=== PATIENT | male | born 1935 | race African-American/Black ===

== ENCOUNTER 2018-01-01 17:43 | Inpatient (IN) | payer MEDICARE, OTHER ==
[2018-01-01 19:56] LABS: % BASOPHILS 0.2 % (0.0-2.0); % MONOCYTES 10.6 % (2.0-10.0); % NEUTROPHILS 60.2 % (40.0-80.0); EOSINOPHILE ABSOLUTE 0.2 Th/cmm (0.1-0.4); HEMATOCRIT 32.7 % (41.0-60); LYMPHOCYTE ABSOLUTE 1.5 Th/cmm (1.5-3.0); MEAN CELL VOLUME 89.7 fl (80-99); MEAN CORPUSCULAR HEMOGLOBIN 27.6 pg (27.0-31.0); MEAN CORPUSCULAR HGB CONC 30.7 pg (28.0-36.0); MEAN PLATELET VOLUME 8.8 fl; MONOCYTE ABSOLUTE 0.6 Th/cmm (0.3-1.0); NEUTROPHILE ABSOLUTE 3.3 Th/cmm (1.8-8.0); PLATELET COUNT 155 Th/cmm (150-400); RED BLOOD COUNT 3.64 Mil/cmm (3.80-5.80); RED CELL DISTRIBUTION WIDTH 15.3 % (11.5-20.0); WHITE BLOOD COUNT 5.6 Th/cmm (4.8-10.8)
[2018-01-01 20:15] LABS: URINE MICROSCOPIC INDICATED? YES; URINE SOURCE RANDOM
[2018-01-01 20:15] LABS: ALB/GLOB RATIO 0.8 (1.0-1.8); ALKALINE PHOSPHATASE 71 U/L (34-104); ANION GAP 14.4 (7.0-16.0); BILIRUBIN,TOTAL 0.3 mg/dL (0.3-1.0); BUN - UREA NITROGEN 28 mg/dL (7-25); CALCIUM SERUM 8.6 mg/dL (8.6-10.3); CARBON DIOXIDE 12.4 mEq/L (21.0-31.0); CHLORIDE 115 mEq/L (98-107); CREATININE - SERUM 1.3 mg/dL (0.7-1.3); GLUCOSE 101 mg/dL (70-105); POTASSIUM SERUM 3.8 mEq/L (3.5-5.1); SGOT 14 U/L (13-39); SGPT/ALT 7 U/L (7-52); SODIUM SERUM 138 mEq/L (136-145)
[2018-01-01 20:18] LABS: URINE BILIRUBIN NEGATIVE (NEGATIVE); URINE BLOOD NEGATIVE (NEGATIVE); URINE GLUCOSE (UA) NEGATIVE (NEGATIVE); URINE KETONE NEGATIVE (NEGATIVE); URINE LEUKOCYTE ESTERASE NEGATIVE (NEGATIVE); URINE NITRATE NEGATIVE (NEGATIVE); URINE PROTEIN NEGATIVE (NEGATIVE); URINE UROBILINOGEN 0.2 E.U./dL (0.2 - 1.0)
[2018-01-01 20:24] LABS: URINE CLARITY CLEAR (CLEAR); URINE COLOR YELLOW
[2018-01-01 20:25] LABS: URINE BACTERIA NONE SEEN /hpf (NONE SEEN); URINE EPITHELIAL CELLS NONE SEEN /lpf (FEW); URINE RBC NONE SEEN /hpf (0-5); URINE WBC NONE SEEN /hpf (0-5)
--- NOTE | 2018-01-01 21:17 | ED Physician Chart ---
ED Chief Complaint/HPI - Patient Information Date Seen:: 01/01/18 Time Seen:: 21:17 Chief Complaint:: Increased agitation History of Present Illness:: 83 yo male was brought from SNF to ER for evaluation of increased agitation and confusion. Allergies:: Allergies Allergy/AdvReac Type Severity Reaction Status Date / Time No Known Allergies Allergy Verified 01/01/18 17:46 Vitals:: Vital Signs - 8 hr 01/01/18 01/01/18 01/01/18 17:46 19:30 20:30 Temp 98.1 F 98.2 F 98.2 F HR 86 98 96 RR 17 20 18 BP 138/74 132/79 133/67 O2 Sat % 96 99 100 ED Review of Systems - Review of Systems General/Constitutional: No fever Skin: No rash Head: No headache Eyes: No pain ENT: No earache Neck: No neck pain Cardio Vascular: No chest pain Pulmonary: No SOB GI: No nausea, No vomiting Musculoskeletal: No bone or joint pain Neurological: No focal symptoms ED Past Medical History - Past Medical History Past Medical History: HTN, Dyslipidemia, PUD/GERD, Dementia, Other (PNA, Afib) Social History: Smoker, No Alcohol, No Drug Use Psychiatricy History: Other (anxiety) Family Medical History - Family Member Mother History Unknown: Yes ED Physical Exam - Physical Examination General/Constitutional: Awake Head: Atraumatic Eyes: PERRL Skin: No skin lesions ENMT: Nasal exam nl Neck: No nuchal rigidity Respiratory: No Wheeze/Rhonchi/Rales Cardio Vascular: RRR, No murmur, gallop, rubs, NL S1 S2 GI: No tenderness/rebounding/guarding Extremities: normal strength in all extremities Neuro/Psych: No focal deficits ED Labs/Radiology/EKG Results - Lab Results Results: Laboratory Tests 01/01/18 01/01/18 01/01/18 18:44 19:50 19:50 WBC 5.6 RBC 3.64 L Hgb 10.0 L Hct 32.7 L MCV 89.7 MCH 27.6 MCHC Differential 30.7 RDW 15.3 Plt Count 155 MPV 8.8 Neutrophils % 60.2 Lymphocytes % 26.0 Monocytes % 10.6 H Eosinophils % 3.0 Basophils % 0.2 Sodium 138 Potassium 3.8 Chloride 115 H Carbon Dioxide 12.4 L Anion Gap 14.4 BUN 28 H Creatinine 1.3 Est GFR ( Amer) TNP Est GFR (Non-Af Amer) TNP BUN/Creatinine Ratio 21.5 Glucose 101 Calcium 8.6 Total Bilirubin 0.3 AST 14 ALT 7 Alkaline Phosphatase 71 Total Protein 7.0 Albumin 3.0 L Globulin 4.0 Albumin/Globulin Ratio 0.8 L Urine Source RANDOM Urine Color YELLOW Urine Clarity CLEAR Urine pH 6.0 Ur Specific Mckean 1.015 Urine Protein NEGATIVE Urine Glucose (UA) NEGATIVE Urine Ketones NEGATIVE Urine Blood NEGATIVE Urine Nitrate NEGATIVE Urine Bilirubin NEGATIVE Urine Urobilinogen 0.2 Ur Leukocyte Esterase NEGATIVE Urine RBC NONE SEEN Urine WBC NONE SEEN Ur Epithelial Cells NONE SEEN Urine Bacteria NONE SEEN - Radiology Results Results: CXR: RLL opacity secondary to previous embolization procedure ED Assessment - Assessment General Assessment: Psychosis Normocytic anemia Assessment/Comments:: CBC, CMP, UA CXR, EKG ED Septic Shock - . Is Septic Shock (SBP<90, OR Lactate>4 mmol\L) present?: No - <6hrs of presentation: Vital Signs: Vital Signs - 8 hr 01/01/18 01/01/18 01/01/18 17:46 19:30 20:30 Temp 98.1 F 98.2 F 98.2 F HR 86 98 96 RR 17 20 18 BP 138/74 132/79 133/67 O2 Sat % 96 99 100 ED Reassessment (Disposition) - Reassessment Reassessment Condition:: Unchanged - Patient Disposition Discharge/Transfer:: Cole w/in this hosp Admitting Medical Physician:: Adriana Yates Admitting Psych Physician:: Maile Marsh ED Discharge Plan - Patient Disposition Admit/Discharge/Transfer: Acute Care w/in this hosp
[2018-01-02 00:06] VITALS: BP 120/65
[2018-01-02] MEDS ORDERED: Maalox 30 mL Cup PO PRN (01:36)
[2018-01-02] MEDS ORDERED: Magnesium Hydroxide (MOM) 30 mL UDC PO PRN (01:36)
[2018-01-02] MEDS: Albuterol/Ipratropium Neb 3 ML AERS HHN SCH ×3 (07:28→23:44)
[2018-01-02] MEDS ORDERED: Pantoprazole 40 mg EC Tab PO SCH ×2 (07:30→09:00)
--- NOTE | 2018-01-02 08:59 | Diagnostic Imaging Report ---
CHEST X-RAY: AP view INDICATION: Shortness of breath COMPARISON: None FINDINGS: Abnormal opacity of the right lower lung zone is seen. There appear to be evidence of previous embolization procedure along the right lower hemithorax. Chronic lung changes are noted. Cardiomegaly is noted with tortuous aorta. Degenerative changes of the spine are noted. Right apical pleural thickening is noted. IMPRESSION: Abnormal opacity of the right lower lung zone probably due to combination of pleural and parenchymal disease. Some of which may be chronic. Please correlate with clinical history and old exams. Acute infiltrate cannot be excluded. Follow-up is recommended Right apical pleural thickening. Again correlation with old exams recommended Evidence of previous right lung embolization procedure. Mild cardiomegaly. If indicated short-term follow-up CT exam would provide additional detail and assessment.
[2018-01-02] MEDS: Atenolol 100mg Tab PO SCH (10:00)
[2018-01-02] MEDS: Diltiazem CD 120 mg 24H PO SCH (10:00)
[2018-01-02] MEDS: Aspirin 81mg Chewable Tab PO SCH (10:00)
--- NOTE | 2018-01-02 17:30 | History & Physical ---
ADMIT DATE: 01/02/2018 CHIEF COMPLAINT: Agitation. HISTORY OF PRESENT ILLNESS: This is an 82-year-old male who was originally admitted from a long-term facility through the Emergency Room due to increased agitation. REVIEW OF SYSTEMS: GENERAL: This is an 82-year-old male that appears as stated. No fever, no chills. HEAD: No headache. No dizziness. EYES: No eye pain, no blurring of vision. NECK: No neck pain, no nuchal rigidity. CHEST: No chest pain. No palpitation. PULMONARY: No coughing. No shortness of breath. GASTROINTESTINAL: No constipation, no diarrhea, no abdominal pain. MUSCULOSKELETAL: No joint pain. No muscle pain. SOCIAL HISTORY: The patient lives in a long-term facility prior to hospitalization. PAST SURGICAL HISTORY: Unremarkable. FAMILY HISTORY: Unremarkable. PSYCHIATRIC HISTORY: Includes anxiety. PAST MEDICAL HISTORY: Includes hypertension, hyperlipidemia, dementia, gastroesophageal reflux disease, and osteoarthritis. PHYSICAL EXAMINATION: VITAL SIGNS: Temperature 97.7, heart rate 75, blood pressure 148/86, respiration of 18, and 97% on room air. HEENT: Head is atraumatic and normocephalic. ENT: Bilateral conjunctivae are clear. Bilateral pupils are equal, round, and reactive. NECK: Supple. No JVD. CARDIOVASCULAR: S1 and S2 without murmur. PULMONARY: Clear to auscultation. GASTROINTESTINAL: Soft and nontender without guarding. Positive bowel sounds. MUSCULOSKELETAL: No clubbing. No cyanosis noted. ASSESSMENT: 1. Psychosis. 2. Anxiety. 3. Dementia. 4. Hypertension. 5. Hyperlipidemia. 6. Osteoarthritis. 7. Gastroesophageal reflux disease. PLAN: We will admit the patient to Inpatient Psychiatric Unit. We will follow up with the psychiatrist to monitor the patient's condition and behavior. We also can do medication reconciliation accordingly. Treatment plans were discussed with the patient's nurse. Treatment plans were discussed with Dr. Yates. JOB# [id number]
--- NOTE | 2018-01-03 00:15 | Psychosocial Evaluation ---
DATE OF SERVICE: INITIAL PSYCHIATRIC EVALUATION COVERING FOR: Dr. Marsh. CHIEF COMPLAINT: Limited historian, does not give much information. HISTORY OF PRESENT ILLNESS: The patient is an 82-year-old male who was brought in here to the ER for increased agitation, medically cleared and transferred. Today on [id number] evaluation, a limited historian, does not give much information, observed to be at times disorganized and not able to keep a coherent conversation. Denies any suicidal or homicidal ideation. PAST PSYCHIATRIC HISTORY: History of dementia. PAST MEDICAL HISTORY: Includes acute renal failure, ____, AFib, essential hypertension, type 2 diabetes, anemia, muscle weakness, hypertension and blindness. LABORATORY DATA: Labs from the ER very unremarkable. FAMILY PSYCHIATRIC HISTORY: None. SOCIAL HISTORY: Living in a fci. Denies any illicit drug use. HOME MEDICATIONS: Include levofloxacin, pantoprazole, heparin, Tylenol, aspirin, diltiazem, ____, and albuterol. and albuterol. MENTAL STATUS EXAMINATION: He is in room, in his bed, isolative, withdrawn, minimally interactive. Unable to assess thought process, thought content, [id number] insight, judgment and impulse control. ASSESSMENT AND PLAN: The patient with severe dementia and behavioral disturbances. We will continue with the current medication regimen and augment with Aricept to target the patient's severe dementia with behavior disturbances and we will monitor and evaluate until we obtain more collateral baseline information. Estimated stay between 5-10 days. DISCHARGE CRITERIA: The patient demonstrate euthymic mood. Addendum to the H and P, unable to assess immediate and recent memory, attention span ____ severely mentally impaired and unable to participate. STRENGTH: Good family support. WEAKNESS: Poor coping skills. JOB# [id number]
[2018-01-03] MEDS: Albuterol/Ipratropium Neb 3 ML AERS HHN SCH ×2 (07:16→15:26)
--- NOTE | 2018-01-03 08:55 | General Progress Note ---
Subjective - Review of Systems Events since last encounter: irritable in no acute distress Objective - Results Result Diagrams: 01/01/18 19:50 01/01/18 19:50 Recent Labs: Laboratory Last Values WBC 5.6 Th/cmm (4.8-10.8) 01/01/18 19:50 RBC 3.64 Mil/cmm (3.80-5.80) L 01/01/18 19:50 Hgb 10.0 gm/dL (12-16) L 01/01/18 19:50 Hct 32.7 % (41.0-60) L 01/01/18 19:50 MCV 89.7 fl (80-99) 01/01/18 19:50 MCH 27.6 pg (27.0-31.0) 01/01/18 19:50 MCHC Differential 30.7 pg (28.0-36.0) 01/01/18 19:50 RDW 15.3 % (11.5-20.0) 01/01/18 19:50 Plt Count 155 Th/cmm (150-400) 01/01/18 19:50 MPV 8.8 fl 01/01/18 19:50 Neutrophils % 60.2 % (40.0-80.0) 01/01/18 19:50 Lymphocytes % 26.0 % (20.0-50.0) 01/01/18 19:50 Monocytes % 10.6 % (2.0-10.0) H 01/01/18 19:50 Eosinophils % 3.0 % (0.0-5.0) 01/01/18 19:50 Basophils % 0.2 % (0.0-2.0) 01/01/18 19:50 Sodium 138 mEq/L (136-145) 01/01/18 19:50 Potassium 3.8 mEq/L (3.5-5.1) 01/01/18 19:50 Chloride 115 mEq/L (98-107) H 01/01/18 19:50 Carbon Dioxide 12.4 mEq/L (21.0-31.0) L 01/01/18 19:50 Anion Gap 14.4 (7.0-16.0) 01/01/18 19:50 BUN 28 mg/dL (7-25) H 01/01/18 19:50 Creatinine 1.3 mg/dL (0.7-1.3) 01/01/18 19:50 Est GFR ( Amer) TNP 01/01/18 19:50 Est GFR (Non-Af Amer) TNP 01/01/18 19:50 BUN/Creatinine Ratio 21.5 01/01/18 19:50 Glucose 101 mg/dL (70-105) 01/01/18 19:50 Calcium 8.6 mg/dL (8.6-10.3) 01/01/18 19:50 Total Bilirubin 0.3 mg/dL (0.3-1.0) 01/01/18 19:50 AST 14 U/L (13-39) 01/01/18 19:50 ALT 7 U/L (7-52) 01/01/18 19:50 Alkaline Phosphatase 71 U/L (34-104) 01/01/18 19:50 Total Protein 7.0 gm/dL (6.0-8.3) 01/01/18 19:50 Albumin 3.0 gm/dL (4.2-5.5) L 01/01/18 19:50 Globulin 4.0 gm/dL 01/01/18 19:50 Albumin/Globulin Ratio 0.8 (1.0-1.8) L 01/01/18 19:50 TSH 0.90 uIU/ml (0.34-5.60) 01/01/18 20:58 Urine Source RANDOM 01/01/18 18:44 Urine Color YELLOW 01/01/18 18:44 Urine Clarity CLEAR (CLEAR) 01/01/18 18:44 Urine pH 6.0 (4.6 - 8.0) 01/01/18 18:44 Ur Specific Rattan 1.015 (1.005-1.030) 01/01/18 18:44 Urine Protein NEGATIVE mg/dL (NEGATIVE) 01/01/18 18:44 Urine Glucose (UA) NEGATIVE mg/dL (NEGATIVE) 01/01/18 18:44 Urine Ketones NEGATIVE mg/dL (NEGATIVE) 01/01/18 18:44 Urine Blood NEGATIVE (NEGATIVE) 01/01/18 18:44 Urine Nitrate NEGATIVE (NEGATIVE) 01/01/18 18:44 Urine Bilirubin NEGATIVE (NEGATIVE) 01/01/18 18:44 Urine Urobilinogen 0.2 E.U./dL (0.2 - 1.0) 01/01/18 18:44 Ur Leukocyte Esterase NEGATIVE (NEGATIVE) 01/01/18 18:44 Urine RBC NONE SEEN /hpf (0-5) 01/01/18 18:44 Urine WBC NONE SEEN /hpf (0-5) 01/01/18 18:44 Ur Epithelial Cells NONE SEEN /lpf (FEW) 01/01/18 18:44 Urine Bacteria NONE SEEN /hpf (NONE SEEN) 01/01/18 18:44 - Physical Exam Vitals and I&O: Vital Signs Temp 97.7 F 01/02/18 15:06 Pulse 72 01/03/18 07:19 Resp 18 01/03/18 07:19 BP 148/86 01/02/18 15:06 Pulse Ox 96 01/03/18 07:19 Intake & Output 01/02/18 01/03/18 01/03/18 18:59 06:59 18:59 Intake Total 900 Balance 900 Intake: Oral 900 Other: # Voids 3 # Bowel Movements 1 Active Medications: Current Medications Acetaminophen (Tylenol) 650 mg PO Q4HR PRN PRN Reason: Mild Pain / Temp above 100 Stop: 03/03/18 01:35 Al Hydrox/Mg Hydrox/Simethicone (Maalox) 30 ml PO Q4HR PRN PRN Reason: GI DISTRESS Stop: 03/03/18 01:35 Albuterol/Ipratropium (Duoneb Neb) 3 ml HHN Q8HRT [facility] Stop: 03/03/18 06:59 Last Admin: 01/03/18 07:16 Dose: 3 ml Aspirin (Aspirin Chewable) 81 mg PO DAILY [facility] Stop: 03/03/18 08:59 Last Admin: 01/02/18 10:00 Dose: 81 mg Atenolol (Tenormin) 100 mg PO DAILY [facility] Stop: 03/03/18 08:59 Last Admin: 01/02/18 10:00 Dose: 100 mg Atorvastatin Calcium (Lipitor) 40 mg PO DAILY [facility] Stop: 03/03/18 08:59 Last Admin: 01/02/18 10:06 Dose: 40 mg Diltiazem HCl (Cardizem Cd) 120 mg PO DAILY [facility] Stop: 03/03/18 08:59 Last Admin: 01/02/18 10:00 Dose: 120 mg Donepezil HCl (Aricept) 5 mg PO DAILY [facility] Stop: 03/04/18 08:59 Heparin Sodium (Porcine) (Heparin) 5,000 units SUBQ Q12HR [facility] Stop: 03/03/18 08:59 Last Admin: 01/02/18 21:40 Dose: 5,000 units Levofloxacin (Levaquin) 250 mg PO DAILY [facility] Stop: 01/04/18 08:59 Last Admin: 01/02/18 10:06 Dose: 250 mg Lorazepam (Ativan) 0.5 mg PO Q4HR PRN; Protocol PRN Reason: Anxiety Stop: 02/01/18 01:35 Magnesium Hydroxide (Milk Of Magnesia) 30 ml PO HS PRN PRN Reason: Constipation Pantoprazole Sodium (Protonix) 40 mg PO DAILY@0730 [facility] Stop: 03/03/18 07:29 Last Admin: 01/03/18 06:54 Dose: 40 mg Zolpidem Tartrate (Ambien) 5 mg PO HS PRN PRN Reason: Insomnia Stop: 03/03/18 01:40
[2018-01-03] MEDS: Diltiazem CD 120 mg 24H PO SCH (09:38)
[2018-01-03] MEDS: Aspirin 81mg Chewable Tab PO SCH (09:38)
[2018-01-03] MEDS: Atenolol 100mg Tab PO SCH (09:39)
--- NOTE | 2018-01-03 18:46 | Progress Notes ---
DATE: The patient was seen and evaluated. The patient's chart reviewed. Overnight nursing report that they have noted hemoptysis recently and he has been calm, little more irritable, and more agitated. Today on [id number] evaluation, the patient in his room isolated, disorganized with poor ability to engage in linear conversation. When attempted to discuss the recent hemoptysis, he does not give much information. MENTAL STATUS EXAMINATION: Disorganized delusion. ASSESSMENT AND PLAN: An 82-year-old male with a history of severe dementia with behavior disturbance, psychosis. We are waiting for medical consultation to come and evaluate the recent especially if he has a history of lung cancer. Due to the patient's severe dementia and behavioral disturbances, the patient is unable to demonstrate ability to provide food, snf or clothing outside of the structured environment. We will continue with Aricept 5 mg p.o. daily. [facility]# [id number]
== END 2018-01-03 21:50 | DRG 884 ==
LOC: ER 17:43 → GERO2 22:36
PROVIDERS: ADMIT Psychiatry & Neurology Psychiatry; ATTEND Psychiatry & Neurology Psychiatry
DX: F03.91 Unspecified dementia, unspecified severity, with behavioral disturbance (principal); I48.91 Unspecified atrial fibrillation; E11.9 Type 2 diabetes mellitus without complications; F29 Unspecified psychosis not due to a substance or known physiological condition; I10 Essential (primary) hypertension; F41.9 Anxiety disorder, unspecified; E78.5 Hyperlipidemia, unspecified; K21.9 Gastro-esophageal reflux disease without esophagitis; M19.90 Unspecified osteoarthritis, unspecified site
CPT/HCPCS: 36415-UA; 71045-TC; 80053-TC; 81001-TC; 82948-90; 84443-TC; 85025-TC; 93005; 94760; J1644; Z7610

== ENCOUNTER 2018-01-03 22:08 | Inpatient (IN) | payer MEDICARE, OTHER ==
[2018-01-03 22:18] VITALS: BP 148/60
[2018-01-03] MEDS: Levofloxacin 250mg/50mL 250 MG/50 ML BAG IV SCH (23:56)
[2018-01-04] MEDS ORDERED: Maalox 30 mL Cup PO PRN (08:06)
[2018-01-04] MEDS ORDERED: Magnesium Hydroxide (MOM) 30 mL UDC PO PRN (08:06)
[2018-01-04] MEDS: Pantoprazole 40 mg EC Tab PO SCH (10:24)
[2018-01-04] MEDS: Diltiazem CD 120 mg 24H PO SCH (10:24)
[2018-01-04] MEDS: Aspirin 81mg Chewable Tab PO SCH (10:24)
[2018-01-04] MEDS: Atenolol 100mg Tab PO SCH (10:26)
[2018-01-04 12:27] LABS: % BASOPHILS 0.4 % (0.0-2.0); % EOSINOPHILS 3.1 % (0.0-5.0); % LYMPHOCYTES 22.2 % (20.0-50.0); % MONOCYTES 12.4 % (2.0-10.0); % NEUTROPHILS 61.9 % (40.0-80.0); EOSINOPHILE ABSOLUTE 0.2 Th/cmm (0.1-0.4); HEMOGLOBIN 9.7 gm/dL (12-16); LYMPHOCYTE ABSOLUTE 1.1 Th/cmm (1.5-3.0); MEAN CELL VOLUME 86.2 fl (80-99); MEAN CORPUSCULAR HEMOGLOBIN 27.7 pg (27.0-31.0); MEAN CORPUSCULAR HGB CONC 32.2 pg (28.0-36.0); MEAN PLATELET VOLUME 8.5 fl; MONOCYTE ABSOLUTE 0.6 Th/cmm (0.3-1.0); NEUTROPHILE ABSOLUTE 3.2 Th/cmm (1.8-8.0); RED BLOOD COUNT 3.48 Mil/cmm (3.80-5.80); RED CELL DISTRIBUTION WIDTH 14.6 % (11.5-20.0); WHITE BLOOD COUNT 5.1 Th/cmm (4.8-10.8)
--- NOTE | 2018-01-04 12:29 | Internal Medicine Prog Note ---
Internal Medicine Subjective - Subjective Service Date: 01/04/18 Patient seen and examined:: with staff Patient is:: awake, verbal, confused Per staff patient has:: tolerating meds Internal Medicine Objective - Physical Exam Vitals and I&O: Vital Signs Temp 98.8 F 01/04/18 04:00 Pulse 73 01/04/18 10:24 Resp 18 01/04/18 09:26 BP 153/75 01/04/18 04:00 Pulse Ox 99 01/04/18 04:00 Intake & Output 01/03/18 01/04/18 01/04/18 18:59 06:59 18:59 Intake Total 100 Balance 100 Weight (lbs) 101 lb 14.4 oz Intake: Oral 100 Other: # Voids 1 # Bowel Movements 1 Active Medications: Current Medications Acetaminophen (Tylenol) 650 mg PO Q4HR PRN PRN Reason: Mild Pain / Temp above 100 Stop: 03/05/18 08:05 Al Hydrox/Mg Hydrox/Simethicone (Maalox) 30 ml PO Q4HR PRN PRN Reason: GI DISTRESS Stop: 03/05/18 08:05 Albuterol/Ipratropium (Duoneb Neb) 3 ml HHN Q8HRT [facility] Stop: 03/05/18 14:59 Aspirin (Aspirin Chewable) 81 mg PO DAILY [facility] Stop: 03/05/18 08:59 Last Admin: 01/04/18 10:24 Dose: 81 mg Atenolol (Tenormin) 100 mg PO DAILY [facility] Stop: 03/05/18 08:59 Last Admin: 01/04/18 10:26 Dose: 100 mg Atorvastatin Calcium (Lipitor) 40 mg PO DAILY [facility] PRN Reason: Protocol Stop: 03/05/18 08:59 Last Admin: 01/04/18 10:24 Dose: 40 mg Diltiazem HCl (Cardizem Cd) 120 mg PO DAILY [facility] Stop: 03/05/18 08:59 Last Admin: 01/04/18 10:24 Dose: 120 mg Donepezil HCl (Aricept) 5 mg PO DAILY [facility] Stop: 03/05/18 08:59 Last Admin: 01/04/18 10:25 Dose: 5 mg Heparin Sodium (Porcine) (Heparin) 5,000 units SUBQ Q12HR [facility] Stop: 04/27/18 08:59 Levofloxacin (Levaquin Pb) 250 mg in 50 mls @ 50 mls/hr IV Q24HR [facility] Stop: 03/04/18 22:59 Last Admin: 01/03/18 23:56 Dose: 50 mls/hr Lorazepam (Ativan) 0.5 mg PO Q4HR PRN; Protocol PRN Reason: Anxiety Stop: 03/05/18 08:05 Magnesium Hydroxide (Milk Of Magnesia) 30 ml PO HS PRN PRN Reason: Constipation Stop: 03/05/18 08:05 Pantoprazole Sodium (Protonix) 40 mg PO DAILY@0730 [facility] Stop: 03/05/18 08:59 Last Admin: 01/04/18 10:24 Dose: 40 mg Zolpidem Tartrate (Ambien) 5 mg PO HS PRN PRN Reason: Insomnia Stop: 03/05/18 08:05 General: weak, alert HEENT: NC/AT, PERRLA Neck: Supple Lungs: ronchi Abdomen: soft, non-tender, non-distended, positive bowel sound Neurological: unable to follow command Internal Medicine Assmt/Plan - Assessment Assessment: pneumonia dementia htn hyperlipidemia oa gerd - Plan Plan: f/u cxr in am cbc/bmp in am bronchodilators supplemental oyxgen as needed continue current orders
[2018-01-04 12:32] LABS: PLATELET COUNT 216 Th/cmm (150-400)
[2018-01-04 12:46] LABS: ANION GAP 11.5 (7.0-16.0); BUN - UREA NITROGEN 24 mg/dL (7-25); CALCIUM SERUM 9.3 mg/dL (8.6-10.3); CHLORIDE 111 mEq/L (98-107); CREATININE - SERUM 1.4 mg/dL (0.7-1.3); GLUCOSE 91 mg/dL (70-105); POTASSIUM SERUM 4.5 mEq/L (3.5-5.1); SODIUM SERUM 142 mEq/L (136-145)
[2018-01-04] MEDS: Albuterol/Ipratropium Neb 3 ML AERS HHN SCH ×2 (14:46→22:44)
[2018-01-04] MEDS: Levofloxacin 250mg/50mL 250 MG/50 ML BAG IV SCH (23:55)
--- NOTE | 2018-01-05 00:21 | Progress Notes ---
DATE: 01/04/[address] Marsh. Case was discussed with staff of the patient, reviewed records. The patient is a poor historian. He is an 82-year-old male who was transferred from [facility]. He was originally admitted because of agitation. He was in [facility] on 01/01/2018. He was a poor historian, does not give much information. He denies any suicidal ideation and homicidal ideation with a history of dementia. However, he has also renal failure, atrial fibrillation, type 2 diabetes mellitus, anemia, muscle weakness, and hypertension. The patient continues to be impaired, continues to be unpredictable, impulsive, and needing redirection. He was seen by Dr. Aldana. He is on Aricept 5 mg at bedtime with no side effects, no sedation, and no nausea. The patient needs to go to [facility] when medically cleared. Thank you very much for allowing me to participate in the care of this most interesting gentleman. JOB# [id number]
[2018-01-05 06:36] LABS: % BASOPHILS 0.6 % (0.0-2.0); % MONOCYTES 11.9 % (2.0-10.0); % NEUTROPHILS 55.5 % (40.0-80.0); EOSINOPHILE ABSOLUTE 0.2 Th/cmm (0.1-0.4); HEMATOCRIT 29.9 % (41.0-60); HEMOGLOBIN 9.8 gm/dL (12-16); LYMPHOCYTE ABSOLUTE 1.5 Th/cmm (1.5-3.0); MEAN CELL VOLUME 84.7 fl (80-99); MEAN CORPUSCULAR HEMOGLOBIN 27.8 pg (27.0-31.0); MEAN CORPUSCULAR HGB CONC 32.9 pg (28.0-36.0); MEAN PLATELET VOLUME 8.8 fl; MONOCYTE ABSOLUTE 0.6 Th/cmm (0.3-1.0); NEUTROPHILE ABSOLUTE 2.9 Th/cmm (1.8-8.0); PLATELET COUNT 194 Th/cmm (150-400); RED BLOOD COUNT 3.53 Mil/cmm (3.80-5.80); RED CELL DISTRIBUTION WIDTH 14.5 % (11.5-20.0); WHITE BLOOD COUNT 5.2 Th/cmm (4.8-10.8)
[2018-01-05] MEDS: Pantoprazole 40 mg EC Tab PO SCH (06:46)
[2018-01-05 06:56] LABS: ANION GAP 9.7 (7.0-16.0); BUN - UREA NITROGEN 29 mg/dL (7-25); CALCIUM SERUM 9.2 mg/dL (8.6-10.3); CARBON DIOXIDE 22.8 mEq/L (21.0-31.0); CHLORIDE 112 mEq/L (98-107); CREATININE - SERUM 1.2 mg/dL (0.7-1.3); GLUCOSE 97 mg/dL (70-105); POTASSIUM SERUM 4.5 mEq/L (3.5-5.1); SODIUM SERUM 140 mEq/L (136-145)
[2018-01-05] MEDS: Albuterol/Ipratropium Neb 3 ML AERS HHN SCH ×3 (07:07→23:08)
[2018-01-05] MEDS: Atenolol 100mg Tab PO SCH (09:25)
[2018-01-05] MEDS: Aspirin 81mg Chewable Tab PO SCH (09:25)
[2018-01-05] MEDS: Diltiazem CD 120 mg 24H PO SCH (09:25)
--- NOTE | 2018-01-05 09:51 | Diagnostic Imaging Report ---
Exam: Portable upright examination of the chest. HISTORY: Pneumonia. Findings: Portable upright examination of the chest at 0748 hours reviewed compared to prior study 01/01/2018 demonstrates a unchanged appearance of the postoperative changes in the right lung base. There is evidence for most likely embolization of the right pulmonary artery. The left hemidiaphragm is elevated. Atelectatic changes left base versus pneumonic infiltrate cannot be excluded. Follow-up examination is recommended. Bony thorax intact. IMPRESSION: Opacification right lung base most likely due to postoperative changes are present chronic fibrotic scarring. Left basilar infiltrate superimposed small effusion, follow-up dictation recommended. CT examination of chest might be helpful.
--- NOTE | 2018-01-05 10:45 | Consultation ---
Consult Note - Consult Note Service Date: 01/05/18 Referring Physician: Adriana Yates Consult Note: PHYSICIAN Consultation Note: Date of Admission: 01/03/18 Purpose of Consultation: Pneumonia. Chief Complaint: Patient NIDIA WORLEY was admitted to location Medical[facility] Unit I with PNA. History of Present Illness: Patient is a 82-year-old male with a past medical history of forearm Is mellitus type II, atrial fibrillation, renal failure, anemia, hypertension admitted initially to the geropsychiatric unit for agitation. Patient had the some history of hemoptysis, chest x-ray was done and showed some right lower lobe infiltrate. There is some vague history of lung CA was mentioned. Patient is poor historian and unable to give any history. Patient was transferred to acute care facility for further workup on the right lower lobe infiltrate. Past Medical History: Hypertension, diabetes mellitus type 2, renal failure, GERD, dementia, hyperlipidemia. Diagnoses HYPERLIPIDEMIA, UNSPECIFIED (01/03/18) UNSPECIFIED DEMENTIA WITHOUT BEHAVIORAL DISTURBANCE (01/03/18) ESSENTIAL (PRIMARY) HYPERTENSION (01/03/18) PNEUMONIA, UNSPECIFIED ORGANISM (01/03/18) GASTRO-ESOPHAGEAL REFLUX DISEASE WITHOUT ESOPHAGITIS (01/03/18) UNSPECIFIED OSTEOARTHRITIS, UNSPECIFIED SITE (01/03/18) UNSPECIFIED KIDNEY FAILURE (01/03/18) Allergies Allergy/AdvReac Type Severity Reaction Status Date / Time No Known Allergies Allergy Verified 01/01/18 17:46 Vital Signs Temp 98.6 F 01/05/18 01:51 Pulse 86 01/05/18 09:25 Resp 20 01/05/18 07:08 BP 138/78 01/05/18 01:51 Pulse Ox 99 01/05/18 07:08 Intake & Output 01/04/18 01/05/18 01/05/18 18:59 06:59 18:59 Intake Total 1200 Output Total 2 Balance 1200 -2 Weight (lbs) 46.266 kg 46.266 kg Intake: Oral 1200 Output: Urine 2 Other: # Voids 4 1 # Bowel Movements 1 Laboratory Results - last 24 hr 01/04/18 01/04/18 01/05/18 11:50 11:50 05:50 WBC 5.1 5.2 RBC 3.48 L 3.53 L Hgb 9.7 L 9.8 L Hct 30.0 L 29.9 L MCV 86.2 84.7 MCH 27.7 27.8 MCHC Differential 32.2 32.9 RDW 14.6 14.5 Plt Count 216 D 194 MPV 8.5 8.8 Neutrophils % 61.9 55.5 Lymphocytes % 22.2 29.0 Monocytes % 12.4 H 11.9 H Eosinophils % 3.1 3.0 Basophils % 0.4 0.6 Sodium 142 Potassium 4.5 Chloride 111 H Carbon Dioxide 24.0 Anion Gap 11.5 BUN 24 Creatinine 1.4 H Est GFR ( Amer) TNP Est GFR (Non-Af Amer) TNP BUN/Creatinine Ratio 17.1 Glucose 91 Calcium 9.3 01/05/18 05:50 WBC RBC Hgb Hct MCV MCH MCHC Differential RDW Plt Count MPV Neutrophils % Lymphocytes % Monocytes % Eosinophils % Basophils % Sodium 140 Potassium 4.5 Chloride 112 H Carbon Dioxide 22.8 Anion Gap 9.7 BUN 29 H Creatinine 1.2 Est GFR ( Amer) TNP Est GFR (Non-Af Amer) TNP BUN/Creatinine Ratio 24.2 Glucose 97 Calcium 9.2 Home Medication Medication Instructions Recorded Type Acetaminophen [Tylenol] 650 mg PO Q4HR PRN tab 01/03/18 Rx Al Hyd/Mg Hyd/Simethicone [Maalox] 30 ml PO Q4HR PRN udc 01/03/18 Rx Albuterol/Ipratropium Neb [Duoneb 3 ml HHN Q8HRT aers 01/03/18 Rx Neb] Aspirin [Aspirin Chewable] 81 mg PO DAILY ctb 01/03/18 Rx Atenolol [Tenormin] 100 mg PO DAILY tablet 01/03/18 Rx Atorvastatin Calcium [Lipitor] 40 mg PO DAILY tab 01/03/18 Rx Diltiazem CD [Cardizem Cd] 120 mg PO DAILY c24 01/03/18 Rx Donepezil Hcl [Aricept] 5 mg PO DAILY tab 01/03/18 Rx Heparin Sodium [Heparin*] 5,000 units SUBQ Q12HR vial 01/03/18 Rx Levofloxacin [Levaquin] 250 mg PO DAILY tab 01/03/18 Rx Lorazepam [Ativan] 0.5 mg PO Q4HR PRN tab 01/03/18 Rx Magnesium Hydroxide [Milk of 30 ml PO HS PRN udc 01/03/18 Rx Magnesia] Pantoprazole [Protonix] 40 mg PO DAILY@0730 ect 01/03/18 Rx Zolpidem Tartrate [Ambien] 5 mg PO HS PRN tab 01/03/18 Rx Current Medications Generic Name Dose Route Start Last Admin Trade Name Freq PRN Reason Stop Dose Admin Acetaminophen 650 mg 01/04/18 08:06 Tylenol PO 03/05/18 08:05 Q4HR PRN Mild Pain / Temp above 100 Al Hydrox/Mg Hydrox/Simethicone 30 ml 01/04/18 08:06 Maalox PO 03/05/18 08:05 Q4HR PRN GI DISTRESS Albuterol/Ipratropium 3 ml 01/04/18 15:00 01/05/18 07:07 Duoneb Neb HHN 03/05/18 14:59 3 ml Q8HRT [facility] Administration Aspirin 81 mg 01/04/18 09:00 01/05/18 09:25 Aspirin Chewable PO 03/05/18 08:59 81 mg DAILY [facility] Administration Atenolol 100 mg 01/04/18 09:00 01/05/18 09:25 Tenormin PO 03/05/18 08:59 100 mg DAILY [facility] Administration Atorvastatin Calcium 40 mg 01/04/18 09:00 01/05/18 09:25 Lipitor PO 03/05/18 08:59 40 mg DAILY [facility] Administration Protocol Diltiazem HCl 120 mg 01/04/18 09:00 01/05/18 09:25 Cardizem Cd PO 03/05/18 08:59 120 mg DAILY [facility] Administration Donepezil HCl 5 mg 01/04/18 09:00 01/05/18 09:25 Aricept PO 03/05/18 08:59 5 mg DAILY [facility] Administration Heparin Sodium (Porcine) 5,000 units 01/04/18 13:45 01/05/18 09:25 Heparin SUBQ 03/05/18 13:44 5,000 units Q12HR [facility] Administration Levofloxacin 250 mg in 50 mls @ 50 mls/hr 01/03/18 23:00 01/04/18 23:55 Levaquin Pb IV 03/04/18 22:59 50 mls/hr Q24HR [facility] Administration Lorazepam 0.5 mg 01/04/18 08:06 Ativan PO 03/05/18 08:05 Q4HR PRN Anxiety Protocol Magnesium Hydroxide 30 ml 01/04/18 08:06 Milk Of Magnesia PO 03/05/18 08:05 HS PRN Constipation Pantoprazole Sodium 40 mg 01/04/18 09:00 01/05/18 06:46 Protonix PO 03/05/18 08:59 40 mg DAILY@0730 [facility] Administration Zolpidem Tartrate 5 mg 01/04/18 08:06 Ambien PO 03/05/18 08:05 HS PRN Insomnia Review of Systems: A 12 point ROS was reviewed with the pertinent positive and negatives noted in the HPI. Patient has poor history and unable to give any history. Although there is a mention of hemoptysis. Social History Smoking Status Unknown if ever smoked Drug Use UNKNOWN Alcohol Use UNKNOWN Family Medical History Unknown. Physical Exam: General: Comfortable, not in any acute distress. HEENT: Head: NC NT, Oral Cavity, moist, pink tongue. Eyes: pallor is present. Neck: Supple. no JVD, no carotid bruit. Cardio: S1 and S2 WNL Respiratory: Vesicular breath sounds, occasional crackles. Abdominal: Soft NT ND, BS present. Genital/Urinary: Deferred. Extremities: NCCE. Neurological: AAOx3. Assessment: 1. Pneumonia, ? cavitary lesions. 2. DM2 3. Depression. Plan: Will get CT scan chest today and go from there, Start vanco IV. and continue levaquin,. Thank you, Dr Yates for involving me in taking care of this patient. Signed, Gavin Nunn M.D. [id number]
--- NOTE | 2018-01-05 14:46 | History and Physical ---
History of Present Illness - HPI Chief Complaint: transfer from [facility] due to pna HPI: This is a 82 year old male who is a transfer from [facility] due to chest xray showing pna. Vital Signs: Last Vital Signs Temp 97.4 F 01/05/18 08:00 Pulse 86 01/05/18 09:25 Resp 20 01/05/18 08:00 BP 136/92 01/05/18 08:00 Pulse Ox 97 01/05/18 08:00 Past Medical History Other History: htn dm2 renal failure gerd dementia hyperlipidemia Family Medical History - Family Member Mother History Unknown: Yes Ethnicity: Unknown Living Status: Unknown Social History Smoke: No Alcohol: None Drugs: None Lives: Group Home - Medications Home Medications: Home Medication Medication Instructions Recorded Type Acetaminophen [Tylenol] 650 mg PO Q4HR PRN tab 01/03/18 Rx Al Hyd/Mg Hyd/Simethicone [Maalox] 30 ml PO Q4HR PRN udc 01/03/18 Rx Albuterol/Ipratropium Neb [Duoneb 3 ml HHN Q8HRT aers 01/03/18 Rx Neb] Aspirin [Aspirin Chewable] 81 mg PO DAILY ctb 01/03/18 Rx Atenolol [Tenormin] 100 mg PO DAILY tablet 01/03/18 Rx Atorvastatin Calcium [Lipitor] 40 mg PO DAILY tab 01/03/18 Rx Diltiazem CD [Cardizem Cd] 120 mg PO DAILY c24 01/03/18 Rx Donepezil Hcl [Aricept] 5 mg PO DAILY tab 01/03/18 Rx Heparin Sodium [Heparin*] 5,000 units SUBQ Q12HR vial 01/03/18 Rx Levofloxacin [Levaquin] 250 mg PO DAILY tab 01/03/18 Rx Lorazepam [Ativan] 0.5 mg PO Q4HR PRN tab 01/03/18 Rx Magnesium Hydroxide [Milk of 30 ml PO HS PRN udc 01/03/18 Rx Magnesia] Pantoprazole [Protonix] 40 mg PO DAILY@0730 ect 01/03/18 Rx Zolpidem Tartrate [Ambien] 5 mg PO HS PRN tab 01/03/18 Rx - Allergies Allergies/Adverse Reactions: Allergies Allergy/AdvReac Type Severity Reaction Status Date / Time No Known Allergies Allergy Verified 02/23/18 17:46 Review of Systems - Review of Systems Constitutional: Report: No Significant Eyes: Report: No Significant ENT: Report: No Significant Respiratory: Report: No Significant Cardiovascular: Report: No Significant Gastrointestinal: Report: No Significant Genitourinary: Report: No Significant Skin: Report: No Significant Neurological: Report: Weakness Physical Exam - Physical Exam HEENT: Report: Ears Nose Throat within normal limits Neck: Report: Within normal limits Cardiovascular Systems: Report: +s1/s2 noted, Regular, Rate and Rhythm Respiratory: Report: Breath Sounds are within normal limits Abdomen: Report: Non-tender to palpation Back: Report: Inspection of back is within normal limits. Extremities: Report: Non-tender to palpation. Skin: Report: Color of skin is within normal limits Neuro/Psych: Report: Mood affect is within normal limits - Lab Results All Lab Results last 24 hours: Laboratory Results - last 24 hr 01/05/18 01/05/18 05:50 05:50 WBC 5.2 RBC 3.53 L Hgb 9.8 L Hct 29.9 L MCV 84.7 MCH 27.8 MCHC Differential 32.9 RDW 14.5 Plt Count 194 MPV 8.8 Neutrophils % 55.5 Lymphocytes % 29.0 Monocytes % 11.9 H Eosinophils % 3.0 Basophils % 0.6 Sodium 140 Potassium 4.5 Chloride 112 H Carbon Dioxide 22.8 Anion Gap 9.7 BUN 29 H Creatinine 1.2 Est GFR ( Amer) TNP Est GFR (Non-Af Amer) TNP BUN/Creatinine Ratio 24.2 Glucose 97 Calcium 9.2 Microbiology 01/03/18 00:25 - Final Nares Staph Aureus-Mrsa Isolated - Assessment Assessment: pneumonia dementia htn hyperlipidemia oa gerd - Plan Plan: cbc/bmp in am bronchodilators supplemental oyxgen as needed continue current orders
--- NOTE | 2018-01-05 21:49 | Progress Notes ---
DATE: 01/05/2018 Case discussed with the staff and reviewed the records. Covering for Dr. Marsh. The patient has a history of agitation, irritability. He is a poor historian, does not give much information. He has many medical conditions. He is compliant with the medication with no side effects, no sedation, no nausea, and no extrapyramidal symptoms. Abilify 5 mg at bedtime and Ativan 0.5 mg every 4 hours as needed. The patient needs to go to [facility] if still getting agitated Thank you very much for allowing me to participate in the care of this most interesting gentleman. JOB# [id number]
[2018-01-05] MEDS: Levofloxacin 250mg/50mL 250 MG/50 ML BAG IV SCH (23:09)
[2018-01-06] MEDS: Pantoprazole 40 mg EC Tab PO SCH (06:34)
[2018-01-06 07:12] LABS: % BASOPHILS 0.3 % (0.0-2.0); % EOSINOPHILS 3.2 % (0.0-5.0); % LYMPHOCYTES 29.2 % (20.0-50.0); % MONOCYTES 12.3 % (2.0-10.0); EOSINOPHILE ABSOLUTE 0.2 Th/cmm (0.1-0.4); HEMATOCRIT 28.1 % (41.0-60); HEMOGLOBIN 9.3 gm/dL (12-16); LYMPHOCYTE ABSOLUTE 1.4 Th/cmm (1.5-3.0); MEAN CELL VOLUME 84.5 fl (80-99); MEAN CORPUSCULAR HEMOGLOBIN 27.8 pg (27.0-31.0); MEAN CORPUSCULAR HGB CONC 32.9 pg (28.0-36.0); MEAN PLATELET VOLUME 8.8 fl; MONOCYTE ABSOLUTE 0.6 Th/cmm (0.3-1.0); NEUTROPHILE ABSOLUTE 2.5 Th/cmm (1.8-8.0); PLATELET COUNT 204 Th/cmm (150-400); RED BLOOD COUNT 3.33 Mil/cmm (3.80-5.80); RED CELL DISTRIBUTION WIDTH 14.4 % (11.5-20.0); WHITE BLOOD COUNT 4.7 Th/cmm (4.8-10.8)
[2018-01-06 07:24] LABS: ANION GAP 12.2 (7.0-16.0); BUN - UREA NITROGEN 25 mg/dL (7-25); CARBON DIOXIDE 20.9 mEq/L (21.0-31.0); CHLORIDE 111 mEq/L (98-107); CREATININE - SERUM 1.1 mg/dL (0.7-1.3); GLUCOSE 91 mg/dL (70-105); POTASSIUM SERUM 4.1 mEq/L (3.5-5.1); SODIUM SERUM 140 mEq/L (136-145)
[2018-01-06] MEDS: Albuterol/Ipratropium Neb 3 ML AERS HHN SCH ×3 (07:58→23:25)
--- NOTE | 2018-01-06 08:37 | Diagnostic Imaging Report ---
Exam: CT examination of chest Mass and cavity Total DLP equals 181 CTDI equals 4.7 Findings: Multiple contiguous thin section of the chest were obtained from thoracic outlet to the upper abdomen without the administration of contrast material, therefore the study somewhat limited. No prior studies available comparison. The study demonstrates COPD/and dizziness changes with bullous process in the right upper lung anteriorly There is evidence for cavitating lesion in the right midlung peripherally abutting the pleural surface measuring 4.7 cm diameter. The heart is prominent. There is no evidence of pleural effusions or active pneumonic infiltrates. The The aortic arch calcified. There is a question of postoperative changes status post partial embolization of the 1 of the segments of right pulmonary artery. Examination of the upper abdomen demonstrates multiple cystic renal disease IMPRESSION: 1. A large cavitating lesion in the right mid lower lung abutting the pleural surface measuring 4.7 cm diameter. This most likely represent chronic findings, status post inflammatory changes Clinical correlation recommended. 2. Multicystic renal disease.
[2018-01-06] MEDS: Diltiazem CD 120 mg 24H PO SCH (08:54)
[2018-01-06] MEDS: Aspirin 81mg Chewable Tab PO SCH (08:54)
[2018-01-06] MEDS: Atenolol 100mg Tab PO SCH (08:55)
--- NOTE | 2018-01-06 13:12 | Infectious Disease Prog Note ---
Infectious Disease Subjective - Review of Systems Service Date: 01/06/18 Subjective: There is no new change, no fever. Infectious Disease Objective - Results Result Diagrams: 01/06/18 06:45 01/06/18 06:45 Recent Labs: Laboratory Last Values WBC 4.7 Th/cmm (4.8-10.8) L 01/06/18 06:45 RBC 3.33 Mil/cmm (3.80-5.80) L 01/06/18 06:45 Hgb 9.3 gm/dL (12-16) L 01/06/18 06:45 Hct 28.1 % (41.0-60) L 01/06/18 06:45 MCV 84.5 fl (80-99) 01/06/18 06:45 MCH 27.8 pg (27.0-31.0) 01/06/18 06:45 MCHC Differential 32.9 pg (28.0-36.0) 01/06/18 06:45 RDW 14.4 % (11.5-20.0) 01/06/18 06:45 Plt Count 204 Th/cmm (150-400) 01/06/18 06:45 MPV 8.8 fl 01/06/18 06:45 Neutrophils % 55.0 % (40.0-80.0) 01/06/18 06:45 Lymphocytes % 29.2 % (20.0-50.0) 01/06/18 06:45 Monocytes % 12.3 % (2.0-10.0) H 01/06/18 06:45 Eosinophils % 3.2 % (0.0-5.0) 01/06/18 06:45 Basophils % 0.3 % (0.0-2.0) 01/06/18 06:45 Sodium 140 mEq/L (136-145) 01/06/18 06:45 Potassium 4.1 mEq/L (3.5-5.1) 01/06/18 06:45 Chloride 111 mEq/L (98-107) H 01/06/18 06:45 Carbon Dioxide 20.9 mEq/L (21.0-31.0) L 01/06/18 06:45 Anion Gap 12.2 (7.0-16.0) 01/06/18 06:45 BUN 25 mg/dL (7-25) 01/06/18 06:45 Creatinine 1.1 mg/dL (0.7-1.3) 01/06/18 06:45 Est GFR ( Amer) TNP 01/06/18 06:45 Est GFR (Non-Af Amer) TNP 01/06/18 06:45 BUN/Creatinine Ratio 22.7 01/06/18 06:45 Glucose 91 mg/dL (70-105) 01/06/18 06:45 Calcium 9.0 mg/dL (8.6-10.3) 01/06/18 06:45 - Physical Exam Vitals and I&O: Vital Signs Temp 98.2 F 01/06/18 08:00 Pulse 70 01/06/18 08:54 Resp 18 01/06/18 09:00 BP 144/77 01/06/18 08:00 Pulse Ox 96 01/06/18 08:00 Intake & Output 01/05/18 01/06/18 01/06/18 18:59 06:59 18:59 Intake Total 720 50 Output Total 1 Balance 719 50 Weight (lbs) 46.266 kg 46.266 kg Intake: Oral 720 50 Output: Stool 1 Other: # Voids 4 2 Active Medications: Current Medications Acetaminophen (Tylenol) 650 mg PO Q4HR PRN PRN Reason: Mild Pain / Temp above 100 Stop: 03/05/18 08:05 Al Hydrox/Mg Hydrox/Simethicone (Maalox) 30 ml PO Q4HR PRN PRN Reason: GI DISTRESS Stop: 03/05/18 08:05 Albuterol/Ipratropium (Duoneb Neb) 3 ml HHN Q8HRT [facility] Stop: 03/05/18 14:59 Last Admin: 01/06/18 07:58 Dose: 3 ml Aspirin (Aspirin Chewable) 81 mg PO DAILY [facility] Stop: 03/05/18 08:59 Last Admin: 01/06/18 08:54 Dose: 81 mg Atenolol (Tenormin) 100 mg PO DAILY [facility] Stop: 03/05/18 08:59 Last Admin: 01/06/18 08:55 Dose: 100 mg Atorvastatin Calcium (Lipitor) 40 mg PO DAILY [facility] PRN Reason: Protocol Stop: 03/05/18 08:59 Last Admin: 01/06/18 08:54 Dose: 40 mg Diltiazem HCl (Cardizem Cd) 120 mg PO DAILY [facility] Stop: 03/05/18 08:59 Last Admin: 01/06/18 08:54 Dose: 120 mg Donepezil HCl (Aricept) 5 mg PO DAILY [facility] Stop: 03/05/18 08:59 Last Admin: 01/06/18 08:54 Dose: 5 mg Heparin Sodium (Porcine) (Heparin) 5,000 units SUBQ Q12HR [facility] Stop: 03/05/18 13:44 Last Admin: 01/06/18 08:55 Dose: Not Given Levofloxacin (Levaquin Pb) 250 mg in 50 mls @ 50 mls/hr IV Q24HR [facility] Stop: 03/04/18 22:59 Last Admin: 01/05/18 23:09 Dose: 50 mls/hr Lorazepam (Ativan) 0.5 mg PO Q4HR PRN; Protocol PRN Reason: Anxiety Stop: 03/05/18 08:05 Magnesium Hydroxide (Milk Of Magnesia) 30 ml PO HS PRN PRN Reason: Constipation Stop: 03/05/18 08:05 Mupirocin (Bactroban Oint) 1 appl NS BID [facility] Stop: 01/11/18 09:01 Pantoprazole Sodium (Protonix) 40 mg PO DAILY@0730 [facility] Stop: 03/05/18 08:59 Last Admin: 01/06/18 06:34 Dose: 40 mg Zolpidem Tartrate (Ambien) 5 mg PO HS PRN PRN Reason: Insomnia Stop: 03/05/18 08:05 General: no acute distress, well developed, well nourished HEENT: atraumatic, normocephalic, PERRLA Neck: supple, no thyromegaly Cardiovascular: S1S2, regular Lungs: clear to auscultation bilaterally, clear to percussion Abdomen: soft, no tender, no distended, no mass Extremities: no cyanosis, no clubbing, no edema Neurological: awake, alert, oriented Skin: intact Infectious Disease Assmt/Plan - Assessment Assessment: Impression: 1. RLL Cavitary lesion: 2. DM2 3. Depression. - Plan Plan: Will consult pulmonary. TB Gold quantiferon. AFB Cocci, histo, blasto serologies.
--- NOTE | 2018-01-06 19:41 | Consultation ---
DATE OF CONSULTATION: 01/06/2018 Thank you very much, Dr. Yates, for this consultation. The patient is a poor historian, but was admitted to [facility] initially for some mental issues. The patient apparently was having some cough and hemoptysis. Apparently, there was old history of lung cancer, as not clear if the patient was treated for it before or not. The patient unable to give any further history. SOCIAL HISTORY: History of smoking. He said he quit in the 1970s. REVIEW OF SYSTEMS: GENERAL: No weakness, fatigue. CARDIOVASCULAR: No chest pain. RESPIRATORY: No shortness of breath. There is not more cough at this time. GASTROINTESTINAL: No vomiting. PHYSICAL EXAMINATION: GENERAL: Awake, alert, not in acute distress. VITAL SIGNS: Temperature is 97.1, pulse 60, respiration is 18, blood pressure 137/81, saturation 98%. HEENT: Atraumatic, normocephalic. Pupils are equal and reactive to light and accommodation. Ears, nose, throat normal. NECK: Supple. No JVD. CHEST: There is rhonchi in bases. HEART: Regular rhythm. ABDOMEN: Soft. EXTREMITIES: No edema. LABORATORY DATA: WBC is 4.7, hemoglobin 9.3, hematocrit 28.1, platelets is 204. Sodium is 140, potassium 4.1, BUN is 25, creatinine 1.1. A chest x-ray, there is a piece of a cavitary lesion in the right lower lobe area, some infiltrate left lower lobe area confirmed by the CT of the chest. IMPRESSION: An 82-year-old male with hemoptysis, cavitary lesion, rule out tuberculosis. We too find out more about his previous history of lung cancer might be contributing to the cavitary abnormalities on the chest, which might be consistent with a squamous cell carcinoma with cavitation. Continue supportive care. Follow up cultures. The patient in negative pressure isolation for now until more information is available. I will follow the patient with you. JOB# [id number]
[2018-01-06] MEDS: Levofloxacin 250mg/50mL 250 MG/50 ML BAG IV SCH (23:08)
[2018-01-07] MEDS: Pantoprazole 40 mg EC Tab PO SCH (06:45)
[2018-01-07] MEDS: Albuterol/Ipratropium Neb 3 ML AERS HHN SCH ×3 (08:18→22:40)
--- NOTE | 2018-01-07 08:56 | Progress Notes ---
DATE: 01/06/2018 SUBJECTIVE: Chart review and the patient interviewed. Also discussed the patient's condition with the staff and reviewed records and labs. The patient was transferred from [facility] after he was admitted there because of his agitation. The patient continued to take Abilify in a dose of 5 mg everyday. The patient currently is calm and decrease agitation and irritability and decreased behavioral problems. He also is interacting appropriately, but is still slightly suspicious and confused. ASSESSMENT: The patient is less agitated. TREATMENT PLAN: Continue Abilify at same dose. Also continue to monitor his behavior and continue to follow up. JOB# [id number]
[2018-01-07] MEDS: Diltiazem CD 120 mg 24H PO SCH (09:05)
[2018-01-07] MEDS: Aspirin 81mg Chewable Tab PO SCH (09:06)
[2018-01-07] MEDS: Atenolol 100mg Tab PO SCH (09:08)
[2018-01-07] MEDS ORDERED: Probiotic Screen MC PRN (14:15)
--- NOTE | 2018-01-07 17:13 | Infectious Disease Prog Note ---
Infectious Disease Subjective - Review of Systems Service Date: 01/07/18 Subjective: There is no new change, no fever. Infectious Disease Objective - Results Result Diagrams: 01/06/18 06:45 01/06/18 06:45 Recent Labs: Laboratory Last Values WBC 4.7 Th/cmm (4.8-10.8) L 01/06/18 06:45 RBC 3.33 Mil/cmm (3.80-5.80) L 01/06/18 06:45 Hgb 9.3 gm/dL (12-16) L 01/06/18 06:45 Hct 28.1 % (41.0-60) L 01/06/18 06:45 MCV 84.5 fl (80-99) 01/06/18 06:45 MCH 27.8 pg (27.0-31.0) 01/06/18 06:45 MCHC Differential 32.9 pg (28.0-36.0) 01/06/18 06:45 RDW 14.4 % (11.5-20.0) 01/06/18 06:45 Plt Count 204 Th/cmm (150-400) 01/06/18 06:45 MPV 8.8 fl 01/06/18 06:45 Neutrophils % 55.0 % (40.0-80.0) 01/06/18 06:45 Lymphocytes % 29.2 % (20.0-50.0) 01/06/18 06:45 Monocytes % 12.3 % (2.0-10.0) H 01/06/18 06:45 Eosinophils % 3.2 % (0.0-5.0) 01/06/18 06:45 Basophils % 0.3 % (0.0-2.0) 01/06/18 06:45 Sodium 140 mEq/L (136-145) 01/06/18 06:45 Potassium 4.1 mEq/L (3.5-5.1) 01/06/18 06:45 Chloride 111 mEq/L (98-107) H 01/06/18 06:45 Carbon Dioxide 20.9 mEq/L (21.0-31.0) L 01/06/18 06:45 Anion Gap 12.2 (7.0-16.0) 01/06/18 06:45 BUN 25 mg/dL (7-25) 01/06/18 06:45 Creatinine 1.1 mg/dL (0.7-1.3) 01/06/18 06:45 Est GFR ( Amer) TNP 01/06/18 06:45 Est GFR (Non-Af Amer) TNP 01/06/18 06:45 BUN/Creatinine Ratio 22.7 01/06/18 06:45 Glucose 91 mg/dL (70-105) 01/06/18 06:45 Calcium 9.0 mg/dL (8.6-10.3) 01/06/18 06:45 - Physical Exam Vitals and I&O: Vital Signs Temp 98.8 F 01/07/18 12:00 Pulse 81 01/07/18 12:00 Resp 18 01/07/18 12:00 BP 109/65 01/07/18 12:00 Pulse Ox 99 01/07/18 12:00 Intake & Output 01/06/18 01/07/18 01/07/18 18:59 06:59 18:59 Intake Total 500 400 Output Total 400 Balance 500 0 Weight (lbs) 46.266 kg 45.178 kg Intake: Oral 500 400 Output: Urine 400 Stool 0 Other: # Voids 3 3 # Bowel Movements 1 0 Stool Characteristics Soft Active Medications: Current Medications Acetaminophen (Tylenol) 650 mg PO Q4HR PRN PRN Reason: Mild Pain / Temp above 100 Stop: 03/05/18 08:05 Al Hydrox/Mg Hydrox/Simethicone (Maalox) 30 ml PO Q4HR PRN PRN Reason: GI DISTRESS Stop: 03/05/18 08:05 Last Admin: 01/06/18 14:43 Dose: 30 ml Albuterol/Ipratropium (Duoneb Neb) 3 ml HHN Q8HRT [facility] Stop: 03/05/18 14:59 Last Admin: 01/07/18 16:08 Dose: 3 ml Aspirin (Aspirin Chewable) 81 mg PO DAILY [facility] Stop: 03/05/18 08:59 Last Admin: 01/07/18 09:06 Dose: 81 mg Atenolol (Tenormin) 100 mg PO DAILY [facility] Stop: 03/05/18 08:59 Last Admin: 01/07/18 09:08 Dose: 100 mg Atorvastatin Calcium (Lipitor) 40 mg PO DAILY [facility] PRN Reason: Protocol Stop: 03/05/18 08:59 Last Admin: 01/07/18 09:05 Dose: 40 mg Diltiazem HCl (Cardizem Cd) 120 mg PO DAILY [facility] Stop: 03/05/18 08:59 Last Admin: 01/07/18 09:05 Dose: 120 mg Donepezil HCl (Aricept) 5 mg PO DAILY [facility] Stop: 03/05/18 08:59 Last Admin: 01/07/18 09:06 Dose: 5 mg Heparin Sodium (Porcine) (Heparin) 5,000 units SUBQ Q12HR [facility] Stop: 03/05/18 13:44 Last Admin: 01/07/18 09:00 Dose: 5,000 units Levofloxacin (Levaquin Pb) 250 mg in 50 mls @ 50 mls/hr IV Q24HR [facility] Stop: 03/04/18 22:59 Last Admin: 01/06/18 23:08 Dose: 50 mls/hr Lactobacillus Rhamnosus (Culturelle 15b) 1 each PO DAILY [facility] Stop: 03/09/18 08:59 Lorazepam (Ativan) 0.5 mg PO Q4HR PRN; Protocol PRN Reason: Anxiety Stop: 03/05/18 08:05 Magnesium Hydroxide (Milk Of Magnesia) 30 ml PO HS PRN PRN Reason: Constipation Stop: 03/05/18 08:05 Last Admin: 01/06/18 14:43 Dose: 30 ml Miscellaneous (Probiotic Screen) 1 ea [facility] PRN PRN PRN Reason: PROTOCOL Stop: 03/08/18 14:14 Mupirocin (Bactroban Oint) 1 appl NS BID [facility] Stop: 01/11/18 09:01 Last Admin: 01/07/18 09:08 Dose: 1 appl Pantoprazole Sodium (Protonix) 40 mg PO DAILY@0730 [facility] Stop: 03/05/18 08:59 Last Admin: 01/07/18 06:45 Dose: 40 mg Zolpidem Tartrate (Ambien) 5 mg PO HS PRN PRN Reason: Insomnia Stop: 03/05/18 08:05 General: no acute distress, well developed, well nourished HEENT: atraumatic, normocephalic, PERRLA Neck: supple, no thyromegaly Cardiovascular: S1S2, regular Lungs: clear to auscultation bilaterally, clear to percussion Abdomen: soft, no tender, no distended, no mass Extremities: no cyanosis, no clubbing, no edema Neurological: awake, alert, oriented Skin: intact Infectious Disease Assmt/Plan - Assessment Assessment: Impression: 1. RLL Cavitary lesion: 2. DM2 3. Depression. - Plan Plan: TB Gold quantiferon. AFB Cocci, histo, blasto serologies. aspergillus serology.
--- NOTE | 2018-01-07 19:00 | Internal Medicine Prog Note ---
Internal Medicine Subjective - Subjective Patient is:: awake, verbal, confused Per staff patient has:: tolerating meds Internal Medicine Objective - Results Result Diagrams: 01/06/18 06:45 01/06/18 06:45 Recent Labs: Laboratory Last Values WBC 4.7 Th/cmm (4.8-10.8) L 01/06/18 06:45 RBC 3.33 Mil/cmm (3.80-5.80) L 01/06/18 06:45 Hgb 9.3 gm/dL (12-16) L 01/06/18 06:45 Hct 28.1 % (41.0-60) L 01/06/18 06:45 MCV 84.5 fl (80-99) 01/06/18 06:45 MCH 27.8 pg (27.0-31.0) 01/06/18 06:45 MCHC Differential 32.9 pg (28.0-36.0) 01/06/18 06:45 RDW 14.4 % (11.5-20.0) 01/06/18 06:45 Plt Count 204 Th/cmm (150-400) 01/06/18 06:45 MPV 8.8 fl 01/06/18 06:45 Neutrophils % 55.0 % (40.0-80.0) 01/06/18 06:45 Lymphocytes % 29.2 % (20.0-50.0) 01/06/18 06:45 Monocytes % 12.3 % (2.0-10.0) H 01/06/18 06:45 Eosinophils % 3.2 % (0.0-5.0) 01/06/18 06:45 Basophils % 0.3 % (0.0-2.0) 01/06/18 06:45 Sodium 140 mEq/L (136-145) 01/06/18 06:45 Potassium 4.1 mEq/L (3.5-5.1) 01/06/18 06:45 Chloride 111 mEq/L (98-107) H 01/06/18 06:45 Carbon Dioxide 20.9 mEq/L (21.0-31.0) L 01/06/18 06:45 Anion Gap 12.2 (7.0-16.0) 01/06/18 06:45 BUN 25 mg/dL (7-25) 01/06/18 06:45 Creatinine 1.1 mg/dL (0.7-1.3) 01/06/18 06:45 Est GFR ( Amer) TNP 01/06/18 06:45 Est GFR (Non-Af Amer) TNP 01/06/18 06:45 BUN/Creatinine Ratio 22.7 01/06/18 06:45 Glucose 91 mg/dL (70-105) 01/06/18 06:45 Calcium 9.0 mg/dL (8.6-10.3) 01/06/18 06:45 - Physical Exam Vitals and I&O: Vital Signs Temp 99 F 01/07/18 17:28 Pulse 69 01/07/18 17:28 Resp 18 01/07/18 17:28 BP 128/68 01/07/18 17:28 Pulse Ox 100 01/07/18 17:28 Intake & Output 01/06/18 01/07/18 01/07/18 18:59 06:59 18:59 Intake Total 500 400 150 Output Total 400 Balance 500 0 150 Weight (lbs) 46.266 kg 45.178 kg 44.906 kg Intake: Oral 500 400 150 Output: Urine 400 Stool 0 Other: # Voids 3 3 3 # Bowel Movements 1 0 1 Stool Characteristics Soft Active Medications: Current Medications Acetaminophen (Tylenol) 650 mg PO Q4HR PRN PRN Reason: Mild Pain / Temp above 100 Stop: 03/05/18 08:05 Al Hydrox/Mg Hydrox/Simethicone (Maalox) 30 ml PO Q4HR PRN PRN Reason: GI DISTRESS Stop: 03/05/18 08:05 Last Admin: 01/06/18 14:43 Dose: 30 ml Albuterol/Ipratropium (Duoneb Neb) 3 ml HHN Q8HRT [facility] Stop: 03/05/18 14:59 Last Admin: 01/07/18 16:08 Dose: 3 ml Aspirin (Aspirin Chewable) 81 mg PO DAILY [facility] Stop: 03/05/18 08:59 Last Admin: 01/07/18 09:06 Dose: 81 mg Atenolol (Tenormin) 100 mg PO DAILY [facility] Stop: 03/05/18 08:59 Last Admin: 01/07/18 09:08 Dose: 100 mg Atorvastatin Calcium (Lipitor) 40 mg PO DAILY [facility] PRN Reason: Protocol Stop: 03/05/18 08:59 Last Admin: 01/07/18 09:05 Dose: 40 mg Diltiazem HCl (Cardizem Cd) 120 mg PO DAILY [facility] Stop: 03/05/18 08:59 Last Admin: 01/07/18 09:05 Dose: 120 mg Donepezil HCl (Aricept) 5 mg PO DAILY [facility] Stop: 03/05/18 08:59 Last Admin: 01/07/18 09:06 Dose: 5 mg Heparin Sodium (Porcine) (Heparin) 5,000 units SUBQ Q12HR [facility] Stop: 03/05/18 13:44 Last Admin: 01/07/18 09:00 Dose: 5,000 units Levofloxacin (Levaquin Pb) 250 mg in 50 mls @ 50 mls/hr IV Q24HR [facility] Stop: 03/04/18 22:59 Last Admin: 01/06/18 23:08 Dose: 50 mls/hr Lactobacillus Rhamnosus (Culturelle 15b) 1 each PO DAILY [facility] Stop: 03/09/18 08:59 Lorazepam (Ativan) 0.5 mg PO Q4HR PRN; Protocol PRN Reason: Anxiety Stop: 03/05/18 08:05 Magnesium Hydroxide (Milk Of Magnesia) 30 ml PO HS PRN PRN Reason: Constipation Stop: 03/05/18 08:05 Last Admin: 01/06/18 14:43 Dose: 30 ml Miscellaneous (Probiotic Screen) 1 ea [facility] PRN PRN PRN Reason: PROTOCOL Stop: 03/08/18 14:14 Mupirocin (Bactroban Oint) 1 appl NS BID [facility] Stop: 01/11/18 09:01 Last Admin: 01/07/18 17:25 Dose: 1 appl Pantoprazole Sodium (Protonix) 40 mg PO DAILY@0730 [facility] Stop: 03/05/18 08:59 Last Admin: 01/07/18 06:45 Dose: 40 mg Zolpidem Tartrate (Ambien) 5 mg PO HS PRN PRN Reason: Insomnia Stop: 03/05/18 08:05 General: weak, alert HEENT: NC/AT, PERRLA Neck: Supple Lungs: ronchi Abdomen: soft, non-tender, non-distended, positive bowel sound Neurological: unable to follow command
--- NOTE | 2018-01-07 20:33 | Progress Notes ---
DATE: SUBJECTIVE: Chart reviewed and the patient interviewed. Also, discussed the patient's condition with the staff and reviewed records and labs. The patient is calm and she is quite. She also is interacting but with confusion. The patient also is still suspicious and slightly paranoid. Otherwise, the patient has continued to take Aricept with no side effects. ASSESSMENT: The patient is calmer and not confused. TREATMENT PLAN: We will continue to monitor her behavior and her condition closely. Also, continue to work on her agitation and ineffective coping and continue adjusting psychotropic medications. JOB# [id number]
[2018-01-07] MEDS: Levofloxacin 250mg/50mL 250 MG/50 ML BAG IV SCH (23:08)
[2018-01-08] MEDS: Pantoprazole 40 mg EC Tab PO SCH (06:39)
[2018-01-08] MEDS: Albuterol/Ipratropium Neb 3 ML AERS HHN SCH ×3 (07:34→23:06)
[2018-01-08] MEDS: Atenolol 100mg Tab PO SCH (09:45)
[2018-01-08] MEDS: Aspirin 81mg Chewable Tab PO SCH (09:45)
[2018-01-08] MEDS: Diltiazem CD 120 mg 24H PO SCH (09:46)
[2018-01-08] MEDS: Lactobacillus Rhamnosus GG 15 Billion CFU CAP.SPRINK PO SCH (09:46)
--- NOTE | 2018-01-08 16:32 | General Progress Note ---
Objective - Results Result Diagrams: 01/06/18 06:45 01/06/18 06:45 Recent Labs: Laboratory Last Values WBC 4.7 Th/cmm (4.8-10.8) L 01/06/18 06:45 RBC 3.33 Mil/cmm (3.80-5.80) L 01/06/18 06:45 Hgb 9.3 gm/dL (12-16) L 01/06/18 06:45 Hct 28.1 % (41.0-60) L 01/06/18 06:45 MCV 84.5 fl (80-99) 01/06/18 06:45 MCH 27.8 pg (27.0-31.0) 01/06/18 06:45 MCHC Differential 32.9 pg (28.0-36.0) 01/06/18 06:45 RDW 14.4 % (11.5-20.0) 01/06/18 06:45 Plt Count 204 Th/cmm (150-400) 01/06/18 06:45 MPV 8.8 fl 01/06/18 06:45 Neutrophils % 55.0 % (40.0-80.0) 01/06/18 06:45 Lymphocytes % 29.2 % (20.0-50.0) 01/06/18 06:45 Monocytes % 12.3 % (2.0-10.0) H 01/06/18 06:45 Eosinophils % 3.2 % (0.0-5.0) 01/06/18 06:45 Basophils % 0.3 % (0.0-2.0) 01/06/18 06:45 Sodium 140 mEq/L (136-145) 01/06/18 06:45 Potassium 4.1 mEq/L (3.5-5.1) 01/06/18 06:45 Chloride 111 mEq/L (98-107) H 01/06/18 06:45 Carbon Dioxide 20.9 mEq/L (21.0-31.0) L 01/06/18 06:45 Anion Gap 12.2 (7.0-16.0) 01/06/18 06:45 BUN 25 mg/dL (7-25) 01/06/18 06:45 Creatinine 1.1 mg/dL (0.7-1.3) 01/06/18 06:45 Est GFR ( Amer) TNP 01/06/18 06:45 Est GFR (Non-Af Amer) TNP 01/06/18 06:45 BUN/Creatinine Ratio 22.7 01/06/18 06:45 Glucose 91 mg/dL (70-105) 01/06/18 06:45 Calcium 9.0 mg/dL (8.6-10.3) 01/06/18 06:45 - Physical Exam Vitals and I&O: Vital Signs Temp 98.7 F 01/08/18 05:16 Pulse 89 01/08/18 15:22 Resp 20 01/08/18 15:22 BP 134/79 01/08/18 05:16 Pulse Ox 97 01/08/18 15:22 Intake & Output 01/07/18 01/08/18 01/08/18 18:59 06:59 18:59 Intake Total 150 50 Balance 150 50 Weight (lbs) 44.906 kg 44.906 kg Intake: Intake, IV Amount 50 Levofloxacin 250mg/50mL 50 250 mg In 50 ml @ 50 mls/ hr IV Q24HR [facility] Rx#: [id number] Oral 150 Other: # Voids 3 2 # Bowel Movements 1 0 Stool Characteristics Soft Soft Soft Active Medications: Current Medications Acetaminophen (Tylenol) 650 mg PO Q4HR PRN PRN Reason: Mild Pain / Temp above 100 Stop: 03/05/18 08:05 Al Hydrox/Mg Hydrox/Simethicone (Maalox) 30 ml PO Q4HR PRN PRN Reason: GI DISTRESS Stop: 03/05/18 08:05 Last Admin: 01/06/18 14:43 Dose: 30 ml Albuterol/Ipratropium (Duoneb Neb) 3 ml HHN Q8HRT [facility] Stop: 03/05/18 14:59 Last Admin: 01/08/18 15:21 Dose: 3 ml Aspirin (Aspirin Chewable) 81 mg PO DAILY [facility] Stop: 03/05/18 08:59 Last Admin: 01/08/18 09:45 Dose: 81 mg Atenolol (Tenormin) 100 mg PO DAILY [facility] Stop: 03/05/18 08:59 Last Admin: 01/08/18 09:45 Dose: 100 mg Atorvastatin Calcium (Lipitor) 40 mg PO DAILY [facility] PRN Reason: Protocol Stop: 03/05/18 08:59 Last Admin: 01/08/18 09:45 Dose: 40 mg Diltiazem HCl (Cardizem Cd) 120 mg PO DAILY [facility] Stop: 03/05/18 08:59 Last Admin: 01/08/18 09:46 Dose: 120 mg Donepezil HCl (Aricept) 5 mg PO DAILY [facility] Stop: 03/05/18 08:59 Last Admin: 01/08/18 09:46 Dose: 5 mg Heparin Sodium (Porcine) (Heparin) 5,000 units SUBQ Q12HR [facility] Stop: 03/05/18 13:44 Last Admin: 01/08/18 09:39 Dose: 5,000 units Levofloxacin (Levaquin Pb) 250 mg in 50 mls @ 50 mls/hr IV Q24HR [facility] Stop: 03/04/18 22:59 Last Infusion: 01/08/18 06:50 Dose: Infused Lactobacillus Rhamnosus (Culturelle 15b) 1 each PO DAILY [facility] Stop: 03/09/18 08:59 Last Admin: 01/08/18 09:46 Dose: 1 each Lorazepam (Ativan) 0.5 mg PO Q4HR PRN; Protocol PRN Reason: Anxiety Stop: 03/05/18 08:05 Magnesium Hydroxide (Milk Of Magnesia) 30 ml PO HS PRN PRN Reason: Constipation Stop: 03/05/18 08:05 Last Admin: 01/06/18 14:43 Dose: 30 ml Miscellaneous (Probiotic Screen) 1 ea [facility] PRN PRN PRN Reason: PROTOCOL Stop: 03/08/18 14:14 Mupirocin (Bactroban Oint) 1 appl NS BID [facility] Stop: 01/11/18 09:01 Last Admin: 01/08/18 09:46 Dose: 1 appl Pantoprazole Sodium (Protonix) 40 mg PO DAILY@0730 [facility] Stop: 03/05/18 08:59 Last Admin: 01/08/18 06:39 Dose: 40 mg Zolpidem Tartrate (Ambien) 5 mg PO HS PRN PRN Reason: Insomnia Stop: 03/05/18 08:05
[2018-01-08] MEDS: Levofloxacin 250mg/50mL 250 MG/50 ML BAG IV SCH (23:09)
--- NOTE | 2018-01-09 03:17 | Progress Notes ---
DATE: 01/08/2018 SUBJECTIVE: Case was discussed with staff of the patient, reviewed records. Covering for Dr. Marsh. The patient is calm and quiet. He continues to be confused, suspicious and paranoid. He is compliant with the medication with no side effects, no sedation, no nausea, no extrapyramidal symptoms. He is demented. He is on Aricept 5 mg at bedtime and Ativan 0.5 mg as needed. Thank you very much for allowing me to participate in the care of this patient. JOB# [id number]
[2018-01-09] MEDS: Pantoprazole 40 mg EC Tab PO SCH (06:36)
[2018-01-09] MEDS: Albuterol/Ipratropium Neb 3 ML AERS HHN SCH ×3 (08:01→23:33)
[2018-01-09 08:08] LABS: % BASOPHILS 0.9 % (0.0-2.0); % EOSINOPHILS 2.5 % (0.0-5.0); % LYMPHOCYTES 22.8 % (20.0-50.0); % MONOCYTES 10.8 % (2.0-10.0); BASOPHILE ABSOLUTE 0.1 Th/cumm (0-0.2); EOSINOPHILE ABSOLUTE 0.1 Th/cmm (0.1-0.4); HEMOGLOBIN 9.1 gm/dL (12-16); LYMPHOCYTE ABSOLUTE 1.3 Th/cmm (1.5-3.0); MEAN CELL VOLUME 84.8 fl (80-99); MEAN CORPUSCULAR HEMOGLOBIN 27.7 pg (27.0-31.0); MEAN CORPUSCULAR HGB CONC 32.6 pg (28.0-36.0); MEAN PLATELET VOLUME 8.9 fl; MONOCYTE ABSOLUTE 0.6 Th/cmm (0.3-1.0); NEUTROPHILE ABSOLUTE 3.8 Th/cmm (1.8-8.0); PLATELET COUNT 180 Th/cmm (150-400); RED CELL DISTRIBUTION WIDTH 14.2 % (11.5-20.0)
[2018-01-09 08:10] LABS: WHITE BLOOD COUNT 5.9 Th/cmm (4.8-10.8)
[2018-01-09] MEDS: Aspirin 81mg Chewable Tab PO SCH (09:18)
[2018-01-09] MEDS: Diltiazem CD 120 mg 24H PO SCH (09:19)
[2018-01-09] MEDS: Atenolol 100mg Tab PO SCH (09:19)
[2018-01-09] MEDS: Lactobacillus Rhamnosus GG 15 Billion CFU CAP.SPRINK PO SCH (09:20)
[2018-01-09 09:32] LABS: ALBUMIN 3.3 gm/dL (4.2-5.5); ALKALINE PHOSPHATASE 64 U/L (34-104); ANION GAP 6.2 (7.0-16.0); BILIRUBIN,TOTAL 0.2 mg/dL (0.3-1.0); BUN - UREA NITROGEN 31 mg/dL (7-25); CALCIUM SERUM 9.3 mg/dL (8.6-10.3); CARBON DIOXIDE 25.2 mEq/L (21.0-31.0); CHLORIDE 112 mEq/L (98-107); CREATININE - SERUM 1.2 mg/dL (0.7-1.3); GLUCOSE 96 mg/dL (70-105); POTASSIUM SERUM 4.4 mEq/L (3.5-5.1); SGOT 11 U/L (13-39); SGPT/ALT 10 U/L (7-52); SODIUM SERUM 139 mEq/L (136-145); TOTAL PROTEIN,SERUM 6.7 gm/dL (6.0-8.3)
--- NOTE | 2018-01-09 12:35 | General Progress Note ---
Subjective - Review of Systems Events since last encounter: awake alert in no acute distress Objective - Results Result Diagrams: 01/09/18 07:48 01/09/18 07:48 Recent Labs: Laboratory Last Values WBC 5.9 Th/cmm (4.8-10.8) D 01/09/18 07:48 RBC 3.30 Mil/cmm (3.80-5.80) L 01/09/18 07:48 Hgb 9.1 gm/dL (12-16) L 01/09/18 07:48 Hct 28.0 % (41.0-60) L 01/09/18 07:48 MCV 84.8 fl (80-99) 01/09/18 07:48 MCH 27.7 pg (27.0-31.0) 01/09/18 07:48 MCHC Differential 32.6 pg (28.0-36.0) 01/09/18 07:48 RDW 14.2 % (11.5-20.0) 01/09/18 07:48 Plt Count 180 Th/cmm (150-400) 01/09/18 07:48 MPV 8.9 fl 01/09/18 07:48 Neutrophils % 63.0 % (40.0-80.0) 01/09/18 07:48 Lymphocytes % 22.8 % (20.0-50.0) 01/09/18 07:48 Monocytes % 10.8 % (2.0-10.0) H 01/09/18 07:48 Eosinophils % 2.5 % (0.0-5.0) 01/09/18 07:48 Basophils % 0.9 % (0.0-2.0) 01/09/18 07:48 Sodium 139 mEq/L (136-145) 01/09/18 07:48 Potassium 4.4 mEq/L (3.5-5.1) 01/09/18 07:48 Chloride 112 mEq/L (98-107) H 01/09/18 07:48 Carbon Dioxide 25.2 mEq/L (21.0-31.0) 01/09/18 07:48 Anion Gap 6.2 (7.0-16.0) L 01/09/18 07:48 BUN 31 mg/dL (7-25) H 01/09/18 07:48 Creatinine 1.2 mg/dL (0.7-1.3) 01/09/18 07:48 Est GFR ( Amer) TNP 01/09/18 07:48 Est GFR (Non-Af Amer) TNP 01/09/18 07:48 BUN/Creatinine Ratio 25.8 01/09/18 07:48 Glucose 96 mg/dL (70-105) 01/09/18 07:48 Calcium 9.3 mg/dL (8.6-10.3) 01/09/18 07:48 Total Bilirubin 0.2 mg/dL (0.3-1.0) L 01/09/18 07:48 AST 11 U/L (13-39) L 01/09/18 07:48 ALT 10 U/L (7-52) 01/09/18 07:48 Alkaline Phosphatase 64 U/L (34-104) 01/09/18 07:48 Total Protein 6.7 gm/dL (6.0-8.3) 01/09/18 07:48 Albumin 3.3 gm/dL (4.2-5.5) L 01/09/18 07:48 Globulin 3.4 gm/dL 01/09/18 07:48 Albumin/Globulin Ratio 1.0 (1.0-1.8) 01/09/18 07:48 - Physical Exam Vitals and I&O: Vital Signs Temp 97.4 F 01/09/18 08:00 Pulse 81 01/09/18 09:19 Resp 18 01/09/18 08:08 BP 147/78 01/09/18 08:00 Pulse Ox 100 01/09/18 08:07 Intake & Output 01/08/18 01/09/18 01/09/18 18:59 06:59 18:59 Intake Total 420 500 Output Total 1 Balance 420 499 Weight (lbs) 44.906 kg 44.452 kg Intake: Oral 420 500 Output: Stool 1 Other: # Voids 3 3 # Bowel Movements 1 Stool Characteristics Soft Soft Active Medications: Current Medications Acetaminophen (Tylenol) 650 mg PO Q4HR PRN PRN Reason: Mild Pain / Temp above 100 Stop: 03/05/18 08:05 Last Admin: 01/08/18 21:20 Dose: 650 mg Al Hydrox/Mg Hydrox/Simethicone (Maalox) 30 ml PO Q4HR PRN PRN Reason: GI DISTRESS Stop: 03/05/18 08:05 Last Admin: 01/06/18 14:43 Dose: 30 ml Albuterol/Ipratropium (Duoneb Neb) 3 ml HHN Q8HRT [facility] Stop: 03/05/18 14:59 Last Admin: 01/09/18 08:01 Dose: 3 ml Aspirin (Aspirin Chewable) 81 mg PO DAILY [facility] Stop: 03/05/18 08:59 Last Admin: 01/09/18 09:18 Dose: 81 mg Atenolol (Tenormin) 100 mg PO DAILY [facility] Stop: 03/05/18 08:59 Last Admin: 01/09/18 09:19 Dose: 100 mg Atorvastatin Calcium (Lipitor) 40 mg PO DAILY [facility] PRN Reason: Protocol Stop: 03/05/18 08:59 Last Admin: 01/09/18 09:19 Dose: 40 mg Diltiazem HCl (Cardizem Cd) 120 mg PO DAILY [facility] Stop: 03/05/18 08:59 Last Admin: 01/09/18 09:19 Dose: 120 mg Donepezil HCl (Aricept) 5 mg PO DAILY [facility] Stop: 03/05/18 08:59 Last Admin: 01/09/18 09:19 Dose: 5 mg Heparin Sodium (Porcine) (Heparin) 5,000 units SUBQ Q12HR [facility] Stop: 03/05/18 13:44 Last Admin: 01/09/18 09:20 Dose: Not Given Levofloxacin (Levaquin Pb) 250 mg in 50 mls @ 50 mls/hr IV Q24HR [facility] Stop: 03/04/18 22:59 Last Admin: 01/08/18 23:09 Dose: 50 mls/hr Lactobacillus Rhamnosus (Culturelle 15b) 1 each PO DAILY [facility] Stop: 03/09/18 08:59 Last Admin: 01/09/18 09:20 Dose: 1 each Lorazepam (Ativan) 0.5 mg PO Q4HR PRN; Protocol PRN Reason: Anxiety Stop: 03/05/18 08:05 Magnesium Hydroxide (Milk Of Magnesia) 30 ml PO HS PRN PRN Reason: Constipation Stop: 03/05/18 08:05 Last Admin: 01/06/18 14:43 Dose: 30 ml Miscellaneous (Probiotic Screen) 1 ea [facility] PRN PRN PRN Reason: PROTOCOL Stop: 03/08/18 14:14 Mupirocin (Bactroban Oint) 1 appl NS BID [facility] Stop: 01/11/18 09:01 Last Admin: 01/09/18 09:20 Dose: 1 appl Pantoprazole Sodium (Protonix) 40 mg PO DAILY@0730 [facility] Stop: 03/05/18 08:59 Last Admin: 01/09/18 06:36 Dose: 40 mg Zolpidem Tartrate (Ambien) 5 mg PO HS PRN PRN Reason: Insomnia Stop: 03/05/18 08:05 Last Admin: 01/08/18 21:20 Dose: 5 mg Nutritional Asmnt/Malnutr-PDOC - Dietary Evaluation Malnutrition Findings (Please click <Entered> for more info): Nutritional Asmnt/Malnutrition Start: 01/08/18 16: 30 Text: Status: Complete Freq: Document 01/08/18 16:30 [email or web address] (Rec: 01/08/18 16:43 [email or web address] Nutritional Asmnt/Malnutrition Patient General Information Nutritional Screening Moderate Risk Diagnosis PNA Pertinent Medical Hx/Surgical Hx HTN, DM, renal failure, GERD, dementia, hyperlipidemia Subjective Information Pt seen eaing lunch on bed, airbone isolated. Spoke with RN, RN reported pt eats well, prefer hard boiled egg instead of scrambed, tea instead of coffee. Per records, PO intake 75-100% Current Diet Order/ Nutrition Support regular Pertinent Medications culturelle, protonix, levaquin Pertinent Labs 01/06 na 140, K 4.1, Cl 111, BUN 25, Cr 1.1 Nutritional Hx/Data Height 1.68 m Height (Calculated Centimeters) 167.6 Current Weight (lbs) 44.906 kg Weight (Calculated Kilograms) 44.9 Weight (Calculated Grams) 94028.6 [place] Body Weight 142 % [place] Body Weight 70 Body Mass Index (BMI) 16.0 Weight Status Underweight GI Symptoms GI Symptoms None Last BM 3 Difficult in: None Skin Integrity/Comment: scar to let shoulder and left hip Estimated Nutritional Goals Calories/Kcals/Kg 25-30 based on IBW 65kg Kcals Calculated 0294-7453 Protein g/k-1.2 Protein Calculated 65-78 Fluid: ml 1625-1950ml (1ml/kcal) Nutritional Problem 1. Problem Problem underweight Etiology possible inadequate energy intake Signs/Symptoms: BMI 16 Intervention/Recommendation Comments 1. Continue with regular diet as ordered. 2. Monitor PO intake, wt, labs and skin integrity 3. F/U as low risk in 7 days, 01/15, PO check 01/12 Expected Outcomes/Goals Expected Outcomes/Goals 1. PO intake to meet at least 75% of nutritional needs. 2. Wt stability, skin to remain intact, labs to approach WNL.
--- NOTE | 2018-01-09 17:22 | Progress Notes ---
DATE: 01/09/[address] Marsh. Case was discussed with staff of the patient, reviewed records. The patient has been in a room by himself. He has been quiet, but he is confused and suspicious, paranoid at times; however, his acting out behavior decreased. He is responding better to redirection. He is sleeping better, eating better. No side effects with the medication, no sedation, no nausea. He is on Aricept 5 mg at bedtime. Thank you very much for allowing me to participate in the care of this most interesting gentleman. JOB# [id number]
--- NOTE | 2018-01-10 | Infectious Disease Prog Note ---
Infectious Disease Subjective - Review of Systems Service Date: 01/09/18 Subjective: There is no new change, no fever. Infectious Disease Objective - Results Result Diagrams: 01/10/18 06:06 01/10/18 06:10 Recent Labs: Laboratory Last Values WBC 5.9 Th/cmm (4.8-10.8) D 01/09/18 07:48 RBC 3.30 Mil/cmm (3.80-5.80) L 01/09/18 07:48 Hgb 9.1 gm/dL (12-16) L 01/09/18 07:48 Hct 28.0 % (41.0-60) L 01/09/18 07:48 MCV 84.8 fl (80-99) 01/09/18 07:48 MCH 27.7 pg (27.0-31.0) 01/09/18 07:48 MCHC Differential 32.6 pg (28.0-36.0) 01/09/18 07:48 RDW 14.2 % (11.5-20.0) 01/09/18 07:48 Plt Count 180 Th/cmm (150-400) 01/09/18 07:48 MPV 8.9 fl 01/09/18 07:48 Neutrophils % 63.0 % (40.0-80.0) 01/09/18 07:48 Lymphocytes % 22.8 % (20.0-50.0) 01/09/18 07:48 Monocytes % 10.8 % (2.0-10.0) H 01/09/18 07:48 Eosinophils % 2.5 % (0.0-5.0) 01/09/18 07:48 Basophils % 0.9 % (0.0-2.0) 01/09/18 07:48 Sodium 139 mEq/L (136-145) 01/09/18 07:48 Potassium 4.4 mEq/L (3.5-5.1) 01/09/18 07:48 Chloride 112 mEq/L (98-107) H 01/09/18 07:48 Carbon Dioxide 25.2 mEq/L (21.0-31.0) 01/09/18 07:48 Anion Gap 6.2 (7.0-16.0) L 01/09/18 07:48 BUN 31 mg/dL (7-25) H 01/09/18 07:48 Creatinine 1.2 mg/dL (0.7-1.3) 01/09/18 07:48 Est GFR ( Amer) TNP 01/09/18 07:48 Est GFR (Non-Af Amer) TNP 01/09/18 07:48 BUN/Creatinine Ratio 25.8 01/09/18 07:48 Glucose 96 mg/dL (70-105) 01/09/18 07:48 Calcium 9.3 mg/dL (8.6-10.3) 01/09/18 07:48 Total Bilirubin 0.2 mg/dL (0.3-1.0) L 01/09/18 07:48 AST 11 U/L (13-39) L 01/09/18 07:48 ALT 10 U/L (7-52) 01/09/18 07:48 Alkaline Phosphatase 64 U/L (34-104) 01/09/18 07:48 Total Protein 6.7 gm/dL (6.0-8.3) 01/09/18 07:48 Albumin 3.3 gm/dL (4.2-5.5) L 01/09/18 07:48 Globulin 3.4 gm/dL 01/09/18 07:48 Albumin/Globulin Ratio 1.0 (1.0-1.8) 01/09/18 07:48 - Physical Exam Vitals and I&O: Vital Signs Temp 97.6 F 01/09/18 16:00 Pulse 76 01/09/18 23:33 Resp 18 01/09/18 23:33 BP 148/76 01/09/18 16:00 Pulse Ox 99 01/09/18 23:33 Intake & Output 01/09/18 01/09/18 01/10/18 06:59 18:59 06:59 Intake Total 500 620 Output Total 1 Balance 499 620 Weight (lbs) 44.452 kg 44.452 kg Intake: Oral 500 620 Output: Stool 1 Other: # Voids 3 4 # Bowel Movements 1 1 Stool Characteristics Soft Formed Active Medications: Current Medications Acetaminophen (Tylenol) 650 mg PO Q4HR PRN PRN Reason: Mild Pain / Temp above 100 Stop: 03/05/18 08:05 Last Admin: 01/08/18 21:20 Dose: 650 mg Al Hydrox/Mg Hydrox/Simethicone (Maalox) 30 ml PO Q4HR PRN PRN Reason: GI DISTRESS Stop: 03/05/18 08:05 Last Admin: 01/06/18 14:43 Dose: 30 ml Albuterol/Ipratropium (Duoneb Neb) 3 ml HHN Q8HRT [facility] Stop: 03/05/18 14:59 Last Admin: 01/09/18 23:33 Dose: 3 ml Aspirin (Aspirin Chewable) 81 mg PO DAILY [facility] Stop: 03/05/18 08:59 Last Admin: 01/09/18 09:18 Dose: 81 mg Atenolol (Tenormin) 100 mg PO DAILY [facility] Stop: 03/05/18 08:59 Last Admin: 01/09/18 09:19 Dose: 100 mg Atorvastatin Calcium (Lipitor) 40 mg PO DAILY [facility] PRN Reason: Protocol Stop: 03/05/18 08:59 Last Admin: 01/09/18 09:19 Dose: 40 mg Diltiazem HCl (Cardizem Cd) 120 mg PO DAILY [facility] Stop: 03/05/18 08:59 Last Admin: 01/09/18 09:19 Dose: 120 mg Donepezil HCl (Aricept) 5 mg PO DAILY [facility] Stop: 03/05/18 08:59 Last Admin: 01/09/18 09:19 Dose: 5 mg Heparin Sodium (Porcine) (Heparin) 5,000 units SUBQ Q12HR [facility] Stop: 03/05/18 13:44 Last Admin: 01/09/18 21:47 Dose: 5,000 units Levofloxacin (Levaquin Pb) 250 mg in 50 mls @ 50 mls/hr IV Q24HR [facility] Stop: 03/04/18 22:59 Last Admin: 01/08/18 23:09 Dose: 50 mls/hr Lactobacillus Rhamnosus (Culturelle 15b) 1 each PO DAILY [facility] Stop: 03/09/18 08:59 Last Admin: 01/09/18 09:20 Dose: 1 each Lorazepam (Ativan) 0.5 mg PO Q4HR PRN; Protocol PRN Reason: Anxiety Stop: 03/05/18 08:05 Magnesium Hydroxide (Milk Of Magnesia) 30 ml PO HS PRN PRN Reason: Constipation Stop: 03/05/18 08:05 Last Admin: 01/06/18 14:43 Dose: 30 ml Miscellaneous (Probiotic Screen) 1 ea MC PRN PRN PRN Reason: PROTOCOL Stop: 03/08/18 14:14 Mupirocin (Bactroban Oint) 1 appl NS BID [facility] Stop: 01/11/18 09:01 Last Admin: 01/09/18 16:09 Dose: 1 appl Pantoprazole Sodium (Protonix) 40 mg PO DAILY@0730 [facility] Stop: 03/05/18 08:59 Last Admin: 01/09/18 06:36 Dose: 40 mg Zolpidem Tartrate (Ambien) 5 mg PO HS PRN PRN Reason: Insomnia Stop: 03/05/18 08:05 Last Admin: 01/08/18 21:20 Dose: 5 mg General: no acute distress, well developed, well nourished HEENT: atraumatic, normocephalic, PERRLA Neck: supple, no thyromegaly, no lymphadenopathy Cardiovascular: S1S2, regular Lungs: clear to auscultation bilaterally, clear to percussion Abdomen: soft, no tender, no distended Extremities: no cyanosis, no clubbing, no edema Neurological: awake, alert, oriented Skin: intact Infectious Disease Assmt/Plan - Assessment Assessment: Impression: 1. RLL Cavitary lesion: 2. DM2 3. Depression. - Plan Plan: TB Gold quantiferon. AFB 1/3 neg ( smear). Cocci, histo, blasto serologies. aspergillus serology. Nutritional Asmnt/Malnutr-PDOC - Dietary Evaluation Malnutrition Findings (Please click <Entered> for more info): Nutritional Asmnt/Malnutrition Start: 01/08/18 16: 30 Text: Status: Complete Freq: Document 01/08/18 16:30 LCHENG (Rec: 01/08/18 16:43 LCHEN [email or web address]) Nutritional Asmnt/Malnutrition Patient General Information Nutritional Screening Moderate Risk Diagnosis PNA Pertinent Medical Hx/Surgical Hx HTN, DM, renal failure, GERD, dementia, hyperlipidemia Subjective Information Pt seen eaing lunch on bed, airbone isolated. Spoke with RN, RN reported pt eats well, prefer hard boiled egg instead of scrambed, tea instead of coffee. Per records, PO intake 75-100% Current Diet Order/ Nutrition Support regular Pertinent Medications culturelle, protonix, levaquin Pertinent Labs 01/06 na 140, K 4.1, Cl 111, BUN 25, Cr 1.1 Nutritional Hx/Data Height 1.68 m Height (Calculated Centimeters) 167.6 Current Weight (lbs) 44.906 kg Weight (Calculated Kilograms) 44.9 Weight (Calculated Grams) 03328.6 [place] Body Weight 142 % [place] Body Weight 70 Body Mass Index (BMI) 16.0 Weight Status Underweight GI Symptoms GI Symptoms None Last BM 01/07 Difficult in: None Skin Integrity/Comment: scar to let shoulder and left hip Estimated Nutritional Goals Calories/Kcals/Kg 25-30 based on IBW 65kg Kcals Calculated 4507-5198 Protein g/k-1.2 Protein Calculated 65-78 Fluid: ml 1625-1950ml (1ml/kcal) Nutritional Problem 1. Problem Problem underweight Etiology possible inadequate energy intake Signs/Symptoms: BMI 16 Intervention/Recommendation Comments 1. Continue with regular diet as ordered. 2. Monitor PO intake, wt, labs and skin integrity 3. F/U as low risk in 7 days, 01/15, PO check 01/12 Expected Outcomes/Goals Expected Outcomes/Goals 1. PO intake to meet at least 75% of nutritional needs. 2. Wt stability, skin to remain intact, labs to approach WNL.
[2018-01-10] MEDS: Levofloxacin 250mg/50mL 250 MG/50 ML BAG IV SCH ×2 (01:33→22:38)
[2018-01-10 06:56] LABS: ALB/GLOB RATIO 0.9 (1.0-1.8); ALBUMIN 3.2 gm/dL (4.2-5.5); ALKALINE PHOSPHATASE 65 U/L (34-104); ANION GAP 10.4 (7.0-16.0); BILIRUBIN,TOTAL 0.2 mg/dL (0.3-1.0); BUN - UREA NITROGEN 36 mg/dL (7-25); CALCIUM SERUM 9.1 mg/dL (8.6-10.3); CARBON DIOXIDE 22.9 mEq/L (21.0-31.0); CHLORIDE 110 mEq/L (98-107); CREATININE - SERUM 1.3 mg/dL (0.7-1.3); GLUCOSE 103 mg/dL (70-105); POTASSIUM SERUM 4.3 mEq/L (3.5-5.1); SGOT 10 U/L (13-39); SGPT/ALT 10 U/L (7-52); SODIUM SERUM 139 mEq/L (136-145); TOTAL PROTEIN,SERUM 6.6 gm/dL (6.0-8.3)
[2018-01-10] MEDS: Pantoprazole 40 mg EC Tab PO SCH (07:06)
[2018-01-10 07:16] LABS: % BASOPHILS 0.1 % (0.0-2.0); % EOSINOPHILS 2.8 % (0.0-5.0); % LYMPHOCYTES 24.4 % (20.0-50.0); % MONOCYTES 11.8 % (2.0-10.0); % NEUTROPHILS 60.9 % (40.0-80.0); EOSINOPHILE ABSOLUTE 0.2 Th/cmm (0.1-0.4); HEMATOCRIT 26.5 % (41.0-60); HEMOGLOBIN 8.7 gm/dL (12-16); LYMPHOCYTE ABSOLUTE 1.5 Th/cmm (1.5-3.0); MEAN CELL VOLUME 84.5 fl (80-99); MEAN CORPUSCULAR HEMOGLOBIN 27.6 pg (27.0-31.0); MEAN CORPUSCULAR HGB CONC 32.7 pg (28.0-36.0); MEAN PLATELET VOLUME 9.5 fl; MONOCYTE ABSOLUTE 0.7 Th/cmm (0.3-1.0); NEUTROPHILE ABSOLUTE 3.7 Th/cmm (1.8-8.0); PLATELET COUNT 191 Th/cmm (150-400); RED BLOOD COUNT 3.14 Mil/cmm (3.80-5.80); RED CELL DISTRIBUTION WIDTH 14.5 % (11.5-20.0); WHITE BLOOD COUNT 6.1 Th/cmm (4.8-10.8)
[2018-01-10] MEDS: Albuterol/Ipratropium Neb 3 ML AERS HHN SCH ×3 (07:51→22:23)
[2018-01-10] MEDS: Atenolol 100mg Tab PO SCH (09:01)
[2018-01-10] MEDS: Aspirin 81mg Chewable Tab PO SCH (09:01)
[2018-01-10] MEDS: Lactobacillus Rhamnosus GG 15 Billion CFU CAP.SPRINK PO SCH (09:02)
[2018-01-10] MEDS: Diltiazem CD 120 mg 24H PO SCH (09:02)
--- NOTE | 2018-01-10 14:01 | General Progress Note ---
Subjective - Review of Systems Events since last encounter: no fever no change Objective - Results Result Diagrams: 01/10/18 06:06 01/10/18 06:10 Recent Labs: Laboratory Last Values WBC 6.1 Th/cmm (4.8-10.8) 01/10/18 06:06 RBC 3.14 Mil/cmm (3.80-5.80) L 01/10/18 06:06 Hgb 8.7 gm/dL (12-16) L 01/10/18 06:06 Hct 26.5 % (41.0-60) L 01/10/18 06:06 MCV 84.5 fl (80-99) 01/10/18 06:06 MCH 27.6 pg (27.0-31.0) 01/10/18 06:06 MCHC Differential 32.7 pg (28.0-36.0) 01/10/18 06:06 RDW 14.5 % (11.5-20.0) 01/10/18 06:06 Plt Count 191 Th/cmm (150-400) 01/10/18 06:06 MPV 9.5 fl 01/10/18 06:06 Neutrophils % 60.9 % (40.0-80.0) 01/10/18 06:06 Lymphocytes % 24.4 % (20.0-50.0) 01/10/18 06:06 Monocytes % 11.8 % (2.0-10.0) H 01/10/18 06:06 Eosinophils % 2.8 % (0.0-5.0) 01/10/18 06:06 Basophils % 0.1 % (0.0-2.0) 01/10/18 06:06 Sodium 139 mEq/L (136-145) 01/10/18 06:10 Potassium 4.3 mEq/L (3.5-5.1) 01/10/18 06:10 Chloride 110 mEq/L (98-107) H 01/10/18 06:10 Carbon Dioxide 22.9 mEq/L (21.0-31.0) 01/10/18 06:10 Anion Gap 10.4 (7.0-16.0) 01/10/18 06:10 BUN 36 mg/dL (7-25) H 01/10/18 06:10 Creatinine 1.3 mg/dL (0.7-1.3) 01/10/18 06:10 Est GFR ( Amer) TNP 01/10/18 06:10 Est GFR (Non-Af Amer) TNP 01/10/18 06:10 BUN/Creatinine Ratio 27.7 01/10/18 06:10 Glucose 103 mg/dL (70-105) 01/10/18 06:10 Calcium 9.1 mg/dL (8.6-10.3) 01/10/18 06:10 Total Bilirubin 0.2 mg/dL (0.3-1.0) L 01/10/18 06:10 AST 10 U/L (13-39) L 01/10/18 06:10 ALT 10 U/L (7-52) 01/10/18 06:10 Alkaline Phosphatase 65 U/L (34-104) 01/10/18 06:10 Total Protein 6.6 gm/dL (6.0-8.3) 01/10/18 06:10 Albumin 3.2 gm/dL (4.2-5.5) L 01/10/18 06:10 Globulin 3.4 gm/dL 01/10/18 06:10 Albumin/Globulin Ratio 0.9 (1.0-1.8) L 01/10/18 06:10 - Physical Exam Vitals and I&O: Vital Signs Temp 98.2 F 01/10/18 12:00 Pulse 81 01/10/18 12:00 Resp 20 01/10/18 12:00 BP 147/76 01/10/18 12:00 Pulse Ox 100 01/10/18 12:00 Intake & Output 01/09/18 01/10/18 01/10/18 18:59 06:59 18:59 Intake Total 1320 Output Total 800 Balance 520 Weight (lbs) 44.906 kg Intake: Oral 1320 Output: Urine 800 Other: # Voids 4 # Bowel Movements 1 Stool Characteristics Formed Active Medications: Current Medications Acetaminophen (Tylenol) 650 mg PO Q4HR PRN PRN Reason: Mild Pain / Temp above 100 Stop: 03/05/18 08:05 Last Admin: 01/08/18 21:20 Dose: 650 mg Al Hydrox/Mg Hydrox/Simethicone (Maalox) 30 ml PO Q4HR PRN PRN Reason: GI DISTRESS Stop: 03/05/18 08:05 Last Admin: 01/06/18 14:43 Dose: 30 ml Albuterol/Ipratropium (Duoneb Neb) 3 ml HHN Q8HRT [facility] Stop: 03/05/18 14:59 Last Admin: 01/10/18 07:51 Dose: 3 ml Aspirin (Aspirin Chewable) 81 mg PO DAILY [facility] Stop: 03/05/18 08:59 Last Admin: 01/10/18 09:01 Dose: 81 mg Atenolol (Tenormin) 100 mg PO DAILY [facility] Stop: 03/05/18 08:59 Last Admin: 01/10/18 09:01 Dose: 100 mg Atorvastatin Calcium (Lipitor) 40 mg PO DAILY [facility] PRN Reason: Protocol Stop: 03/05/18 08:59 Last Admin: 01/10/18 09:01 Dose: 40 mg Diltiazem HCl (Cardizem Cd) 120 mg PO DAILY [facility] Stop: 03/05/18 08:59 Last Admin: 01/10/18 09:02 Dose: 120 mg Donepezil HCl (Aricept) 5 mg PO DAILY [facility] Stop: 03/05/18 08:59 Last Admin: 01/10/18 09:02 Dose: 5 mg Heparin Sodium (Porcine) (Heparin) 5,000 units SUBQ Q12HR [facility] Stop: 03/05/18 13:44 Last Admin: 01/10/18 09:02 Dose: Not Given Levofloxacin (Levaquin Pb) 250 mg in 50 mls @ 50 mls/hr IV Q24HR [facility] Stop: 03/04/18 22:59 Last Admin: 01/10/18 01:33 Dose: 50 mls/hr Lactobacillus Rhamnosus (Culturelle 15b) 1 each PO DAILY [facility] Stop: 03/09/18 08:59 Last Admin: 01/10/18 09:02 Dose: 1 each Lorazepam (Ativan) 0.5 mg PO Q4HR PRN; Protocol PRN Reason: Anxiety Stop: 03/05/18 08:05 Magnesium Hydroxide (Milk Of Magnesia) 30 ml PO HS PRN PRN Reason: Constipation Stop: 03/05/18 08:05 Last Admin: 01/06/18 14:43 Dose: 30 ml Miscellaneous (Probiotic Screen) 1 ea MC PRN PRN PRN Reason: PROTOCOL Stop: 03/08/18 14:14 Mupirocin (Bactroban Oint) 1 appl NS BID [facility] Stop: 01/11/18 09:01 Last Admin: 01/10/18 09:03 Dose: 1 appl Pantoprazole Sodium (Protonix) 40 mg PO DAILY@0730 [facility] Stop: 03/05/18 08:59 Last Admin: 01/10/18 07:06 Dose: 40 mg Zolpidem Tartrate (Ambien) 5 mg PO HS PRN PRN Reason: Insomnia Stop: 03/05/18 08:05 Last Admin: 01/08/18 21:20 Dose: 5 mg Nutritional Asmnt/Malnutr-PDOC - Dietary Evaluation Malnutrition Findings (Please click <Entered> for more info): Nutritional Asmnt/Malnutrition Start: 01/08/18 16: 30 Text: Status: Complete Freq: Document 01/08/18 16:30 MAYRA (Rec: 01/08/18 16:43 LCHEN [email or web address]) Nutritional Asmnt/Malnutrition Patient General Information Nutritional Screening Moderate Risk Diagnosis PNA Pertinent Medical Hx/Surgical Hx HTN, DM, renal failure, GERD, dementia, hyperlipidemia Subjective Information Pt seen eaing lunch on bed, airbone isolated. Spoke with RN, RN reported pt eats well, prefer hard boiled egg instead of scrambed, tea instead of coffee. Per records, PO intake 75-100% Current Diet Order/ Nutrition Support regular Pertinent Medications culturelle, protonix, levaquin Pertinent Labs 01/06 na 140, K 4.1, Cl 111, BUN 25, Cr 1.1 Nutritional Hx/Data Height 1.68 m Height (Calculated Centimeters) 167.6 Current Weight (lbs) 44.906 kg Weight (Calculated Kilograms) 44.9 Weight (Calculated Grams) 33569.6 [place] Body Weight 142 % [place] Body Weight 70 Body Mass Index (BMI) 16.0 Weight Status Underweight GI Symptoms GI Symptoms None Last BM 01/07 Difficult in: None Skin Integrity/Comment: scar to let shoulder and left hip Estimated Nutritional Goals Calories/Kcals/Kg 25-30 based on IBW 65kg Kcals Calculated 3072-8557 Protein g/k-1.2 Protein Calculated 65-78 Fluid: ml 1625-1950ml (1ml/kcal) Nutritional Problem 1. Problem Problem underweight Etiology possible inadequate energy intake Signs/Symptoms: BMI 16 Intervention/Recommendation Comments 1. Continue with regular diet as ordered. 2. Monitor PO intake, wt, labs and skin integrity 3. F/U as low risk in 7 days, 01/15, PO check 01/12 Expected Outcomes/Goals Expected Outcomes/Goals 1. PO intake to meet at least 75% of nutritional needs. 2. Wt stability, skin to remain intact, labs to approach WNL.
--- NOTE | 2018-01-10 17:28 | Infectious Disease Prog Note ---
Infectious Disease Subjective - Review of Systems Service Date: 01/10/18 Subjective: There is no new change, no fever. Infectious Disease Objective - Results Result Diagrams: 01/10/18 06:06 01/10/18 06:10 Recent Labs: Laboratory Last Values WBC 6.1 Th/cmm (4.8-10.8) 01/10/18 06:06 RBC 3.14 Mil/cmm (3.80-5.80) L 01/10/18 06:06 Hgb 8.7 gm/dL (12-16) L 01/10/18 06:06 Hct 26.5 % (41.0-60) L 01/10/18 06:06 MCV 84.5 fl (80-99) 01/10/18 06:06 MCH 27.6 pg (27.0-31.0) 01/10/18 06:06 MCHC Differential 32.7 pg (28.0-36.0) 01/10/18 06:06 RDW 14.5 % (11.5-20.0) 01/10/18 06:06 Plt Count 191 Th/cmm (150-400) 01/10/18 06:06 MPV 9.5 fl 01/10/18 06:06 Neutrophils % 60.9 % (40.0-80.0) 01/10/18 06:06 Lymphocytes % 24.4 % (20.0-50.0) 01/10/18 06:06 Monocytes % 11.8 % (2.0-10.0) H 01/10/18 06:06 Eosinophils % 2.8 % (0.0-5.0) 01/10/18 06:06 Basophils % 0.1 % (0.0-2.0) 01/10/18 06:06 Sodium 139 mEq/L (136-145) 01/10/18 06:10 Potassium 4.3 mEq/L (3.5-5.1) 01/10/18 06:10 Chloride 110 mEq/L (98-107) H 01/10/18 06:10 Carbon Dioxide 22.9 mEq/L (21.0-31.0) 01/10/18 06:10 Anion Gap 10.4 (7.0-16.0) 01/10/18 06:10 BUN 36 mg/dL (7-25) H 01/10/18 06:10 Creatinine 1.3 mg/dL (0.7-1.3) 01/10/18 06:10 Est GFR ( Amer) TNP 01/10/18 06:10 Est GFR (Non-Af Amer) TNP 01/10/18 06:10 BUN/Creatinine Ratio 27.7 01/10/18 06:10 Glucose 103 mg/dL (70-105) 01/10/18 06:10 Calcium 9.1 mg/dL (8.6-10.3) 01/10/18 06:10 Total Bilirubin 0.2 mg/dL (0.3-1.0) L 01/10/18 06:10 AST 10 U/L (13-39) L 01/10/18 06:10 ALT 10 U/L (7-52) 01/10/18 06:10 Alkaline Phosphatase 65 U/L (34-104) 01/10/18 06:10 Total Protein 6.6 gm/dL (6.0-8.3) 01/10/18 06:10 Albumin 3.2 gm/dL (4.2-5.5) L 01/10/18 06:10 Globulin 3.4 gm/dL 01/10/18 06:10 Albumin/Globulin Ratio 0.9 (1.0-1.8) L 01/10/18 06:10 - Physical Exam Vitals and I&O: Vital Signs Temp 98.2 F 01/10/18 12:00 Pulse 67 01/10/18 15:46 Resp 16 01/10/18 15:46 BP 147/76 01/10/18 12:00 Pulse Ox 99 01/10/18 15:46 Intake & Output 01/09/18 01/10/18 01/10/18 18:59 06:59 18:59 Intake Total 1320 Output Total 800 Balance 520 Weight (lbs) 44.906 kg Intake: Oral 1320 Output: Urine 800 Other: # Voids 4 # Bowel Movements 1 Stool Characteristics Formed Active Medications: Current Medications Acetaminophen (Tylenol) 650 mg PO Q4HR PRN PRN Reason: Mild Pain / Temp above 100 Stop: 03/05/18 08:05 Last Admin: 01/08/18 21:20 Dose: 650 mg Al Hydrox/Mg Hydrox/Simethicone (Maalox) 30 ml PO Q4HR PRN PRN Reason: GI DISTRESS Stop: 03/05/18 08:05 Last Admin: 01/06/18 14:43 Dose: 30 ml Albuterol/Ipratropium (Duoneb Neb) 3 ml HHN Q8HRT [facility] Stop: 03/05/18 14:59 Last Admin: 01/10/18 15:43 Dose: 3 ml Aspirin (Aspirin Chewable) 81 mg PO DAILY [facility] Stop: 03/05/18 08:59 Last Admin: 01/10/18 09:01 Dose: 81 mg Atenolol (Tenormin) 100 mg PO DAILY [facility] Stop: 03/05/18 08:59 Last Admin: 01/10/18 09:01 Dose: 100 mg Atorvastatin Calcium (Lipitor) 40 mg PO DAILY [facility] PRN Reason: Protocol Stop: 03/05/18 08:59 Last Admin: 01/10/18 09:01 Dose: 40 mg Diltiazem HCl (Cardizem Cd) 120 mg PO DAILY [facility] Stop: 03/05/18 08:59 Last Admin: 01/10/18 09:02 Dose: 120 mg Donepezil HCl (Aricept) 5 mg PO DAILY [facility] Stop: 03/05/18 08:59 Last Admin: 01/10/18 09:02 Dose: 5 mg Heparin Sodium (Porcine) (Heparin) 5,000 units SUBQ Q12HR [facility] Stop: 03/05/18 13:44 Last Admin: 01/10/18 09:02 Dose: Not Given Levofloxacin (Levaquin Pb) 250 mg in 50 mls @ 50 mls/hr IV Q24HR [facility] Stop: 03/04/18 22:59 Last Admin: 01/10/18 01:33 Dose: 50 mls/hr Lactobacillus Rhamnosus (Culturelle 15b) 1 each PO DAILY [facility] Stop: 03/09/18 08:59 Last Admin: 01/10/18 09:02 Dose: 1 each Lorazepam (Ativan) 0.5 mg PO Q4HR PRN; Protocol PRN Reason: Anxiety Stop: 03/05/18 08:05 Magnesium Hydroxide (Milk Of Magnesia) 30 ml PO HS PRN PRN Reason: Constipation Stop: 03/05/18 08:05 Last Admin: 01/06/18 14:43 Dose: 30 ml Miscellaneous (Probiotic Screen) 1 ea MC PRN PRN PRN Reason: PROTOCOL Stop: 03/08/18 14:14 Mupirocin (Bactroban Oint) 1 appl NS BID [facility] Stop: 01/11/18 09:01 Last Admin: 01/10/18 09:03 Dose: 1 appl Pantoprazole Sodium (Protonix) 40 mg PO DAILY@0730 [facility] Stop: 03/05/18 08:59 Last Admin: 01/10/18 07:06 Dose: 40 mg Zolpidem Tartrate (Ambien) 5 mg PO HS PRN PRN Reason: Insomnia Stop: 03/05/18 08:05 Last Admin: 01/08/18 21:20 Dose: 5 mg General: no acute distress, well developed, well nourished HEENT: atraumatic, normocephalic, PERRLA, EOMI, moist mucous membrane Neck: supple, no thyromegaly, no lymphadenopathy Cardiovascular: S1S2, regular Lungs: clear to auscultation bilaterally, clear to percussion Abdomen: soft, no tender, no distended, no mass, no rebound, no hepatomegaly Extremities: no cyanosis, no clubbing, no edema Neurological: awake, alert, oriented Skin: intact Infectious Disease Assmt/Plan - Assessment Assessment: Impression: 1. RLL Cavitary lesion: 2. DM2 3. Depression. - Plan Plan: TB Gold quantiferon. AFB 1/3 neg ( smear). Cocci, histo, blasto serologies. aspergillus serology. Nutritional Asmnt/Malnutr-PDOC - Dietary Evaluation Malnutrition Findings (Please click <Entered> for more info): Nutritional Asmnt/Malnutrition Start: 01/08/18 16: 30 Text: Status: Complete Freq: Document 01/08/18 16:30 LCHENG (Rec: 01/08/18 16:43 HEN [email or web address]) Nutritional Asmnt/Malnutrition Patient General Information Nutritional Screening Moderate Risk Diagnosis PNA Pertinent Medical Hx/Surgical Hx HTN, DM, renal failure, GERD, dementia, hyperlipidemia Subjective Information Pt seen eaing lunch on bed, airbone isolated. Spoke with RN, RN reported pt eats well, prefer hard boiled egg instead of scrambed, tea instead of coffee. Per records, PO intake 75-100% Current Diet Order/ Nutrition Support regular Pertinent Medications culturelle, protonix, levaquin Pertinent Labs 01/06 na 140, K 4.1, Cl 111, BUN 25, Cr 1.1 Nutritional Hx/Data Height 1.68 m Height (Calculated Centimeters) 167.6 Current Weight (lbs) 44.906 kg Weight (Calculated Kilograms) 44.9 Weight (Calculated Grams) 56448.6 [place] Body Weight 142 % [place] Body Weight 70 Body Mass Index (BMI) 16.0 Weight Status Underweight GI Symptoms GI Symptoms None Last BM 01/07 Difficult in: None Skin Integrity/Comment: scar to let shoulder and left hip Estimated Nutritional Goals Calories/Kcals/Kg 25-30 based on IBW 65kg Kcals Calculated 0378-8928 Protein g/k-1.2 Protein Calculated 65-78 Fluid: ml 1625-1950ml (1ml/kcal) Nutritional Problem 1. Problem Problem underweight Etiology possible inadequate energy intake Signs/Symptoms: BMI 16 Intervention/Recommendation Comments 1. Continue with regular diet as ordered. 2. Monitor PO intake, wt, labs and skin integrity 3. F/U as low risk in 7 days, 01/15, PO check 01/12 Expected Outcomes/Goals Expected Outcomes/Goals 1. PO intake to meet at least 75% of nutritional needs. 2. Wt stability, skin to remain intact, labs to approach WNL.
--- NOTE | 2018-01-10 22:38 | Progress Notes ---
DATE: 01/10/[address] Marsh. Case was discussed with staff of the patient, reviewed records. The patient continues to be quiet, confused, paranoid at times, unable to make safe plan for self-care. He is compliant with the medication with no side effects, no sedation, no nausea. He is on Aricept 5 mg at bedtime. He is confused. Thank you very much for allowing me to participate in the care of this most interesting gentleman. JOB# [id number]
[2018-01-11 06:21] LABS: ALB/GLOB RATIO 0.9 (1.0-1.8); ALBUMIN 3.3 gm/dL (4.2-5.5); ALKALINE PHOSPHATASE 65 U/L (34-104); ANION GAP 8.5 (7.0-16.0); BILIRUBIN,TOTAL 0.3 mg/dL (0.3-1.0); BUN - UREA NITROGEN 34 mg/dL (7-25); CALCIUM SERUM 9.4 mg/dL (8.6-10.3); CARBON DIOXIDE 25.3 mEq/L (21.0-31.0); CHLORIDE 111 mEq/L (98-107); CREATININE - SERUM 1.3 mg/dL (0.7-1.3); GLUCOSE 93 mg/dL (70-105); POTASSIUM SERUM 4.8 mEq/L (3.5-5.1); SGOT 10 U/L (13-39); SGPT/ALT 10 U/L (7-52); SODIUM SERUM 140 mEq/L (136-145); TOTAL PROTEIN,SERUM 6.9 gm/dL (6.0-8.3)
[2018-01-11 06:26] LABS: % BASOPHILS 0.4 % (0.0-2.0); % EOSINOPHILS 2.4 % (0.0-5.0); % LYMPHOCYTES 20.6 % (20.0-50.0); % MONOCYTES 12.6 % (2.0-10.0); EOSINOPHILE ABSOLUTE 0.2 Th/cmm (0.1-0.4); HEMATOCRIT 27.4 % (41.0-60); HEMOGLOBIN 9.1 gm/dL (12-16); LYMPHOCYTE ABSOLUTE 1.3 Th/cmm (1.5-3.0); MEAN CELL VOLUME 83.3 fl (80-99); MEAN CORPUSCULAR HEMOGLOBIN 27.6 pg (27.0-31.0); MEAN CORPUSCULAR HGB CONC 33.2 pg (28.0-36.0); MEAN PLATELET VOLUME 9.6 fl; MONOCYTE ABSOLUTE 0.8 Th/cmm (0.3-1.0); NEUTROPHILE ABSOLUTE 4.1 Th/cmm (1.8-8.0); PLATELET COUNT 183 Th/cmm (150-400); RED BLOOD COUNT 3.29 Mil/cmm (3.80-5.80); RED CELL DISTRIBUTION WIDTH 14.6 % (11.5-20.0); WHITE BLOOD COUNT 6.4 Th/cmm (4.8-10.8)
[2018-01-11] MEDS: Pantoprazole 40 mg EC Tab PO SCH (06:48)
[2018-01-11] MEDS: Albuterol/Ipratropium Neb 3 ML AERS HHN SCH ×3 (08:07→23:41)
[2018-01-11] MEDS: Aspirin 81mg Chewable Tab PO SCH (09:25)
[2018-01-11] MEDS: Lactobacillus Rhamnosus GG 15 Billion CFU CAP.SPRINK PO SCH (09:25)
[2018-01-11] MEDS: Diltiazem CD 120 mg 24H PO SCH (09:25)
[2018-01-11] MEDS: Atenolol 100mg Tab PO SCH (09:26)
--- NOTE | 2018-01-11 09:40 | General Progress Note ---
Subjective - Review of Systems Events since last encounter: no distress no change Objective - Results Result Diagrams: 01/11/18 05:40 01/11/18 05:40 Recent Labs: Laboratory Last Values WBC 6.4 Th/cmm (4.8-10.8) 01/11/18 05:40 RBC 3.29 Mil/cmm (3.80-5.80) L 01/11/18 05:40 Hgb 9.1 gm/dL (12-16) L 01/11/18 05:40 Hct 27.4 % (41.0-60) L 01/11/18 05:40 MCV 83.3 fl (80-99) 01/11/18 05:40 MCH 27.6 pg (27.0-31.0) 01/11/18 05:40 MCHC Differential 33.2 pg (28.0-36.0) 01/11/18 05:40 RDW 14.6 % (11.5-20.0) 01/11/18 05:40 Plt Count 183 Th/cmm (150-400) 01/11/18 05:40 MPV 9.6 fl 01/11/18 05:40 Neutrophils % 64.0 % (40.0-80.0) 01/11/18 05:40 Lymphocytes % 20.6 % (20.0-50.0) 01/11/18 05:40 Monocytes % 12.6 % (2.0-10.0) H 01/11/18 05:40 Eosinophils % 2.4 % (0.0-5.0) 01/11/18 05:40 Basophils % 0.4 % (0.0-2.0) 01/11/18 05:40 Sodium 140 mEq/L (136-145) 01/11/18 05:40 Potassium 4.8 mEq/L (3.5-5.1) 01/11/18 05:40 Chloride 111 mEq/L (98-107) H 01/11/18 05:40 Carbon Dioxide 25.3 mEq/L (21.0-31.0) 01/11/18 05:40 Anion Gap 8.5 (7.0-16.0) 01/11/18 05:40 BUN 34 mg/dL (7-25) H 01/11/18 05:40 Creatinine 1.3 mg/dL (0.7-1.3) 01/11/18 05:40 Est GFR ( Amer) TNP 01/11/18 05:40 Est GFR (Non-Af Amer) TNP 01/11/18 05:40 BUN/Creatinine Ratio 26.2 01/11/18 05:40 Glucose 93 mg/dL (70-105) 01/11/18 05:40 Calcium 9.4 mg/dL (8.6-10.3) 01/11/18 05:40 Total Bilirubin 0.3 mg/dL (0.3-1.0) 01/11/18 05:40 AST 10 U/L (13-39) L 01/11/18 05:40 ALT 10 U/L (7-52) 01/11/18 05:40 Alkaline Phosphatase 65 U/L (34-104) 01/11/18 05:40 Total Protein 6.9 gm/dL (6.0-8.3) 01/11/18 05:40 Albumin 3.3 gm/dL (4.2-5.5) L 01/11/18 05:40 Globulin 3.6 gm/dL 01/11/18 05:40 Albumin/Globulin Ratio 0.9 (1.0-1.8) L 01/11/18 05:40 - Physical Exam Vitals and I&O: Vital Signs Temp 97.4 F 01/11/18 07:46 Pulse 75 01/11/18 09:25 Resp 16 01/11/18 08:11 BP 146/76 01/11/18 07:46 Pulse Ox 97 01/11/18 08:11 Intake & Output 01/10/18 01/11/18 01/11/18 18:59 06:59 18:59 Intake Total 700 50 Output Total 400 Balance 300 50 Weight (lbs) 44.906 kg 44.906 kg Intake: Oral 700 50 Output: Urine 400 Other: # Voids 2 Active Medications: Current Medications Acetaminophen (Tylenol) 650 mg PO Q4HR PRN PRN Reason: Mild Pain / Temp above 100 Stop: 03/05/18 08:05 Last Admin: 01/08/18 21:20 Dose: 650 mg Al Hydrox/Mg Hydrox/Simethicone (Maalox) 30 ml PO Q4HR PRN PRN Reason: GI DISTRESS Stop: 03/05/18 08:05 Last Admin: 01/06/18 14:43 Dose: 30 ml Albuterol/Ipratropium (Duoneb Neb) 3 ml HHN Q8HRT [facility] Stop: 03/05/18 14:59 Last Admin: 01/11/18 08:07 Dose: 3 ml Aspirin (Aspirin Chewable) 81 mg PO DAILY [facility] Stop: 03/05/18 08:59 Last Admin: 01/11/18 09:25 Dose: 81 mg Atenolol (Tenormin) 100 mg PO DAILY [facility] Stop: 03/05/18 08:59 Last Admin: 01/11/18 09:26 Dose: 100 mg Atorvastatin Calcium (Lipitor) 40 mg PO DAILY [facility] PRN Reason: Protocol Stop: 03/05/18 08:59 Last Admin: 01/11/18 09:25 Dose: 40 mg Diltiazem HCl (Cardizem Cd) 120 mg PO DAILY [facility] Stop: 03/05/18 08:59 Last Admin: 01/11/18 09:25 Dose: 120 mg Donepezil HCl (Aricept) 5 mg PO DAILY [facility] Stop: 03/05/18 08:59 Last Admin: 01/11/18 09:25 Dose: 5 mg Heparin Sodium (Porcine) (Heparin) 5,000 units SUBQ Q12HR [facility] Stop: 03/05/18 13:44 Last Admin: 01/10/18 21:42 Dose: Not Given Levofloxacin (Levaquin Pb) 250 mg in 50 mls @ 50 mls/hr IV Q24HR [facility] Stop: 03/04/18 22:59 Last Admin: 01/10/18 22:38 Dose: 50 mls/hr Lactobacillus Rhamnosus (Culturelle 15b) 1 each PO DAILY [facility] Stop: 03/09/18 08:59 Last Admin: 01/11/18 09:25 Dose: 1 each Lorazepam (Ativan) 0.5 mg PO Q4HR PRN; Protocol PRN Reason: Anxiety Stop: 03/05/18 08:05 Magnesium Hydroxide (Milk Of Magnesia) 30 ml PO HS PRN PRN Reason: Constipation Stop: 03/05/18 08:05 Last Admin: 01/06/18 14:43 Dose: 30 ml Miscellaneous (Probiotic Screen) 1 ea MC PRN PRN PRN Reason: PROTOCOL Stop: 03/08/18 14:14 Pantoprazole Sodium (Protonix) 40 mg PO DAILY@0730 [facility] Stop: 03/05/18 08:59 Last Admin: 01/11/18 06:48 Dose: 40 mg Zolpidem Tartrate (Ambien) 5 mg PO HS PRN PRN Reason: Insomnia Stop: 03/05/18 08:05 Last Admin: 01/08/18 21:20 Dose: 5 mg Nutritional Asmnt/Malnutr-PDOC - Dietary Evaluation Malnutrition Findings (Please click <Entered> for more info): Nutritional Asmnt/Malnutrition Start: 01/08/18 16: 30 Text: Status: Complete Freq: Document 01/08/18 16:30 JAZMIN (Rec: 01/08/18 16:43 VIRAJ [email or web address]) Nutritional Asmnt/Malnutrition Patient General Information Nutritional Screening Moderate Risk Diagnosis PNA Pertinent Medical Hx/Surgical Hx HTN, DM, renal failure, GERD, dementia, hyperlipidemia Subjective Information Pt seen eaing lunch on bed, airbone isolated. Spoke with RN, RN reported pt eats well, prefer hard boiled egg instead of scrambed, tea instead of coffee. Per records, PO intake 75-100% Current Diet Order/ Nutrition Support regular Pertinent Medications culturelle, protonix, levaquin Pertinent Labs 01/06 na 140, K 4.1, Cl 111, BUN 25, Cr 1.1 Nutritional Hx/Data Height 1.68 m Height (Calculated Centimeters) 167.6 Current Weight (lbs) 44.906 kg Weight (Calculated Kilograms) 44.9 Weight (Calculated Grams) 19810.6 [place] Body Weight 142 % [place] Body Weight 70 Body Mass Index (BMI) 16.0 Weight Status Underweight GI Symptoms GI Symptoms None Last BM 01/07 Difficult in: None Skin Integrity/Comment: scar to let shoulder and left hip Estimated Nutritional Goals Calories/Kcals/Kg 25-30 based on IBW 65kg Kcals Calculated 3923-0773 Protein g/k-1.2 Protein Calculated 65-78 Fluid: ml 1625-1950ml (1ml/kcal) Nutritional Problem 1. Problem Problem underweight Etiology possible inadequate energy intake Signs/Symptoms: BMI 16 Intervention/Recommendation Comments 1. Continue with regular diet as ordered. 2. Monitor PO intake, wt, labs and skin integrity 3. F/U as low risk in 7 days, 01/15, PO check 01/12 Expected Outcomes/Goals Expected Outcomes/Goals 1. PO intake to meet at least 75% of nutritional needs. 2. Wt stability, skin to remain intact, labs to approach WNL.
--- NOTE | 2018-01-11 13:34 | Infectious Disease Prog Note ---
Infectious Disease Subjective - Review of Systems Service Date: 01/11/18 Subjective: There is no new change, no fever. Infectious Disease Objective - Results Result Diagrams: 01/11/18 05:40 01/11/18 05:40 Recent Labs: Laboratory Last Values WBC 6.4 Th/cmm (4.8-10.8) 01/11/18 05:40 RBC 3.29 Mil/cmm (3.80-5.80) L 01/11/18 05:40 Hgb 9.1 gm/dL (12-16) L 01/11/18 05:40 Hct 27.4 % (41.0-60) L 01/11/18 05:40 MCV 83.3 fl (80-99) 01/11/18 05:40 MCH 27.6 pg (27.0-31.0) 01/11/18 05:40 MCHC Differential 33.2 pg (28.0-36.0) 01/11/18 05:40 RDW 14.6 % (11.5-20.0) 01/11/18 05:40 Plt Count 183 Th/cmm (150-400) 01/11/18 05:40 MPV 9.6 fl 01/11/18 05:40 Neutrophils % 64.0 % (40.0-80.0) 01/11/18 05:40 Lymphocytes % 20.6 % (20.0-50.0) 01/11/18 05:40 Monocytes % 12.6 % (2.0-10.0) H 01/11/18 05:40 Eosinophils % 2.4 % (0.0-5.0) 01/11/18 05:40 Basophils % 0.4 % (0.0-2.0) 01/11/18 05:40 Sodium 140 mEq/L (136-145) 01/11/18 05:40 Potassium 4.8 mEq/L (3.5-5.1) 01/11/18 05:40 Chloride 111 mEq/L (98-107) H 01/11/18 05:40 Carbon Dioxide 25.3 mEq/L (21.0-31.0) 01/11/18 05:40 Anion Gap 8.5 (7.0-16.0) 01/11/18 05:40 BUN 34 mg/dL (7-25) H 01/11/18 05:40 Creatinine 1.3 mg/dL (0.7-1.3) 01/11/18 05:40 Est GFR ( Amer) TNP 01/11/18 05:40 Est GFR (Non-Af Amer) TNP 01/11/18 05:40 BUN/Creatinine Ratio 26.2 01/11/18 05:40 Glucose 93 mg/dL (70-105) 01/11/18 05:40 Calcium 9.4 mg/dL (8.6-10.3) 01/11/18 05:40 Total Bilirubin 0.3 mg/dL (0.3-1.0) 01/11/18 05:40 AST 10 U/L (13-39) L 01/11/18 05:40 ALT 10 U/L (7-52) 01/11/18 05:40 Alkaline Phosphatase 65 U/L (34-104) 01/11/18 05:40 Total Protein 6.9 gm/dL (6.0-8.3) 01/11/18 05:40 Albumin 3.3 gm/dL (4.2-5.5) L 01/11/18 05:40 Globulin 3.6 gm/dL 01/11/18 05:40 Albumin/Globulin Ratio 0.9 (1.0-1.8) L 01/11/18 05:40 - Physical Exam Vitals and I&O: Vital Signs Temp 97.2 F 01/11/18 11:58 Pulse 81 01/11/18 11:58 Resp 17 01/11/18 11:58 BP 136/89 01/11/18 11:58 Pulse Ox 99 01/11/18 11:58 Intake & Output 01/10/18 01/11/18 01/11/18 18:59 06:59 18:59 Intake Total 700 50 Output Total 400 Balance 300 50 Weight (lbs) 44.906 kg 44.906 kg Intake: Oral 700 50 Output: Urine 400 Other: # Voids 2 Active Medications: Current Medications Acetaminophen (Tylenol) 650 mg PO Q4HR PRN PRN Reason: Mild Pain / Temp above 100 Stop: 03/05/18 08:05 Last Admin: 01/08/18 21:20 Dose: 650 mg Al Hydrox/Mg Hydrox/Simethicone (Maalox) 30 ml PO Q4HR PRN PRN Reason: GI DISTRESS Stop: 03/05/18 08:05 Last Admin: 01/06/18 14:43 Dose: 30 ml Albuterol/Ipratropium (Duoneb Neb) 3 ml HHN Q8HRT [facility] Stop: 03/05/18 14:59 Last Admin: 01/11/18 08:07 Dose: 3 ml Aspirin (Aspirin Chewable) 81 mg PO DAILY [facility] Stop: 03/05/18 08:59 Last Admin: 01/11/18 09:25 Dose: 81 mg Atenolol (Tenormin) 100 mg PO DAILY [facility] Stop: 03/05/18 08:59 Last Admin: 01/11/18 09:26 Dose: 100 mg Atorvastatin Calcium (Lipitor) 40 mg PO DAILY [facility] PRN Reason: Protocol Stop: 03/05/18 08:59 Last Admin: 01/11/18 09:25 Dose: 40 mg Diltiazem HCl (Cardizem Cd) 120 mg PO DAILY [facility] Stop: 03/05/18 08:59 Last Admin: 01/11/18 09:25 Dose: 120 mg Donepezil HCl (Aricept) 5 mg PO DAILY [facility] Stop: 03/05/18 08:59 Last Admin: 01/11/18 09:25 Dose: 5 mg Heparin Sodium (Porcine) (Heparin) 5,000 units SUBQ Q12HR [facility] Stop: 03/05/18 13:44 Last Admin: 01/11/18 09:49 Dose: Not Given Levofloxacin (Levaquin Pb) 250 mg in 50 mls @ 50 mls/hr IV Q24HR [facility] Stop: 03/04/18 22:59 Last Admin: 01/10/18 22:38 Dose: 50 mls/hr Lactobacillus Rhamnosus (Culturelle 15b) 1 each PO DAILY [facility] Stop: 03/09/18 08:59 Last Admin: 01/11/18 09:25 Dose: 1 each Lorazepam (Ativan) 0.5 mg PO Q4HR PRN; Protocol PRN Reason: Anxiety Stop: 03/05/18 08:05 Magnesium Hydroxide (Milk Of Magnesia) 30 ml PO HS PRN PRN Reason: Constipation Stop: 03/05/18 08:05 Last Admin: 01/06/18 14:43 Dose: 30 ml Miscellaneous (Probiotic Screen) 1 ea MC PRN PRN PRN Reason: PROTOCOL Stop: 03/08/18 14:14 Pantoprazole Sodium (Protonix) 40 mg PO DAILY@0730 [facility] Stop: 03/05/18 08:59 Last Admin: 01/11/18 06:48 Dose: 40 mg Zolpidem Tartrate (Ambien) 5 mg PO HS PRN PRN Reason: Insomnia Stop: 03/05/18 08:05 Last Admin: 01/08/18 21:20 Dose: 5 mg General: no acute distress, well developed, well nourished HEENT: atraumatic, normocephalic, PERRLA Neck: supple, no thyromegaly Cardiovascular: S1S2, regular Lungs: clear to auscultation bilaterally, clear to percussion Abdomen: soft, no tender, no distended Extremities: no cyanosis, no clubbing, no edema Neurological: awake, alert, oriented Skin: intact Infectious Disease Assmt/Plan - Assessment Assessment: Impression: 1. RLL Cavitary lesion: 2. DM2 3. Depression. 4. MRSA colonization. - Plan Plan: Continue the same treatment. TB Gold quantiferon. AFB 1/3 neg ( smear). Cocci, histo, blasto serologies. aspergillus serology. Add vanco iv. Nutritional Asmnt/Malnutr-PDOC - Dietary Evaluation Malnutrition Findings (Please click <Entered> for more info): Nutritional Asmnt/Malnutrition Start: 01/08/18 16: 30 Text: Status: Complete Freq: Document 01/08/18 16:30 HEN (Rec: 01/08/18 16:43 [email or web address] Nutritional Asmnt/Malnutrition Patient General Information Nutritional Screening Moderate Risk Diagnosis PNA Pertinent Medical Hx/Surgical Hx HTN, DM, renal failure, GERD, dementia, hyperlipidemia Subjective Information Pt seen eaing lunch on bed, airbone isolated. Spoke with RN, RN reported pt eats well, prefer hard boiled egg instead of scrambed, tea instead of coffee. Per records, PO intake 75-100% Current Diet Order/ Nutrition Support regular Pertinent Medications culturelle, protonix, levaquin Pertinent Labs 01/06 na 140, K 4.1, Cl 111, BUN 25, Cr 1.1 Nutritional Hx/Data Height 1.68 m Height (Calculated Centimeters) 167.6 Current Weight (lbs) 44.906 kg Weight (Calculated Kilograms) 44.9 Weight (Calculated Grams) 32540.6 [place] Body Weight 142 % [place] Body Weight 70 Body Mass Index (BMI) 16.0 Weight Status Underweight GI Symptoms GI Symptoms None Last BM 3/ Difficult in: None Skin Integrity/Comment: scar to let shoulder and left hip Estimated Nutritional Goals Calories/Kcals/Kg 25-30 based on IBW 65kg Kcals Calculated 5643-3726 Protein g/k-1.2 Protein Calculated 65-78 Fluid: ml 1625-1950ml (1ml/kcal) Nutritional Problem 1. Problem Problem underweight Etiology possible inadequate energy intake Signs/Symptoms: BMI 16 Intervention/Recommendation Comments 1. Continue with regular diet as ordered. 2. Monitor PO intake, wt, labs and skin integrity 3. F/U as low risk in 7 days, 01/15, PO check 01/12 Expected Outcomes/Goals Expected Outcomes/Goals 1. PO intake to meet at least 75% of nutritional needs. 2. Wt stability, skin to remain intact, labs to approach WNL.
[2018-01-11] MEDS: Levofloxacin 250mg/50mL 250 MG/50 ML BAG IV SCH (23:17)
[2018-01-12 07:02] LABS: % BASOPHILS 0.3 % (0.0-2.0); % EOSINOPHILS 2.4 % (0.0-5.0); % LYMPHOCYTES 26.2 % (20.0-50.0); % MONOCYTES 13.2 % (2.0-10.0); % NEUTROPHILS 57.9 % (40.0-80.0); EOSINOPHILE ABSOLUTE 0.1 Th/cmm (0.1-0.4); HEMATOCRIT 29.5 % (41.0-60); HEMOGLOBIN 9.6 gm/dL (12-16); LYMPHOCYTE ABSOLUTE 1.6 Th/cmm (1.5-3.0); MEAN CELL VOLUME 84.1 fl (80-99); MEAN CORPUSCULAR HEMOGLOBIN 27.5 pg (27.0-31.0); MEAN CORPUSCULAR HGB CONC 32.7 pg (28.0-36.0); MEAN PLATELET VOLUME 9.2 fl; MONOCYTE ABSOLUTE 0.8 Th/cmm (0.3-1.0); NEUTROPHILE ABSOLUTE 3.5 Th/cmm (1.8-8.0); PLATELET COUNT 200 Th/cmm (150-400); RED CELL DISTRIBUTION WIDTH 14.2 % (11.5-20.0)
[2018-01-12] MEDS: Pantoprazole 40 mg EC Tab PO SCH (07:09)
[2018-01-12 07:21] LABS: ALB/GLOB RATIO 0.9 (1.0-1.8); ALBUMIN 3.5 gm/dL (4.2-5.5); ALKALINE PHOSPHATASE 72 U/L (34-104); ANION GAP 9.9 (7.0-16.0); BILIRUBIN,TOTAL 0.2 mg/dL (0.3-1.0); BUN - UREA NITROGEN 32 mg/dL (7-25); CALCIUM SERUM 9.5 mg/dL (8.6-10.3); CARBON DIOXIDE 24.5 mEq/L (21.0-31.0); CHLORIDE 110 mEq/L (98-107); CREATININE - SERUM 1.2 mg/dL (0.7-1.3); GLUCOSE 93 mg/dL (70-105); POTASSIUM SERUM 4.4 mEq/L (3.5-5.1); SGOT 11 U/L (13-39); SGPT/ALT 10 U/L (7-52); SODIUM SERUM 140 mEq/L (136-145); TOTAL PROTEIN,SERUM 7.4 gm/dL (6.0-8.3)
[2018-01-12] MEDS: Albuterol/Ipratropium Neb 3 ML AERS HHN SCH ×3 (08:10→23:15)
--- NOTE | 2018-01-12 08:44 | Diagnostic Imaging Report ---
Portable chest x-ray HISTORY: Pneumonia Compared with prior exam of January 05, 2018, no change in abnormal parenchymal density that appears associated with surgical changes in the right lower lobe. Radiodensities consistent with surgical material noted over the right hilar region. The heart appears enlarged. IMPRESSION: 1. No significant change dating back to 01/01/2018. Findings consistent with a probable chronic etiology within the right lower lobe including surgical changes. No other acute focal processes. 2. Cardiomegaly
[2018-01-12] MEDS: Aspirin 81mg Chewable Tab PO SCH (10:12)
[2018-01-12] MEDS: Diltiazem CD 120 mg 24H PO SCH (10:15)
[2018-01-12] MEDS: Lactobacillus Rhamnosus GG 15 Billion CFU CAP.SPRINK PO SCH (10:16)
[2018-01-12] MEDS: Atenolol 100mg Tab PO SCH (10:33)
--- NOTE | 2018-01-12 16:23 | Progress Notes ---
DATE: 01/12/2018 SUBJECTIVE: Chart reviewed and the patient interviewed. Also discussed the patient's condition with the staff and reviewed records and labs. The patient is calm. He is less agitated. He also is still forgetful and he is withdrawn and interacting minimally with others. The patient then also is confused and he seems to be sleepy most of the time. Otherwise, the patient is compliant with taking Aricept with no side effects. ASSESSMENT: No major changes in mental status or behavior. TREATMENT PLAN: We will continue monitoring his behavior and condition. Also, continue to work on adjusting psychotropic medications and behavior. JOB# [id number]
--- NOTE | 2018-01-12 21:01 | Internal Medicine Prog Note ---
Internal Medicine Subjective - Subjective Service Date: 01/12/18 Patient is:: awake, verbal, confused Per staff patient has:: tolerating meds Internal Medicine Objective - Results Result Diagrams: 01/12/18 06:40 01/12/18 06:40 Recent Labs: Laboratory Last Values WBC 6.0 Th/cmm (4.8-10.8) 01/12/18 06:40 RBC 3.50 Mil/cmm (3.80-5.80) L 01/12/18 06:40 Hgb 9.6 gm/dL (12-16) L 01/12/18 06:40 Hct 29.5 % (41.0-60) L 01/12/18 06:40 MCV 84.1 fl (80-99) 01/12/18 06:40 MCH 27.5 pg (27.0-31.0) 01/12/18 06:40 MCHC Differential 32.7 pg (28.0-36.0) 01/12/18 06:40 RDW 14.2 % (11.5-20.0) 01/12/18 06:40 Plt Count 200 Th/cmm (150-400) 01/12/18 06:40 MPV 9.2 fl 01/12/18 06:40 Neutrophils % 57.9 % (40.0-80.0) 01/12/18 06:40 Lymphocytes % 26.2 % (20.0-50.0) 01/12/18 06:40 Monocytes % 13.2 % (2.0-10.0) H 01/12/18 06:40 Eosinophils % 2.4 % (0.0-5.0) 01/12/18 06:40 Basophils % 0.3 % (0.0-2.0) 01/12/18 06:40 Sodium 140 mEq/L (136-145) 01/12/18 06:40 Potassium 4.4 mEq/L (3.5-5.1) 01/12/18 06:40 Chloride 110 mEq/L (98-107) H 01/12/18 06:40 Carbon Dioxide 24.5 mEq/L (21.0-31.0) 01/12/18 06:40 Anion Gap 9.9 (7.0-16.0) 01/12/18 06:40 BUN 32 mg/dL (7-25) H 01/12/18 06:40 Creatinine 1.2 mg/dL (0.7-1.3) 01/12/18 06:40 Est GFR ( Amer) TNP 01/12/18 06:40 Est GFR (Non-Af Amer) TNP 01/12/18 06:40 BUN/Creatinine Ratio 26.7 01/12/18 06:40 Glucose 93 mg/dL (70-105) 01/12/18 06:40 Calcium 9.5 mg/dL (8.6-10.3) 01/12/18 06:40 Total Bilirubin 0.2 mg/dL (0.3-1.0) L 01/12/18 06:40 AST 11 U/L (13-39) L 01/12/18 06:40 ALT 10 U/L (7-52) 01/12/18 06:40 Alkaline Phosphatase 72 U/L (34-104) 01/12/18 06:40 Total Protein 7.4 gm/dL (6.0-8.3) 01/12/18 06:40 Albumin 3.5 gm/dL (4.2-5.5) L 01/12/18 06:40 Globulin 3.9 gm/dL 01/12/18 06:40 Albumin/Globulin Ratio 0.9 (1.0-1.8) L 01/12/18 06:40 Histoplasma Antigen SEE REF. LAB REPORT 01/07/18 07:15 - Physical Exam Vitals and I&O: Vital Signs Temp 100.4 F 01/12/18 20:00 Pulse 77 01/12/18 20:00 Resp 18 01/12/18 20:00 BP 113/64 01/12/18 20:00 Pulse Ox 100 01/12/18 20:00 Intake & Output 01/12/18 01/12/18 01/13/18 06:59 18:59 06:59 Intake Total 300 800 Balance 300 800 Weight (lbs) 94 lb 94 lb Intake: Oral 300 800 Other: # Voids 2 3 # Bowel Movements 1 Active Medications: Current Medications Acetaminophen (Tylenol) 650 mg PO Q4HR PRN PRN Reason: Mild Pain / Temp above 100 Stop: 03/05/18 08:05 Last Admin: 01/08/18 21:20 Dose: 650 mg Al Hydrox/Mg Hydrox/Simethicone (Maalox) 30 ml PO Q4HR PRN PRN Reason: GI DISTRESS Stop: 03/05/18 08:05 Last Admin: 01/06/18 14:43 Dose: 30 ml Albuterol/Ipratropium (Duoneb Neb) 3 ml HHN Q8HRT [facility] Stop: 03/05/18 14:59 Last Admin: 01/12/18 15:43 Dose: 3 ml Aspirin (Aspirin Chewable) 81 mg PO DAILY [facility] Stop: 03/05/18 08:59 Last Admin: 01/12/18 10:12 Dose: 81 mg Atenolol (Tenormin) 100 mg PO DAILY [facility] Stop: 03/05/18 08:59 Last Admin: 01/12/18 10:33 Dose: 100 mg Atorvastatin Calcium (Lipitor) 40 mg PO DAILY [facility] PRN Reason: Protocol Stop: 03/05/18 08:59 Last Admin: 01/12/18 10:12 Dose: 40 mg Diltiazem HCl (Cardizem Cd) 120 mg PO DAILY [facility] Stop: 03/05/18 08:59 Last Admin: 01/12/18 10:15 Dose: 120 mg Donepezil HCl (Aricept) 5 mg PO DAILY [facility] Stop: 03/05/18 08:59 Last Admin: 01/12/18 10:15 Dose: 5 mg Heparin Sodium (Porcine) (Heparin) 5,000 units SUBQ Q12HR [facility] Stop: 03/05/18 13:44 Last Admin: 01/12/18 10:28 Dose: Not Given Levofloxacin (Levaquin Pb) 250 mg in 50 mls @ 50 mls/hr IV Q24HR [facility] Stop: 03/04/18 22:59 Last Admin: 01/11/18 23:17 Dose: 50 mls/hr Vancomycin HCl 750 mg/ Sodium (Chloride) 250 mls @ 165 mls/hr IV Q24H [facility] Stop: 03/13/18 09:59 Last Admin: 01/12/18 10:16 Dose: 165 mls/hr Lactobacillus Rhamnosus (Culturelle 15b) 1 each PO DAILY [facility] Stop: 03/09/18 08:59 Last Admin: 01/12/18 10:16 Dose: 1 each Lorazepam (Ativan) 0.5 mg PO Q4HR PRN; Protocol PRN Reason: Anxiety Stop: 03/05/18 08:05 Magnesium Hydroxide (Milk Of Magnesia) 30 ml PO HS PRN PRN Reason: Constipation Stop: 03/05/18 08:05 Last Admin: 01/06/18 14:43 Dose: 30 ml Miscellaneous (Probiotic Screen) 1 ea MC PRN PRN PRN Reason: PROTOCOL Stop: 03/08/18 14:14 Miscellaneous (Vancomycin Iv Per Pharmacy) 1 ea MC PRN [facility] Stop: 03/12/18 13:44 Pantoprazole Sodium (Protonix) 40 mg PO DAILY@0730 [facility] Stop: 03/05/18 08:59 Last Admin: 01/12/18 07:09 Dose: 40 mg Zolpidem Tartrate (Ambien) 5 mg PO HS PRN PRN Reason: Insomnia Stop: 03/05/18 08:05 Last Admin: 01/08/18 21:20 Dose: 5 mg General: weak, alert HEENT: NC/AT, PERRLA Neck: Supple Lungs: ronchi Abdomen: soft, non-tender, non-distended, positive bowel sound Neurological: unable to follow command Internal Medicine Assmt/Plan - Assessment Assessment: pneumonia dementia htn hyperlipidemia oa gerd - Plan Plan: cbc/bmp in am bronchodilators supplemental oyxgen as needed continue current orders Nutritional Asmnt/Malnutr-PDOC - Dietary Evaluation Malnutrition Findings (Please click <Entered> for more info): Nutritional Asmnt/Malnutrition Start: 01/08/18 16: 30 Text: Status: Complete Freq: Document 01/08/18 16:30 HEN (Rec: 01/08/18 16:43 [email or web address]) Nutritional Asmnt/Malnutrition Patient General Information Nutritional Screening Moderate Risk Diagnosis PNA Pertinent Medical Hx/Surgical Hx HTN, DM, renal failure, GERD, dementia, hyperlipidemia Subjective Information Pt seen eaing lunch on bed, airbone isolated. Spoke with RN, RN reported pt eats well, prefer hard boiled egg instead of scrambed, tea instead of coffee. Per records, PO intake 75-100% Current Diet Order/ Nutrition Support regular Pertinent Medications culturelle, protonix, levaquin Pertinent Labs 01/06 na 140, K 4.1, Cl 111, BUN 25, Cr 1.1 Nutritional Hx/Data Height 5 ft 6 in Height (Calculated Centimeters) 167.6 Current Weight (lbs) 99 lb Weight (Calculated Kilograms) 44.9 Weight (Calculated Grams) 21981.6 [place] Body Weight 142 % [place] Body Weight 70 Body Mass Index (BMI) 16.0 Weight Status Underweight GI Symptoms GI Symptoms None Last BM 3/ Difficult in: None Skin Integrity/Comment: scar to let shoulder and left hip Estimated Nutritional Goals Calories/Kcals/Kg 25-30 based on IBW 65kg Kcals Calculated 9035-9813 Protein g/k-1.2 Protein Calculated 65-78 Fluid: ml 1625-1950ml (1ml/kcal) Nutritional Problem 1. Problem Problem underweight Etiology possible inadequate energy intake Signs/Symptoms: BMI 16 Intervention/Recommendation Comments 1. Continue with regular diet as ordered. 2. Monitor PO intake, wt, labs and skin integrity 3. F/U as low risk in 7 days, 01/15, PO check 01/12 Expected Outcomes/Goals Expected Outcomes/Goals 1. PO intake to meet at least 75% of nutritional needs. 2. Wt stability, skin to remain intact, labs to approach WNL.
[2018-01-13] MEDS: Levofloxacin 250mg/50mL 250 MG/50 ML BAG IV SCH ×2 (00:14→22:49)
[2018-01-13] MEDS: Pantoprazole 40 mg EC Tab PO SCH (06:44)
[2018-01-13] MEDS: Albuterol/Ipratropium Neb 3 ML AERS HHN SCH ×3 (06:52→23:30)
[2018-01-13 09:16] LABS: % EOSINOPHILS 2.8 % (0.0-5.0); % LYMPHOCYTES 24.7 % (20.0-50.0); % MONOCYTES 7.8 % (2.0-10.0); % NEUTROPHILS 63.7 % (40.0-80.0); BASOPHILE ABSOLUTE 0.1 Th/cumm (0-0.2); EOSINOPHILE ABSOLUTE 0.2 Th/cmm (0.1-0.4); HEMATOCRIT 30.3 % (41.0-60); HEMOGLOBIN 9.8 gm/dL (12-16); LYMPHOCYTE ABSOLUTE 1.5 Th/cmm (1.5-3.0); MEAN CELL VOLUME 84.5 fl (80-99); MEAN CORPUSCULAR HEMOGLOBIN 27.4 pg (27.0-31.0); MEAN CORPUSCULAR HGB CONC 32.4 pg (28.0-36.0); MEAN PLATELET VOLUME 8.8 fl; MONOCYTE ABSOLUTE 0.5 Th/cmm (0.3-1.0); NEUTROPHILE ABSOLUTE 3.6 Th/cmm (1.8-8.0); PLATELET COUNT 216 Th/cmm (150-400); RED BLOOD COUNT 3.59 Mil/cmm (3.80-5.80); RED CELL DISTRIBUTION WIDTH 14.2 % (11.5-20.0); WHITE BLOOD COUNT 5.9 Th/cmm (4.8-10.8)
--- NOTE | 2018-01-13 09:17 | General Progress Note ---
Subjective - Review of Systems Events since last encounter: awake confused in no distress Objective - Results Result Diagrams: 01/13/18 09:05 01/12/18 06:40 Recent Labs: Laboratory Last Values WBC 5.9 Th/cmm (4.8-10.8) 01/13/18 09:05 RBC 3.59 Mil/cmm (3.80-5.80) L 01/13/18 09:05 Hgb 9.8 gm/dL (12-16) L 01/13/18 09:05 Hct 30.3 % (41.0-60) L 01/13/18 09:05 MCV 84.5 fl (80-99) 01/13/18 09:05 MCH 27.4 pg (27.0-31.0) 01/13/18 09:05 MCHC Differential 32.4 pg (28.0-36.0) 01/13/18 09:05 RDW 14.2 % (11.5-20.0) 01/13/18 09:05 Plt Count 216 Th/cmm (150-400) 01/13/18 09:05 MPV 8.8 fl 01/13/18 09:05 Neutrophils % 63.7 % (40.0-80.0) 01/13/18 09:05 Lymphocytes % 24.7 % (20.0-50.0) 01/13/18 09:05 Monocytes % 7.8 % (2.0-10.0) 01/13/18 09:05 Eosinophils % 2.8 % (0.0-5.0) 01/13/18 09:05 Basophils % 1.0 % (0.0-2.0) 01/13/18 09:05 Sodium 140 mEq/L (136-145) 01/12/18 06:40 Potassium 4.4 mEq/L (3.5-5.1) 01/12/18 06:40 Chloride 110 mEq/L (98-107) H 01/12/18 06:40 Carbon Dioxide 24.5 mEq/L (21.0-31.0) 01/12/18 06:40 Anion Gap 9.9 (7.0-16.0) 01/12/18 06:40 BUN 32 mg/dL (7-25) H 01/12/18 06:40 Creatinine 1.2 mg/dL (0.7-1.3) 01/12/18 06:40 Est GFR ( Amer) TNP 01/12/18 06:40 Est GFR (Non-Af Amer) TNP 01/12/18 06:40 BUN/Creatinine Ratio 26.7 01/12/18 06:40 Glucose 93 mg/dL (70-105) 01/12/18 06:40 Calcium 9.5 mg/dL (8.6-10.3) 01/12/18 06:40 Total Bilirubin 0.2 mg/dL (0.3-1.0) L 01/12/18 06:40 AST 11 U/L (13-39) L 01/12/18 06:40 ALT 10 U/L (7-52) 01/12/18 06:40 Alkaline Phosphatase 72 U/L (34-104) 01/12/18 06:40 Total Protein 7.4 gm/dL (6.0-8.3) 01/12/18 06:40 Albumin 3.5 gm/dL (4.2-5.5) L 01/12/18 06:40 Globulin 3.9 gm/dL 01/12/18 06:40 Albumin/Globulin Ratio 0.9 (1.0-1.8) L 01/12/18 06:40 Histoplasma Antigen SEE REF. LAB REPORT 01/07/18 07:15 - Physical Exam Vitals and I&O: Vital Signs Temp 98.2 F 01/13/18 04:00 Pulse 77 01/13/18 06:52 Resp 18 01/13/18 06:52 BP 148/55 01/13/18 04:00 Pulse Ox 99 01/13/18 06:52 Intake & Output 01/12/18 01/13/18 01/13/18 18:59 06:59 18:59 Intake Total 800 550 Balance 800 550 Weight (lbs) 42.638 kg 42.638 kg Intake: Oral 800 550 Other: # Voids 3 3 Active Medications: Current Medications Acetaminophen (Tylenol) 650 mg PO Q4HR PRN PRN Reason: Mild Pain / Temp above 100 Stop: 03/05/18 08:05 Last Admin: 01/08/18 21:20 Dose: 650 mg Al Hydrox/Mg Hydrox/Simethicone (Maalox) 30 ml PO Q4HR PRN PRN Reason: GI DISTRESS Stop: 03/05/18 08:05 Last Admin: 01/06/18 14:43 Dose: 30 ml Albuterol/Ipratropium (Duoneb Neb) 3 ml HHN Q8HRT [facility] Stop: 03/05/18 14:59 Last Admin: 01/13/18 06:52 Dose: 3 ml Aspirin (Aspirin Chewable) 81 mg PO DAILY [facility] Stop: 03/05/18 08:59 Last Admin: 01/12/18 10:12 Dose: 81 mg Atenolol (Tenormin) 100 mg PO DAILY [facility] Stop: 03/05/18 08:59 Last Admin: 01/12/18 10:33 Dose: 100 mg Atorvastatin Calcium (Lipitor) 40 mg PO DAILY [facility] PRN Reason: Protocol Stop: 03/05/18 08:59 Last Admin: 01/12/18 10:12 Dose: 40 mg Diltiazem HCl (Cardizem Cd) 120 mg PO DAILY [facility] Stop: 03/05/18 08:59 Last Admin: 01/12/18 10:15 Dose: 120 mg Donepezil HCl (Aricept) 5 mg PO DAILY [facility] Stop: 03/05/18 08:59 Last Admin: 01/12/18 10:15 Dose: 5 mg Heparin Sodium (Porcine) (Heparin) 5,000 units SUBQ Q12HR [facility] Stop: 03/05/18 13:44 Last Admin: 01/12/18 22:13 Dose: 5,000 units Levofloxacin (Levaquin Pb) 250 mg in 50 mls @ 50 mls/hr IV Q24HR [facility] Stop: 03/04/18 22:59 Last Admin: 01/13/18 00:14 Dose: 50 mls/hr Vancomycin HCl 750 mg/ Sodium (Chloride) 250 mls @ 165 mls/hr IV Q24H [facility] Stop: 03/13/18 09:59 Last Admin: 01/12/18 10:16 Dose: 165 mls/hr Lactobacillus Rhamnosus (Culturelle 15b) 1 each PO DAILY [facility] Stop: 03/09/18 08:59 Last Admin: 01/12/18 10:16 Dose: 1 each Lorazepam (Ativan) 0.5 mg PO Q4HR PRN; Protocol PRN Reason: Anxiety Stop: 03/05/18 08:05 Magnesium Hydroxide (Milk Of Magnesia) 30 ml PO HS PRN PRN Reason: Constipation Stop: 03/05/18 08:05 Last Admin: 01/06/18 14:43 Dose: 30 ml Miscellaneous (Probiotic Screen) 1 ea MC PRN PRN PRN Reason: PROTOCOL Stop: 03/08/18 14:14 Miscellaneous (Vancomycin Iv Per Pharmacy) 1 ea MC PRN [facility] Stop: 03/12/18 13:44 Pantoprazole Sodium (Protonix) 40 mg PO DAILY@0730 [facility] Stop: 03/05/18 08:59 Last Admin: 01/13/18 06:44 Dose: 40 mg Zolpidem Tartrate (Ambien) 5 mg PO HS PRN PRN Reason: Insomnia Stop: 03/05/18 08:05 Last Admin: 01/08/18 21:20 Dose: 5 mg Nutritional Asmnt/Malnutr-PDOC - Dietary Evaluation Malnutrition Findings (Please click <Entered> for more info): Nutritional Asmnt/Malnutrition Start: 01/08/18 16: 30 Text: Status: Complete Freq: Document 01/08/18 16:30 LCH[facility] (Rec: 01/08/18 16:43 [email or web address]) Nutritional Asmnt/Malnutrition Patient General Information Nutritional Screening Moderate Risk Diagnosis PNA Pertinent Medical Hx/Surgical Hx HTN, DM, renal failure, GERD, dementia, hyperlipidemia Subjective Information Pt seen eaing lunch on bed, airbone isolated. Spoke with RN, RN reported pt eats well, prefer hard boiled egg instead of scrambed, tea instead of coffee. Per records, PO intake 75-100% Current Diet Order/ Nutrition Support regular Pertinent Medications culturelle, protonix, levaquin Pertinent Labs 01/06 na 140, K 4.1, Cl 111, BUN 25, Cr 1.1 Nutritional Hx/Data Height 1.68 m Height (Calculated Centimeters) 167.6 Current Weight (lbs) 44.906 kg Weight (Calculated Kilograms) 44.9 Weight (Calculated Grams) 84859.6 [place] Body Weight 142 % [place] Body Weight 70 Body Mass Index (BMI) 16.0 Weight Status Underweight GI Symptoms GI Symptoms None Last BM 3/ Difficult in: None Skin Integrity/Comment: scar to let shoulder and left hip Estimated Nutritional Goals Calories/Kcals/Kg 25-30 based on IBW 65kg Kcals Calculated 7897-4448 Protein g/k-1.2 Protein Calculated 65-78 Fluid: ml 1625-1950ml (1ml/kcal) Nutritional Problem 1. Problem Problem underweight Etiology possible inadequate energy intake Signs/Symptoms: BMI 16 Intervention/Recommendation Comments 1. Continue with regular diet as ordered. 2. Monitor PO intake, wt, labs and skin integrity 3. F/U as low risk in 7 days, 01/15, PO check 01/12 Expected Outcomes/Goals Expected Outcomes/Goals 1. PO intake to meet at least 75% of nutritional needs. 2. Wt stability, skin to remain intact, labs to approach WNL.
[2018-01-13] MEDS: Aspirin 81mg Chewable Tab PO SCH (09:52)
[2018-01-13] MEDS: Lactobacillus Rhamnosus GG 15 Billion CFU CAP.SPRINK PO SCH (09:52)
[2018-01-13] MEDS: Diltiazem CD 120 mg 24H PO SCH (09:53)
[2018-01-13] MEDS: Atenolol 100mg Tab PO SCH (09:53)
[2018-01-13 10:04] LABS: ALB/GLOB RATIO 0.9 (1.0-1.8); ALBUMIN 3.4 gm/dL (4.2-5.5); ALKALINE PHOSPHATASE 70 U/L (34-104); ANION GAP 9.2 (7.0-16.0); BILIRUBIN,TOTAL 0.3 mg/dL (0.3-1.0); BUN - UREA NITROGEN 32 mg/dL (7-25); CALCIUM SERUM 9.5 mg/dL (8.6-10.3); CARBON DIOXIDE 21.3 mEq/L (21.0-31.0); CHLORIDE 111 mEq/L (98-107); CREATININE - SERUM 1.2 mg/dL (0.7-1.3); GLUCOSE 116 mg/dL (70-105); POTASSIUM SERUM 3.5 mEq/L (3.5-5.1); SGOT 12 U/L (13-39); SGPT/ALT 10 U/L (7-52); SODIUM SERUM 138 mEq/L (136-145); TOTAL PROTEIN,SERUM 7.3 gm/dL (6.0-8.3)
--- NOTE | 2018-01-13 11:39 | Infectious Disease Prog Note ---
Infectious Disease Subjective - Review of Systems Service Date: 01/13/18 Subjective: There is no new change, no fever. Infectious Disease Objective - Results Result Diagrams: 01/13/18 09:05 01/13/18 09:05 Recent Labs: Laboratory Last Values WBC 5.9 Th/cmm (4.8-10.8) 01/13/18 09:05 RBC 3.59 Mil/cmm (3.80-5.80) L 01/13/18 09:05 Hgb 9.8 gm/dL (12-16) L 01/13/18 09:05 Hct 30.3 % (41.0-60) L 01/13/18 09:05 MCV 84.5 fl (80-99) 01/13/18 09:05 MCH 27.4 pg (27.0-31.0) 01/13/18 09:05 MCHC Differential 32.4 pg (28.0-36.0) 01/13/18 09:05 RDW 14.2 % (11.5-20.0) 01/13/18 09:05 Plt Count 216 Th/cmm (150-400) 01/13/18 09:05 MPV 8.8 fl 01/13/18 09:05 Neutrophils % 63.7 % (40.0-80.0) 01/13/18 09:05 Lymphocytes % 24.7 % (20.0-50.0) 01/13/18 09:05 Monocytes % 7.8 % (2.0-10.0) 01/13/18 09:05 Eosinophils % 2.8 % (0.0-5.0) 01/13/18 09:05 Basophils % 1.0 % (0.0-2.0) 01/13/18 09:05 Sodium 138 mEq/L (136-145) 01/13/18 09:05 Potassium 3.5 mEq/L (3.5-5.1) 01/13/18 09:05 Chloride 111 mEq/L (98-107) H 01/13/18 09:05 Carbon Dioxide 21.3 mEq/L (21.0-31.0) 01/13/18 09:05 Anion Gap 9.2 (7.0-16.0) 01/13/18 09:05 BUN 32 mg/dL (7-25) H 01/13/18 09:05 Creatinine 1.2 mg/dL (0.7-1.3) 01/13/18 09:05 Est GFR ( Amer) TNP 01/13/18 09:05 Est GFR (Non-Af Amer) TNP 01/13/18 09:05 BUN/Creatinine Ratio 26.7 01/13/18 09:05 Glucose 116 mg/dL (70-105) H 01/13/18 09:05 Calcium 9.5 mg/dL (8.6-10.3) 01/13/18 09:05 Total Bilirubin 0.3 mg/dL (0.3-1.0) 01/13/18 09:05 AST 12 U/L (13-39) L 01/13/18 09:05 ALT 10 U/L (7-52) 01/13/18 09:05 Alkaline Phosphatase 70 U/L (34-104) 01/13/18 09:05 Total Protein 7.3 gm/dL (6.0-8.3) 01/13/18 09:05 Albumin 3.4 gm/dL (4.2-5.5) L 01/13/18 09:05 Globulin 3.9 gm/dL 01/13/18 09:05 Albumin/Globulin Ratio 0.9 (1.0-1.8) L 01/13/18 09:05 Vancomycin Trough 10.6 ug/mL (10-20) 01/13/18 09:05 Histoplasma Antigen SEE REF. LAB REPORT 01/07/18 07:15 - Physical Exam Vitals and I&O: Vital Signs Temp 97.1 F 01/13/18 08:00 Pulse 72 01/13/18 09:53 Resp 18 01/13/18 08:00 BP 144/80 01/13/18 08:00 Pulse Ox 97 01/13/18 08:00 Intake & Output 01/12/18 01/13/18 01/13/18 18:59 06:59 18:59 Intake Total 800 550 Balance 800 550 Weight (lbs) 42.638 kg 42.638 kg Intake: Oral 800 550 Other: # Voids 3 3 Active Medications: Current Medications Acetaminophen (Tylenol) 650 mg PO Q4HR PRN PRN Reason: Mild Pain / Temp above 100 Stop: 03/05/18 08:05 Last Admin: 01/08/18 21:20 Dose: 650 mg Al Hydrox/Mg Hydrox/Simethicone (Maalox) 30 ml PO Q4HR PRN PRN Reason: GI DISTRESS Stop: 03/05/18 08:05 Last Admin: 01/06/18 14:43 Dose: 30 ml Albuterol/Ipratropium (Duoneb Neb) 3 ml HHN Q8HRT [facility] Stop: 03/05/18 14:59 Last Admin: 01/13/18 06:52 Dose: 3 ml Aspirin (Aspirin Chewable) 81 mg PO DAILY [facility] Stop: 03/05/18 08:59 Last Admin: 01/13/18 09:52 Dose: 81 mg Atenolol (Tenormin) 100 mg PO DAILY [facility] Stop: 03/05/18 08:59 Last Admin: 01/13/18 09:53 Dose: 100 mg Atorvastatin Calcium (Lipitor) 40 mg PO DAILY [facility] PRN Reason: Protocol Stop: 03/05/18 08:59 Last Admin: 01/13/18 09:52 Dose: 40 mg Diltiazem HCl (Cardizem Cd) 120 mg PO DAILY [facility] Stop: 03/05/18 08:59 Last Admin: 01/13/18 09:53 Dose: 120 mg Donepezil HCl (Aricept) 5 mg PO DAILY [facility] Stop: 03/05/18 08:59 Last Admin: 01/13/18 09:52 Dose: 5 mg Heparin Sodium (Porcine) (Heparin) 5,000 units SUBQ Q12HR [facility] Stop: 03/05/18 13:44 Last Admin: 01/13/18 09:56 Dose: Not Given Levofloxacin (Levaquin Pb) 250 mg in 50 mls @ 50 mls/hr IV Q24HR [facility] Stop: 03/04/18 22:59 Last Admin: 01/13/18 00:14 Dose: 50 mls/hr Vancomycin HCl 1 gm/ Sodium (Chloride) 250 mls @ 165 mls/hr IV Q24HR@0900 [facility] Stop: 03/14/18 10:59 Last Admin: 01/13/18 11:13 Dose: 165 mls/hr Lactobacillus Rhamnosus (Culturelle 15b) 1 each PO DAILY [facility] Stop: 03/09/18 08:59 Last Admin: 01/13/18 09:52 Dose: 1 each Lorazepam (Ativan) 0.5 mg PO Q4HR PRN; Protocol PRN Reason: Anxiety Stop: 03/05/18 08:05 Magnesium Hydroxide (Milk Of Magnesia) 30 ml PO HS PRN PRN Reason: Constipation Stop: 03/05/18 08:05 Last Admin: 01/06/18 14:43 Dose: 30 ml Miscellaneous (Probiotic Screen) 1 ea PRN PRN PRN Reason: PROTOCOL Stop: 03/08/18 14:14 Miscellaneous (Vancomycin Iv Per Pharmacy) 1 ea PRN [facility] Stop: 03/12/18 13:44 Pantoprazole Sodium (Protonix) 40 mg PO DAILY@0730 [facility] Stop: 03/05/18 08:59 Last Admin: 01/13/18 06:44 Dose: 40 mg Zolpidem Tartrate (Ambien) 5 mg PO HS PRN PRN Reason: Insomnia Stop: 03/05/18 08:05 Last Admin: 01/08/18 21:20 Dose: 5 mg General: no acute distress, well developed, well nourished HEENT: atraumatic, normocephalic, PERRLA, EOMI Neck: supple, no thyromegaly, no lymphadenopathy Cardiovascular: S1S2, regular Lungs: clear to auscultation bilaterally, clear to percussion Abdomen: soft, bowel sounds, no tender, no distended, no mass, no rebound Extremities: no cyanosis, no clubbing, no edema Neurological: awake, alert, oriented Skin: intact Infectious Disease Assmt/Plan - Assessment Assessment: Impression: 1. RLL Cavitary lesion: 2. DM2 3. Depression. 4. MRSA colonization. - Plan Plan: Continue the same treatment. TB Gold quantiferon. AFB 1/3 neg ( smear). Cocci, histo, blasto serologies. aspergillus serology. Continue vanco iv and levaquin. Nutritional Asmnt/Malnutr-PDOC - Dietary Evaluation Malnutrition Findings (Please click <Entered> for more info): Nutritional Asmnt/Malnutrition Start: 01/08/18 16: 30 Text: Status: Complete Freq: Document 01/08/18 16:30 LCHENG (Rec: 01/08/18 16:43 LCHENG [email or web address]) Nutritional Asmnt/Malnutrition Patient General Information Nutritional Screening Moderate Risk Diagnosis PNA Pertinent Medical Hx/Surgical Hx HTN, DM, renal failure, GERD, dementia, hyperlipidemia Subjective Information Pt seen eaing lunch on bed, airbone isolated. Spoke with RN, RN reported pt eats well, prefer hard boiled egg instead of scrambed, tea instead of coffee. Per records, PO intake 75-100% Current Diet Order/ Nutrition Support regular Pertinent Medications culturelle, protonix, levaquin Pertinent Labs 01/06 na 140, K 4.1, Cl 111, BUN 25, Cr 1.1 Nutritional Hx/Data Height 1.68 m Height (Calculated Centimeters) 167.6 Current Weight (lbs) 44.906 kg Weight (Calculated Kilograms) 44.9 Weight (Calculated Grams) 43378.6 [place] Body Weight 142 % [place] Body Weight 70 Body Mass Index (BMI) 16.0 Weight Status Underweight GI Symptoms GI Symptoms None Last BM 01/07 Difficult in: None Skin Integrity/Comment: scar to let shoulder and left hip Estimated Nutritional Goals Calories/Kcals/Kg 25-30 based on IBW 65kg Kcals Calculated 6792-7861 Protein g/k-1.2 Protein Calculated 65-78 Fluid: ml 1625-1950ml (1ml/kcal) Nutritional Problem 1. Problem Problem underweight Etiology possible inadequate energy intake Signs/Symptoms: BMI 16 Intervention/Recommendation Comments 1. Continue with regular diet as ordered. 2. Monitor PO intake, wt, labs and skin integrity 3. F/U as low risk in 7 days, 01/15, PO check 01/12 Expected Outcomes/Goals Expected Outcomes/Goals 1. PO intake to meet at least 75% of nutritional needs. 2. Wt stability, skin to remain intact, labs to approach WNL.
--- NOTE | 2018-01-13 17:43 | Progress Notes ---
DATE: 01/13/2018 Chart reviewed and the patient interviewed and discussed the patient's condition with the staff and reviewed records and labs. The patient is still guarded and withdrawn. Minimal interactions. The patient also has no behavioral problems. He is also compliant with taking the medications with no side effects of medications. ASSESSMENT: No major behavioral issues or psychosis. TREATMENT PLAN: Continue to monitor his behavior and her condition closely. Also, continue adjusting psychotropic medications and followup. [facility]# [id number]
[2018-01-14] MEDS: Albuterol/Ipratropium Neb 3 ML AERS HHN SCH ×3 (07:29→22:44)
[2018-01-14] MEDS: Lactobacillus Rhamnosus GG 15 Billion CFU CAP.SPRINK PO SCH (09:40)
[2018-01-14] MEDS: Aspirin 81mg Chewable Tab PO SCH (09:40)
[2018-01-14] MEDS: Diltiazem CD 120 mg 24H PO SCH (09:40)
[2018-01-14] MEDS: Atenolol 100mg Tab PO SCH (09:42)
[2018-01-14] MEDS: Pantoprazole 40 mg EC Tab PO SCH ×2 (10:00→10:05)
--- NOTE | 2018-01-14 11:32 | General Progress Note ---
Subjective - Review of Systems Events since last encounter: awake in no distress no change Objective - Results Result Diagrams: 01/13/18 09:05 01/13/18 09:05 Recent Labs: Laboratory Last Values WBC 5.9 Th/cmm (4.8-10.8) 01/13/18 09:05 RBC 3.59 Mil/cmm (3.80-5.80) L 01/13/18 09:05 Hgb 9.8 gm/dL (12-16) L 01/13/18 09:05 Hct 30.3 % (41.0-60) L 01/13/18 09:05 MCV 84.5 fl (80-99) 01/13/18 09:05 MCH 27.4 pg (27.0-31.0) 01/13/18 09:05 MCHC Differential 32.4 pg (28.0-36.0) 01/13/18 09:05 RDW 14.2 % (11.5-20.0) 01/13/18 09:05 Plt Count 216 Th/cmm (150-400) 01/13/18 09:05 MPV 8.8 fl 01/13/18 09:05 Neutrophils % 63.7 % (40.0-80.0) 01/13/18 09:05 Lymphocytes % 24.7 % (20.0-50.0) 01/13/18 09:05 Monocytes % 7.8 % (2.0-10.0) 01/13/18 09:05 Eosinophils % 2.8 % (0.0-5.0) 01/13/18 09:05 Basophils % 1.0 % (0.0-2.0) 01/13/18 09:05 Sodium 138 mEq/L (136-145) 01/13/18 09:05 Potassium 3.5 mEq/L (3.5-5.1) 01/13/18 09:05 Chloride 111 mEq/L (98-107) H 01/13/18 09:05 Carbon Dioxide 21.3 mEq/L (21.0-31.0) 01/13/18 09:05 Anion Gap 9.2 (7.0-16.0) 01/13/18 09:05 BUN 32 mg/dL (7-25) H 01/13/18 09:05 Creatinine 1.2 mg/dL (0.7-1.3) 01/13/18 09:05 Est GFR ( Amer) TNP 01/13/18 09:05 Est GFR (Non-Af Amer) TNP 01/13/18 09:05 BUN/Creatinine Ratio 26.7 01/13/18 09:05 Glucose 116 mg/dL (70-105) H 01/13/18 09:05 Calcium 9.5 mg/dL (8.6-10.3) 01/13/18 09:05 Total Bilirubin 0.3 mg/dL (0.3-1.0) 01/13/18 09:05 AST 12 U/L (13-39) L 01/13/18 09:05 ALT 10 U/L (7-52) 01/13/18 09:05 Alkaline Phosphatase 70 U/L (34-104) 01/13/18 09:05 Total Protein 7.3 gm/dL (6.0-8.3) 01/13/18 09:05 Albumin 3.4 gm/dL (4.2-5.5) L 01/13/18 09:05 Globulin 3.9 gm/dL 01/13/18 09:05 Albumin/Globulin Ratio 0.9 (1.0-1.8) L 01/13/18 09:05 Vancomycin Trough 10.6 ug/mL (10-20) 01/13/18 09:05 Histoplasma Antigen SEE REF. LAB REPORT 01/07/18 07:15 - Physical Exam Vitals and I&O: Vital Signs Temp 98.3 F 01/14/18 04:00 Pulse 78 01/14/18 09:40 Resp 18 01/14/18 07:30 BP 111/73 01/14/18 04:00 Pulse Ox 99 01/14/18 07:30 Intake & Output 01/13/18 01/14/18 01/14/18 18:59 06:59 18:59 Intake Total 950 0 Output Total 1200 Balance 950 -1200 Weight (lbs) 42.638 kg 42.638 kg Intake: Intake, IV Amount 250 Vancomycin HCl 1 gm In 250 Sodium Chloride 0.9% 250 ml @ 165 mls/hr IV Q24HR@ 0900 [facility] Rx#:[id number] Oral 700 0 Output: Urine 1200 Other: # Voids 4 # Bowel Movements 1 Active Medications: Current Medications Acetaminophen (Tylenol) 650 mg PO Q4HR PRN PRN Reason: Mild Pain / Temp above 100 Stop: 03/05/18 08:05 Last Admin: 01/13/18 23:20 Dose: 650 mg Al Hydrox/Mg Hydrox/Simethicone (Maalox) 30 ml PO Q4HR PRN PRN Reason: GI DISTRESS Stop: 03/05/18 08:05 Last Admin: 01/06/18 14:43 Dose: 30 ml Albuterol/Ipratropium (Duoneb Neb) 3 ml HHN Q8HRT [facility] Stop: 03/05/18 14:59 Last Admin: 01/14/18 07:29 Dose: 3 ml Aspirin (Aspirin Chewable) 81 mg PO DAILY [facility] Stop: 03/05/18 08:59 Last Admin: 01/14/18 09:40 Dose: 81 mg Atenolol (Tenormin) 100 mg PO DAILY [facility] Stop: 03/05/18 08:59 Last Admin: 01/14/18 09:42 Dose: 100 mg Atorvastatin Calcium (Lipitor) 40 mg PO DAILY [facility] PRN Reason: Protocol Stop: 03/05/18 08:59 Last Admin: 01/14/18 09:40 Dose: 40 mg Diltiazem HCl (Cardizem Cd) 120 mg PO DAILY [facility] Stop: 03/05/18 08:59 Last Admin: 01/14/18 09:40 Dose: 120 mg Donepezil HCl (Aricept) 5 mg PO DAILY [facility] Stop: 03/05/18 08:59 Last Admin: 01/14/18 09:40 Dose: 5 mg Heparin Sodium (Porcine) (Heparin) 5,000 units SUBQ Q12HR [facility] Stop: 03/05/18 13:44 Last Admin: 01/14/18 09:52 Dose: Not Given Levofloxacin (Levaquin Pb) 250 mg in 50 mls @ 50 mls/hr IV Q24HR [facility] Stop: 03/04/18 22:59 Last Admin: 01/13/18 22:49 Dose: 50 mls/hr Vancomycin HCl 1 gm/ Sodium (Chloride) 250 mls @ 165 mls/hr IV Q24HR@0900 [facility] Stop: 03/14/18 10:59 Last Admin: 01/14/18 09:43 Dose: 165 mls/hr Lactobacillus Rhamnosus (Culturelle 15b) 1 each PO DAILY [facility] Stop: 03/09/18 08:59 Last Admin: 01/14/18 09:40 Dose: 1 each Lorazepam (Ativan) 0.5 mg PO Q4HR PRN; Protocol PRN Reason: Anxiety Stop: 03/05/18 08:05 Magnesium Hydroxide (Milk Of Magnesia) 30 ml PO HS PRN PRN Reason: Constipation Stop: 03/05/18 08:05 Last Admin: 01/06/18 14:43 Dose: 30 ml Miscellaneous (Probiotic Screen) 1 ea PRN PRN PRN Reason: PROTOCOL Stop: 03/08/18 14:14 Miscellaneous (Vancomycin Iv Per Pharmacy) 1 [facility] PRN [facility] Stop: 03/12/18 13:44 Pantoprazole Sodium (Protonix) 40 mg PO DAILY@0730 [facility] Stop: 03/05/18 08:59 Last Admin: 01/14/18 10:05 Dose: Not Given Zolpidem Tartrate (Ambien) 5 mg PO HS PRN PRN Reason: Insomnia Stop: 03/05/18 08:05 Last Admin: 01/13/18 23:20 Dose: 5 mg Nutritional Asmnt/Malnutr-PDOC - Dietary Evaluation Malnutrition Findings (Please click <Entered> for more info): Nutritional Asmnt/Malnutrition Start: 01/08/18 16: 30 Text: Status: Complete Freq: Document 01/08/18 16:30 LCHENG (Rec: 01/08/18 16:43 LCHENG [email or web address]) Nutritional Asmnt/Malnutrition Patient General Information Nutritional Screening Moderate Risk Diagnosis PNA Pertinent Medical Hx/Surgical Hx HTN, DM, renal failure, GERD, dementia, hyperlipidemia Subjective Information Pt seen eaing lunch on bed, airbone isolated. Spoke with RN, RN reported pt eats well, prefer hard boiled egg instead of scrambed, tea instead of coffee. Per records, PO intake 75-100% Current Diet Order/ Nutrition Support regular Pertinent Medications culturelle, protonix, levaquin Pertinent Labs 01/06 na 140, K 4.1, Cl 111, BUN 25, Cr 1.1 Nutritional Hx/Data Height 1.68 m Height (Calculated Centimeters) 167.6 Current Weight (lbs) 44.906 kg Weight (Calculated Kilograms) 44.9 Weight (Calculated Grams) 94320.6 [place] Body Weight 142 % [place] Body Weight 70 Body Mass Index (BMI) 16.0 Weight Status Underweight GI Symptoms GI Symptoms None Last BM 3 Difficult in: None Skin Integrity/Comment: scar to let shoulder and left hip Estimated Nutritional Goals Calories/Kcals/Kg 25-30 based on IBW 65kg Kcals Calculated 6635-1956 Protein g/k-1.2 Protein Calculated 65-78 Fluid: ml 1625-1950ml (1ml/kcal) Nutritional Problem 1. Problem Problem underweight Etiology possible inadequate energy intake Signs/Symptoms: BMI 16 Intervention/Recommendation Comments 1. Continue with regular diet as ordered. 2. Monitor PO intake, wt, labs and skin integrity 3. F/U as low risk in 7 days, 01/15, PO check 01/12 Expected Outcomes/Goals Expected Outcomes/Goals 1. PO intake to meet at least 75% of nutritional needs. 2. Wt stability, skin to remain intact, labs to approach WNL.
--- NOTE | 2018-01-14 17:19 | Progress Notes ---
DATE: 01/14/2018 Chart reviewed and the patient interviewed. Also discussed the patient's condition with the staff and reviewed records and labs. The patient is still calm and cooperative. Confused but at the same time no aggressive or behavioral problems. Also, compliant with taking medications with no side effects of medications. ASSESSMENT: The patient is calm and cooperative. TREATMENT PLAN: Continue to monitor behavior and condition closely and continue to follow up. [facility]# [id number]
[2018-01-14] MEDS: Levofloxacin 250mg/50mL 250 MG/50 ML BAG IV SCH (22:03)
[2018-01-15] MEDS: Pantoprazole 40 mg EC Tab PO SCH (06:44)
--- NOTE | 2018-01-15 08:33 | Progress Notes ---
DATE: 01/15/2018 SUBJECTIVE: Chart reviewed and the patient interviewed. Also discussed the patient's condition with the staff and reviewed records and labs. The patient is calm and cooperative. The patient is trying to interact but with poverty of speech. The patient also is compliant with treatment and with medications with no side effect. ASSESSMENT: The patient is calm and cooperative. TREATMENT PLAN: Continue monitoring behavior and current medications and will continue to follow up. [facility]# [id number]
[2018-01-15] MEDS: Albuterol/Ipratropium Neb 3 ML AERS HHN SCH ×3 (08:41→23:26)
[2018-01-15] MEDS: Lactobacillus Rhamnosus GG 15 Billion CFU CAP.SPRINK PO SCH (09:44)
[2018-01-15] MEDS: Diltiazem CD 120 mg 24H PO SCH (09:45)
[2018-01-15] MEDS: Atenolol 100mg Tab PO SCH (09:45)
[2018-01-15] MEDS: Aspirin 81mg Chewable Tab PO SCH (09:45)
--- NOTE | 2018-01-15 09:51 | Internal Medicine Prog Note ---
Internal Medicine Subjective - Subjective Service Date: 01/15/18 Patient is:: awake, verbal, confused Per staff patient has:: tolerating meds Internal Medicine Objective - Results Result Diagrams: 01/13/18 09:05 01/13/18 09:05 Recent Labs: Laboratory Last Values WBC 5.9 Th/cmm (4.8-10.8) 01/13/18 09:05 RBC 3.59 Mil/cmm (3.80-5.80) L 01/13/18 09:05 Hgb 9.8 gm/dL (12-16) L 01/13/18 09:05 Hct 30.3 % (41.0-60) L 01/13/18 09:05 MCV 84.5 fl (80-99) 01/13/18 09:05 MCH 27.4 pg (27.0-31.0) 01/13/18 09:05 MCHC Differential 32.4 pg (28.0-36.0) 01/13/18 09:05 RDW 14.2 % (11.5-20.0) 01/13/18 09:05 Plt Count 216 Th/cmm (150-400) 01/13/18 09:05 MPV 8.8 fl 01/13/18 09:05 Neutrophils % 63.7 % (40.0-80.0) 01/13/18 09:05 Lymphocytes % 24.7 % (20.0-50.0) 01/13/18 09:05 Monocytes % 7.8 % (2.0-10.0) 01/13/18 09:05 Eosinophils % 2.8 % (0.0-5.0) 01/13/18 09:05 Basophils % 1.0 % (0.0-2.0) 01/13/18 09:05 Sodium 138 mEq/L (136-145) 01/13/18 09:05 Potassium 3.5 mEq/L (3.5-5.1) 01/13/18 09:05 Chloride 111 mEq/L (98-107) H 01/13/18 09:05 Carbon Dioxide 21.3 mEq/L (21.0-31.0) 01/13/18 09:05 Anion Gap 9.2 (7.0-16.0) 01/13/18 09:05 BUN 32 mg/dL (7-25) H 01/13/18 09:05 Creatinine 1.2 mg/dL (0.7-1.3) 01/13/18 09:05 Est GFR ( Amer) TNP 01/13/18 09:05 Est GFR (Non-Af Amer) TNP 01/13/18 09:05 BUN/Creatinine Ratio 26.7 01/13/18 09:05 Glucose 116 mg/dL (70-105) H 01/13/18 09:05 Calcium 9.5 mg/dL (8.6-10.3) 01/13/18 09:05 Total Bilirubin 0.3 mg/dL (0.3-1.0) 01/13/18 09:05 AST 12 U/L (13-39) L 01/13/18 09:05 ALT 10 U/L (7-52) 01/13/18 09:05 Alkaline Phosphatase 70 U/L (34-104) 01/13/18 09:05 Total Protein 7.3 gm/dL (6.0-8.3) 01/13/18 09:05 Albumin 3.4 gm/dL (4.2-5.5) L 01/13/18 09:05 Globulin 3.9 gm/dL 01/13/18 09:05 Albumin/Globulin Ratio 0.9 (1.0-1.8) L 01/13/18 09:05 Vancomycin Trough 10.6 ug/mL (10-20) 01/13/18 09:05 Histoplasma Antigen SEE REF. LAB REPORT 01/07/18 07:15 - Physical Exam Vitals and I&O: Vital Signs Temp 97.5 F 01/15/18 04:00 Pulse 80 01/15/18 09:45 Resp 18 01/15/18 08:45 BP 144/79 01/15/18 04:00 Pulse Ox 96 01/15/18 08:45 Intake & Output 01/14/18 01/15/18 01/15/18 18:59 06:59 18:59 Intake Total 1050 Output Total 1200 Balance -150 Weight (lbs) 94 lb 94 lb Intake: Intake, IV Amount 250 Vancomycin HCl 1 gm In 250 Sodium Chloride 0.9% 250 ml @ 165 mls/hr IV Q24HR@ 0900 [facility] Rx#:[id number] Oral 800 Output: Urine 1200 Other: # Voids 3 # Bowel Movements 1 Active Medications: Current Medications Acetaminophen (Tylenol) 650 mg PO Q4HR PRN PRN Reason: Mild Pain / Temp above 100 Stop: 03/05/18 08:05 Last Admin: 01/13/18 23:20 Dose: 650 mg Al Hydrox/Mg Hydrox/Simethicone (Maalox) 30 ml PO Q4HR PRN PRN Reason: GI DISTRESS Stop: 03/05/18 08:05 Last Admin: 01/06/18 14:43 Dose: 30 ml Albuterol/Ipratropium (Duoneb Neb) 3 ml HHN Q8HRT [facility] Stop: 03/05/18 14:59 Last Admin: 01/15/18 08:41 Dose: 3 ml Aspirin (Aspirin Chewable) 81 mg PO DAILY [facility] Stop: 03/05/18 08:59 Last Admin: 01/15/18 09:45 Dose: 81 mg Atenolol (Tenormin) 100 mg PO DAILY [facility] Stop: 03/05/18 08:59 Last Admin: 01/15/18 09:45 Dose: 100 mg Atorvastatin Calcium (Lipitor) 40 mg PO DAILY [facility] PRN Reason: Protocol Stop: 03/05/18 08:59 Last Admin: 01/15/18 09:45 Dose: 40 mg Diltiazem HCl (Cardizem Cd) 120 mg PO DAILY [facility] Stop: 03/05/18 08:59 Last Admin: 01/15/18 09:45 Dose: 120 mg Donepezil HCl (Aricept) 5 mg PO DAILY [facility] Stop: 03/05/18 08:59 Last Admin: 01/15/18 09:45 Dose: 5 mg Heparin Sodium (Porcine) (Heparin) 5,000 units SUBQ Q12HR [facility] Stop: 03/05/18 13:44 Last Admin: 01/15/18 09:45 Dose: Not Given Levofloxacin (Levaquin Pb) 250 mg in 50 mls @ 50 mls/hr IV Q24HR [facility] Stop: 03/04/18 22:59 Last Admin: 01/14/18 22:03 Dose: 50 mls/hr Vancomycin HCl 1 gm/ Sodium (Chloride) 250 mls @ 165 mls/hr IV Q24HR@0900 [facility] Stop: 03/14/18 10:59 Last Admin: 01/15/18 09:46 Dose: 165 mls/hr Lactobacillus Rhamnosus (Culturelle 15b) 1 each PO DAILY [facility] Stop: 03/09/18 08:59 Last Admin: 01/15/18 09:44 Dose: 1 each Lorazepam (Ativan) 0.5 mg PO Q4HR PRN; Protocol PRN Reason: Anxiety Stop: 03/05/18 08:05 Magnesium Hydroxide (Milk Of Magnesia) 30 ml PO HS PRN PRN Reason: Constipation Stop: 03/05/18 08:05 Last Admin: 01/06/18 14:43 Dose: 30 ml Miscellaneous (Probiotic Screen) 1 ea PRN PRN PRN Reason: PROTOCOL Stop: 03/08/18 14:14 Miscellaneous (Vancomycin Iv Per Pharmacy) 1 ea PRN [facility] Stop: 03/12/18 13:44 Pantoprazole Sodium (Protonix) 40 mg PO DAILY@0730 [facility] Stop: 03/05/18 08:59 Last Admin: 01/15/18 06:44 Dose: 40 mg Zolpidem Tartrate (Ambien) 5 mg PO HS PRN PRN Reason: Insomnia Stop: 03/05/18 08:05 Last Admin: 01/13/18 23:20 Dose: 5 mg General: weak, alert HEENT: NC/AT, PERRLA Neck: Supple Lungs: ronchi Abdomen: soft, non-tender, non-distended, positive bowel sound Neurological: unable to follow command Internal Medicine Assmt/Plan - Assessment Assessment: pneumonia dementia htn hyperlipidemia oa gerd - Plan Plan: cbc/bmp in am bronchodilators supplemental oyxgen as needed continue current orders Nutritional Asmnt/Malnutr-PDOC - Dietary Evaluation Malnutrition Findings (Please click <Entered> for more info): Nutritional Asmnt/Malnutrition Start: 01/08/18 16: 30 Text: Status: Complete Freq: Document 01/08/18 16:30 LCHENG (Rec: 01/08/18 16:43 LCHENG [email or web address]) Nutritional Asmnt/Malnutrition Patient General Information Nutritional Screening Moderate Risk Diagnosis PNA Pertinent Medical Hx/Surgical Hx HTN, DM, renal failure, GERD, dementia, hyperlipidemia Subjective Information Pt seen eaing lunch on bed, airbone isolated. Spoke with RN, RN reported pt eats well, prefer hard boiled egg instead of scrambed, tea instead of coffee. Per records, PO intake 75-100% Current Diet Order/ Nutrition Support regular Pertinent Medications culturelle, protonix, levaquin Pertinent Labs 01/06 na 140, K 4.1, Cl 111, BUN 25, Cr 1.1 Nutritional Hx/Data Height 5 ft 6 in Height (Calculated Centimeters) 167.6 Current Weight (lbs) 99 lb Weight (Calculated Kilograms) 44.9 Weight (Calculated Grams) 08692.6 [place] Body Weight 142 % [place] Body Weight 70 Body Mass Index (BMI) 16.0 Weight Status Underweight GI Symptoms GI Symptoms None Last BM 01/07 Difficult in: None Skin Integrity/Comment: scar to let shoulder and left hip Estimated Nutritional Goals Calories/Kcals/Kg 25-30 based on IBW 65kg Kcals Calculated 7333-5848 Protein g/k-1.2 Protein Calculated 65-78 Fluid: ml 1625-1950ml (1ml/kcal) Nutritional Problem 1. Problem Problem underweight Etiology possible inadequate energy intake Signs/Symptoms: BMI 16 Intervention/Recommendation Comments 1. Continue with regular diet as ordered. 2. Monitor PO intake, wt, labs and skin integrity 3. F/U as low risk in 7 days, 01/15, PO check 01/12 Expected Outcomes/Goals Expected Outcomes/Goals 1. PO intake to meet at least 75% of nutritional needs. 2. Wt stability, skin to remain intact, labs to approach WNL.
[2018-01-15] MEDS: Levofloxacin 250mg/50mL 250 MG/50 ML BAG IV SCH (23:03)
[2018-01-16] MEDS: Pantoprazole 40 mg EC Tab PO SCH (06:42)
[2018-01-16] MEDS: Albuterol/Ipratropium Neb 3 ML AERS HHN SCH ×3 (07:34→23:36)
[2018-01-16] MEDS: Lactobacillus Rhamnosus GG 15 Billion CFU CAP.SPRINK PO SCH (09:55)
[2018-01-16] MEDS: Aspirin 81mg Chewable Tab PO SCH (09:55)
[2018-01-16] MEDS: Diltiazem CD 120 mg 24H PO SCH (09:55)
[2018-01-16] MEDS: Atenolol 100mg Tab PO SCH (09:58)
--- NOTE | 2018-01-16 11:32 | Infectious Disease Prog Note ---
Infectious Disease Subjective - Review of Systems Service Date: 01/16/18 Subjective: There is no new change, no fever. Infectious Disease Objective - Results Result Diagrams: 01/13/18 09:05 01/13/18 09:05 Recent Labs: Laboratory Last Values WBC 5.9 Th/cmm (4.8-10.8) 01/13/18 09:05 RBC 3.59 Mil/cmm (3.80-5.80) L 01/13/18 09:05 Hgb 9.8 gm/dL (12-16) L 01/13/18 09:05 Hct 30.3 % (41.0-60) L 01/13/18 09:05 MCV 84.5 fl (80-99) 01/13/18 09:05 MCH 27.4 pg (27.0-31.0) 01/13/18 09:05 MCHC Differential 32.4 pg (28.0-36.0) 01/13/18 09:05 RDW 14.2 % (11.5-20.0) 01/13/18 09:05 Plt Count 216 Th/cmm (150-400) 01/13/18 09:05 MPV 8.8 fl 01/13/18 09:05 Neutrophils % 63.7 % (40.0-80.0) 01/13/18 09:05 Lymphocytes % 24.7 % (20.0-50.0) 01/13/18 09:05 Monocytes % 7.8 % (2.0-10.0) 01/13/18 09:05 Eosinophils % 2.8 % (0.0-5.0) 01/13/18 09:05 Basophils % 1.0 % (0.0-2.0) 01/13/18 09:05 Sodium 138 mEq/L (136-145) 01/13/18 09:05 Potassium 3.5 mEq/L (3.5-5.1) 01/13/18 09:05 Chloride 111 mEq/L (98-107) H 01/13/18 09:05 Carbon Dioxide 21.3 mEq/L (21.0-31.0) 01/13/18 09:05 Anion Gap 9.2 (7.0-16.0) 01/13/18 09:05 BUN 32 mg/dL (7-25) H 01/13/18 09:05 Creatinine 1.2 mg/dL (0.7-1.3) 01/13/18 09:05 Est GFR ( Amer) TNP 01/13/18 09:05 Est GFR (Non-Af Amer) TNP 01/13/18 09:05 BUN/Creatinine Ratio 26.7 01/13/18 09:05 Glucose 116 mg/dL (70-105) H 01/13/18 09:05 Calcium 9.5 mg/dL (8.6-10.3) 01/13/18 09:05 Total Bilirubin 0.3 mg/dL (0.3-1.0) 01/13/18 09:05 AST 12 U/L (13-39) L 01/13/18 09:05 ALT 10 U/L (7-52) 01/13/18 09:05 Alkaline Phosphatase 70 U/L (34-104) 01/13/18 09:05 Total Protein 7.3 gm/dL (6.0-8.3) 01/13/18 09:05 Albumin 3.4 gm/dL (4.2-5.5) L 01/13/18 09:05 Globulin 3.9 gm/dL 01/13/18 09:05 Albumin/Globulin Ratio 0.9 (1.0-1.8) L 01/13/18 09:05 Vancomycin Trough 16.6 ug/mL (10-20) 01/16/18 08:00 Histoplasma Antigen SEE REF. LAB REPORT 01/07/18 07:15 - Physical Exam Vitals and I&O: Vital Signs Temp 97.0 F 01/16/18 04:00 Pulse 79 01/16/18 09:55 Resp 18 01/16/18 07:37 BP 112/64 01/16/18 04:00 Pulse Ox 98 01/16/18 07:37 Intake & Output 01/15/18 01/16/18 01/16/18 18:59 06:59 18:59 Intake Total 750 Balance 750 Weight (lbs) 43.091 kg 43.091 kg Intake: Intake, IV Amount 250 Vancomycin HCl 1 gm In 250 Sodium Chloride 0.9% 250 ml @ 165 mls/hr IV Q24HR@ 0900 [facility] Rx#:[id number] Oral 500 Tube Feeding 0 Other: # Voids 3 3 # Bowel Movements 0 0 Active Medications: Current Medications Acetaminophen (Tylenol) 650 mg PO Q4HR PRN PRN Reason: Mild Pain / Temp above 100 Stop: 03/05/18 08:05 Last Admin: 01/13/18 23:20 Dose: 650 mg Al Hydrox/Mg Hydrox/Simethicone (Maalox) 30 ml PO Q4HR PRN PRN Reason: GI DISTRESS Stop: 03/05/18 08:05 Last Admin: 01/06/18 14:43 Dose: 30 ml Albuterol/Ipratropium (Duoneb Neb) 3 ml HHN Q8HRT [facility] Stop: 03/05/18 14:59 Last Admin: 01/16/18 07:34 Dose: 3 ml Aspirin (Aspirin Chewable) 81 mg PO DAILY [facility] Stop: 03/05/18 08:59 Last Admin: 01/16/18 09:55 Dose: 81 mg Atenolol (Tenormin) 100 mg PO DAILY [facility] Stop: 03/05/18 08:59 Last Admin: 01/16/18 09:58 Dose: 100 mg Atorvastatin Calcium (Lipitor) 40 mg PO DAILY [facility] PRN Reason: Protocol Stop: 03/05/18 08:59 Last Admin: 01/16/18 09:56 Dose: 40 mg Diltiazem HCl (Cardizem Cd) 120 mg PO DAILY [facility] Stop: 03/05/18 08:59 Last Admin: 01/16/18 09:55 Dose: 120 mg Donepezil HCl (Aricept) 5 mg PO DAILY [facility] Stop: 03/05/18 08:59 Last Admin: 01/16/18 09:55 Dose: 5 mg Heparin Sodium (Porcine) (Heparin) 5,000 units SUBQ Q12HR [facility] Stop: 03/05/18 13:44 Last Admin: 01/16/18 09:55 Dose: 5,000 units Levofloxacin (Levaquin Pb) 250 mg in 50 mls @ 50 mls/hr IV Q24HR [facility] Stop: 03/04/18 22:59 Last Admin: 01/15/18 23:03 Dose: 50 mls/hr Vancomycin HCl 1 gm/ Sodium (Chloride) 250 mls @ 165 mls/hr IV Q24HR@0900 [facility] Stop: 03/14/18 10:59 Last Admin: 01/16/18 09:58 Dose: 165 mls/hr Lactobacillus Rhamnosus (Culturelle 15b) 1 each PO DAILY [facility] Stop: 03/09/18 08:59 Last Admin: 01/16/18 09:55 Dose: 1 each Lorazepam (Ativan) 0.5 mg PO Q4HR PRN; Protocol PRN Reason: Anxiety Stop: 03/05/18 08:05 Magnesium Hydroxide (Milk Of Magnesia) 30 ml PO HS PRN PRN Reason: Constipation Stop: 03/05/18 08:05 Last Admin: 01/06/18 14:43 Dose: 30 ml Miscellaneous (Probiotic Screen) 1 ea PRN PRN PRN Reason: PROTOCOL Stop: 03/08/18 14:14 Miscellaneous (Vancomycin Iv Per Pharmacy) 1 [facility] PRN [facility] Stop: 03/12/18 13:44 Pantoprazole Sodium (Protonix) 40 mg PO DAILY@0730 [facility] Stop: 03/05/18 08:59 Last Admin: 01/16/18 06:42 Dose: 40 mg Zolpidem Tartrate (Ambien) 5 mg PO HS PRN PRN Reason: Insomnia Stop: 03/05/18 08:05 Last Admin: 01/13/18 23:20 Dose: 5 mg General: no acute distress, well developed, well nourished HEENT: atraumatic, normocephalic, PERRLA, EOMI, moist mucous membrane Neck: supple, no thyromegaly, no lymphadenopathy, no rigid Cardiovascular: S1S2, regular Lungs: clear to auscultation bilaterally, clear to percussion Abdomen: soft, no tender, no distended Extremities: no cyanosis, no clubbing, no edema Neurological: awake, alert, oriented Skin: intact Infectious Disease Assmt/Plan - Assessment Assessment: Impression: 1. RLL Cavitary lesion: 2. DM2 3. Depression. 4. MRSA colonization. - Plan Plan: Continue the same treatment. TB Gold quantiferon. AFB 2/3 neg ( smear). Cocci, histo, blasto serologies. aspergillus serology. Change antibiotics to ceftriaxone. Nutritional Asmnt/Malnutr-PDOC - Dietary Evaluation Malnutrition Findings (Please click <Entered> for more info): Nutritional Asmnt/Malnutrition Start: 01/08/18 16: 30 Text: Status: Complete Freq: Document 01/08/18 16:30 LCHENG (Rec: 01/08/18 16:43 LCHENG [email or web address]) Nutritional Asmnt/Malnutrition Patient General Information Nutritional Screening Moderate Risk Diagnosis PNA Pertinent Medical Hx/Surgical Hx HTN, DM, renal failure, GERD, dementia, hyperlipidemia Subjective Information Pt seen eaing lunch on bed, airbone isolated. Spoke with RN, RN reported pt eats well, prefer hard boiled egg instead of scrambed, tea instead of coffee. Per records, PO intake 75-100% Current Diet Order/ Nutrition Support regular Pertinent Medications culturelle, protonix, levaquin Pertinent Labs 01/06 na 140, K 4.1, Cl 111, BUN 25, Cr 1.1 Nutritional Hx/Data Height 1.68 m Height (Calculated Centimeters) 167.6 Current Weight (lbs) 44.906 kg Weight (Calculated Kilograms) 44.9 Weight (Calculated Grams) 57806.6 [place] Body Weight 142 % [place] Body Weight 70 Body Mass Index (BMI) 16.0 Weight Status Underweight GI Symptoms GI Symptoms None Last BM 01/07 Difficult in: None Skin Integrity/Comment: scar to let shoulder and left hip Estimated Nutritional Goals Calories/Kcals/Kg 25-30 based on IBW 65kg Kcals Calculated 2068-0390 Protein g/k-1.2 Protein Calculated 65-78 Fluid: ml 1625-1950ml (1ml/kcal) Nutritional Problem 1. Problem Problem underweight Etiology possible inadequate energy intake Signs/Symptoms: BMI 16 Intervention/Recommendation Comments 1. Continue with regular diet as ordered. 2. Monitor PO intake, wt, labs and skin integrity 3. F/U as low risk in 7 days, 01/15, PO check 01/12 Expected Outcomes/Goals Expected Outcomes/Goals 1. PO intake to meet at least 75% of nutritional needs. 2. Wt stability, skin to remain intact, labs to approach WNL.
--- NOTE | 2018-01-17 | Progress Notes ---
DATE: 01/16/2018 SUBJECTIVE: The patient was seen in her room, lying in the bed. The patient is a poor historian. The patient appears to be confused. Otherwise, in no acute distress. OBJECTIVE: VITAL SIGNS: Temperature 97, heart rate 79, blood pressure 112/64, respiration of 18, 98% on room air. HEENT: Head is atraumatic and normocephalic. Eyes: Bilateral conjunctivae are clear. Bilateral pupils equal, round and reactive. NECK: Supple. No JVD. CARDIOVASCULAR: S1 and S2, without murmur. PULMONARY: Decreased breath sounds, fine scattered rhonchi noted. GASTROINTESTINAL: Soft and nontender without guarding. Positive bowel sounds. MUSCULOSKELETAL: No clubbing. No cyanosis noted. ASSESSMENT: 1. Pneumonia. 2. Osteoarthritis. 3. Hypertension. 4. Hyperlipidemia. 5. Dementia. 6. Gastroesophageal reflux disease. PLAN: We will keep the patient inpatient in med/surg unit. We will continue IV antibiotics and also going to monitor the patient's nutritional status. Treatment plans were discussed with the patient's nurse. Treatment plans were discussed with Dr. Yates. JOB# [id number]
[2018-01-17] MEDS: Albuterol/Ipratropium Neb 3 ML AERS HHN SCH ×3 (08:13→23:30)
[2018-01-17] MEDS: Pantoprazole 40 mg EC Tab PO SCH (09:45)
[2018-01-17] MEDS: Diltiazem CD 120 mg 24H PO SCH (09:45)
[2018-01-17] MEDS: Atenolol 100mg Tab PO SCH (09:45)
[2018-01-17] MEDS: Aspirin 81mg Chewable Tab PO SCH (09:45)
[2018-01-17] MEDS: Lactobacillus Rhamnosus GG 15 Billion CFU CAP.SPRINK PO SCH (09:46)
--- NOTE | 2018-01-17 10:07 | General Progress Note ---
Subjective - Review of Systems Events since last encounter: patient awake confused denies sob,cp Objective - Results Result Diagrams: 01/13/18 09:05 01/13/18 09:05 Recent Labs: Laboratory Last Values WBC 5.9 Th/cmm (4.8-10.8) 01/13/18 09:05 RBC 3.59 Mil/cmm (3.80-5.80) L 01/13/18 09:05 Hgb 9.8 gm/dL (12-16) L 01/13/18 09:05 Hct 30.3 % (41.0-60) L 01/13/18 09:05 MCV 84.5 fl (80-99) 01/13/18 09:05 MCH 27.4 pg (27.0-31.0) 01/13/18 09:05 MCHC Differential 32.4 pg (28.0-36.0) 01/13/18 09:05 RDW 14.2 % (11.5-20.0) 01/13/18 09:05 Plt Count 216 Th/cmm (150-400) 01/13/18 09:05 MPV 8.8 fl 01/13/18 09:05 Neutrophils % 63.7 % (40.0-80.0) 01/13/18 09:05 Lymphocytes % 24.7 % (20.0-50.0) 01/13/18 09:05 Monocytes % 7.8 % (2.0-10.0) 01/13/18 09:05 Eosinophils % 2.8 % (0.0-5.0) 01/13/18 09:05 Basophils % 1.0 % (0.0-2.0) 01/13/18 09:05 Sodium 138 mEq/L (136-145) 01/13/18 09:05 Potassium 3.5 mEq/L (3.5-5.1) 01/13/18 09:05 Chloride 111 mEq/L (98-107) H 01/13/18 09:05 Carbon Dioxide 21.3 mEq/L (21.0-31.0) 01/13/18 09:05 Anion Gap 9.2 (7.0-16.0) 01/13/18 09:05 BUN 32 mg/dL (7-25) H 01/13/18 09:05 Creatinine 1.2 mg/dL (0.7-1.3) 01/13/18 09:05 Est GFR ( Amer) TNP 01/13/18 09:05 Est GFR (Non-Af Amer) TNP 01/13/18 09:05 BUN/Creatinine Ratio 26.7 01/13/18 09:05 Glucose 116 mg/dL (70-105) H 01/13/18 09:05 Calcium 9.5 mg/dL (8.6-10.3) 01/13/18 09:05 Total Bilirubin 0.3 mg/dL (0.3-1.0) 01/13/18 09:05 AST 12 U/L (13-39) L 01/13/18 09:05 ALT 10 U/L (7-52) 01/13/18 09:05 Alkaline Phosphatase 70 U/L (34-104) 01/13/18 09:05 Total Protein 7.3 gm/dL (6.0-8.3) 01/13/18 09:05 Albumin 3.4 gm/dL (4.2-5.5) L 01/13/18 09:05 Globulin 3.9 gm/dL 01/13/18 09:05 Albumin/Globulin Ratio 0.9 (1.0-1.8) L 01/13/18 09:05 Vancomycin Trough 16.6 ug/mL (10-20) 01/16/18 08:00 Histoplasma Antigen SEE REF. LAB REPORT 01/07/18 07:15 - Physical Exam Vitals and I&O: Vital Signs Temp 96.1 F 01/17/18 09:00 Pulse 70 01/17/18 09:45 Resp 18 01/17/18 09:00 BP 147/71 01/17/18 09:00 Pulse Ox 97 01/17/18 09:00 Intake & Output 01/16/18 01/17/18 01/17/18 17:59 06:59 18:59 Intake Total Output Total Balance Weight (lbs) Intake: Oral Output: Urine Other: # Bowel Movements Active Medications: Current Medications Acetaminophen (Tylenol) 650 mg PO Q4HR PRN PRN Reason: Mild Pain / Temp above 100 Stop: 03/05/18 08:05 Last Admin: 01/13/18 23:20 Dose: 650 mg Al Hydrox/Mg Hydrox/Simethicone (Maalox) 30 ml PO Q4HR PRN PRN Reason: GI DISTRESS Stop: 03/05/18 08:05 Last Admin: 01/06/18 14:43 Dose: 30 ml Albuterol/Ipratropium (Duoneb Neb) 3 ml HHN Q8HRT [facility] Stop: 03/05/18 14:59 Last Admin: 01/17/18 08:13 Dose: 3 ml Aspirin (Aspirin Chewable) 81 mg PO DAILY [facility] Stop: 03/05/18 08:59 Last Admin: 01/17/18 09:45 Dose: 81 mg Atenolol (Tenormin) 100 mg PO DAILY [facility] Stop: 03/05/18 08:59 Last Admin: 01/17/18 09:45 Dose: 100 mg Atorvastatin Calcium (Lipitor) 40 mg PO DAILY [facility] PRN Reason: Protocol Stop: 03/05/18 08:59 Last Admin: 01/17/18 09:45 Dose: 40 mg Diltiazem HCl (Cardizem Cd) 120 mg PO DAILY [facility] Stop: 03/05/18 08:59 Last Admin: 01/17/18 09:45 Dose: 120 mg Donepezil HCl (Aricept) 5 mg PO DAILY [facility] Stop: 03/05/18 08:59 Last Admin: 01/17/18 09:46 Dose: 5 mg Heparin Sodium (Porcine) (Heparin) 5,000 units SUBQ Q12HR [facility] Stop: 03/05/18 13:44 Last Admin: 01/17/18 09:44 Dose: 5,000 units Ceftriaxone Sodium 1 gm/ (Dextrose) 50 mls @ 100 mls/hr IV Q24H [facility] Stop: 03/17/18 11:44 Last Admin: 01/16/18 13:30 Dose: 100 mls/hr Lactobacillus Rhamnosus (Culturelle 15b) 1 each PO DAILY [facility] Stop: 03/09/18 08:59 Last Admin: 01/17/18 09:46 Dose: 1 each Lorazepam (Ativan) 0.5 mg PO Q4HR PRN; Protocol PRN Reason: Anxiety Stop: 03/05/18 08:05 Magnesium Hydroxide (Milk Of Magnesia) 30 ml PO HS PRN PRN Reason: Constipation Stop: 03/05/18 08:05 Last Admin: 01/06/18 14:43 Dose: 30 ml Miscellaneous (Probiotic Screen) 1 ea [facility] PRN PRN PRN Reason: PROTOCOL Stop: 03/08/18 14:14 Pantoprazole Sodium (Protonix) 40 mg PO DAILY@0730 [facility] Stop: 03/05/18 08:59 Last Admin: 01/17/18 09:45 Dose: 40 mg Zolpidem Tartrate (Ambien) 5 mg PO HS PRN PRN Reason: Insomnia Stop: 03/05/18 08:05 Last Admin: 01/13/18 23:20 Dose: 5 mg Nutritional Asmnt/Malnutr-PDOC - Dietary Evaluation Malnutrition Findings (Please click <Entered> for more info): Nutritional Asmnt/Malnutrition Start: 01/08/18 16: 30 Text: Status: Complete Freq: Document 01/08/18 16:30 JAZMIN (Rec: 01/08/18 16:43 LCMAYRAG [email or web address]) Nutritional Asmnt/Malnutrition Patient General Information Nutritional Screening Moderate Risk Diagnosis PNA Pertinent Medical Hx/Surgical Hx HTN, DM, renal failure, GERD, dementia, hyperlipidemia Subjective Information Pt seen eaing lunch on bed, airbone isolated. Spoke with RN, RN reported pt eats well, prefer hard boiled egg instead of scrambed, tea instead of coffee. Per records, PO intake 75-100% Current Diet Order/ Nutrition Support regular Pertinent Medications culturelle, protonix, levaquin Pertinent Labs 01/06 na 140, K 4.1, Cl 111, BUN 25, Cr 1.1 Nutritional Hx/Data Height 1.68 m Height (Calculated Centimeters) 167.6 Current Weight (lbs) 44.906 kg Weight (Calculated Kilograms) 44.9 Weight (Calculated Grams) 61578.6 [place] Body Weight 142 % [place] Body Weight 70 Body Mass Index (BMI) 16.0 Weight Status Underweight GI Symptoms GI Symptoms None Last BM 3/ Difficult in: None Skin Integrity/Comment: scar to let shoulder and left hip Estimated Nutritional Goals Calories/Kcals/Kg 25-30 based on IBW 65kg Kcals Calculated 8944-3218 Protein g/k-1.2 Protein Calculated 65-78 Fluid: ml 1625-1950ml (1ml/kcal) Nutritional Problem 1. Problem Problem underweight Etiology possible inadequate energy intake Signs/Symptoms: BMI 16 Intervention/Recommendation Comments 1. Continue with regular diet as ordered. 2. Monitor PO intake, wt, labs and skin integrity 3. F/U as low risk in 7 days, 01/15, PO check 01/12 Expected Outcomes/Goals Expected Outcomes/Goals 1. PO intake to meet at least 75% of nutritional needs. 2. Wt stability, skin to remain intact, labs to approach WNL.
--- NOTE | 2018-01-17 10:17 | Diagnostic Imaging Report ---
CT Chest without IV contrast HISTORY: Pneumonia COMPARISON: Chest x-ray performed on 01/12/[address] chest on 01/05/2018. Technique: Axial images were obtained from the base of the neck to the upper abdomen without IV contrast. Reconstructions were made. Total DLP 151, CTD I 4.2 Findings: Evaluation of mediastinum is limited due to lack of IV contrast. The ascending aorta up to 3.9 cm. Diffuse atherosclerotic vascular disease is noted. Heart size is normal. No pericardial effusion identified. There is marked elevation of the right hemidiaphragm. Diffuse emphysematous changes of the lungs are seen. Biapical bullae are noted the largest on the right apex measuring 4.2 x 4.5 cm. Again seen is a cavitary lesion which appears to primarily involve the right middle lobe measuring 5.4 cm craniocaudal x 3.5 cm transverse with an internal densities noted probably related to previous surgical procedure. Mild surrounding airspace disease is noted. Atelectatic changes of the lungs are noted. There is evidence of previous right lung embolization procedure. There is mild volume loss of the right lung. No pleural effusions. There is mild volume loss of the right lung. There appear to be numerous renal cysts which are partially visualized. Degenerative changes of the spine are noted with mild age-indeterminate compression fracture of T12. 5 mm a sclerotic density is seen at L1. IMPRESSION: No significant change in cavitary mass lesion which appears to involve the right middle lobe with internal components which may be sequela of previous surgery. Please correlate patient's Surgical procedure. There is also evidence of previous right lung embolization procedure. Surrounding mild airspace disease is noted. Diffuse emphysematous changes of the lungs. Biapical bullous changes are again noted. Ectatic aorta with ascending aorta measuring up to 3.9 cm a diffuse atherosclerotic vascular disease. Marked elevation of the left hemidiaphragm. Partially visualized diffuse bilateral renal cystic lesions. This may be due to polycystic kidney disease. Mild compression fracture of T12 4 mm sclerotic lesion of L1 possibly incidental bone island, recommend follow-up surveillance.
--- NOTE | 2018-01-17 23:27 | Infectious Disease Prog Note ---
Infectious Disease Subjective - Review of Systems Service Date: 01/17/18 Subjective: There is no new change, no fever. Infectious Disease Objective - Results Result Diagrams: 01/13/18 09:05 01/13/18 09:05 Recent Labs: Laboratory Last Values WBC 5.9 Th/cmm (4.8-10.8) 01/13/18 09:05 RBC 3.59 Mil/cmm (3.80-5.80) L 01/13/18 09:05 Hgb 9.8 gm/dL (12-16) L 01/13/18 09:05 Hct 30.3 % (41.0-60) L 01/13/18 09:05 MCV 84.5 fl (80-99) 01/13/18 09:05 MCH 27.4 pg (27.0-31.0) 01/13/18 09:05 MCHC Differential 32.4 pg (28.0-36.0) 01/13/18 09:05 RDW 14.2 % (11.5-20.0) 01/13/18 09:05 Plt Count 216 Th/cmm (150-400) 01/13/18 09:05 MPV 8.8 fl 01/13/18 09:05 Neutrophils % 63.7 % (40.0-80.0) 01/13/18 09:05 Lymphocytes % 24.7 % (20.0-50.0) 01/13/18 09:05 Monocytes % 7.8 % (2.0-10.0) 01/13/18 09:05 Eosinophils % 2.8 % (0.0-5.0) 01/13/18 09:05 Basophils % 1.0 % (0.0-2.0) 01/13/18 09:05 Sodium 138 mEq/L (136-145) 01/13/18 09:05 Potassium 3.5 mEq/L (3.5-5.1) 01/13/18 09:05 Chloride 111 mEq/L (98-107) H 01/13/18 09:05 Carbon Dioxide 21.3 mEq/L (21.0-31.0) 01/13/18 09:05 Anion Gap 9.2 (7.0-16.0) 01/13/18 09:05 BUN 32 mg/dL (7-25) H 01/13/18 09:05 Creatinine 1.2 mg/dL (0.7-1.3) 01/13/18 09:05 Est GFR ( Amer) TNP 01/13/18 09:05 Est GFR (Non-Af Amer) TNP 01/13/18 09:05 BUN/Creatinine Ratio 26.7 01/13/18 09:05 Glucose 116 mg/dL (70-105) H 01/13/18 09:05 Calcium 9.5 mg/dL (8.6-10.3) 01/13/18 09:05 Total Bilirubin 0.3 mg/dL (0.3-1.0) 01/13/18 09:05 AST 12 U/L (13-39) L 01/13/18 09:05 ALT 10 U/L (7-52) 01/13/18 09:05 Alkaline Phosphatase 70 U/L (34-104) 01/13/18 09:05 Total Protein 7.3 gm/dL (6.0-8.3) 01/13/18 09:05 Albumin 3.4 gm/dL (4.2-5.5) L 01/13/18 09:05 Globulin 3.9 gm/dL 01/13/18 09:05 Albumin/Globulin Ratio 0.9 (1.0-1.8) L 01/13/18 09:05 Vancomycin Trough 16.6 ug/mL (10-20) 01/16/18 08:00 Histoplasma Antigen SEE REF. LAB REPORT 01/07/18 07:15 - Physical Exam Vitals and I&O: Vital Signs Temp 98.6 F 01/17/18 20:00 Pulse 68 01/17/18 20:00 Resp 19 01/17/18 20:00 BP 150/73 01/17/18 20:00 Pulse Ox 100 01/17/18 20:00 Intake & Output 01/17/18 01/17/18 01/18/18 06:59 18:59 06:59 Intake Total 420 Output Total Balance 420 Weight (lbs) 43.091 kg Intake: Oral 420 Output: Urine Other: # Voids 3 # Bowel Movements Active Medications: Current Medications Acetaminophen (Tylenol) 650 mg PO Q4HR PRN PRN Reason: Mild Pain / Temp above 100 Stop: 03/05/18 08:05 Last Admin: 01/13/18 23:20 Dose: 650 mg Al Hydrox/Mg Hydrox/Simethicone (Maalox) 30 ml PO Q4HR PRN PRN Reason: GI DISTRESS Stop: 03/05/18 08:05 Last Admin: 01/06/18 14:43 Dose: 30 ml Albuterol/Ipratropium (Duoneb Neb) 3 ml HHN Q8HRT [facility] Stop: 03/05/18 14:59 Last Admin: 01/17/18 15:15 Dose: 3 ml Aspirin (Aspirin Chewable) 81 mg PO DAILY [facility] Stop: 03/05/18 08:59 Last Admin: 01/17/18 09:45 Dose: 81 mg Atenolol (Tenormin) 100 mg PO DAILY [facility] Stop: 03/05/18 08:59 Last Admin: 01/17/18 09:45 Dose: 100 mg Atorvastatin Calcium (Lipitor) 40 mg PO DAILY [facility] PRN Reason: Protocol Stop: 03/05/18 08:59 Last Admin: 01/17/18 09:45 Dose: 40 mg Diltiazem HCl (Cardizem Cd) 120 mg PO DAILY [facility] Stop: 03/05/18 08:59 Last Admin: 01/17/18 09:45 Dose: 120 mg Donepezil HCl (Aricept) 5 mg PO DAILY [facility] Stop: 03/05/18 08:59 Last Admin: 01/17/18 09:46 Dose: 5 mg Heparin Sodium (Porcine) (Heparin) 5,000 units SUBQ Q12HR [facility] Stop: 03/05/18 13:44 Last Admin: 01/17/18 20:27 Dose: 5,000 units Ceftriaxone Sodium 1 gm/ (Dextrose) 50 mls @ 100 mls/hr IV Q24H [facility] Stop: 03/17/18 11:44 Last Admin: 01/17/18 12:47 Dose: 100 mls/hr Lactobacillus Rhamnosus (Culturelle 15b) 1 each PO DAILY [facility] Stop: 03/09/18 08:59 Last Admin: 01/17/18 09:46 Dose: 1 each Lorazepam (Ativan) 0.5 mg PO Q4HR PRN; Protocol PRN Reason: Anxiety Stop: 03/05/18 08:05 Magnesium Hydroxide (Milk Of Magnesia) 30 ml PO HS PRN PRN Reason: Constipation Stop: 03/05/18 08:05 Last Admin: 01/06/18 14:43 Dose: 30 ml Miscellaneous (Probiotic Screen) 1 ea [facility] PRN PRN PRN Reason: PROTOCOL Stop: 03/08/18 14:14 Pantoprazole Sodium (Protonix) 40 mg PO DAILY@0730 [facility] Stop: 03/05/18 08:59 Last Admin: 01/17/18 09:45 Dose: 40 mg Zolpidem Tartrate (Ambien) 5 mg PO HS PRN PRN Reason: Insomnia Stop: 03/05/18 08:05 Last Admin: 01/13/18 23:20 Dose: 5 mg General: no acute distress, well developed, well nourished HEENT: atraumatic, normocephalic, PERRLA, EOMI Neck: supple, no thyromegaly Cardiovascular: S1S2, regular Lungs: clear to auscultation bilaterally, clear to percussion Abdomen: soft, no tender, no distended, no mass Extremities: no cyanosis, no clubbing, no edema Neurological: awake, alert, oriented Skin: intact Infectious Disease Assmt/Plan - Assessment Assessment: Impression: 1. RLL/RML Cavitary lesion: 2. DM2 3. Depression. 4. MRSA colonization. - Plan Plan: Continue the same treatment. TB Gold quantiferon. AFB 2/3 neg ( smear). Cocci, histo, blasto serologies. aspergillus serology. Continue ceftriaxone. Nutritional Asmnt/Malnutr-PDOC - Dietary Evaluation Malnutrition Findings (Please click <Entered> for more info): Nutritional Asmnt/Malnutrition Start: 01/08/18 16: 30 Text: Status: Complete Freq: Document 01/08/18 16:30 LCHENG (Rec: 01/08/18 16:43 [id number]) Nutritional Asmnt/Malnutrition Patient General Information Nutritional Screening Moderate Risk Diagnosis PNA Pertinent Medical Hx/Surgical Hx HTN, DM, renal failure, GERD, dementia, hyperlipidemia Subjective Information Pt seen eaing lunch on bed, airbone isolated. Spoke with RN, RN reported pt eats well, prefer hard boiled egg instead of scrambed, tea instead of coffee. Per records, PO intake 75-100% Current Diet Order/ Nutrition Support regular Pertinent Medications culturelle, protonix, levaquin Pertinent Labs 01/06 na 140, K 4.1, Cl 111, BUN 25, Cr 1.1 Nutritional Hx/Data Height 1.68 m Height (Calculated Centimeters) 167.6 Current Weight (lbs) 44.906 kg Weight (Calculated Kilograms) 44.9 Weight (Calculated Grams) 37515.6 Ewing Body Weight 142 % Ewing Body Weight 70 Body Mass Index (BMI) 16.0 Weight Status Underweight GI Symptoms GI Symptoms None Last BM 01/07 Difficult in: None Skin Integrity/Comment: scar to let shoulder and left hip Estimated Nutritional Goals Calories/Kcals/Kg 25-30 based on IBW 65kg Kcals Calculated 5407-3200 Protein g/k-1.2 Protein Calculated 65-78 Fluid: ml 1625-1950ml (1ml/kcal) Nutritional Problem 1. Problem Problem underweight Etiology possible inadequate energy intake Signs/Symptoms: BMI 16 Intervention/Recommendation Comments 1. Continue with regular diet as ordered. 2. Monitor PO intake, wt, labs and skin integrity 3. F/U as low risk in 7 days, 01/15, PO check 01/12 Expected Outcomes/Goals Expected Outcomes/Goals 1. PO intake to meet at least 75% of nutritional needs. 2. Wt stability, skin to remain intact, labs to approach WNL.
[2018-01-18] MEDS: Albuterol/Ipratropium Neb 3 ML AERS HHN SCH ×3 (07:30→22:21)
--- NOTE | 2018-01-18 09:24 | General Progress Note ---
Subjective - Review of Systems Events since last encounter: no fever no distress Objective - Results Result Diagrams: 01/13/18 09:05 01/13/18 09:05 Recent Labs: Laboratory Last Values WBC 5.9 Th/cmm (4.8-10.8) 01/13/18 09:05 RBC 3.59 Mil/cmm (3.80-5.80) L 01/13/18 09:05 Hgb 9.8 gm/dL (12-16) L 01/13/18 09:05 Hct 30.3 % (41.0-60) L 01/13/18 09:05 MCV 84.5 fl (80-99) 01/13/18 09:05 MCH 27.4 pg (27.0-31.0) 01/13/18 09:05 MCHC Differential 32.4 pg (28.0-36.0) 01/13/18 09:05 RDW 14.2 % (11.5-20.0) 01/13/18 09:05 Plt Count 216 Th/cmm (150-400) 01/13/18 09:05 MPV 8.8 fl 01/13/18 09:05 Neutrophils % 63.7 % (40.0-80.0) 01/13/18 09:05 Lymphocytes % 24.7 % (20.0-50.0) 01/13/18 09:05 Monocytes % 7.8 % (2.0-10.0) 01/13/18 09:05 Eosinophils % 2.8 % (0.0-5.0) 01/13/18 09:05 Basophils % 1.0 % (0.0-2.0) 01/13/18 09:05 Sodium 138 mEq/L (136-145) 01/13/18 09:05 Potassium 3.5 mEq/L (3.5-5.1) 01/13/18 09:05 Chloride 111 mEq/L (98-107) H 01/13/18 09:05 Carbon Dioxide 21.3 mEq/L (21.0-31.0) 01/13/18 09:05 Anion Gap 9.2 (7.0-16.0) 01/13/18 09:05 BUN 32 mg/dL (7-25) H 01/13/18 09:05 Creatinine 1.2 mg/dL (0.7-1.3) 01/13/18 09:05 Est GFR ( Amer) TNP 01/13/18 09:05 Est GFR (Non-Af Amer) TNP 01/13/18 09:05 BUN/Creatinine Ratio 26.7 01/13/18 09:05 Glucose 116 mg/dL (70-105) H 01/13/18 09:05 Calcium 9.5 mg/dL (8.6-10.3) 01/13/18 09:05 Total Bilirubin 0.3 mg/dL (0.3-1.0) 01/13/18 09:05 AST 12 U/L (13-39) L 01/13/18 09:05 ALT 10 U/L (7-52) 01/13/18 09:05 Alkaline Phosphatase 70 U/L (34-104) 01/13/18 09:05 Total Protein 7.3 gm/dL (6.0-8.3) 01/13/18 09:05 Albumin 3.4 gm/dL (4.2-5.5) L 01/13/18 09:05 Globulin 3.9 gm/dL 01/13/18 09:05 Albumin/Globulin Ratio 0.9 (1.0-1.8) L 01/13/18 09:05 Vancomycin Trough 16.6 ug/mL (10-20) 01/16/18 08:00 Histoplasma Antigen SEE REF. LAB REPORT 01/07/18 07:15 - Physical Exam Vitals and I&O: Vital Signs Temp 98.6 F 01/18/18 05:00 Pulse 72 01/18/18 07:30 Resp 18 01/18/18 07:32 BP 145/69 01/18/18 05:00 Pulse Ox 97 01/18/18 07:30 Intake & Output 01/17/18 01/18/18 01/18/18 18:59 06:59 18:59 Intake Total 420 350 Balance 420 350 Weight (lbs) 43.091 kg 43.091 kg Intake: Oral 420 350 Other: # Voids 3 Stool Characteristics Soft Brown Active Medications: Current Medications Acetaminophen (Tylenol) 650 mg PO Q4HR PRN PRN Reason: Mild Pain / Temp above 100 Stop: 03/05/18 08:05 Last Admin: 01/13/18 23:20 Dose: 650 mg Al Hydrox/Mg Hydrox/Simethicone (Maalox) 30 ml PO Q4HR PRN PRN Reason: GI DISTRESS Stop: 03/05/18 08:05 Last Admin: 01/06/18 14:43 Dose: 30 ml Albuterol/Ipratropium (Duoneb Neb) 3 ml HHN Q8HRT [facility] Stop: 03/05/18 14:59 Last Admin: 01/18/18 07:30 Dose: 3 ml Aspirin (Aspirin Chewable) 81 mg PO DAILY [facility] Stop: 03/05/18 08:59 Last Admin: 01/17/18 09:45 Dose: 81 mg Atenolol (Tenormin) 100 mg PO DAILY [facility] Stop: 03/05/18 08:59 Last Admin: 01/17/18 09:45 Dose: 100 mg Atorvastatin Calcium (Lipitor) 40 mg PO DAILY [facility] PRN Reason: Protocol Stop: 03/05/18 08:59 Last Admin: 01/17/18 09:45 Dose: 40 mg Diltiazem HCl (Cardizem Cd) 120 mg PO DAILY [facility] Stop: 03/05/18 08:59 Last Admin: 01/17/18 09:45 Dose: 120 mg Donepezil HCl (Aricept) 5 mg PO DAILY [facility] BY [facility] Stop: 03/05/18 08:59 Last Admin: 01/17/18 09:46 Dose: 5 mg Heparin Sodium (Porcine) (Heparin) 5,000 units SUBQ Q12HR [facility] Stop: 03/05/18 13:44 Last Admin: 01/17/18 20:27 Dose: 5,000 units Ceftriaxone Sodium 1 gm/ (Dextrose) 50 mls @ 100 mls/hr IV Q24H [facility] Stop: 03/17/18 11:44 Last Admin: 01/17/18 12:47 Dose: 100 mls/hr Lactobacillus Rhamnosus (Culturelle 15b) 1 each PO DAILY [facility] Stop: 03/09/18 08:59 Last Admin: 01/17/18 09:46 Dose: 1 each Lorazepam (Ativan) 0.5 mg PO Q4HR PRN; Protocol PRN Reason: Anxiety Stop: 03/05/18 08:05 Magnesium Hydroxide (Milk Of Magnesia) 30 ml PO HS PRN PRN Reason: Constipation Stop: 03/05/18 08:05 Last Admin: 01/06/18 14:43 Dose: 30 ml Miscellaneous (Probiotic Screen) 1 ea MC PRN PRN PRN Reason: PROTOCOL Stop: 03/08/18 14:14 Pantoprazole Sodium (Protonix) 40 mg PO DAILY@0730 [facility] Stop: 03/05/18 08:59 Last Admin: 01/17/18 09:45 Dose: 40 mg Zolpidem Tartrate (Ambien) 5 mg PO HS PRN PRN Reason: Insomnia Stop: 03/05/18 08:05 Last Admin: 01/13/18 23:20 Dose: 5 mg Nutritional Asmnt/Malnutr-PDOC - Dietary Evaluation Malnutrition Findings (Please click <Entered> for more info): Nutritional Asmnt/Malnutrition Start: 01/08/18 16: 30 Text: Status: Complete Freq: Document 01/08/18 16:30 LCMAYRA (Rec: 01/08/18 16:43 MAYRAG [email or web address]) Nutritional Asmnt/Malnutrition Patient General Information Nutritional Screening Moderate Risk Diagnosis PNA Pertinent Medical Hx/Surgical Hx HTN, DM, renal failure, GERD, dementia, hyperlipidemia Subjective Information Pt seen eaing lunch on bed, airbone isolated. Spoke with RN, RN reported pt eats well, prefer hard boiled egg instead of scrambed, tea instead of coffee. Per records, PO intake 75-100% Current Diet Order/ Nutrition Support regular Pertinent Medications culturelle, protonix, levaquin Pertinent Labs 01/06 na 140, K 4.1, Cl 111, BUN 25, Cr 1.1 Nutritional Hx/Data Height 1.68 m Height (Calculated Centimeters) 167.6 Current Weight (lbs) 44.906 kg Weight (Calculated Kilograms) 44.9 Weight (Calculated Grams) [address].6 [place] Body Weight 142 % [place] Body Weight 70 Body Mass Index (BMI) 16.0 Weight Status Underweight GI Symptoms GI Symptoms None Last BM 3 Difficult in: None Skin Integrity/Comment: scar to let shoulder and left hip Estimated Nutritional Goals Calories/Kcals/Kg 25-30 based on IBW 65kg Kcals Calculated 8082-2095 Protein g/k-1.2 Protein Calculated 65-78 Fluid: ml 1625-1950ml (1ml/kcal) Nutritional Problem 1. Problem Problem underweight Etiology possible inadequate energy intake Signs/Symptoms: BMI 16 Intervention/Recommendation Comments 1. Continue with regular diet as ordered. 2. Monitor PO intake, wt, labs and skin integrity 3. F/U as low risk in 7 days, 01/15, PO check 01/12 Expected Outcomes/Goals Expected Outcomes/Goals 1. PO intake to meet at least 75% of nutritional needs. 2. Wt stability, skin to remain intact, labs to approach WNL.
[2018-01-18] MEDS: Lactobacillus Rhamnosus GG 15 Billion CFU CAP.SPRINK PO SCH (09:43)
[2018-01-18] MEDS: Pantoprazole 40 mg EC Tab PO SCH (09:44)
[2018-01-18] MEDS: Diltiazem CD 120 mg 24H PO SCH (09:44)
[2018-01-18] MEDS: Aspirin 81mg Chewable Tab PO SCH (09:45)
[2018-01-18] MEDS: Atenolol 100mg Tab PO SCH (09:46)
--- NOTE | 2018-01-18 14:20 | Infectious Disease Prog Note ---
Infectious Disease Subjective - Review of Systems Service Date: 01/18/18 Subjective: There is no new change, no fever. Infectious Disease Objective - Results Result Diagrams: 01/13/18 09:05 01/13/18 09:05 Recent Labs: Laboratory Last Values WBC 5.9 Th/cmm (4.8-10.8) 01/13/18 09:05 RBC 3.59 Mil/cmm (3.80-5.80) L 01/13/18 09:05 Hgb 9.8 gm/dL (12-16) L 01/13/18 09:05 Hct 30.3 % (41.0-60) L 01/13/18 09:05 MCV 84.5 fl (80-99) 01/13/18 09:05 MCH 27.4 pg (27.0-31.0) 01/13/18 09:05 MCHC Differential 32.4 pg (28.0-36.0) 01/13/18 09:05 RDW 14.2 % (11.5-20.0) 01/13/18 09:05 Plt Count 216 Th/cmm (150-400) 01/13/18 09:05 MPV 8.8 fl 01/13/18 09:05 Neutrophils % 63.7 % (40.0-80.0) 01/13/18 09:05 Lymphocytes % 24.7 % (20.0-50.0) 01/13/18 09:05 Monocytes % 7.8 % (2.0-10.0) 01/13/18 09:05 Eosinophils % 2.8 % (0.0-5.0) 01/13/18 09:05 Basophils % 1.0 % (0.0-2.0) 01/13/18 09:05 Sodium 138 mEq/L (136-145) 01/13/18 09:05 Potassium 3.5 mEq/L (3.5-5.1) 01/13/18 09:05 Chloride 111 mEq/L (98-107) H 01/13/18 09:05 Carbon Dioxide 21.3 mEq/L (21.0-31.0) 01/13/18 09:05 Anion Gap 9.2 (7.0-16.0) 01/13/18 09:05 BUN 32 mg/dL (7-25) H 01/13/18 09:05 Creatinine 1.2 mg/dL (0.7-1.3) 01/13/18 09:05 Est GFR ( Amer) TNP 01/13/18 09:05 Est GFR (Non-Af Amer) TNP 01/13/18 09:05 BUN/Creatinine Ratio 26.7 01/13/18 09:05 Glucose 116 mg/dL (70-105) H 01/13/18 09:05 Calcium 9.5 mg/dL (8.6-10.3) 01/13/18 09:05 Total Bilirubin 0.3 mg/dL (0.3-1.0) 01/13/18 09:05 AST 12 U/L (13-39) L 01/13/18 09:05 ALT 10 U/L (7-52) 01/13/18 09:05 Alkaline Phosphatase 70 U/L (34-104) 01/13/18 09:05 Total Protein 7.3 gm/dL (6.0-8.3) 01/13/18 09:05 Albumin 3.4 gm/dL (4.2-5.5) L 01/13/18 09:05 Globulin 3.9 gm/dL 01/13/18 09:05 Albumin/Globulin Ratio 0.9 (1.0-1.8) L 01/13/18 09:05 Vancomycin Trough 16.6 ug/mL (10-20) 01/16/18 08:00 Histoplasma Antigen SEE REF. LAB REPORT 01/07/18 07:15 - Physical Exam Vitals and I&O: Vital Signs Temp 97.9 F 01/18/18 11:59 Pulse 77 01/18/18 11:59 Resp 18 01/18/18 12:17 BP 122/63 01/18/18 11:59 Pulse Ox 100 01/18/18 11:59 Intake & Output 01/17/18 01/18/18 01/18/18 18:59 06:59 18:59 Intake Total 470 350 Balance 470 350 Weight (lbs) 43.091 kg 43.091 kg Intake: Intake, IV Amount 50 cefTRIAXone 1 gm In 50 Dextrose 5% 50 ml @ 100 mls/hr IV Q24H [facility] Rx#: [id number] Oral 420 350 Other: # Voids 3 Stool Characteristics Soft Brown Active Medications: Current Medications Acetaminophen (Tylenol) 650 mg PO Q4HR PRN PRN Reason: Mild Pain / Temp above 100 Stop: 03/05/18 08:05 Last Admin: 01/13/18 23:20 Dose: 650 mg Al Hydrox/Mg Hydrox/Simethicone (Maalox) 30 ml PO Q4HR PRN PRN Reason: GI DISTRESS Stop: 03/05/18 08:05 Last Admin: 01/06/18 14:43 Dose: 30 ml Albuterol/Ipratropium (Duoneb Neb) 3 ml HHN Q8HRT [facility] Stop: 03/05/18 14:59 Last Admin: 01/18/18 07:30 Dose: 3 ml Aspirin (Aspirin Chewable) 81 mg PO DAILY [facility] Stop: 03/05/18 08:59 Last Admin: 01/18/18 09:45 Dose: 81 mg Atenolol (Tenormin) 100 mg PO DAILY [facility] Stop: 03/05/18 08:59 Last Admin: 01/18/18 09:46 Dose: 100 mg Atorvastatin Calcium (Lipitor) 40 mg PO DAILY [facility] PRN Reason: Protocol Stop: 03/05/18 08:59 Last Admin: 01/18/18 09:44 Dose: 40 mg Diltiazem HCl (Cardizem Cd) 120 mg PO DAILY [facility] Stop: 03/05/18 08:59 Last Admin: 01/18/18 09:44 Dose: 120 mg Donepezil HCl (Aricept) 5 mg PO DAILY [facility] Stop: 03/05/18 08:59 Last Admin: 01/18/18 09:43 Dose: 5 mg Heparin Sodium (Porcine) (Heparin) 5,000 units SUBQ Q12HR [facility] Stop: 03/05/18 13:44 Last Admin: 01/18/18 09:46 Dose: 5,000 units Ceftriaxone Sodium 1 gm/ (Dextrose) 50 mls @ 100 mls/hr IV Q24H [facility] Stop: 03/17/18 11:44 Last Admin: 01/18/18 11:49 Dose: 100 mls/hr Lactobacillus Rhamnosus (Culturelle 15b) 1 each PO DAILY [facility] Stop: 03/09/18 08:59 Last Admin: 01/18/18 09:43 Dose: 1 each Lorazepam (Ativan) 0.5 mg PO Q4HR PRN; Protocol PRN Reason: Anxiety Stop: 03/05/18 08:05 Magnesium Hydroxide (Milk Of Magnesia) 30 ml PO HS PRN PRN Reason: Constipation Stop: 03/05/18 08:05 Last Admin: 01/06/18 14:43 Dose: 30 ml Miscellaneous (Probiotic Screen) 1 ea MC PRN PRN PRN Reason: PROTOCOL Stop: 03/08/18 14:14 Pantoprazole Sodium (Protonix) 40 mg PO DAILY@0730 [facility] Stop: 03/05/18 08:59 Last Admin: 01/18/18 09:44 Dose: 40 mg Zolpidem Tartrate (Ambien) 5 mg PO HS PRN PRN Reason: Insomnia Stop: 03/05/18 08:05 Last Admin: 01/13/18 23:20 Dose: 5 mg General: no acute distress, well developed, well nourished HEENT: atraumatic, normocephalic, PERRLA, EOMI Neck: supple, no thyromegaly Cardiovascular: S1S2, regular Lungs: clear to auscultation bilaterally, clear to percussion Abdomen: soft, no tender, no distended, no mass Extremities: no cyanosis, no clubbing Neurological: awake, alert, oriented Skin: intact Infectious Disease Assmt/Plan - Assessment Assessment: Impression: 1. RLL/RML Cavitary lesion: 2. DM2 3. Depression. 4. MRSA colonization. - Plan Plan: Continue the same treatment. TB Gold quantiferon. AFB 2/3 neg ( smear). Cocci, histo, blasto serologies. aspergillus serology. Continue ceftriaxone. Nutritional Asmnt/Malnutr-PDOC - Dietary Evaluation Malnutrition Findings (Please click <Entered> for more info): Nutritional Asmnt/Malnutrition Start: 01/08/18 16: 30 Text: Status: Complete Freq: Document 01/08/18 16:30 LCMAYRAG (Rec: 01/08/18 16:43 LCHENG [email or web address]) Nutritional Asmnt/Malnutrition Patient General Information Nutritional Screening Moderate Risk Diagnosis PNA Pertinent Medical Hx/Surgical Hx HTN, DM, renal failure, GERD, dementia, hyperlipidemia Subjective Information Pt seen eaing lunch on bed, airbone isolated. Spoke with RN, RN reported pt eats well, prefer hard boiled egg instead of scrambed, tea instead of coffee. Per records, PO intake 75-100% Current Diet Order/ Nutrition Support regular Pertinent Medications culturelle, protonix, levaquin Pertinent Labs 01/06 na 140, K 4.1, Cl 111, BUN 25, Cr 1.1 Nutritional Hx/Data Height 1.68 m Height (Calculated Centimeters) 167.6 Current Weight (lbs) 44.906 kg Weight (Calculated Kilograms) 44.9 Weight (Calculated Grams) 75177.6 [place] Body Weight 142 % [place] Body Weight 70 Body Mass Index (BMI) 16.0 Weight Status Underweight GI Symptoms GI Symptoms None Last BM 01/07 Difficult in: None Skin Integrity/Comment: scar to let shoulder and left hip Estimated Nutritional Goals Calories/Kcals/Kg 25-30 based on IBW 65kg Kcals Calculated 2901-2427 Protein g/k-1.2 Protein Calculated 65-78 Fluid: ml 1625-1950ml (1ml/kcal) Nutritional Problem 1. Problem Problem underweight Etiology possible inadequate energy intake Signs/Symptoms: BMI 16 Intervention/Recommendation Comments 1. Continue with regular diet as ordered. 2. Monitor PO intake, wt, labs and skin integrity 3. F/U as low risk in 7 days, 01/15, PO check 01/12 Expected Outcomes/Goals Expected Outcomes/Goals 1. PO intake to meet at least 75% of nutritional needs. 2. Wt stability, skin to remain intact, labs to approach WNL.
[2018-01-19] MEDS: Pantoprazole 40 mg EC Tab PO SCH (06:36)
[2018-01-19] MEDS: Albuterol/Ipratropium Neb 3 ML AERS HHN SCH ×3 (07:24→22:23)
[2018-01-19] MEDS: Diltiazem CD 120 mg 24H PO SCH (08:53)
[2018-01-19] MEDS: Atenolol 100mg Tab PO SCH (08:55)
[2018-01-19] MEDS: Aspirin 81mg Chewable Tab PO SCH (08:55)
[2018-01-19] MEDS: Lactobacillus Rhamnosus GG 15 Billion CFU CAP.SPRINK PO SCH (08:56)
--- NOTE | 2018-01-19 16:00 | Internal Medicine Prog Note ---
Internal Medicine Subjective - Subjective Service Date: 01/19/18 Patient is:: awake, verbal, confused Per staff patient has:: tolerating meds Internal Medicine Objective - Results Result Diagrams: 01/13/18 09:05 01/13/18 09:05 Recent Labs: Laboratory Last Values WBC 5.9 Th/cmm (4.8-10.8) 01/13/18 09:05 RBC 3.59 Mil/cmm (3.80-5.80) L 01/13/18 09:05 Hgb 9.8 gm/dL (12-16) L 01/13/18 09:05 Hct 30.3 % (41.0-60) L 01/13/18 09:05 MCV 84.5 fl (80-99) 01/13/18 09:05 MCH 27.4 pg (27.0-31.0) 01/13/18 09:05 MCHC Differential 32.4 pg (28.0-36.0) 01/13/18 09:05 RDW 14.2 % (11.5-20.0) 01/13/18 09:05 Plt Count 216 Th/cmm (150-400) 01/13/18 09:05 MPV 8.8 fl 01/13/18 09:05 Neutrophils % 63.7 % (40.0-80.0) 01/13/18 09:05 Lymphocytes % 24.7 % (20.0-50.0) 01/13/18 09:05 Monocytes % 7.8 % (2.0-10.0) 01/13/18 09:05 Eosinophils % 2.8 % (0.0-5.0) 01/13/18 09:05 Basophils % 1.0 % (0.0-2.0) 01/13/18 09:05 Sodium 138 mEq/L (136-145) 01/13/18 09:05 Potassium 3.5 mEq/L (3.5-5.1) 01/13/18 09:05 Chloride 111 mEq/L (98-107) H 01/13/18 09:05 Carbon Dioxide 21.3 mEq/L (21.0-31.0) 01/13/18 09:05 Anion Gap 9.2 (7.0-16.0) 01/13/18 09:05 BUN 32 mg/dL (7-25) H 01/13/18 09:05 Creatinine 1.2 mg/dL (0.7-1.3) 01/13/18 09:05 Est GFR ( Amer) TNP 01/13/18 09:05 Est GFR (Non-Af Amer) TNP 01/13/18 09:05 BUN/Creatinine Ratio 26.7 01/13/18 09:05 Glucose 116 mg/dL (70-105) H 01/13/18 09:05 Calcium 9.5 mg/dL (8.6-10.3) 01/13/18 09:05 Total Bilirubin 0.3 mg/dL (0.3-1.0) 01/13/18 09:05 AST 12 U/L (13-39) L 01/13/18 09:05 ALT 10 U/L (7-52) 01/13/18 09:05 Alkaline Phosphatase 70 U/L (34-104) 01/13/18 09:05 Total Protein 7.3 gm/dL (6.0-8.3) 01/13/18 09:05 Albumin 3.4 gm/dL (4.2-5.5) L 01/13/18 09:05 Globulin 3.9 gm/dL 01/13/18 09:05 Albumin/Globulin Ratio 0.9 (1.0-1.8) L 01/13/18 09:05 Vancomycin Trough 16.6 ug/mL (10-20) 01/16/18 08:00 Histoplasma Antigen SEE REF. LAB REPORT 01/07/18 07:15 - Physical Exam Vitals and I&O: Vital Signs Temp 98.2 F 01/19/18 15:48 Pulse 67 01/19/18 15:48 Resp 18 01/19/18 15:48 BP 124/72 01/19/18 15:48 Pulse Ox 98 01/19/18 15:48 Intake & Output 01/18/18 01/19/18 01/19/18 18:59 06:59 18:59 Intake Total 610 200 400 Output Total 300 Balance 610 200 100 Weight (lbs) 95 lb 99 lb 14.4 oz 99 lb 14.4 oz Intake: Intake, IV Amount 50 cefTRIAXone 1 gm In 50 Dextrose 5% 50 ml @ 100 mls/hr IV Q24H [facility] Rx#: [id number] Oral 560 200 400 Output: Urine 300 Other: # Voids 3 0 # Bowel Movements 0 0 0 Active Medications: Current Medications Acetaminophen (Tylenol) 650 mg PO Q4HR PRN PRN Reason: Mild Pain / Temp above 100 Stop: 03/05/18 08:05 Last Admin: 01/19/18 10:52 Dose: 650 mg Al Hydrox/Mg Hydrox/Simethicone (Maalox) 30 ml PO Q4HR PRN PRN Reason: GI DISTRESS Stop: 03/05/18 08:05 Last Admin: 01/06/18 14:43 Dose: 30 ml Albuterol/Ipratropium (Duoneb Neb) 3 ml HHN Q8HRT [facility] Stop: 03/05/18 14:59 Last Admin: 01/19/18 14:40 Dose: 3 ml Aspirin (Aspirin Chewable) 81 mg PO DAILY [facility] Stop: 03/05/18 08:59 Last Admin: 01/19/18 08:55 Dose: 81 mg Atenolol (Tenormin) 100 mg PO DAILY [facility] Stop: 03/05/18 08:59 Last Admin: 01/19/18 08:55 Dose: 100 mg Atorvastatin Calcium (Lipitor) 40 mg PO DAILY [facility] PRN Reason: Protocol Stop: 03/05/18 08:59 Last Admin: 01/19/18 08:55 Dose: 40 mg Diltiazem HCl (Cardizem Cd) 120 mg PO DAILY [facility] Stop: 03/05/18 08:59 Last Admin: 01/19/18 08:53 Dose: 120 mg Donepezil HCl (Aricept) 5 mg PO DAILY [facility] Stop: 03/05/18 08:59 Last Admin: 01/19/18 08:56 Dose: 5 mg Heparin Sodium (Porcine) (Heparin) 5,000 units SUBQ Q12HR [facility] Stop: 03/05/18 13:44 Last Admin: 01/19/18 08:56 Dose: 5,000 units Ceftriaxone Sodium 1 gm/ (Dextrose) 50 mls @ 100 mls/hr IV Q24H [facility] Stop: 03/17/18 11:44 Last Admin: 01/19/18 12:25 Dose: 100 mls/hr Lactobacillus Rhamnosus (Culturelle 15b) 1 each PO DAILY [facility] Stop: 03/09/18 08:59 Last Admin: 01/19/18 08:56 Dose: 1 each Lorazepam (Ativan) 0.5 mg PO Q4HR PRN; Protocol PRN Reason: Anxiety Stop: 03/05/18 08:05 Magnesium Hydroxide (Milk Of Magnesia) 30 ml PO HS PRN PRN Reason: Constipation Stop: 03/05/18 08:05 Last Admin: 01/06/18 14:43 Dose: 30 ml Miscellaneous (Probiotic Screen) 1 ea MC PRN PRN PRN Reason: PROTOCOL Stop: 03/08/18 14:14 Pantoprazole Sodium (Protonix) 40 mg PO DAILY@0730 [facility] Stop: 03/05/18 08:59 Last Admin: 01/19/18 06:36 Dose: 40 mg Tuberculin PPD (Tubersol) 5 tu ID UD [facility] Stop: 01/21/18 17:59 Zolpidem Tartrate (Ambien) 5 mg PO HS PRN PRN Reason: Insomnia Stop: 03/05/18 08:05 Last Admin: 01/13/18 23:20 Dose: 5 mg General: weak, alert HEENT: NC/AT, PERRLA Neck: Supple Lungs: ronchi Abdomen: soft, non-tender, non-distended, positive bowel sound Neurological: unable to follow command Internal Medicine Assmt/Plan - Assessment Assessment: pneumonia dementia htn hyperlipidemia oa gerd - Plan Plan: cbc/bmp in am bronchodilators supplemental oyxgen as needed continue current orders Nutritional Asmnt/Malnutr-PDOC - Dietary Evaluation Malnutrition Findings (Please click <Entered> for more info): Nutritional Asmnt/Malnutrition Start: 01/08/18 16: 30 Text: Status: Complete Freq: Document 01/08/18 16:30 HEN (Rec: 01/08/18 16:43 LCHENG [email or web address]) Nutritional Asmnt/Malnutrition Patient General Information Nutritional Screening Moderate Risk Diagnosis PNA Pertinent Medical Hx/Surgical Hx HTN, DM, renal failure, GERD, dementia, hyperlipidemia Subjective Information Pt seen eaing lunch on bed, airbone isolated. Spoke with RN, RN reported pt eats well, prefer hard boiled egg instead of scrambed, tea instead of coffee. Per records, PO intake 75-100% Current Diet Order/ Nutrition Support regular Pertinent Medications culturelle, protonix, levaquin Pertinent Labs 01/06 na 140, K 4.1, Cl 111, BUN 25, Cr 1.1 Nutritional Hx/Data Height 5 ft 6 in Height (Calculated Centimeters) 167.6 Current Weight (lbs) 99 lb Weight (Calculated Kilograms) 44.9 Weight (Calculated Grams) 43196.6 [place] Body Weight 142 % [place] Body Weight 70 Body Mass Index (BMI) 16.0 Weight Status Underweight GI Symptoms GI Symptoms None Last BM 3/ Difficult in: None Skin Integrity/Comment: scar to let shoulder and left hip Estimated Nutritional Goals Calories/Kcals/Kg 25-30 based on IBW 65kg Kcals Calculated 1744-4391 Protein g/k-1.2 Protein Calculated 65-78 Fluid: ml 1625-1950ml (1ml/kcal) Nutritional Problem 1. Problem Problem underweight Etiology possible inadequate energy intake Signs/Symptoms: BMI 16 Intervention/Recommendation Comments 1. Continue with regular diet as ordered. 2. Monitor PO intake, wt, labs and skin integrity 3. F/U as low risk in 7 days, 01/15, PO check 01/12 Expected Outcomes/Goals Expected Outcomes/Goals 1. PO intake to meet at least 75% of nutritional needs. 2. Wt stability, skin to remain intact, labs to approach WNL.
[2018-01-19] MEDS ORDERED: Tuberculin 5 TU/0.1 mL UD ID ONE (19:01)
[2018-01-19] MEDS: Tuberculin 5 TU/0.1 mL UD ID SCH (19:59)
[2018-01-20] MEDS: Pantoprazole 40 mg EC Tab PO SCH (06:56)
[2018-01-20 07:25] LABS: BUN - UREA NITROGEN 21 mg/dL (7-25); CARBON DIOXIDE 20.9 mEq/L (21.0-31.0); CHLORIDE 109 mEq/L (98-107); GLUCOSE 90 mg/dL (70-105); POTASSIUM SERUM 3.9 mEq/L (3.5-5.1); SODIUM SERUM 138 mEq/L (136-145)
[2018-01-20] MEDS: Albuterol/Ipratropium Neb 3 ML AERS HHN SCH ×3 (07:48→22:58)
[2018-01-20] MEDS: Diltiazem CD 120 mg 24H PO SCH (09:50)
[2018-01-20] MEDS: Aspirin 81mg Chewable Tab PO SCH (09:51)
[2018-01-20] MEDS: Atenolol 100mg Tab PO SCH (09:51)
[2018-01-20] MEDS: Lactobacillus Rhamnosus GG 15 Billion CFU CAP.SPRINK PO SCH (09:51)
--- NOTE | 2018-01-20 16:53 | Internal Medicine Prog Note ---
Internal Medicine Subjective - Subjective Patient is:: awake, verbal, confused Per staff patient has:: tolerating meds Internal Medicine Objective - Results Result Diagrams: 01/13/18 09:05 01/20/18 06:25 Recent Labs: Laboratory Last Values WBC 5.9 Th/cmm (4.8-10.8) 01/13/18 09:05 RBC 3.59 Mil/cmm (3.80-5.80) L 01/13/18 09:05 Hgb 9.8 gm/dL (12-16) L 01/13/18 09:05 Hct 30.3 % (41.0-60) L 01/13/18 09:05 MCV 84.5 fl (80-99) 01/13/18 09:05 MCH 27.4 pg (27.0-31.0) 01/13/18 09:05 MCHC Differential 32.4 pg (28.0-36.0) 01/13/18 09:05 RDW 14.2 % (11.5-20.0) 01/13/18 09:05 Plt Count 216 Th/cmm (150-400) 01/13/18 09:05 MPV 8.8 fl 01/13/18 09:05 Neutrophils % 63.7 % (40.0-80.0) 01/13/18 09:05 Lymphocytes % 24.7 % (20.0-50.0) 01/13/18 09:05 Monocytes % 7.8 % (2.0-10.0) 01/13/18 09:05 Eosinophils % 2.8 % (0.0-5.0) 01/13/18 09:05 Basophils % 1.0 % (0.0-2.0) 01/13/18 09:05 Sodium 138 mEq/L (136-145) 01/20/18 06:25 Potassium 3.9 mEq/L (3.5-5.1) 01/20/18 06:25 Chloride 109 mEq/L (98-107) H 01/20/18 06:25 Carbon Dioxide 20.9 mEq/L (21.0-31.0) L 01/20/18 06:25 Anion Gap 12.0 (7.0-16.0) 01/20/18 06:25 BUN 21 mg/dL (7-25) 01/20/18 06:25 Creatinine 1.0 mg/dL (0.7-1.3) 01/20/18 06:25 Est GFR ( Amer) TNP 01/20/18 06:25 Est GFR (Non-Af Amer) TNP 01/20/18 06:25 BUN/Creatinine Ratio 21.0 01/20/18 06:25 Glucose 90 mg/dL (70-105) 01/20/18 06:25 Calcium 9.0 mg/dL (8.6-10.3) 01/20/18 06:25 Total Bilirubin 0.3 mg/dL (0.3-1.0) 01/13/18 09:05 AST 12 U/L (13-39) L 01/13/18 09:05 ALT 10 U/L (7-52) 01/13/18 09:05 Alkaline Phosphatase 70 U/L (34-104) 01/13/18 09:05 Total Protein 7.3 gm/dL (6.0-8.3) 01/13/18 09:05 Albumin 3.4 gm/dL (4.2-5.5) L 01/13/18 09:05 Globulin 3.9 gm/dL 01/13/18 09:05 Albumin/Globulin Ratio 0.9 (1.0-1.8) L 01/13/18 09:05 Vancomycin Trough 16.6 ug/mL (10-20) 01/16/18 08:00 Coccidioides Ab Negative (Neg:<1:2) 01/10/18 06:06 Histoplasma Antigen SEE REF. LAB REPORT 01/07/18 07:15 - Physical Exam Vitals and I&O: Vital Signs Temp 98.2 F 01/20/18 12:20 Pulse 73 01/20/18 15:55 Resp 18 01/20/18 15:55 BP 142/68 01/20/18 08:00 Pulse Ox 96 01/20/18 15:55 Intake & Output 01/19/18 01/20/18 01/20/18 18:59 06:59 18:59 Intake Total 450 500 Output Total 300 1 Balance 150 499 Weight (lbs) 45.314 kg 45.314 kg Intake: Intake, IV Amount 50 cefTRIAXone 1 gm In 50 Dextrose 5% 50 ml @ 100 mls/hr IV Q24H [facility] Rx#: [id number] Oral 400 500 Output: Urine 300 Stool 1 Other: # Voids 4 # Bowel Movements 0 1 Stool Characteristics Soft Active Medications: Current Medications Acetaminophen (Tylenol) 650 mg PO Q4HR PRN PRN Reason: Mild Pain / Temp above 100 Stop: 03/05/18 08:05 Last Admin: 01/19/18 10:52 Dose: 650 mg Al Hydrox/Mg Hydrox/Simethicone (Maalox) 30 ml PO Q4HR PRN PRN Reason: GI DISTRESS Stop: 03/05/18 08:05 Last Admin: 01/06/18 14:43 Dose: 30 ml Albuterol/Ipratropium (Duoneb Neb) 3 ml HHN Q8HRT [facility] Stop: 03/05/18 14:59 Last Admin: 01/20/18 15:53 Dose: 3 ml Aspirin (Aspirin Chewable) 81 mg PO DAILY [facility] Stop: 03/05/18 08:59 Last Admin: 01/20/18 09:51 Dose: 81 mg Atenolol (Tenormin) 100 mg PO DAILY [facility] Stop: 03/05/18 08:59 Last Admin: 01/20/18 09:51 Dose: 100 mg Atorvastatin Calcium (Lipitor) 40 mg PO DAILY [facility] PRN Reason: Protocol Stop: 03/05/18 08:59 Last Admin: 01/20/18 09:51 Dose: 40 mg Diltiazem HCl (Cardizem Cd) 120 mg PO DAILY [facility] Stop: 03/05/18 08:59 Last Admin: 01/20/18 09:50 Dose: Not Given Donepezil HCl (Aricept) 5 mg PO DAILY [facility] Stop: 03/05/18 08:59 Last Admin: 01/20/18 09:51 Dose: 5 mg Heparin Sodium (Porcine) (Heparin) 5,000 units SUBQ Q12HR [facility] Stop: 03/05/18 13:44 Last Admin: 01/20/18 09:43 Dose: 5,000 units Ceftriaxone Sodium 1 gm/ (Dextrose) 50 mls @ 100 mls/hr IV Q24H [facility] Stop: 03/17/18 11:44 Last Admin: 01/20/18 11:38 Dose: 100 mls/hr Lactobacillus Rhamnosus (Culturelle 15b) 1 each PO DAILY [facility] Stop: 03/09/18 08:59 Last Admin: 01/20/18 09:51 Dose: 1 each Lorazepam (Ativan) 0.5 mg PO Q4HR PRN; Protocol PRN Reason: Anxiety Stop: 03/05/18 08:05 Magnesium Hydroxide (Milk Of Magnesia) 30 ml PO HS PRN PRN Reason: Constipation Stop: 03/05/18 08:05 Last Admin: 01/06/18 14:43 Dose: 30 ml Miscellaneous (Probiotic Screen) 1 ea MC PRN PRN PRN Reason: PROTOCOL Stop: 03/08/18 14:14 Pantoprazole Sodium (Protonix) 40 mg PO DAILY@0730 [facility] Stop: 03/05/18 08:59 Last Admin: 01/20/18 06:56 Dose: 40 mg Tuberculin PPD (Tubersol) 5 tu ID UD [facility] Stop: 01/21/18 17:59 Last Admin: 01/19/18 19:59 Dose: 5 tu Zolpidem Tartrate (Ambien) 5 mg PO HS PRN PRN Reason: Insomnia Stop: 03/05/18 08:05 Last Admin: 01/13/18 23:20 Dose: 5 mg General: weak, alert HEENT: NC/AT, PERRLA Neck: Supple Lungs: ronchi Abdomen: soft, non-tender, non-distended, positive bowel sound Neurological: unable to follow command Nutritional Asmnt/Malnutr-PDOC - Dietary Evaluation Malnutrition Findings (Please click <Entered> for more info): Nutritional Asmnt/Malnutrition Start: 01/08/18 16: 30 Text: Status: Complete Freq: Document 01/08/18 16:30 [facility] (Rec: 01/08/18 16:43 [email or web address]) Nutritional Asmnt/Malnutrition Patient General Information Nutritional Screening Moderate Risk Diagnosis PNA Pertinent Medical Hx/Surgical Hx HTN, DM, renal failure, GERD, dementia, hyperlipidemia Subjective Information Pt seen eaing lunch on bed, airbone isolated. Spoke with RN, RN reported pt eats well, prefer hard boiled egg instead of scrambed, tea instead of coffee. Per records, PO intake 75-100% Current Diet Order/ Nutrition Support regular Pertinent Medications culturelle, protonix, levaquin Pertinent Labs 01/06 na 140, K 4.1, Cl 111, BUN 25, Cr 1.1 Nutritional Hx/Data Height 1.68 m Height (Calculated Centimeters) 167.6 Current Weight (lbs) 44.906 kg Weight (Calculated Kilograms) 44.9 Weight (Calculated Grams) 17472.6 [place] Body Weight 142 % [place] Body Weight 70 Body Mass Index (BMI) 16.0 Weight Status Underweight GI Symptoms GI Symptoms None Last BM 3 Difficult in: None Skin Integrity/Comment: scar to let shoulder and left hip Estimated Nutritional Goals Calories/Kcals/Kg 25-30 based on IBW 65kg Kcals Calculated 6966-9248 Protein g/k-1.2 Protein Calculated 65-78 Fluid: ml 1625-1950ml (1ml/kcal) Nutritional Problem 1. Problem Problem underweight Etiology possible inadequate energy intake Signs/Symptoms: BMI 16 Intervention/Recommendation Comments 1. Continue with regular diet as ordered. 2. Monitor PO intake, wt, labs and skin integrity 3. F/U as low risk in 7 days, 01/15, PO check 01/12 Expected Outcomes/Goals Expected Outcomes/Goals 1. PO intake to meet at least 75% of nutritional needs. 2. Wt stability, skin to remain intact, labs to approach WNL.
[2018-01-21] MEDS: Pantoprazole 40 mg EC Tab PO SCH (07:53)
[2018-01-21] MEDS: Albuterol/Ipratropium Neb 3 ML AERS HHN SCH ×3 (07:54→22:40)
--- NOTE | 2018-01-21 08:47 | General Progress Note ---
Subjective - Review of Systems Events since last encounter: awake still confused Objective - Results Result Diagrams: 01/13/18 09:05 01/20/18 06:25 Recent Labs: Laboratory Last Values WBC 5.9 Th/cmm (4.8-10.8) 01/13/18 09:05 RBC 3.59 Mil/cmm (3.80-5.80) L 01/13/18 09:05 Hgb 9.8 gm/dL (12-16) L 01/13/18 09:05 Hct 30.3 % (41.0-60) L 01/13/18 09:05 MCV 84.5 fl (80-99) 01/13/18 09:05 MCH 27.4 pg (27.0-31.0) 01/13/18 09:05 MCHC Differential 32.4 pg (28.0-36.0) 01/13/18 09:05 RDW 14.2 % (11.5-20.0) 01/13/18 09:05 Plt Count 216 Th/cmm (150-400) 01/13/18 09:05 MPV 8.8 fl 01/13/18 09:05 Neutrophils % 63.7 % (40.0-80.0) 01/13/18 09:05 Lymphocytes % 24.7 % (20.0-50.0) 01/13/18 09:05 Monocytes % 7.8 % (2.0-10.0) 01/13/18 09:05 Eosinophils % 2.8 % (0.0-5.0) 01/13/18 09:05 Basophils % 1.0 % (0.0-2.0) 01/13/18 09:05 Sodium 138 mEq/L (136-145) 01/20/18 06:25 Potassium 3.9 mEq/L (3.5-5.1) 01/20/18 06:25 Chloride 109 mEq/L (98-107) H 01/20/18 06:25 Carbon Dioxide 20.9 mEq/L (21.0-31.0) L 01/20/18 06:25 Anion Gap 12.0 (7.0-16.0) 01/20/18 06:25 BUN 21 mg/dL (7-25) 01/20/18 06:25 Creatinine 1.0 mg/dL (0.7-1.3) 01/20/18 06:25 Est GFR ( Amer) TNP 01/20/18 06:25 Est GFR (Non-Af Amer) TNP 01/20/18 06:25 BUN/Creatinine Ratio 21.0 01/20/18 06:25 Glucose 90 mg/dL (70-105) 01/20/18 06:25 Calcium 9.0 mg/dL (8.6-10.3) 01/20/18 06:25 Total Bilirubin 0.3 mg/dL (0.3-1.0) 01/13/18 09:05 AST 12 U/L (13-39) L 01/13/18 09:05 ALT 10 U/L (7-52) 01/13/18 09:05 Alkaline Phosphatase 70 U/L (34-104) 01/13/18 09:05 Total Protein 7.3 gm/dL (6.0-8.3) 01/13/18 09:05 Albumin 3.4 gm/dL (4.2-5.5) L 01/13/18 09:05 Globulin 3.9 gm/dL 01/13/18 09:05 Albumin/Globulin Ratio 0.9 (1.0-1.8) L 01/13/18 09:05 Vancomycin Trough 16.6 ug/mL (10-20) 01/16/18 08:00 Coccidioides Ab Negative (Neg:<1:2) 01/10/18 06:06 Histoplasma Antigen SEE REF. LAB REPORT 01/07/18 07:15 - Physical Exam Vitals and I&O: Vital Signs Temp 98.2 F 01/21/18 04:00 Pulse 64 01/21/18 04:00 Resp 20 01/21/18 04:00 BP 123/78 01/21/18 04:00 Pulse Ox 94 01/21/18 04:00 Intake & Output 01/20/18 01/21/18 01/21/18 18:59 06:59 18:59 Intake Total 960 660 Output Total 3 Balance 957 660 Weight (lbs) 45.314 kg 44.906 kg Intake: Oral 960 600 Other 60 Output: Urine 3 Other: # Voids 3 # Bowel Movements 1 0 Stool Characteristics Soft Soft Active Medications: Current Medications Acetaminophen (Tylenol) 650 mg PO Q4HR PRN PRN Reason: Mild Pain / Temp above 100 Stop: 03/05/18 08:05 Last Admin: 01/19/18 10:52 Dose: 650 mg Al Hydrox/Mg Hydrox/Simethicone (Maalox) 30 ml PO Q4HR PRN PRN Reason: GI DISTRESS Stop: 03/05/18 08:05 Last Admin: 01/06/18 14:43 Dose: 30 ml Albuterol/Ipratropium (Duoneb Neb) 3 ml HHN Q8HRT [facility] Stop: 03/05/18 14:59 Last Admin: 01/21/18 07:54 Dose: Not Given Aspirin (Aspirin Chewable) 81 mg PO DAILY [facility] Stop: 03/05/18 08:59 Last Admin: 01/20/18 09:51 Dose: 81 mg Atenolol (Tenormin) 100 mg PO DAILY [facility] Stop: 03/05/18 08:59 Last Admin: 01/20/18 09:51 Dose: 100 mg Atorvastatin Calcium (Lipitor) 40 mg PO DAILY [facility] PRN Reason: Protocol Stop: 03/05/18 08:59 Last Admin: 01/20/18 09:51 Dose: 40 mg Diltiazem HCl (Cardizem Cd) 120 mg PO DAILY [facility] Stop: 03/05/18 08:59 Last Admin: 01/20/18 09:50 Dose: Not Given Donepezil HCl (Aricept) 5 mg PO DAILY [facility] Stop: 03/05/18 08:59 Last Admin: 01/20/18 09:51 Dose: 5 mg Heparin Sodium (Porcine) (Heparin) 5,000 units SUBQ Q12HR [facility] Stop: 03/05/18 13:44 Last Admin: 01/20/18 21:28 Dose: 5,000 units Ceftriaxone Sodium 1 gm/ (Dextrose) 50 mls @ 100 mls/hr IV Q24H [facility] Stop: 03/17/18 11:44 Last Admin: 01/20/18 11:38 Dose: 100 mls/hr Lactobacillus Rhamnosus (Culturelle 15b) 1 each PO DAILY [facility] Stop: 03/09/18 08:59 Last Admin: 01/20/18 09:51 Dose: 1 each Lorazepam (Ativan) 0.5 mg PO Q4HR PRN; Protocol PRN Reason: Anxiety Stop: 03/05/18 08:05 Magnesium Hydroxide (Milk Of Magnesia) 30 ml PO HS PRN PRN Reason: Constipation Stop: 03/05/18 08:05 Last Admin: 01/06/18 14:43 Dose: 30 ml Miscellaneous (Probiotic Screen) 1 ea MC PRN PRN PRN Reason: PROTOCOL Stop: 03/08/18 14:14 Pantoprazole Sodium (Protonix) 40 mg PO DAILY@0730 [facility] Stop: 03/05/18 08:59 Last Admin: 01/21/18 07:53 Dose: 40 mg Tuberculin PPD (Tubersol) 5 tu ID UD [facility] Stop: 01/21/18 17:59 Last Admin: 01/19/18 19:59 Dose: 5 tu Zolpidem Tartrate (Ambien) 5 mg PO HS PRN PRN Reason: Insomnia Stop: 03/05/18 08:05 Last Admin: 01/13/18 23:20 Dose: 5 mg Nutritional Asmnt/Malnutr-PDOC - Dietary Evaluation Malnutrition Findings (Please click <Entered> for more info): Nutritional Asmnt/Malnutrition Start: 01/08/18 16: 30 Text: Status: Complete Freq: Document 01/08/18 16:30 [facility] (Rec: 01/08/18 16:43 [email or web address]) Nutritional Asmnt/Malnutrition Patient General Information Nutritional Screening Moderate Risk Diagnosis PNA Pertinent Medical Hx/Surgical Hx HTN, DM, renal failure, GERD, dementia, hyperlipidemia Subjective Information Pt seen eaing lunch on bed, airbone isolated. Spoke with RN, RN reported pt eats well, prefer hard boiled egg instead of scrambed, tea instead of coffee. Per records, PO intake 75-100% Current Diet Order/ Nutrition Support regular Pertinent Medications culturelle, protonix, levaquin Pertinent Labs 01/06 na 140, K 4.1, Cl 111, BUN 25, Cr 1.1 Nutritional Hx/Data Height 1.68 m Height (Calculated Centimeters) 167.6 Current Weight (lbs) 44.906 kg Weight (Calculated Kilograms) 44.9 Weight (Calculated Grams) 88995.6 [place] Body Weight 142 % [place] Body Weight 70 Body Mass Index (BMI) 16.0 Weight Status Underweight GI Symptoms GI Symptoms None Last BM 01/07 Difficult in: None Skin Integrity/Comment: scar to let shoulder and left hip Estimated Nutritional Goals Calories/Kcals/Kg 25-30 based on IBW 65kg Kcals Calculated 4439-7052 Protein g/k-1.2 Protein Calculated 65-78 Fluid: ml 1625-1950ml (1ml/kcal) Nutritional Problem 1. Problem Problem underweight Etiology possible inadequate energy intake Signs/Symptoms: BMI 16 Intervention/Recommendation Comments 1. Continue with regular diet as ordered. 2. Monitor PO intake, wt, labs and skin integrity 3. F/U as low risk in 7 days, 01/15, PO check 01/12 Expected Outcomes/Goals Expected Outcomes/Goals 1. PO intake to meet at least 75% of nutritional needs. 2. Wt stability, skin to remain intact, labs to approach WNL.
[2018-01-21] MEDS: Lactobacillus Rhamnosus GG 15 Billion CFU CAP.SPRINK PO SCH (09:31)
[2018-01-21] MEDS: Diltiazem CD 120 mg 24H PO SCH (09:32)
[2018-01-21] MEDS: Atenolol 100mg Tab PO SCH (09:32)
[2018-01-21] MEDS: Aspirin 81mg Chewable Tab PO SCH (09:32)
--- NOTE | 2018-01-21 10:05 | Progress Notes ---
DATE: SUBJECTIVE: Chart reviewed and the patient interviewed. Also discussed the patient's condition with the staff and reviewed records and labs. The patient is still confused and forgetful, but no major behavioral problems. The patient also is easier to follow directions. No side effects of medications. ASSESSMENT: No major behavioral issues. TREATMENT PLAN: We will continue monitoring behavior and condition closely. Also, continue Aricept in a dose of 5 mg everyday and we will continue to follow up closely. [facility]# [id number]
--- NOTE | 2018-01-21 13:42 | Internal Medicine Prog Note ---
Internal Medicine Subjective - Subjective Service Date: 01/21/18 Patient is:: awake, verbal, confused Per staff patient has:: tolerating meds Internal Medicine Objective - Results Result Diagrams: 01/13/18 09:05 01/20/18 06:25 Recent Labs: Laboratory Last Values WBC 5.9 Th/cmm (4.8-10.8) 01/13/18 09:05 RBC 3.59 Mil/cmm (3.80-5.80) L 01/13/18 09:05 Hgb 9.8 gm/dL (12-16) L 01/13/18 09:05 Hct 30.3 % (41.0-60) L 01/13/18 09:05 MCV 84.5 fl (80-99) 01/13/18 09:05 MCH 27.4 pg (27.0-31.0) 01/13/18 09:05 MCHC Differential 32.4 pg (28.0-36.0) 01/13/18 09:05 RDW 14.2 % (11.5-20.0) 01/13/18 09:05 Plt Count 216 Th/cmm (150-400) 01/13/18 09:05 MPV 8.8 fl 01/13/18 09:05 Neutrophils % 63.7 % (40.0-80.0) 01/13/18 09:05 Lymphocytes % 24.7 % (20.0-50.0) 01/13/18 09:05 Monocytes % 7.8 % (2.0-10.0) 01/13/18 09:05 Eosinophils % 2.8 % (0.0-5.0) 01/13/18 09:05 Basophils % 1.0 % (0.0-2.0) 01/13/18 09:05 Sodium 138 mEq/L (136-145) 01/20/18 06:25 Potassium 3.9 mEq/L (3.5-5.1) 01/20/18 06:25 Chloride 109 mEq/L (98-107) H 01/20/18 06:25 Carbon Dioxide 20.9 mEq/L (21.0-31.0) L 01/20/18 06:25 Anion Gap 12.0 (7.0-16.0) 01/20/18 06:25 BUN 21 mg/dL (7-25) 01/20/18 06:25 Creatinine 1.0 mg/dL (0.7-1.3) 01/20/18 06:25 Est GFR ( Amer) TNP 01/20/18 06:25 Est GFR (Non-Af Amer) TNP 01/20/18 06:25 BUN/Creatinine Ratio 21.0 01/20/18 06:25 Glucose 90 mg/dL (70-105) 01/20/18 06:25 Calcium 9.0 mg/dL (8.6-10.3) 01/20/18 06:25 Total Bilirubin 0.3 mg/dL (0.3-1.0) 01/13/18 09:05 AST 12 U/L (13-39) L 01/13/18 09:05 ALT 10 U/L (7-52) 01/13/18 09:05 Alkaline Phosphatase 70 U/L (34-104) 01/13/18 09:05 Total Protein 7.3 gm/dL (6.0-8.3) 01/13/18 09:05 Albumin 3.4 gm/dL (4.2-5.5) L 01/13/18 09:05 Globulin 3.9 gm/dL 01/13/18 09:05 Albumin/Globulin Ratio 0.9 (1.0-1.8) L 01/13/18 09:05 Vancomycin Trough 16.6 ug/mL (10-20) 01/16/18 08:00 Coccidioides Ab Negative (Neg:<1:2) 01/10/18 06:06 Histoplasma Antigen SEE REF. LAB REPORT 01/07/18 07:15 - Physical Exam Vitals and I&O: Vital Signs Temp 96.7 F 01/21/18 12:00 Pulse 71 01/21/18 12:00 Resp 19 01/21/18 12:00 BP 130/71 01/21/18 12:00 Pulse Ox 99 01/21/18 12:00 Intake & Output 01/20/18 01/21/18 01/21/18 18:59 06:59 18:59 Intake Total 1010 660 Output Total 3 Balance 1007 660 Weight (lbs) 99 lb 14.4 oz 99 lb Intake: Intake, IV Amount 50 cefTRIAXone 1 gm In 50 Dextrose 5% 50 ml @ 100 mls/hr IV Q24H [facility] Rx#: [id number] Oral 960 600 Other 60 Output: Urine 3 Other: # Voids 3 # Bowel Movements 1 0 Stool Characteristics Soft Soft Soft Active Medications: Current Medications Acetaminophen (Tylenol) 650 mg PO Q4HR PRN PRN Reason: Mild Pain / Temp above 100 Stop: 03/05/18 08:05 Last Admin: 01/19/18 10:52 Dose: 650 mg Al Hydrox/Mg Hydrox/Simethicone (Maalox) 30 ml PO Q4HR PRN PRN Reason: GI DISTRESS Stop: 03/05/18 08:05 Last Admin: 01/06/18 14:43 Dose: 30 ml Albuterol/Ipratropium (Duoneb Neb) 3 ml HHN Q8HRT [facility] Stop: 03/05/18 14:59 Last Admin: 01/21/18 07:54 Dose: Not Given Aspirin (Aspirin Chewable) 81 mg PO DAILY [facility] Stop: 03/05/18 08:59 Last Admin: 01/21/18 09:32 Dose: 81 mg Atenolol (Tenormin) 100 mg PO DAILY [facility] Stop: 03/05/18 08:59 Last Admin: 01/21/18 09:32 Dose: 100 mg Atorvastatin Calcium (Lipitor) 40 mg PO DAILY [facility] PRN Reason: Protocol Stop: 03/05/18 08:59 Last Admin: 01/21/18 09:32 Dose: 40 mg Diltiazem HCl (Cardizem Cd) 120 mg PO DAILY [facility] Stop: 03/05/18 08:59 Last Admin: 01/21/18 09:32 Dose: 120 mg Donepezil HCl (Aricept) 5 mg PO DAILY [facility] Stop: 03/05/18 08:59 Last Admin: 01/21/18 09:31 Dose: 5 mg Heparin Sodium (Porcine) (Heparin) 5,000 units SUBQ Q12HR [facility] Stop: 03/05/18 13:44 Last Admin: 01/21/18 09:31 Dose: 5,000 units Ceftriaxone Sodium 1 gm/ (Dextrose) 50 mls @ 100 mls/hr IV Q24H [facility] Stop: 03/17/18 11:44 Last Admin: 01/21/18 11:26 Dose: 100 mls/hr Lactobacillus Rhamnosus (Culturelle 15b) 1 each PO DAILY [facility] Stop: 03/09/18 08:59 Last Admin: 01/21/18 09:31 Dose: 1 each Lorazepam (Ativan) 0.5 mg PO Q4HR PRN; Protocol PRN Reason: Anxiety Stop: 03/05/18 08:05 Magnesium Hydroxide (Milk Of Magnesia) 30 ml PO HS PRN PRN Reason: Constipation Stop: 03/05/18 08:05 Last Admin: 01/06/18 14:43 Dose: 30 ml Miscellaneous (Probiotic Screen) 1 ea MC PRN PRN PRN Reason: PROTOCOL Stop: 03/08/18 14:14 Pantoprazole Sodium (Protonix) 40 mg PO DAILY@0730 [facility] Stop: 03/05/18 08:59 Last Admin: 01/21/18 07:53 Dose: 40 mg Tuberculin PPD (Tubersol) 5 tu ID UD [facility] Stop: 01/21/18 17:59 Last Admin: 01/19/18 19:59 Dose: 5 tu Zolpidem Tartrate (Ambien) 5 mg PO HS PRN PRN Reason: Insomnia Stop: 03/05/18 08:05 Last Admin: 01/13/18 23:20 Dose: 5 mg General: weak, alert HEENT: NC/AT, PERRLA Neck: Supple Lungs: ronchi Abdomen: soft, non-tender, non-distended, positive bowel sound Neurological: unable to follow command Internal Medicine Assmt/Plan - Assessment Assessment: pneumonia dementia htn hyperlipidemia oa gerd - Plan Plan: cbc/bmp in am bronchodilators supplemental oyxgen as needed continue current orders Nutritional Asmnt/Malnutr-PDOC - Dietary Evaluation Malnutrition Findings (Please click <Entered> for more info): Nutritional Asmnt/Malnutrition Start: 01/08/18 16: 30 Text: Status: Complete Freq: Document 01/08/18 16:30 [facility] (Rec: 01/08/18 16:43 [email or web address]) Nutritional Asmnt/Malnutrition Patient General Information Nutritional Screening Moderate Risk Diagnosis PNA Pertinent Medical Hx/Surgical Hx HTN, DM, renal failure, GERD, dementia, hyperlipidemia Subjective Information Pt seen eaing lunch on bed, airbone isolated. Spoke with RN, RN reported pt eats well, prefer hard boiled egg instead of scrambed, tea instead of coffee. Per records, PO intake 75-100% Current Diet Order/ Nutrition Support regular Pertinent Medications culturelle, protonix, levaquin Pertinent Labs 01/06 na 140, K 4.1, Cl 111, BUN 25, Cr 1.1 Nutritional Hx/Data Height 5 ft 6 in Height (Calculated Centimeters) 167.6 Current Weight (lbs) 99 lb Weight (Calculated Kilograms) 44.9 Weight (Calculated Grams) 58238.6 [place] Body Weight 142 % [place] Body Weight 70 Body Mass Index (BMI) 16.0 Weight Status Underweight GI Symptoms GI Symptoms None Last BM 01/07 Difficult in: None Skin Integrity/Comment: scar to let shoulder and left hip Estimated Nutritional Goals Calories/Kcals/Kg 25-30 based on IBW 65kg Kcals Calculated 0928-6237 Protein g/k-1.2 Protein Calculated 65-78 Fluid: ml 1625-1950ml (1ml/kcal) Nutritional Problem 1. Problem Problem underweight Etiology possible inadequate energy intake Signs/Symptoms: BMI 16 Intervention/Recommendation Comments 1. Continue with regular diet as ordered. 2. Monitor PO intake, wt, labs and skin integrity 3. F/U as low risk in 7 days, 01/15, PO check 01/12 Expected Outcomes/Goals Expected Outcomes/Goals 1. PO intake to meet at least 75% of nutritional needs. 2. Wt stability, skin to remain intact, labs to approach WNL.
--- NOTE | 2018-01-21 15:24 | Infectious Disease Prog Note ---
Infectious Disease Subjective - Review of Systems Service Date: 01/21/18 Subjective: There is no new change, no fever. Infectious Disease Objective - Results Result Diagrams: 01/13/18 09:05 01/20/18 06:25 Recent Labs: Laboratory Last Values WBC 5.9 Th/cmm (4.8-10.8) 01/13/18 09:05 RBC 3.59 Mil/cmm (3.80-5.80) L 01/13/18 09:05 Hgb 9.8 gm/dL (12-16) L 01/13/18 09:05 Hct 30.3 % (41.0-60) L 01/13/18 09:05 MCV 84.5 fl (80-99) 01/13/18 09:05 MCH 27.4 pg (27.0-31.0) 01/13/18 09:05 MCHC Differential 32.4 pg (28.0-36.0) 01/13/18 09:05 RDW 14.2 % (11.5-20.0) 01/13/18 09:05 Plt Count 216 Th/cmm (150-400) 01/13/18 09:05 MPV 8.8 fl 01/13/18 09:05 Neutrophils % 63.7 % (40.0-80.0) 01/13/18 09:05 Lymphocytes % 24.7 % (20.0-50.0) 01/13/18 09:05 Monocytes % 7.8 % (2.0-10.0) 01/13/18 09:05 Eosinophils % 2.8 % (0.0-5.0) 01/13/18 09:05 Basophils % 1.0 % (0.0-2.0) 01/13/18 09:05 Sodium 138 mEq/L (136-145) 01/20/18 06:25 Potassium 3.9 mEq/L (3.5-5.1) 01/20/18 06:25 Chloride 109 mEq/L (98-107) H 01/20/18 06:25 Carbon Dioxide 20.9 mEq/L (21.0-31.0) L 01/20/18 06:25 Anion Gap 12.0 (7.0-16.0) 01/20/18 06:25 BUN 21 mg/dL (7-25) 01/20/18 06:25 Creatinine 1.0 mg/dL (0.7-1.3) 01/20/18 06:25 Est GFR ( Amer) TNP 01/20/18 06:25 Est GFR (Non-Af Amer) TNP 01/20/18 06:25 BUN/Creatinine Ratio 21.0 01/20/18 06:25 Glucose 90 mg/dL (70-105) 01/20/18 06:25 Calcium 9.0 mg/dL (8.6-10.3) 01/20/18 06:25 Total Bilirubin 0.3 mg/dL (0.3-1.0) 01/13/18 09:05 AST 12 U/L (13-39) L 01/13/18 09:05 ALT 10 U/L (7-52) 01/13/18 09:05 Alkaline Phosphatase 70 U/L (34-104) 01/13/18 09:05 Total Protein 7.3 gm/dL (6.0-8.3) 01/13/18 09:05 Albumin 3.4 gm/dL (4.2-5.5) L 01/13/18 09:05 Globulin 3.9 gm/dL 01/13/18 09:05 Albumin/Globulin Ratio 0.9 (1.0-1.8) L 01/13/18 09:05 Vancomycin Trough 16.6 ug/mL (10-20) 01/16/18 08:00 Coccidioides Ab Negative (Neg:<1:2) 01/10/18 06:06 Histoplasma Antigen SEE REF. LAB REPORT 01/07/18 07:15 TB (QFT) Gold In Tube Positive (Negative) H 01/19/18 20:00 TB Test (QFT) Mitogen 9.76 IU/mL 01/19/18 20:00 TB Test (QFT) Antigen 0.99 IU/mL 01/19/18 20:00 TB Test Antigen - Nil 0.89 IU/mL 01/19/18 20:00 TB Test TB - Nil 0.10 IU/mL 01/19/18 20:00 TB Test (QFT) Interp (()) 01/19/18 20:00 - Physical Exam Vitals and I&O: Vital Signs Temp 96.7 F 01/21/18 12:00 Pulse 71 01/21/18 12:00 Resp 19 01/21/18 12:00 BP 130/71 01/21/18 12:00 Pulse Ox 99 01/21/18 12:00 Intake & Output 01/20/18 01/21/18 01/21/18 18:59 06:59 18:59 Intake Total 1010 660 Output Total 3 Balance 1007 660 Weight (lbs) 45.314 kg 44.906 kg Intake: Intake, IV Amount 50 cefTRIAXone 1 gm In 50 Dextrose 5% 50 ml @ 100 mls/hr IV Q24H [facility] Rx#: [id number] Oral 960 600 Other 60 Output: Urine 3 Other: # Voids 3 # Bowel Movements 1 0 Stool Characteristics Soft Soft Soft Active Medications: Current Medications Acetaminophen (Tylenol) 650 mg PO Q4HR PRN PRN Reason: Mild Pain / Temp above 100 Stop: 03/05/18 08:05 Last Admin: 01/19/18 10:52 Dose: 650 mg Al Hydrox/Mg Hydrox/Simethicone (Maalox) 30 ml PO Q4HR PRN PRN Reason: GI DISTRESS Stop: 03/05/18 08:05 Last Admin: 01/06/18 14:43 Dose: 30 ml Albuterol/Ipratropium (Duoneb Neb) 3 ml HHN Q8HRT [facility] Stop: 03/05/18 14:59 Last Admin: 01/21/18 07:54 Dose: Not Given Aspirin (Aspirin Chewable) 81 mg PO DAILY [facility] Stop: 03/05/18 08:59 Last Admin: 01/21/18 09:32 Dose: 81 mg Atenolol (Tenormin) 100 mg PO DAILY [facility] Stop: 03/05/18 08:59 Last Admin: 01/21/18 09:32 Dose: 100 mg Atorvastatin Calcium (Lipitor) 40 mg PO DAILY [facility] PRN Reason: Protocol Stop: 03/05/18 08:59 Last Admin: 01/21/18 09:32 Dose: 40 mg Diltiazem HCl (Cardizem Cd) 120 mg PO DAILY [facility] Stop: 03/05/18 08:59 Last Admin: 01/21/18 09:32 Dose: 120 mg Donepezil HCl (Aricept) 5 mg PO DAILY [facility] Stop: 03/05/18 08:59 Last Admin: 01/21/18 09:31 Dose: 5 mg Heparin Sodium (Porcine) (Heparin) 5,000 units SUBQ Q12HR [facility] Stop: 03/05/18 13:44 Last Admin: 01/21/18 09:31 Dose: 5,000 units Ceftriaxone Sodium 1 gm/ (Dextrose) 50 mls @ 100 mls/hr IV Q24H [facility] Stop: 03/17/18 11:44 Last Admin: 01/21/18 11:26 Dose: 100 mls/hr Lactobacillus Rhamnosus (Culturelle 15b) 1 each PO DAILY [facility] Stop: 03/09/18 08:59 Last Admin: 01/21/18 09:31 Dose: 1 each Lorazepam (Ativan) 0.5 mg PO Q4HR PRN; Protocol PRN Reason: Anxiety Stop: 03/05/18 08:05 Magnesium Hydroxide (Milk Of Magnesia) 30 ml PO HS PRN PRN Reason: Constipation Stop: 03/05/18 08:05 Last Admin: 01/06/18 14:43 Dose: 30 ml Miscellaneous (Probiotic Screen) 1 ea MC PRN PRN PRN Reason: PROTOCOL Stop: 03/08/18 14:14 Pantoprazole Sodium (Protonix) 40 mg PO DAILY@0730 [facility] Stop: 03/05/18 08:59 Last Admin: 01/21/18 07:53 Dose: 40 mg Tuberculin PPD (Tubersol) 5 tu ID UD [facility] Stop: 01/21/18 17:59 Last Admin: 01/19/18 19:59 Dose: 5 tu Zolpidem Tartrate (Ambien) 5 mg PO HS PRN PRN Reason: Insomnia Stop: 03/05/18 08:05 Last Admin: 01/13/18 23:20 Dose: 5 mg General: no acute distress, well developed, well nourished HEENT: atraumatic, normocephalic, PERRLA Neck: supple, no thyromegaly Cardiovascular: S1S2, regular Lungs: clear to auscultation bilaterally, clear to percussion Abdomen: soft, no tender, no distended Extremities: no cyanosis, no clubbing, no edema Neurological: awake, alert Skin: intact Infectious Disease Assmt/Plan - Assessment Assessment: Impression: 1. 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 suspect pulmonary tuberculosis. other diagnosis has to be ruled out. 2. DM2 3. Depression. 4. MRSA colonization. - Plan Plan: May consider lung biopsy if the condition does not improve or AFB culture come negative. Check aspergillus serology. dc ceftiraxone. Start anti TB RIPE therapy. may inform the public health. Nutritional Asmnt/Malnutr-PDOC - Dietary Evaluation Malnutrition Findings (Please click <Entered> for more info): Nutritional Asmnt/Malnutrition Start: 01/08/18 16: 30 Text: Status: Complete Freq: Document 01/08/18 16:30 HEN (Rec: 01/08/18 16:43 LCHENG [email or web address]) Nutritional Asmnt/Malnutrition Patient General Information Nutritional Screening Moderate Risk Diagnosis PNA Pertinent Medical Hx/Surgical Hx HTN, DM, renal failure, GERD, dementia, hyperlipidemia Subjective Information Pt seen eaing lunch on bed, airbone isolated. Spoke with RN, RN reported pt eats well, prefer hard boiled egg instead of scrambed, tea instead of coffee. Per records, PO intake 75-100% Current Diet Order/ Nutrition Support regular Pertinent Medications culturelle, protonix, levaquin Pertinent Labs 01/06 na 140, K 4.1, Cl 111, BUN 25, Cr 1.1 Nutritional Hx/Data Height 1.68 m Height (Calculated Centimeters) 167.6 Current Weight (lbs) 44.906 kg Weight (Calculated Kilograms) 44.9 Weight (Calculated Grams) 44204.6 [place] Body Weight 142 % [place] Body Weight 70 Body Mass Index (BMI) 16.0 Weight Status Underweight GI Symptoms GI Symptoms None Last BM 01/07 Difficult in: None Skin Integrity/Comment: scar to let shoulder and left hip Estimated Nutritional Goals Calories/Kcals/Kg 25-30 based on IBW 65kg Kcals Calculated 7254-1309 Protein g/k-1.2 Protein Calculated 65-78 Fluid: ml 1625-1950ml (1ml/kcal) Nutritional Problem 1. Problem Problem underweight Etiology possible inadequate energy intake Signs/Symptoms: BMI 16 Intervention/Recommendation Comments 1. Continue with regular diet as ordered. 2. Monitor PO intake, wt, labs and skin integrity 3. F/U as low risk in 7 days, 01/15, PO check 01/12 Expected Outcomes/Goals Expected Outcomes/Goals 1. PO intake to meet at least 75% of nutritional needs. 2. Wt stability, skin to remain intact, labs to approach WNL.
[2018-01-21] MEDS: Rifampin 300 mg Cap PO SCH (18:32)
[2018-01-21] MEDS: Tuberculin 5 TU/0.1 mL UD ID SCH (20:10)
[2018-01-22] MEDS: Pantoprazole 40 mg EC Tab PO SCH (06:29)
[2018-01-22] MEDS ORDERED: Albuterol/Ipratropium Neb 3 ML AERS HHN ONE (07:22)
[2018-01-22 07:31] LABS: ANION GAP 13.9 (7.0-16.0); BUN - UREA NITROGEN 24 mg/dL (7-25); CALCIUM SERUM 9.2 mg/dL (8.6-10.3); CARBON DIOXIDE 20.4 mEq/L (21.0-31.0); CHLORIDE 110 mEq/L (98-107); CREATININE - SERUM 1.1 mg/dL (0.7-1.3); GLUCOSE 82 mg/dL (70-105); POTASSIUM SERUM 4.3 mEq/L (3.5-5.1); SODIUM SERUM 140 mEq/L (136-145)
[2018-01-22] MEDS: Albuterol/Ipratropium Neb 3 ML AERS HHN SCH ×3 (07:51→23:10)
[2018-01-22] MEDS: Rifampin 300 mg Cap PO SCH ×2 (09:26→18:41)
[2018-01-22] MEDS: Atenolol 100mg Tab PO SCH (09:26)
[2018-01-22] MEDS: Diltiazem CD 120 mg 24H PO SCH (09:27)
[2018-01-22] MEDS: Aspirin 81mg Chewable Tab PO SCH (09:27)
[2018-01-22] MEDS: Lactobacillus Rhamnosus GG 15 Billion CFU CAP.SPRINK PO SCH (09:31)
--- NOTE | 2018-01-22 11:12 | Progress Notes ---
DATE:01/17/2018 SUBJECTIVE: Chart reviewed and the patient interviewed. Also discussed the patient's condition with the staff and reviewed records and labs. The patient continued to be calm and quiet. The patient also is a poor historian and unable to answer much of my questions. He also is interacting minimally with others. The patient has no side effect of medications. ASSESSMENT: The patient is calm and no behavioral issues. TREATMENT PLAN: Continue to monitor her behavior and continue current treatment plans. JOB# [id number] [email or web address]
[2018-01-23] MEDS: Pantoprazole 40 mg EC Tab PO SCH (06:39)
[2018-01-23] MEDS: Albuterol/Ipratropium Neb 3 ML AERS HHN SCH ×3 (07:21→22:39)
[2018-01-23] MEDS: Lactobacillus Rhamnosus GG 15 Billion CFU CAP.SPRINK PO SCH (10:01)
[2018-01-23] MEDS: Diltiazem CD 120 mg 24H PO SCH (10:01)
[2018-01-23] MEDS: Aspirin 81mg Chewable Tab PO SCH (10:02)
[2018-01-23] MEDS: Rifampin 300 mg Cap PO SCH ×2 (10:03→18:18)
[2018-01-23] MEDS: Atenolol 100mg Tab PO SCH (10:04)
--- NOTE | 2018-01-23 15:48 | Progress Notes ---
DATE: 01/23/2018 SUBJECTIVE: The patient was seen in his room, lying in the bed. The patient is having breakfast. The patient appears to be a poor historian, but in no acute distress. The patient appears to be calm at this time. OBJECTIVE: VITAL SIGNS: Temperature 97.6, heart rate 63, blood pressure 137/69, respiration of 18, 97% on room air. HEENT: Head is atraumatic and normocephalic. Eyes: Bilateral conjunctivae are clear. Bilateral pupils are equally round and reactive. NECK: Supple. No JVD. CARDIOVASCULAR: S1 and S2, without murmur. PULMONARY: Decreased breath sounds. GASTROINTESTINAL: Soft and nontender without guarding. Positive bowel sounds. MUSCULOSKELETAL: No clubbing. No cyanosis noted. ASSESSMENT: 1. Pneumonia. 2. Osteoarthritis. 3. Hypertension. 4. Hyperlipidemia. 5. Gastroesophageal reflux disease. 6. Dementia. PLAN: We will keep the patient inpatient. We will continue IV antibiotics. The patient is also being ruled out for pulmonary tuberculosis. We will continue isolation. Treatment plans were discussed with the patient's nurse. Treatment plans were discussed with Dr. Yates. JOB# [id number]
--- NOTE | 2018-01-23 22:40 | Progress Notes ---
DATE: 01/23/[address] Marsh. Case was discussed with staff of patient, reviewed records. The patient is still confused, forgetful. No behavior problems. He is easier to redirect. He is compliant with the medication with no side effects, no sedation, no nausea. Aricept was added [address] Marsh is following up with him. Thank you very much for allowing me to participate in the care of this most interesting gentleman. JOB# [id number]
[2018-01-24] MEDS: Albuterol/Ipratropium Neb 3 ML AERS HHN SCH ×3 (07:09→22:30)
--- NOTE | 2018-01-24 09:04 | General Progress Note ---
Subjective - Review of Systems Events since last encounter: patient still confused compliant with medications Objective - Results Result Diagrams: 01/13/18 09:05 01/22/18 06:40 Recent Labs: Laboratory Last Values WBC 5.9 Th/cmm (4.8-10.8) 01/13/18 09:05 RBC 3.59 Mil/cmm (3.80-5.80) L 01/13/18 09:05 Hgb 9.8 gm/dL (12-16) L 01/13/18 09:05 Hct 30.3 % (41.0-60) L 01/13/18 09:05 MCV 84.5 fl (80-99) 01/13/18 09:05 MCH 27.4 pg (27.0-31.0) 01/13/18 09:05 MCHC Differential 32.4 pg (28.0-36.0) 01/13/18 09:05 RDW 14.2 % (11.5-20.0) 01/13/18 09:05 Plt Count 216 Th/cmm (150-400) 01/13/18 09:05 MPV 8.8 fl 01/13/18 09:05 Neutrophils % 63.7 % (40.0-80.0) 01/13/18 09:05 Lymphocytes % 24.7 % (20.0-50.0) 01/13/18 09:05 Monocytes % 7.8 % (2.0-10.0) 01/13/18 09:05 Eosinophils % 2.8 % (0.0-5.0) 01/13/18 09:05 Basophils % 1.0 % (0.0-2.0) 01/13/18 09:05 Sodium 140 mEq/L (136-145) 01/22/18 06:40 Potassium 4.3 mEq/L (3.5-5.1) 01/22/18 06:40 Chloride 110 mEq/L (98-107) H 01/22/18 06:40 Carbon Dioxide 20.4 mEq/L (21.0-31.0) L 01/22/18 06:40 Anion Gap 13.9 (7.0-16.0) 01/22/18 06:40 BUN 24 mg/dL (7-25) 01/22/18 06:40 Creatinine 1.1 mg/dL (0.7-1.3) 01/22/18 06:40 Est GFR ( Amer) TNP 01/22/18 06:40 Est GFR (Non-Af Amer) TNP 01/22/18 06:40 BUN/Creatinine Ratio 21.8 01/22/18 06:40 Glucose 82 mg/dL (70-105) 01/22/18 06:40 Calcium 9.2 mg/dL (8.6-10.3) 01/22/18 06:40 Total Bilirubin 0.3 mg/dL (0.3-1.0) 01/13/18 09:05 AST 12 U/L (13-39) L 01/13/18 09:05 ALT 10 U/L (7-52) 01/13/18 09:05 Alkaline Phosphatase 70 U/L (34-104) 01/13/18 09:05 Total Protein 7.3 gm/dL (6.0-8.3) 01/13/18 09:05 Albumin 3.4 gm/dL (4.2-5.5) L 01/13/18 09:05 Globulin 3.9 gm/dL 01/13/18 09:05 Albumin/Globulin Ratio 0.9 (1.0-1.8) L 01/13/18 09:05 Vancomycin Trough 16.6 ug/mL (10-20) 01/16/18 08:00 Coccidioides Ab Negative (Neg:<1:2) 01/10/18 06:06 Histoplasma Antigen SEE REF. LAB REPORT 01/07/18 07:15 TB (QFT) Gold In Tube 01/19/18 20:00 TB Test (QFT) Mitogen 9.76 IU/mL 01/19/18 20:00 TB Test (QFT) Antigen 0.99 IU/mL 01/19/18 20:00 TB Test Antigen - Nil 0.89 IU/mL 01/19/18 20:00 TB Test TB - Nil 0.10 IU/mL 01/19/18 20:00 TB Test (QFT) Interp (()) 01/19/18 20:00 - Physical Exam Vitals and I&O: Vital Signs Temp 98.1 F 01/24/18 08:00 Pulse 73 01/24/18 08:00 Resp 18 01/24/18 08:00 BP 117/66 01/24/18 08:00 Pulse Ox 97 01/24/18 08:00 Intake & Output 01/23/18 01/24/18 01/24/18 18:59 06:59 18:59 Intake Total 200 Output Total 300 Balance -100 Weight (lbs) 44.452 kg 44.452 kg Intake: Oral 200 Output: Urine 300 Other: # Bowel Movements 0 Active Medications: Current Medications Acetaminophen (Tylenol) 650 mg PO Q4HR PRN PRN Reason: Mild Pain / Temp above 100 Stop: 03/05/18 08:05 Last Admin: 01/19/18 10:52 Dose: 650 mg Al Hydrox/Mg Hydrox/Simethicone (Maalox) 30 ml PO Q4HR PRN PRN Reason: GI DISTRESS Stop: 03/05/18 08:05 Last Admin: 01/06/18 14:43 Dose: 30 ml Albuterol/Ipratropium (Duoneb Neb) 3 ml HHN Q8HRT [facility] Stop: 03/05/18 14:59 Last Admin: 01/24/18 07:09 Dose: 3 ml Aspirin (Aspirin Chewable) 81 mg PO DAILY [facility] Stop: 03/05/18 08:59 Last Admin: 01/23/18 10:02 Dose: 81 mg Atenolol (Tenormin) 100 mg PO DAILY [facility] Stop: 03/05/18 08:59 Last Admin: 01/23/18 10:04 Dose: 100 mg Atorvastatin Calcium (Lipitor) 40 mg PO DAILY [facility] PRN Reason: Protocol Stop: 03/05/18 08:59 Last Admin: 01/23/18 10:00 Dose: 40 mg Diltiazem HCl (Cardizem Cd) 120 mg PO DAILY [facility] Stop: 03/05/18 08:59 Last Admin: 01/23/18 10:01 Dose: 120 mg Donepezil HCl (Aricept) 5 mg PO DAILY [facility] Stop: 03/05/18 08:59 Last Admin: 01/23/18 09:30 Dose: 5 mg Ethambutol HCl (Myambutol) 800 mg PO DAILY [facility] Stop: 03/23/18 08:59 Last Admin: 01/23/18 09:30 Dose: 800 mg Heparin Sodium (Porcine) (Heparin) 5,000 units SUBQ Q12HR [facility] Stop: 03/05/18 13:44 Last Admin: 01/23/18 20:16 Dose: 5,000 units Isoniazid (Inh) 300 mg PO DAILY [facility] Stop: 03/23/18 08:59 Last Admin: 01/23/18 10:03 Dose: 300 mg Lactobacillus Rhamnosus (Culturelle 15b) 1 each PO DAILY [facility] Stop: 03/09/18 08:59 Last Admin: 01/23/18 10:01 Dose: 1 each Lorazepam (Ativan) 0.5 mg PO Q4HR PRN; Protocol PRN Reason: Anxiety Stop: 03/05/18 08:05 Magnesium Hydroxide (Milk Of Magnesia) 30 ml PO HS PRN PRN Reason: Constipation Stop: 03/05/18 08:05 Last Admin: 01/06/18 14:43 Dose: 30 ml Miscellaneous (Probiotic Screen) 1 ea MC PRN PRN PRN Reason: PROTOCOL Stop: 03/08/18 14:14 Pantoprazole Sodium (Protonix) 40 mg PO DAILY@0730 [facility] Stop: 03/05/18 08:59 Last Admin: 01/23/18 06:39 Dose: 40 mg Pyrazinamide (Pza) 1,000 mg PO DAILY [facility] Stop: 03/23/18 08:59 Last Admin: 01/23/18 10:04 Dose: 1,000 mg Pyridoxine HCl (Vitamin B6) 50 mg PO DAILY [facility] Stop: 03/23/18 08:59 Last Admin: 01/23/18 10:00 Dose: 50 mg Rifampin (Rifadin) 300 mg PO BID [facility] Stop: 03/22/18 16:59 Last Admin: 01/23/18 18:18 Dose: 300 mg Zolpidem Tartrate (Ambien) 5 mg PO HS PRN PRN Reason: Insomnia Stop: 03/05/18 08:05 Last Admin: 01/13/18 23:20 Dose: 5 mg Nutritional Asmnt/Malnutr-PDOC - Dietary Evaluation Malnutrition Findings (Please click <Entered> for more info): Nutritional Asmnt/Malnutrition Start: 01/08/18 16: 30 Text: Status: Complete Freq: Document 01/08/18 16:30 LCHENG (Rec: 01/08/18 16:43 LCHENG [email or web address]) Nutritional Asmnt/Malnutrition Patient General Information Nutritional Screening Moderate Risk Diagnosis PNA Pertinent Medical Hx/Surgical Hx HTN, DM, renal failure, GERD, dementia, hyperlipidemia Subjective Information Pt seen eaing lunch on bed, airbone isolated. Spoke with RN, RN reported pt eats well, prefer hard boiled egg instead of scrambed, tea instead of coffee. Per records, PO intake 75-100% Current Diet Order/ Nutrition Support regular Pertinent Medications culturelle, protonix, levaquin Pertinent Labs 01/06 na 140, K 4.1, Cl 111, BUN 25, Cr 1.1 Nutritional Hx/Data Height 1.68 m Height (Calculated Centimeters) 167.6 Current Weight (lbs) 44.906 kg Weight (Calculated Kilograms) 44.9 Weight (Calculated Grams) 13260.6 [place] Body Weight 142 % [place] Body Weight 70 Body Mass Index (BMI) 16.0 Weight Status Underweight GI Symptoms GI Symptoms None Last BM 01/07 Difficult in: None Skin Integrity/Comment: scar to let shoulder and left hip Estimated Nutritional Goals Calories/Kcals/Kg 25-30 based on IBW 65kg Kcals Calculated 6610-1195 Protein g/k-1.2 Protein Calculated 65-78 Fluid: ml 1625-1950ml (1ml/kcal) Nutritional Problem 1. Problem Problem underweight Etiology possible inadequate energy intake Signs/Symptoms: BMI 16 Intervention/Recommendation Comments 1. Continue with regular diet as ordered. 2. Monitor PO intake, wt, labs and skin integrity 3. F/U as low risk in 7 days, 01/15, PO check 01/12 Expected Outcomes/Goals Expected Outcomes/Goals 1. PO intake to meet at least 75% of nutritional needs. 2. Wt stability, skin to remain intact, labs to approach WNL.
[2018-01-24] MEDS: Lactobacillus Rhamnosus GG 15 Billion CFU CAP.SPRINK PO SCH (09:47)
[2018-01-24] MEDS: Rifampin 300 mg Cap PO SCH ×2 (09:49→17:48)
[2018-01-24] MEDS: Pantoprazole 40 mg EC Tab PO SCH (09:50)
[2018-01-24] MEDS: Atenolol 100mg Tab PO SCH (09:50)
[2018-01-24] MEDS: Diltiazem CD 120 mg 24H PO SCH (09:50)
[2018-01-24] MEDS: Aspirin 81mg Chewable Tab PO SCH (09:53)
--- NOTE | 2018-01-24 15:05 | Infectious Disease Prog Note ---
Infectious Disease Subjective - Review of Systems Service Date: 01/24/18 Subjective: There is no new change, no fever. Infectious Disease Objective - Results Result Diagrams: 01/13/18 09:05 01/22/18 06:40 Recent Labs: Laboratory Last Values WBC 5.9 Th/cmm (4.8-10.8) 01/13/18 09:05 RBC 3.59 Mil/cmm (3.80-5.80) L 01/13/18 09:05 Hgb 9.8 gm/dL (12-16) L 01/13/18 09:05 Hct 30.3 % (41.0-60) L 01/13/18 09:05 MCV 84.5 fl (80-99) 01/13/18 09:05 MCH 27.4 pg (27.0-31.0) 01/13/18 09:05 MCHC Differential 32.4 pg (28.0-36.0) 01/13/18 09:05 RDW 14.2 % (11.5-20.0) 01/13/18 09:05 Plt Count 216 Th/cmm (150-400) 01/13/18 09:05 MPV 8.8 fl 01/13/18 09:05 Neutrophils % 63.7 % (40.0-80.0) 01/13/18 09:05 Lymphocytes % 24.7 % (20.0-50.0) 01/13/18 09:05 Monocytes % 7.8 % (2.0-10.0) 01/13/18 09:05 Eosinophils % 2.8 % (0.0-5.0) 01/13/18 09:05 Basophils % 1.0 % (0.0-2.0) 01/13/18 09:05 Sodium 140 mEq/L (136-145) 01/22/18 06:40 Potassium 4.3 mEq/L (3.5-5.1) 01/22/18 06:40 Chloride 110 mEq/L (98-107) H 01/22/18 06:40 Carbon Dioxide 20.4 mEq/L (21.0-31.0) L 01/22/18 06:40 Anion Gap 13.9 (7.0-16.0) 01/22/18 06:40 BUN 24 mg/dL (7-25) 01/22/18 06:40 Creatinine 1.1 mg/dL (0.7-1.3) 01/22/18 06:40 Est GFR ( Amer) TNP 01/22/18 06:40 Est GFR (Non-Af Amer) TNP 01/22/18 06:40 BUN/Creatinine Ratio 21.8 01/22/18 06:40 Glucose 82 mg/dL (70-105) 01/22/18 06:40 Calcium 9.2 mg/dL (8.6-10.3) 01/22/18 06:40 Total Bilirubin 0.3 mg/dL (0.3-1.0) 01/13/18 09:05 AST 12 U/L (13-39) L 01/13/18 09:05 ALT 10 U/L (7-52) 01/13/18 09:05 Alkaline Phosphatase 70 U/L (34-104) 01/13/18 09:05 Total Protein 7.3 gm/dL (6.0-8.3) 01/13/18 09:05 Albumin 3.4 gm/dL (4.2-5.5) L 01/13/18 09:05 Globulin 3.9 gm/dL 01/13/18 09:05 Albumin/Globulin Ratio 0.9 (1.0-1.8) L 01/13/18 09:05 Vancomycin Trough 16.6 ug/mL (10-20) 01/16/18 08:00 Coccidioides Ab Negative (Neg:<1:2) 01/10/18 06:06 Histoplasma Antigen SEE REF. LAB REPORT 01/07/18 07:15 TB (QFT) Gold In Tube 01/19/18 20:00 TB Test (QFT) Mitogen 9.76 IU/mL 01/19/18 20:00 TB Test (QFT) Antigen 0.99 IU/mL 01/19/18 20:00 TB Test Antigen - Nil 0.89 IU/mL 01/19/18 20:00 TB Test TB - Nil 0.10 IU/mL 01/19/18 20:00 TB Test (QFT) Interp (()) 01/19/18 20:00 - Physical Exam Vitals and I&O: Vital Signs Temp 98.1 F 01/24/18 08:00 Pulse 68 01/24/18 14:35 Resp 18 01/24/18 14:35 BP 117/66 01/24/18 08:00 Pulse Ox 98 01/24/18 14:35 Intake & Output 01/23/18 01/24/18 01/24/18 18:59 06:59 18:59 Intake Total 200 Output Total 300 Balance -100 Weight (lbs) 44.452 kg 44.452 kg Intake: Oral 200 Output: Urine 300 Other: # Bowel Movements 0 Active Medications: Current Medications Acetaminophen (Tylenol) 650 mg PO Q4HR PRN PRN Reason: Mild Pain / Temp above 100 Stop: 03/05/18 08:05 Last Admin: 01/19/18 10:52 Dose: 650 mg Al Hydrox/Mg Hydrox/Simethicone (Maalox) 30 ml PO Q4HR PRN PRN Reason: GI DISTRESS Stop: 03/05/18 08:05 Last Admin: 01/06/18 14:43 Dose: 30 ml Albuterol/Ipratropium (Duoneb Neb) 3 ml HHN Q8HRT [facility] Stop: 03/05/18 14:59 Last Admin: 01/24/18 14:35 Dose: 3 ml Aspirin (Aspirin Chewable) 81 mg PO DAILY [facility] Stop: 03/05/18 08:59 Last Admin: 01/24/18 09:53 Dose: 81 mg Atenolol (Tenormin) 100 mg PO DAILY [facility] Stop: 03/05/18 08:59 Last Admin: 01/24/18 09:50 Dose: Not Given Atorvastatin Calcium (Lipitor) 40 mg PO DAILY [facility] PRN Reason: Protocol Stop: 03/05/18 08:59 Last Admin: 01/24/18 09:47 Dose: 40 mg Diltiazem HCl (Cardizem Cd) 120 mg PO DAILY [facility] Stop: 03/05/18 08:59 Last Admin: 01/24/18 09:50 Dose: Not Given Donepezil HCl (Aricept) 5 mg PO DAILY [facility] Stop: 03/05/18 08:59 Last Admin: 01/24/18 09:48 Dose: 5 mg Ethambutol HCl (Myambutol) 800 mg PO DAILY [facility] Stop: 03/23/18 08:59 Last Admin: 01/24/18 09:48 Dose: 800 mg Heparin Sodium (Porcine) (Heparin) 5,000 units SUBQ Q12HR [facility] Stop: 03/05/18 13:44 Last Admin: 01/24/18 09:47 Dose: 5,000 units Isoniazid (Inh) 300 mg PO DAILY [facility] Stop: 03/23/18 08:59 Last Admin: 01/24/18 09:48 Dose: 300 mg Lactobacillus Rhamnosus (Culturelle 15b) 1 each PO DAILY [facility] Stop: 03/09/18 08:59 Last Admin: 01/24/18 09:47 Dose: 1 each Lorazepam (Ativan) 0.5 mg PO Q4HR PRN; Protocol PRN Reason: Anxiety Stop: 03/05/18 08:05 Magnesium Hydroxide (Milk Of Magnesia) 30 ml PO HS PRN PRN Reason: Constipation Stop: 03/05/18 08:05 Last Admin: 01/06/18 14:43 Dose: 30 ml Miscellaneous (Probiotic Screen) 1 ea MC PRN PRN PRN Reason: PROTOCOL Stop: 03/08/18 14:14 Pantoprazole Sodium (Protonix) 40 mg PO DAILY@0730 [facility] Stop: 03/05/18 08:59 Last Admin: 01/24/18 09:50 Dose: Not Given Pyrazinamide (Pza) 1,000 mg PO DAILY [facility] Stop: 03/23/18 08:59 Last Admin: 01/24/18 09:49 Dose: 1,000 mg Pyridoxine HCl (Vitamin B6) 50 mg PO DAILY [facility] Stop: 03/23/18 08:59 Last Admin: 01/24/18 09:47 Dose: 50 mg Rifampin (Rifadin) 300 mg PO BID [facility] Stop: 03/22/18 16:59 Last Admin: 01/24/18 09:49 Dose: 300 mg Zolpidem Tartrate (Ambien) 5 mg PO HS PRN PRN Reason: Insomnia Stop: 03/05/18 08:05 Last Admin: 01/13/18 23:20 Dose: 5 mg General: no acute distress, well developed, well nourished HEENT: atraumatic, normocephalic, PERRLA, EOMI Neck: supple, no thyromegaly Cardiovascular: S1S2, regular Lungs: clear to auscultation bilaterally, clear to percussion Abdomen: soft, no tender Extremities: no cyanosis, no clubbing, no edema Neurological: awake, alert, oriented Skin: intact Infectious Disease Assmt/Plan - Assessment Assessment: Impression: 1. 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 suspect pulmonary tuberculosis. other diagnosis has to be ruled out. 2. DM2 3. Depression. 4. MRSA colonization. - Plan Plan: May consider lung biopsy if the condition does not improve or AFB culture come negative. Check aspergillus serology. dc ceftiraxone. Continue anti TB RIPE therapy. If AFB culture, come negative may consider alternate etiology. Initiate dc plan as per the public health. Nutritional Asmnt/Malnutr-PDOC - Dietary Evaluation Malnutrition Findings (Please click <Entered> for more info): Nutritional Asmnt/Malnutrition Start: 01/08/18 16: 30 Text: Status: Complete Freq: Document 01/08/18 16:30 MAYRAG (Rec: 01/08/18 16:43 HEN [email or web address]) Nutritional Asmnt/Malnutrition Patient General Information Nutritional Screening Moderate Risk Diagnosis PNA Pertinent Medical Hx/Surgical Hx HTN, DM, renal failure, GERD, dementia, hyperlipidemia Subjective Information Pt seen eaing lunch on bed, airbone isolated. Spoke with RN, RN reported pt eats well, prefer hard boiled egg instead of scrambed, tea instead of coffee. Per records, PO intake 75-100% Current Diet Order/ Nutrition Support regular Pertinent Medications culturelle, protonix, levaquin Pertinent Labs 01/06 na 140, K 4.1, Cl 111, BUN 25, Cr 1.1 Nutritional Hx/Data Height 1.68 m Height (Calculated Centimeters) 167.6 Current Weight (lbs) 44.906 kg Weight (Calculated Kilograms) 44.9 Weight (Calculated Grams) 25880.6 [place] Body Weight 142 % [place] Body Weight 70 Body Mass Index (BMI) 16.0 Weight Status Underweight GI Symptoms GI Symptoms None Last BM 3/ Difficult in: None Skin Integrity/Comment: scar to let shoulder and left hip Estimated Nutritional Goals Calories/Kcals/Kg 25-30 based on IBW 65kg Kcals Calculated 8300-2160 Protein g/k-1.2 Protein Calculated 65-78 Fluid: ml 1625-1950ml (1ml/kcal) Nutritional Problem 1. Problem Problem underweight Etiology possible inadequate energy intake Signs/Symptoms: BMI 16 Intervention/Recommendation Comments 1. Continue with regular diet as ordered. 2. Monitor PO intake, wt, labs and skin integrity 3. F/U as low risk in 7 days, 01/15, PO check 01/12 Expected Outcomes/Goals Expected Outcomes/Goals 1. PO intake to meet at least 75% of nutritional needs. 2. Wt stability, skin to remain intact, labs to approach WNL.
--- NOTE | 2018-01-25 03:32 | Progress Notes ---
DATE: 01/24/[address] Marsh. Case was discussed with staff of the patient, reviewed records. The patient continues to stay in bed. He is confused, forgetful. Continues to have poor insight. Unable to make safe plan for self-care or participate in meaningful conversation, Aricept was added 2 days ago with no side effects and we will continue to ____ Thank you very much for allowing me to participate in the care of this most interesting gentleman. JOB# [id number]
[2018-01-25 06:22] LABS: % BASOPHILS 0.8 % (0.0-2.0); % EOSINOPHILS 3.2 % (0.0-5.0); % LYMPHOCYTES 25.7 % (20.0-50.0); % MONOCYTES 11.1 % (2.0-10.0); % NEUTROPHILS 59.2 % (40.0-80.0); EOSINOPHILE ABSOLUTE 0.2 Th/cmm (0.1-0.4); HEMATOCRIT 28.9 % (41.0-60); HEMOGLOBIN 9.3 gm/dL (12-16); LYMPHOCYTE ABSOLUTE 1.4 Th/cmm (1.5-3.0); MEAN CELL VOLUME 82.6 fl (80-99); MEAN CORPUSCULAR HEMOGLOBIN 26.5 pg (27.0-31.0); MEAN CORPUSCULAR HGB CONC 32.1 pg (28.0-36.0); MEAN PLATELET VOLUME 10.2 fl; MONOCYTE ABSOLUTE 0.6 Th/cmm (0.3-1.0); NEUTROPHILE ABSOLUTE 3.3 Th/cmm (1.8-8.0); PLATELET COUNT 204 Th/cmm (150-400); RED BLOOD COUNT 3.49 Mil/cmm (3.80-5.80); RED CELL DISTRIBUTION WIDTH 14.7 % (11.5-20.0); WHITE BLOOD COUNT 5.5 Th/cmm (4.8-10.8)
[2018-01-25 06:31] LABS: BUN - UREA NITROGEN 33 mg/dL (7-25); CALCIUM SERUM 9.5 mg/dL (8.6-10.3); CARBON DIOXIDE 24.6 mEq/L (21.0-31.0); CHLORIDE 109 mEq/L (98-107); CREATININE - SERUM 1.3 mg/dL (0.7-1.3); GLUCOSE 92 mg/dL (70-105); POTASSIUM SERUM 4.6 mEq/L (3.5-5.1); SODIUM SERUM 141 mEq/L (136-145)
[2018-01-25] MEDS: Albuterol/Ipratropium Neb 3 ML AERS HHN SCH ×3 (07:36→23:12)
--- NOTE | 2018-01-25 07:45 | Progress Notes ---
DATE: 01/25 PSYCHIATRIC PROGRESS NOTE SUBJECTIVE: Chart reviewed and the patient interviewed. Also discussed the patient's condition with the staff and reviewed the records and labs. The patient is calm and he is cooperative with his treatment. The patient also is still withdrawn and does not answer much of the questions. He also is still at times suspicious and paranoid. Otherwise, the patient is compliant with taking his medications with no side effects of medications. ASSESSMENT: The patient is still considered to be gravely disabled with certain ability to care for self. TREATMENT PLAN: We will continue current treatment. Also, continue to monitor his behavior. Also, continue current psychotropic medications, which is Aricept 5 mg everyday and we will continue to follow up. [facility]# [id number] CASTRO
[2018-01-25] MEDS: Pantoprazole 40 mg EC Tab PO SCH (08:39)
[2018-01-25] MEDS: Aspirin 81mg Chewable Tab PO SCH (10:24)
[2018-01-25] MEDS: Diltiazem CD 120 mg 24H PO SCH (10:24)
[2018-01-25] MEDS: Atenolol 100mg Tab PO SCH (10:27)
[2018-01-25] MEDS: Rifampin 300 mg Cap PO SCH ×2 (11:18→17:18)
[2018-01-25] MEDS: Lactobacillus Rhamnosus GG 15 Billion CFU CAP.SPRINK PO SCH (11:19)
--- NOTE | 2018-01-25 11:21 | General Progress Note ---
Subjective - Review of Systems Events since last encounter: patient gravy disable unable to care for self Objective - Results Result Diagrams: 01/25/18 06:00 01/25/18 06:00 Recent Labs: Laboratory Last Values WBC 5.5 Th/cmm (4.8-10.8) 01/25/18 06:00 RBC 3.49 Mil/cmm (3.80-5.80) L 01/25/18 06:00 Hgb 9.3 gm/dL (12-16) L 01/25/18 06:00 Hct 28.9 % (41.0-60) L 01/25/18 06:00 MCV 82.6 fl (80-99) 01/25/18 06:00 MCH 26.5 pg (27.0-31.0) L 01/25/18 06:00 MCHC Differential 32.1 pg (28.0-36.0) 01/25/18 06:00 RDW 14.7 % (11.5-20.0) 01/25/18 06:00 Plt Count 204 Th/cmm (150-400) 01/25/18 06:00 MPV 10.2 fl 01/25/18 06:00 Neutrophils % 59.2 % (40.0-80.0) 01/25/18 06:00 Lymphocytes % 25.7 % (20.0-50.0) 01/25/18 06:00 Monocytes % 11.1 % (2.0-10.0) H 01/25/18 06:00 Eosinophils % 3.2 % (0.0-5.0) 01/25/18 06:00 Basophils % 0.8 % (0.0-2.0) 01/25/18 06:00 Sodium 141 mEq/L (136-145) 01/25/18 06:00 Potassium 4.6 mEq/L (3.5-5.1) 01/25/18 06:00 Chloride 109 mEq/L (98-107) H 01/25/18 06:00 Carbon Dioxide 24.6 mEq/L (21.0-31.0) 01/25/18 06:00 Anion Gap 12.0 (7.0-16.0) 01/25/18 06:00 BUN 33 mg/dL (7-25) H 01/25/18 06:00 Creatinine 1.3 mg/dL (0.7-1.3) 01/25/18 06:00 Est GFR ( Amer) TNP 01/25/18 06:00 Est GFR (Non-Af Amer) TNP 01/25/18 06:00 BUN/Creatinine Ratio 25.4 01/25/18 06:00 Glucose 92 mg/dL (70-105) 01/25/18 06:00 Calcium 9.5 mg/dL (8.6-10.3) 01/25/18 06:00 Total Bilirubin 0.3 mg/dL (0.3-1.0) 01/13/18 09:05 AST 12 U/L (13-39) L 01/13/18 09:05 ALT 10 U/L (7-52) 01/13/18 09:05 Alkaline Phosphatase 70 U/L (34-104) 01/13/18 09:05 Total Protein 7.3 gm/dL (6.0-8.3) 01/13/18 09:05 Albumin 3.4 gm/dL (4.2-5.5) L 01/13/18 09:05 Globulin 3.9 gm/dL 01/13/18 09:05 Albumin/Globulin Ratio 0.9 (1.0-1.8) L 01/13/18 09:05 Vancomycin Trough 16.6 ug/mL (10-20) 01/16/18 08:00 Coccidioides Ab Negative (Neg:<1:2) 01/10/18 06:06 Histoplasma Antigen SEE REF. LAB REPORT 01/07/18 07:15 TB (QFT) Gold In Tube 01/19/18 20:00 TB Test (QFT) Mitogen 9.76 IU/mL 01/19/18 20:00 TB Test (QFT) Antigen 0.99 IU/mL 01/19/18 20:00 TB Test Antigen - Nil 0.89 IU/mL 01/19/18 20:00 TB Test TB - Nil 0.10 IU/mL 01/19/18 20:00 TB Test (QFT) Interp (()) 01/19/18 20:00 - Physical Exam Vitals and I&O: Vital Signs Temp 96.8 F 01/25/18 07:38 Pulse 77 01/25/18 10:24 Resp 18 01/25/18 07:38 BP 152/82 01/25/18 07:38 Pulse Ox 98 01/25/18 07:38 Intake & Output 01/24/18 01/25/18 01/25/18 18:59 06:59 18:59 Intake Total 800 500 Output Total 300 Balance 800 200 Weight (lbs) 44.452 kg 44.452 kg Intake: Oral 800 500 Output: Urine 300 Other: # Voids 2 # Bowel Movements 0 0 Active Medications: Current Medications Acetaminophen (Tylenol) 650 mg PO Q4HR PRN PRN Reason: Mild Pain / Temp above 100 Stop: 03/05/18 08:05 Last Admin: 01/25/18 00:15 Dose: 650 mg Al Hydrox/Mg Hydrox/Simethicone (Maalox) 30 ml PO Q4HR PRN PRN Reason: GI DISTRESS Stop: 03/05/18 08:05 Last Admin: 01/06/18 14:43 Dose: 30 ml Albuterol/Ipratropium (Duoneb Neb) 3 ml HHN Q8HRT [facility] Stop: 03/05/18 14:59 Last Admin: 01/25/18 07:36 Dose: 3 ml Aspirin (Aspirin Chewable) 81 mg PO DAILY [facility] Stop: 03/05/18 08:59 Last Admin: 01/25/18 10:24 Dose: 81 mg Atenolol (Tenormin) 100 mg PO DAILY [facility] Stop: 03/05/18 08:59 Last Admin: 01/25/18 10:27 Dose: 100 mg Atorvastatin Calcium (Lipitor) 40 mg PO DAILY [facility] PRN Reason: Protocol Stop: 03/05/18 08:59 Last Admin: 01/25/18 10:27 Dose: 40 mg Diltiazem HCl (Cardizem Cd) 120 mg PO DAILY [facility] Stop: 03/05/18 08:59 Last Admin: 01/25/18 10:24 Dose: 120 mg Donepezil HCl (Aricept) 5 mg PO DAILY [facility] Stop: 03/05/18 08:59 Last Admin: 01/25/18 10:24 Dose: 5 mg Ethambutol HCl (Myambutol) 800 mg PO DAILY [facility] Stop: 03/23/18 08:59 Last Admin: 01/24/18 09:48 Dose: 800 mg Heparin Sodium (Porcine) (Heparin) 5,000 units SUBQ Q12HR [facility] Stop: 03/05/18 13:44 Last Admin: 01/25/18 10:24 Dose: 5,000 units Isoniazid (Inh) 300 mg PO DAILY [facility] Stop: 03/23/18 08:59 Last Admin: 01/24/18 09:48 Dose: 300 mg Lactobacillus Rhamnosus (Culturelle 15b) 1 each PO DAILY [facility] Stop: 03/09/18 08:59 Last Admin: 01/24/18 09:47 Dose: 1 each Lorazepam (Ativan) 0.5 mg PO Q4HR PRN; Protocol PRN Reason: Anxiety Stop: 03/05/18 08:05 Magnesium Hydroxide (Milk Of Magnesia) 30 ml PO HS PRN PRN Reason: Constipation Stop: 03/05/18 08:05 Last Admin: 01/06/18 14:43 Dose: 30 ml Miscellaneous (Probiotic Screen) 1 ea MC PRN PRN PRN Reason: PROTOCOL Stop: 03/08/18 14:14 Pantoprazole Sodium (Protonix) 40 mg PO DAILY@0730 [facility] Stop: 03/05/18 08:59 Last Admin: 01/25/18 08:39 Dose: Not Given Pyrazinamide (Pza) 1,000 mg PO DAILY [facility] Stop: 03/23/18 08:59 Last Admin: 01/24/18 09:49 Dose: 1,000 mg Pyridoxine HCl (Vitamin B6) 50 mg PO DAILY [facility] Stop: 03/23/18 08:59 Last Admin: 01/25/18 10:24 Dose: 50 mg Rifampin (Rifadin) 300 mg PO BID [facility] Stop: 03/22/18 16:59 Last Admin: 01/24/18 17:48 Dose: 300 mg Zolpidem Tartrate (Ambien) 5 mg PO HS PRN PRN Reason: Insomnia Stop: 03/05/18 08:05 Last Admin: 01/25/18 02:44 Dose: 5 mg Nutritional Asmnt/Malnutr-PDOC - Dietary Evaluation Malnutrition Findings (Please click <Entered> for more info): Nutritional Asmnt/Malnutrition Start: 01/08/18 16: 30 Text: Status: Complete Freq: Document 01/08/18 16:30 LCHENG (Rec: 01/08/18 16:43 LCHENG [email or web address]) Nutritional Asmnt/Malnutrition Patient General Information Nutritional Screening Moderate Risk Diagnosis PNA Pertinent Medical Hx/Surgical Hx HTN, DM, renal failure, GERD, dementia, hyperlipidemia Subjective Information Pt seen eaing lunch on bed, airbone isolated. Spoke with RN, RN reported pt eats well, prefer hard boiled egg instead of scrambed, tea instead of coffee. Per records, PO intake 75-100% Current Diet Order/ Nutrition Support regular Pertinent Medications culturelle, protonix, levaquin Pertinent Labs 01/06 na 140, K 4.1, Cl 111, BUN 25, Cr 1.1 Nutritional Hx/Data Height 1.68 m Height (Calculated Centimeters) 167.6 Current Weight (lbs) 44.906 kg Weight (Calculated Kilograms) 44.9 Weight (Calculated Grams) 07253.6 [place] Body Weight 142 % [place] Body Weight 70 Body Mass Index (BMI) 16.0 Weight Status Underweight GI Symptoms GI Symptoms None Last BM 01/07 Difficult in: None Skin Integrity/Comment: scar to let shoulder and left hip Estimated Nutritional Goals Calories/Kcals/Kg 25-30 based on IBW 65kg Kcals Calculated 9281-0269 Protein g/k-1.2 Protein Calculated 65-78 Fluid: ml 1625-1950ml (1ml/kcal) Nutritional Problem 1. Problem Problem underweight Etiology possible inadequate energy intake Signs/Symptoms: BMI 16 Intervention/Recommendation Comments 1. Continue with regular diet as ordered. 2. Monitor PO intake, wt, labs and skin integrity 3. F/U as low risk in 7 days, 01/15, PO check 01/12 Expected Outcomes/Goals Expected Outcomes/Goals 1. PO intake to meet at least 75% of nutritional needs. 2. Wt stability, skin to remain intact, labs to approach WNL.
--- NOTE | 2018-01-25 13:25 | Infectious Disease Prog Note ---
Infectious Disease Subjective - Review of Systems Service Date: 01/25/18 Subjective: There is no new change, no fever. Infectious Disease Objective - Results Result Diagrams: 01/25/18 06:00 01/25/18 06:00 Recent Labs: Laboratory Last Values WBC 5.5 Th/cmm (4.8-10.8) 01/25/18 06:00 RBC 3.49 Mil/cmm (3.80-5.80) L 01/25/18 06:00 Hgb 9.3 gm/dL (12-16) L 01/25/18 06:00 Hct 28.9 % (41.0-60) L 01/25/18 06:00 MCV 82.6 fl (80-99) 01/25/18 06:00 MCH 26.5 pg (27.0-31.0) L 01/25/18 06:00 MCHC Differential 32.1 pg (28.0-36.0) 01/25/18 06:00 RDW 14.7 % (11.5-20.0) 01/25/18 06:00 Plt Count 204 Th/cmm (150-400) 01/25/18 06:00 MPV 10.2 fl 01/25/18 06:00 Neutrophils % 59.2 % (40.0-80.0) 01/25/18 06:00 Lymphocytes % 25.7 % (20.0-50.0) 01/25/18 06:00 Monocytes % 11.1 % (2.0-10.0) H 01/25/18 06:00 Eosinophils % 3.2 % (0.0-5.0) 01/25/18 06:00 Basophils % 0.8 % (0.0-2.0) 01/25/18 06:00 Sodium 141 mEq/L (136-145) 01/25/18 06:00 Potassium 4.6 mEq/L (3.5-5.1) 01/25/18 06:00 Chloride 109 mEq/L (98-107) H 01/25/18 06:00 Carbon Dioxide 24.6 mEq/L (21.0-31.0) 01/25/18 06:00 Anion Gap 12.0 (7.0-16.0) 01/25/18 06:00 BUN 33 mg/dL (7-25) H 01/25/18 06:00 Creatinine 1.3 mg/dL (0.7-1.3) 01/25/18 06:00 Est GFR ( Amer) TNP 01/25/18 06:00 Est GFR (Non-Af Amer) TNP 01/25/18 06:00 BUN/Creatinine Ratio 25.4 01/25/18 06:00 Glucose 92 mg/dL (70-105) 01/25/18 06:00 Calcium 9.5 mg/dL (8.6-10.3) 01/25/18 06:00 Total Bilirubin 0.3 mg/dL (0.3-1.0) 01/13/18 09:05 AST 12 U/L (13-39) L 01/13/18 09:05 ALT 10 U/L (7-52) 01/13/18 09:05 Alkaline Phosphatase 70 U/L (34-104) 01/13/18 09:05 Total Protein 7.3 gm/dL (6.0-8.3) 01/13/18 09:05 Albumin 3.4 gm/dL (4.2-5.5) L 01/13/18 09:05 Globulin 3.9 gm/dL 01/13/18 09:05 Albumin/Globulin Ratio 0.9 (1.0-1.8) L 01/13/18 09:05 Vancomycin Trough 16.6 ug/mL (10-20) 01/16/18 08:00 Coccidioides Ab Negative (Neg:<1:2) 01/10/18 06:06 Histoplasma Antigen SEE REF. LAB REPORT 01/07/18 07:15 TB (QFT) Gold In Tube 01/19/18 20:00 TB Test (QFT) Mitogen 9.76 IU/mL 01/19/18 20:00 TB Test (QFT) Antigen 0.99 IU/mL 01/19/18 20:00 TB Test Antigen - Nil 0.89 IU/mL 01/19/18 20:00 TB Test TB - Nil 0.10 IU/mL 01/19/18 20:00 TB Test (QFT) Interp (()) 01/19/18 20:00 - Physical Exam Vitals and I&O: Vital Signs Temp 97.2 F 01/25/18 11:35 Pulse 81 01/25/18 11:35 Resp 18 01/25/18 11:35 BP 146/76 01/25/18 11:35 Pulse Ox 99 01/25/18 11:35 Intake & Output 01/24/18 01/25/18 01/25/18 18:59 06:59 18:59 Intake Total 800 500 Output Total 300 Balance 800 200 Weight (lbs) 44.452 kg 44.452 kg Intake: Oral 800 500 Output: Urine 300 Other: # Voids 2 # Bowel Movements 0 0 Active Medications: Current Medications Acetaminophen (Tylenol) 650 mg PO Q4HR PRN PRN Reason: Mild Pain / Temp above 100 Stop: 03/05/18 08:05 Last Admin: 01/25/18 00:15 Dose: 650 mg Al Hydrox/Mg Hydrox/Simethicone (Maalox) 30 ml PO Q4HR PRN PRN Reason: GI DISTRESS Stop: 03/05/18 08:05 Last Admin: 01/06/18 14:43 Dose: 30 ml Albuterol/Ipratropium (Duoneb Neb) 3 ml HHN Q8HRT [facility] Stop: 03/05/18 14:59 Last Admin: 01/25/18 07:36 Dose: 3 ml Aspirin (Aspirin Chewable) 81 mg PO DAILY [facility] Stop: 03/05/18 08:59 Last Admin: 01/25/18 10:24 Dose: 81 mg Atenolol (Tenormin) 100 mg PO DAILY [facility] Stop: 03/05/18 08:59 Last Admin: 01/25/18 10:27 Dose: 100 mg Atorvastatin Calcium (Lipitor) 40 mg PO DAILY [facility] PRN Reason: Protocol Stop: 03/05/18 08:59 Last Admin: 01/25/18 10:27 Dose: 40 mg Diltiazem HCl (Cardizem Cd) 120 mg PO DAILY [facility] Stop: 03/05/18 08:59 Last Admin: 01/25/18 10:24 Dose: 120 mg Donepezil HCl (Aricept) 5 mg PO DAILY [facility] Stop: 03/05/18 08:59 Last Admin: 01/25/18 10:24 Dose: 5 mg Ethambutol HCl (Myambutol) 800 mg PO DAILY [facility] Stop: 03/23/18 08:59 Last Admin: 01/25/18 11:18 Dose: 800 mg Heparin Sodium (Porcine) (Heparin) 5,000 units SUBQ Q12HR [facility] Stop: 03/05/18 13:44 Last Admin: 01/25/18 10:24 Dose: 5,000 units Isoniazid (Inh) 300 mg PO DAILY [facility] Stop: 03/23/18 08:59 Last Admin: 01/25/18 11:18 Dose: 300 mg Lactobacillus Rhamnosus (Culturelle 15b) 1 each PO DAILY [facility] Stop: 03/09/18 08:59 Last Admin: 01/25/18 11:19 Dose: Not Given Lorazepam (Ativan) 0.5 mg PO Q4HR PRN; Protocol PRN Reason: Anxiety Stop: 03/05/18 08:05 Magnesium Hydroxide (Milk Of Magnesia) 30 ml PO HS PRN PRN Reason: Constipation Stop: 03/05/18 08:05 Last Admin: 01/06/18 14:43 Dose: 30 ml Miscellaneous (Probiotic Screen) 1 ea [facility] PRN PRN PRN Reason: PROTOCOL Stop: 03/08/18 14:14 Pantoprazole Sodium (Protonix) 40 mg PO DAILY@0730 [facility] Stop: 03/05/18 08:59 Last Admin: 01/25/18 08:39 Dose: Not Given Pyrazinamide (Pza) 1,000 mg PO DAILY [facility] Stop: 03/23/18 08:59 Last Admin: 01/25/18 11:18 Dose: 1,000 mg Pyridoxine HCl (Vitamin B6) 50 mg PO DAILY [facility] Stop: 03/23/18 08:59 Last Admin: 01/25/18 10:24 Dose: 50 mg Rifampin (Rifadin) 300 mg PO BID [facility] Stop: 03/22/18 16:59 Last Admin: 01/25/18 11:18 Dose: 300 mg Zolpidem Tartrate (Ambien) 5 mg PO HS PRN PRN Reason: Insomnia Stop: 03/05/18 08:05 Last Admin: 01/25/18 02:44 Dose: 5 mg General: no acute distress, well developed, well nourished HEENT: atraumatic, normocephalic Neck: supple, no thyromegaly Cardiovascular: S1S2, regular Lungs: clear to auscultation bilaterally, clear to percussion Abdomen: soft, no tender Extremities: no cyanosis, no clubbing Neurological: awake, alert, oriented Skin: intact Infectious Disease Assmt/Plan - Assessment Assessment: Impression: 1. 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 suspect pulmonary tuberculosis. other diagnosis has to be ruled out. 2. DM2 3. Depression. 4. MRSA colonization. - Plan Plan: May consider lung biopsy if the condition does not improve or AFB culture come negative. Check aspergillus serology. dc ceftiraxone. Continue anti TB RIPE therapy. If AFB culture, come negative may consider alternate etiology. Initiate dc plan as per the public health. Nutritional Asmnt/Malnutr-PDOC - Dietary Evaluation Malnutrition Findings (Please click <Entered> for more info): Nutritional Asmnt/Malnutrition Start: 01/08/18 16: 30 Text: Status: Complete Freq: Document 01/08/18 16:30 LCHENG (Rec: 01/08/18 16:43 LCHENG [email or web address]) Nutritional Asmnt/Malnutrition Patient General Information Nutritional Screening Moderate Risk Diagnosis PNA Pertinent Medical Hx/Surgical Hx HTN, DM, renal failure, GERD, dementia, hyperlipidemia Subjective Information Pt seen eaing lunch on bed, airbone isolated. Spoke with RN, RN reported pt eats well, prefer hard boiled egg instead of scrambed, tea instead of coffee. Per records, PO intake 75-100% Current Diet Order/ Nutrition Support regular Pertinent Medications culturelle, protonix, levaquin Pertinent Labs 01/06 na 140, K 4.1, Cl 111, BUN 25, Cr 1.1 Nutritional Hx/Data Height 1.68 m Height (Calculated Centimeters) 167.6 Current Weight (lbs) 44.906 kg Weight (Calculated Kilograms) 44.9 Weight (Calculated Grams) 93806.6 [place] Body Weight 142 % [place] Body Weight 70 Body Mass Index (BMI) 16.0 Weight Status Underweight GI Symptoms GI Symptoms None Last BM 3/ Difficult in: None Skin Integrity/Comment: scar to let shoulder and left hip Estimated Nutritional Goals Calories/Kcals/Kg 25-30 based on IBW 65kg Kcals Calculated 9866-1143 Protein g/k-1.2 Protein Calculated 65-78 Fluid: ml 1625-1950ml (1ml/kcal) Nutritional Problem 1. Problem Problem underweight Etiology possible inadequate energy intake Signs/Symptoms: BMI 16 Intervention/Recommendation Comments 1. Continue with regular diet as ordered. 2. Monitor PO intake, wt, labs and skin integrity 3. F/U as low risk in 7 days, 01/15, PO check 01/12 Expected Outcomes/Goals Expected Outcomes/Goals 1. PO intake to meet at least 75% of nutritional needs. 2. Wt stability, skin to remain intact, labs to approach WNL.
[2018-01-25 15:01] LABS: ALB/GLOB RATIO 1.1 (1.0-1.8); ALBUMIN 3.5 gm/dL (4.2-5.5); BILIRUBIN,DIRECT 0.1 mg/dL (0.0-0.2); BILIRUBIN,TOTAL 0.4 mg/dL (0.3-1.0); TOTAL PROTEIN,SERUM 6.6 gm/dL (6.0-8.3)
[2018-01-26] MEDS: Albuterol/Ipratropium Neb 3 ML AERS HHN SCH ×3 (07:27→22:44)
--- NOTE | 2018-01-26 09:46 | Progress Notes ---
DATE:01/26 SUBJECTIVE: Chart reviewed and the patient interviewed. Also discussed the patient's condition with the staff and reviewed records and labs. The patient is still withdrawn and is still guarded. The patient also still has minimal interaction and seems to be slightly confused. The patient was not able to answer much of my questions because seems that he is weak. Otherwise, the patient has no major behavioral issues. Continue monitoring his behavior and continue to follow up. [facility]# [id number] CASTRO
[2018-01-26] MEDS: Rifampin 300 mg Cap PO SCH ×2 (10:31→17:00)
[2018-01-26] MEDS: Atenolol 100mg Tab PO SCH (10:31)
[2018-01-26] MEDS: Aspirin 81mg Chewable Tab PO SCH (10:32)
[2018-01-26] MEDS: Pantoprazole 40 mg EC Tab PO SCH (10:32)
[2018-01-26] MEDS: Lactobacillus Rhamnosus GG 15 Billion CFU CAP.SPRINK PO SCH (10:32)
[2018-01-26] MEDS: Diltiazem CD 120 mg 24H PO SCH (10:44)
--- NOTE | 2018-01-26 16:16 | Internal Medicine Prog Note ---
Internal Medicine Subjective - Subjective Service Date: 01/26/18 Patient is:: awake, verbal, confused Per staff patient has:: tolerating meds Internal Medicine Objective - Results Result Diagrams: 01/25/18 06:00 01/25/18 06:00 Recent Labs: Laboratory Last Values WBC 5.5 Th/cmm (4.8-10.8) 01/25/18 06:00 RBC 3.49 Mil/cmm (3.80-5.80) L 01/25/18 06:00 Hgb 9.3 gm/dL (12-16) L 01/25/18 06:00 Hct 28.9 % (41.0-60) L 01/25/18 06:00 MCV 82.6 fl (80-99) 01/25/18 06:00 MCH 26.5 pg (27.0-31.0) L 01/25/18 06:00 MCHC Differential 32.1 pg (28.0-36.0) 01/25/18 06:00 RDW 14.7 % (11.5-20.0) 01/25/18 06:00 Plt Count 204 Th/cmm (150-400) 01/25/18 06:00 MPV 10.2 fl 01/25/18 06:00 Neutrophils % 59.2 % (40.0-80.0) 01/25/18 06:00 Lymphocytes % 25.7 % (20.0-50.0) 01/25/18 06:00 Monocytes % 11.1 % (2.0-10.0) H 01/25/18 06:00 Eosinophils % 3.2 % (0.0-5.0) 01/25/18 06:00 Basophils % 0.8 % (0.0-2.0) 01/25/18 06:00 Sodium 141 mEq/L (136-145) 01/25/18 06:00 Potassium 4.6 mEq/L (3.5-5.1) 01/25/18 06:00 Chloride 109 mEq/L (98-107) H 01/25/18 06:00 Carbon Dioxide 24.6 mEq/L (21.0-31.0) 01/25/18 06:00 Anion Gap 12.0 (7.0-16.0) 01/25/18 06:00 BUN 33 mg/dL (7-25) H 01/25/18 06:00 Creatinine 1.3 mg/dL (0.7-1.3) 01/25/18 06:00 Est GFR ( Amer) TNP 01/25/18 06:00 Est GFR (Non-Af Amer) TNP 01/25/18 06:00 BUN/Creatinine Ratio 25.4 01/25/18 06:00 Glucose 92 mg/dL (70-105) 01/25/18 06:00 Calcium 9.5 mg/dL (8.6-10.3) 01/25/18 06:00 Total Bilirubin 0.4 mg/dL (0.3-1.0) 01/25/18 06:00 Direct Bilirubin 0.10 mg/dL (0.0-0.2) 01/25/18 06:00 AST 16 U/L (13-39) 01/25/18 06:00 ALT 12 U/L (7-52) 01/25/18 06:00 Alkaline Phosphatase 81 U/L (34-104) 01/25/18 06:00 Total Protein 6.6 gm/dL (6.0-8.3) 01/25/18 06:00 Albumin 3.5 gm/dL (4.2-5.5) L 01/25/18 06:00 Globulin 3.1 gm/dL 01/25/18 06:00 Albumin/Globulin Ratio 1.1 (1.0-1.8) 01/25/18 06:00 Vancomycin Trough 16.6 ug/mL (10-20) 01/16/18 08:00 Coccidioides Ab Negative (Neg:<1:2) 01/10/18 06:06 Histoplasma Antigen SEE REF. LAB REPORT 01/07/18 07:15 HIV 1&2 Antibody Screen NEGATIVE (NEG) 01/25/18 06:00 TB (QFT) Gold In Tube 01/19/18 20:00 TB Test (QFT) Mitogen 9.76 IU/mL 01/19/18 20:00 TB Test (QFT) Antigen 0.99 IU/mL 01/19/18 20:00 TB Test Antigen - Nil 0.89 IU/mL 01/19/18 20:00 TB Test TB - Nil 0.10 IU/mL 01/19/18 20:00 TB Test (QFT) Interp (()) 01/19/18 20:00 - Physical Exam Vitals and I&O: Vital Signs Temp 98.6 F 01/26/18 15:51 Pulse 64 01/26/18 15:51 Resp 16 01/26/18 15:51 BP 137/74 01/26/18 15:51 Pulse Ox 100 01/26/18 15:51 Intake & Output 01/25/18 01/26/18 01/26/18 18:59 06:59 18:59 Intake Total 1100 200 Output Total 750 Balance 1100 -550 Weight (lbs) 98 lb 98 lb 8 oz 98 lb Intake: Oral 1100 200 Output: Urine 750 Other: # Voids 3 # Bowel Movements 0 0 Active Medications: Current Medications Acetaminophen (Tylenol) 650 mg PO Q4HR PRN PRN Reason: Mild Pain / Temp above 100 Stop: 03/05/18 08:05 Last Admin: 01/25/18 20:24 Dose: 650 mg Al Hydrox/Mg Hydrox/Simethicone (Maalox) 30 ml PO Q4HR PRN PRN Reason: GI DISTRESS Stop: 03/05/18 08:05 Last Admin: 01/06/18 14:43 Dose: 30 ml Albuterol/Ipratropium (Duoneb Neb) 3 ml HHN Q8HRT [facility] Stop: 03/05/18 14:59 Last Admin: 01/26/18 15:12 Dose: 3 ml Aspirin (Aspirin Chewable) 81 mg PO DAILY [facility] Stop: 03/05/18 08:59 Last Admin: 01/26/18 10:32 Dose: 81 mg Atenolol (Tenormin) 100 mg PO DAILY [facility] Stop: 03/05/18 08:59 Last Admin: 01/26/18 10:31 Dose: 100 mg Atorvastatin Calcium (Lipitor) 40 mg PO DAILY [facility] PRN Reason: Protocol Stop: 03/05/18 08:59 Last Admin: 01/26/18 10:32 Dose: 40 mg Diltiazem HCl (Cardizem Cd) 120 mg PO DAILY [facility] Stop: 03/05/18 08:59 Last Admin: 01/26/18 10:44 Dose: 120 mg Donepezil HCl (Aricept) 5 mg PO DAILY [facility] Stop: 03/05/18 08:59 Last Admin: 01/26/18 10:32 Dose: 5 mg Ethambutol HCl (Myambutol) 800 mg PO DAILY [facility] Stop: 03/23/18 08:59 Last Admin: 01/26/18 10:31 Dose: 800 mg Isoniazid (Inh) 300 mg PO DAILY [facility] Stop: 03/23/18 08:59 Last Admin: 01/26/18 10:31 Dose: 300 mg Lactobacillus Rhamnosus (Culturelle 15b) 1 each PO DAILY [facility] Stop: 03/09/18 08:59 Last Admin: 01/26/18 10:32 Dose: 1 each Magnesium Hydroxide (Milk Of Magnesia) 30 ml PO HS PRN PRN Reason: Constipation Stop: 03/05/18 08:05 Last Admin: 01/06/18 14:43 Dose: 30 ml Miscellaneous (Probiotic Screen) 1 ea [facility] PRN PRN PRN Reason: PROTOCOL Stop: 03/08/18 14:14 Pantoprazole Sodium (Protonix) 40 mg PO DAILY@0730 [facility] Stop: 03/05/18 08:59 Last Admin: 01/26/18 10:32 Dose: 40 mg Pyrazinamide (Pza) 1,000 mg PO DAILY [facility] Stop: 03/23/18 08:59 Last Admin: 01/26/18 10:31 Dose: 1,000 mg Pyridoxine HCl (Vitamin B6) 50 mg PO DAILY [facility] Stop: 03/23/18 08:59 Last Admin: 01/26/18 10:32 Dose: 50 mg Rifampin (Rifadin) 300 mg PO BID [facility] Stop: 03/22/18 16:59 Last Admin: 01/26/18 10:31 Dose: 300 mg General: weak, alert HEENT: NC/AT, PERRLA Neck: Supple Lungs: ronchi Abdomen: soft, non-tender, non-distended, positive bowel sound Neurological: unable to follow command Internal Medicine Assmt/Plan - Assessment Assessment: pneumonia dementia htn hyperlipidemia oa gerd - Plan Plan: cbc/bmp in am bronchodilators supplemental oyxgen as needed continue current orders Nutritional Asmnt/Malnutr-PDOC - Dietary Evaluation Malnutrition Findings (Please click <Entered> for more info): Nutritional Asmnt/Malnutrition Start: 01/08/18 16: 30 Text: Status: Complete Freq: Document 01/08/18 16:30 LCHENG (Rec: 01/08/18 16:43 LCHENG [email or web address]) Nutritional Asmnt/Malnutrition Patient General Information Nutritional Screening Moderate Risk Diagnosis PNA Pertinent Medical Hx/Surgical Hx HTN, DM, renal failure, GERD, dementia, hyperlipidemia Subjective Information Pt seen eaing lunch on bed, airbone isolated. Spoke with RN, RN reported pt eats well, prefer hard boiled egg instead of scrambed, tea instead of coffee. Per records, PO intake 75-100% Current Diet Order/ Nutrition Support regular Pertinent Medications culturelle, protonix, levaquin Pertinent Labs 01/06 na 140, K 4.1, Cl 111, BUN 25, Cr 1.1 Nutritional Hx/Data Height 5 ft 6 in Height (Calculated Centimeters) 167.6 Current Weight (lbs) 99 lb Weight (Calculated Kilograms) 44.9 Weight (Calculated Grams) 46293.6 [place] Body Weight 142 % [place] Body Weight 70 Body Mass Index (BMI) 16.0 Weight Status Underweight GI Symptoms GI Symptoms None Last BM 01/07 Difficult in: None Skin Integrity/Comment: scar to let shoulder and left hip Estimated Nutritional Goals Calories/Kcals/Kg 25-30 based on IBW 65kg Kcals Calculated 4825-8912 Protein g/k-1.2 Protein Calculated 65-78 Fluid: ml 1625-1950ml (1ml/kcal) Nutritional Problem 1. Problem Problem underweight Etiology possible inadequate energy intake Signs/Symptoms: BMI 16 Intervention/Recommendation Comments 1. Continue with regular diet as ordered. 2. Monitor PO intake, wt, labs and skin integrity 3. F/U as low risk in 7 days, 01/15, PO check 01/12 Expected Outcomes/Goals Expected Outcomes/Goals 1. PO intake to meet at least 75% of nutritional needs. 2. Wt stability, skin to remain intact, labs to approach WNL.
--- NOTE | 2018-01-26 22:17 | Infectious Disease Prog Note ---
Infectious Disease Subjective - Review of Systems Service Date: 01/26/18 Subjective: There is no new change, no fever. Infectious Disease Objective - Results Result Diagrams: 01/25/18 06:00 01/25/18 06:00 Recent Labs: Laboratory Last Values WBC 5.5 Th/cmm (4.8-10.8) 01/25/18 06:00 RBC 3.49 Mil/cmm (3.80-5.80) L 01/25/18 06:00 Hgb 9.3 gm/dL (12-16) L 01/25/18 06:00 Hct 28.9 % (41.0-60) L 01/25/18 06:00 MCV 82.6 fl (80-99) 01/25/18 06:00 MCH 26.5 pg (27.0-31.0) L 01/25/18 06:00 MCHC Differential 32.1 pg (28.0-36.0) 01/25/18 06:00 RDW 14.7 % (11.5-20.0) 01/25/18 06:00 Plt Count 204 Th/cmm (150-400) 01/25/18 06:00 MPV 10.2 fl 01/25/18 06:00 Neutrophils % 59.2 % (40.0-80.0) 01/25/18 06:00 Lymphocytes % 25.7 % (20.0-50.0) 01/25/18 06:00 Monocytes % 11.1 % (2.0-10.0) H 01/25/18 06:00 Eosinophils % 3.2 % (0.0-5.0) 01/25/18 06:00 Basophils % 0.8 % (0.0-2.0) 01/25/18 06:00 Sodium 141 mEq/L (136-145) 01/25/18 06:00 Potassium 4.6 mEq/L (3.5-5.1) 01/25/18 06:00 Chloride 109 mEq/L (98-107) H 01/25/18 06:00 Carbon Dioxide 24.6 mEq/L (21.0-31.0) 01/25/18 06:00 Anion Gap 12.0 (7.0-16.0) 01/25/18 06:00 BUN 33 mg/dL (7-25) H 01/25/18 06:00 Creatinine 1.3 mg/dL (0.7-1.3) 01/25/18 06:00 Est GFR ( Amer) TNP 01/25/18 06:00 Est GFR (Non-Af Amer) TNP 01/25/18 06:00 BUN/Creatinine Ratio 25.4 01/25/18 06:00 Glucose 92 mg/dL (70-105) 01/25/18 06:00 Calcium 9.5 mg/dL (8.6-10.3) 01/25/18 06:00 Total Bilirubin 0.4 mg/dL (0.3-1.0) 01/25/18 06:00 Direct Bilirubin 0.10 mg/dL (0.0-0.2) 01/25/18 06:00 AST 16 U/L (13-39) 01/25/18 06:00 ALT 12 U/L (7-52) 01/25/18 06:00 Alkaline Phosphatase 81 U/L (34-104) 01/25/18 06:00 Total Protein 6.6 gm/dL (6.0-8.3) 01/25/18 06:00 Albumin 3.5 gm/dL (4.2-5.5) L 01/25/18 06:00 Globulin 3.1 gm/dL 01/25/18 06:00 Albumin/Globulin Ratio 1.1 (1.0-1.8) 01/25/18 06:00 Vancomycin Trough 16.6 ug/mL (10-20) 01/16/18 08:00 Coccidioides Ab Negative (Neg:<1:2) 01/10/18 06:06 Histoplasma Antigen SEE REF. LAB REPORT 01/07/18 07:15 HIV 1&2 Antibody Screen NEGATIVE (NEG) 01/25/18 06:00 TB (QFT) Gold In Tube 01/19/18 20:00 TB Test (QFT) Mitogen 9.76 IU/mL 01/19/18 20:00 TB Test (QFT) Antigen 0.99 IU/mL 01/19/18 20:00 TB Test Antigen - Nil 0.89 IU/mL 01/19/18 20:00 TB Test TB - Nil 0.10 IU/mL 01/19/18 20:00 TB Test (QFT) Interp (()) 01/19/18 20:00 - Physical Exam Vitals and I&O: Vital Signs Temp 98.6 F 01/26/18 15:51 Pulse 64 01/26/18 15:51 Resp 16 01/26/18 15:51 BP 137/74 01/26/18 15:51 Pulse Ox 100 01/26/18 15:51 Intake & Output 01/26/18 01/26/18 01/27/18 06:59 18:59 06:59 Intake Total 200 Output Total 750 Balance -550 Weight (lbs) 44.679 kg 44.452 kg Intake: Oral 200 Output: Urine 750 Other: # Bowel Movements 0 Active Medications: Current Medications Acetaminophen (Tylenol) 650 mg PO Q4HR PRN PRN Reason: Mild Pain / Temp above 100 Stop: 03/05/18 08:05 Last Admin: 01/25/18 20:24 Dose: 650 mg Al Hydrox/Mg Hydrox/Simethicone (Maalox) 30 ml PO Q4HR PRN PRN Reason: GI DISTRESS Stop: 03/05/18 08:05 Last Admin: 01/06/18 14:43 Dose: 30 ml Albuterol/Ipratropium (Duoneb Neb) 3 ml HHN Q8HRT [facility] Stop: 03/05/18 14:59 Last Admin: 01/26/18 15:12 Dose: 3 ml Aspirin (Aspirin Chewable) 81 mg PO DAILY [facility] Stop: 03/05/18 08:59 Last Admin: 01/26/18 10:32 Dose: 81 mg Atenolol (Tenormin) 100 mg PO DAILY [facility] Stop: 03/05/18 08:59 Last Admin: 01/26/18 10:31 Dose: 100 mg Atorvastatin Calcium (Lipitor) 40 mg PO DAILY [facility] PRN Reason: Protocol Stop: 03/05/18 08:59 Last Admin: 01/26/18 10:32 Dose: 40 mg Diltiazem HCl (Cardizem Cd) 120 mg PO DAILY [facility] Stop: 03/05/18 08:59 Last Admin: 01/26/18 10:44 Dose: 120 mg Donepezil HCl (Aricept) 5 mg PO DAILY [facility] Stop: 03/05/18 08:59 Last Admin: 01/26/18 10:32 Dose: 5 mg Ethambutol HCl (Myambutol) 800 mg PO DAILY [facility] Stop: 03/23/18 08:59 Last Admin: 01/26/18 10:31 Dose: 800 mg Isoniazid (Inh) 300 mg PO DAILY [facility] Stop: 03/23/18 08:59 Last Admin: 01/26/18 10:31 Dose: 300 mg Lactobacillus Rhamnosus (Culturelle 15b) 1 each PO DAILY [facility] Stop: 03/09/18 08:59 Last Admin: 01/26/18 10:32 Dose: 1 each Magnesium Hydroxide (Milk Of Magnesia) 30 ml PO HS PRN PRN Reason: Constipation Stop: 03/05/18 08:05 Last Admin: 01/06/18 14:43 Dose: 30 ml Miscellaneous (Probiotic Screen) 1 ea [facility] PRN PRN PRN Reason: PROTOCOL Stop: 03/08/18 14:14 Pantoprazole Sodium (Protonix) 40 mg PO DAILY@0730 [facility] Stop: 03/05/18 08:59 Last Admin: 01/26/18 10:32 Dose: 40 mg Pyrazinamide (Pza) 1,000 mg PO DAILY [facility] Stop: 03/23/18 08:59 Last Admin: 01/26/18 10:31 Dose: 1,000 mg Pyridoxine HCl (Vitamin B6) 50 mg PO DAILY [facility] Stop: 03/23/18 08:59 Last Admin: 01/26/18 10:32 Dose: 50 mg Rifampin (Rifadin) 300 mg PO BID [facility] Stop: 03/22/18 16:59 Last Admin: 01/26/18 17:00 Dose: 300 mg General: no acute distress, well developed, well nourished HEENT: atraumatic, normocephalic, PERRLA, EOMI, moist mucous membrane Neck: supple, no thyromegaly Cardiovascular: S1S2, regular Lungs: clear to auscultation bilaterally, clear to percussion Abdomen: soft, no tender, no distended, no hepatomegaly Extremities: no cyanosis, no clubbing Neurological: awake, alert, oriented Skin: intact Infectious Disease Assmt/Plan - Assessment Assessment: Impression: 1. 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 suspect pulmonary tuberculosis. other diagnosis has to be ruled out. 2. DM2 3. Depression. 4. MRSA colonization. - Plan Plan: May consider lung biopsy if the condition does not improve and/ or AFB culture come negative. Check aspergillus serology. Continue anti TB RIPE therapy. If AFB culture, come negative may consider alternate etiology. Initiate dc plan as per the public health. Nutritional Asmnt/Malnutr-PDOC - Dietary Evaluation Malnutrition Findings (Please click <Entered> for more info): Nutritional Asmnt/Malnutrition Start: 01/08/18 16: 30 Text: Status: Complete Freq: Document 01/08/18 16:30 HEN (Rec: 01/08/18 16:43 LCHENG [email or web address]) Nutritional Asmnt/Malnutrition Patient General Information Nutritional Screening Moderate Risk Diagnosis PNA Pertinent Medical Hx/Surgical Hx HTN, DM, renal failure, GERD, dementia, hyperlipidemia Subjective Information Pt seen eaing lunch on bed, airbone isolated. Spoke with RN, RN reported pt eats well, prefer hard boiled egg instead of scrambed, tea instead of coffee. Per records, PO intake 75-100% Current Diet Order/ Nutrition Support regular Pertinent Medications culturelle, protonix, levaquin Pertinent Labs 01/06 na 140, K 4.1, Cl 111, BUN 25, Cr 1.1 Nutritional Hx/Data Height 1.68 m Height (Calculated Centimeters) 167.6 Current Weight (lbs) 44.906 kg Weight (Calculated Kilograms) 44.9 Weight (Calculated Grams) 95777.6 [place] Body Weight 142 % [place] Body Weight 70 Body Mass Index (BMI) 16.0 Weight Status Underweight GI Symptoms GI Symptoms None Last BM 3 Difficult in: None Skin Integrity/Comment: scar to let shoulder and left hip Estimated Nutritional Goals Calories/Kcals/Kg 25-30 based on IBW 65kg Kcals Calculated 2603-4433 Protein g/k-1.2 Protein Calculated 65-78 Fluid: ml 1625-1950ml (1ml/kcal) Nutritional Problem 1. Problem Problem underweight Etiology possible inadequate energy intake Signs/Symptoms: BMI 16 Intervention/Recommendation Comments 1. Continue with regular diet as ordered. 2. Monitor PO intake, wt, labs and skin integrity 3. F/U as low risk in 7 days, 01/15, PO check 01/12 Expected Outcomes/Goals Expected Outcomes/Goals 1. PO intake to meet at least 75% of nutritional needs. 2. Wt stability, skin to remain intact, labs to approach WNL.
[2018-01-27] MEDS: Pantoprazole 40 mg EC Tab PO SCH (06:33)
[2018-01-27] MEDS: Albuterol/Ipratropium Neb 3 ML AERS HHN SCH ×3 (06:56→23:31)
--- NOTE | 2018-01-27 07:55 | Progress Notes ---
DATE: Chart reviewed and the patient interviewed. Also discussed the patient's condition with the staff and reviewed records and labs. The patient continued to be calm and no behavioral issues. The patient also is withdrawn. The patient also is able to follow directions. Minimum interaction. No side effects of medications. Continue same treatment and followup. JOB# [id number]
[2018-01-27] MEDS: Lactobacillus Rhamnosus GG 15 Billion CFU CAP.SPRINK PO SCH (09:12)
[2018-01-27] MEDS: Aspirin 81mg Chewable Tab PO SCH (09:12)
[2018-01-27] MEDS: Diltiazem CD 120 mg 24H PO SCH (09:13)
[2018-01-27] MEDS: Atenolol 100mg Tab PO SCH (09:15)
[2018-01-27] MEDS: Rifampin 300 mg Cap PO SCH ×2 (09:15→17:51)
--- NOTE | 2018-01-27 09:26 | General Progress Note ---
Subjective - Review of Systems Events since last encounter: patient withdrawn in no distress Objective - Results Result Diagrams: 01/25/18 06:00 01/25/18 06:00 Recent Labs: Laboratory Last Values WBC 5.5 Th/cmm (4.8-10.8) 01/25/18 06:00 RBC 3.49 Mil/cmm (3.80-5.80) L 01/25/18 06:00 Hgb 9.3 gm/dL (12-16) L 01/25/18 06:00 Hct 28.9 % (41.0-60) L 01/25/18 06:00 MCV 82.6 fl (80-99) 01/25/18 06:00 MCH 26.5 pg (27.0-31.0) L 01/25/18 06:00 MCHC Differential 32.1 pg (28.0-36.0) 01/25/18 06:00 RDW 14.7 % (11.5-20.0) 01/25/18 06:00 Plt Count 204 Th/cmm (150-400) 01/25/18 06:00 MPV 10.2 fl 01/25/18 06:00 Neutrophils % 59.2 % (40.0-80.0) 01/25/18 06:00 Lymphocytes % 25.7 % (20.0-50.0) 01/25/18 06:00 Monocytes % 11.1 % (2.0-10.0) H 01/25/18 06:00 Eosinophils % 3.2 % (0.0-5.0) 01/25/18 06:00 Basophils % 0.8 % (0.0-2.0) 01/25/18 06:00 Sodium 141 mEq/L (136-145) 01/25/18 06:00 Potassium 4.6 mEq/L (3.5-5.1) 01/25/18 06:00 Chloride 109 mEq/L (98-107) H 01/25/18 06:00 Carbon Dioxide 24.6 mEq/L (21.0-31.0) 01/25/18 06:00 Anion Gap 12.0 (7.0-16.0) 01/25/18 06:00 BUN 33 mg/dL (7-25) H 01/25/18 06:00 Creatinine 1.3 mg/dL (0.7-1.3) 01/25/18 06:00 Est GFR ( Amer) TNP 01/25/18 06:00 Est GFR (Non-Af Amer) TNP 01/25/18 06:00 BUN/Creatinine Ratio 25.4 01/25/18 06:00 Glucose 92 mg/dL (70-105) 01/25/18 06:00 Calcium 9.5 mg/dL (8.6-10.3) 01/25/18 06:00 Total Bilirubin 0.4 mg/dL (0.3-1.0) 01/25/18 06:00 Direct Bilirubin 0.10 mg/dL (0.0-0.2) 01/25/18 06:00 AST 16 U/L (13-39) 01/25/18 06:00 ALT 12 U/L (7-52) 01/25/18 06:00 Alkaline Phosphatase 81 U/L (34-104) 01/25/18 06:00 Total Protein 6.6 gm/dL (6.0-8.3) 01/25/18 06:00 Albumin 3.5 gm/dL (4.2-5.5) L 01/25/18 06:00 Globulin 3.1 gm/dL 01/25/18 06:00 Albumin/Globulin Ratio 1.1 (1.0-1.8) 01/25/18 06:00 Vancomycin Trough 16.6 ug/mL (10-20) 01/16/18 08:00 Coccidioides Ab Negative (Neg:<1:2) 01/10/18 06:06 Histoplasma Antigen SEE REF. LAB REPORT 01/07/18 07:15 HIV 1&2 Antibody Screen NEGATIVE (NEG) 01/25/18 06:00 TB (QFT) Gold In Tube 01/19/18 20:00 TB Test (QFT) Mitogen 9.76 IU/mL 01/19/18 20:00 TB Test (QFT) Antigen 0.99 IU/mL 01/19/18 20:00 TB Test Antigen - Nil 0.89 IU/mL 01/19/18 20:00 TB Test TB - Nil 0.10 IU/mL 01/19/18 20:00 TB Test (QFT) Interp (()) 01/19/18 20:00 - Physical Exam Vitals and I&O: Vital Signs Temp 97.4 F 01/27/18 08:24 Pulse 85 01/27/18 09:13 Resp 18 01/27/18 08:24 BP 123/73 01/27/18 08:24 Pulse Ox 97 01/27/18 08:24 Intake & Output 01/26/18 01/27/18 01/27/18 18:59 06:59 18:59 Output Total 200 Balance -200 Weight (lbs) 44.452 kg 44.452 kg Output: Urine 200 Other: # Voids 2 Stool Characteristics Soft Active Medications: Current Medications Acetaminophen (Tylenol) 650 mg PO Q4HR PRN PRN Reason: Mild Pain / Temp above 100 Stop: 03/05/18 08:05 Last Admin: 01/25/18 20:24 Dose: 650 mg Al Hydrox/Mg Hydrox/Simethicone (Maalox) 30 ml PO Q4HR PRN PRN Reason: GI DISTRESS Stop: 03/05/18 08:05 Last Admin: 01/06/18 14:43 Dose: 30 ml Albuterol/Ipratropium (Duoneb Neb) 3 ml HHN Q8HRT [facility] Stop: 03/05/18 14:59 Last Admin: 01/27/18 06:56 Dose: 3 ml Aspirin (Aspirin Chewable) 81 mg PO DAILY [facility] Stop: 03/05/18 08:59 Last Admin: 01/27/18 09:12 Dose: 81 mg Atenolol (Tenormin) 100 mg PO DAILY [facility] Stop: 03/05/18 08:59 Last Admin: 01/27/18 09:15 Dose: 100 mg Atorvastatin Calcium (Lipitor) 40 mg PO DAILY [facility] PRN Reason: Protocol Stop: 03/05/18 08:59 Last Admin: 01/27/18 09:13 Dose: 40 mg Diltiazem HCl (Cardizem Cd) 120 mg PO DAILY [facility] Stop: 03/05/18 08:59 Last Admin: 01/27/18 09:13 Dose: 120 mg Donepezil HCl (Aricept) 5 mg PO DAILY [facility] Stop: 03/05/18 08:59 Last Admin: 01/27/18 09:14 Dose: 5 mg Ethambutol HCl (Myambutol) 800 mg PO DAILY [facility] Stop: 03/23/18 08:59 Last Admin: 01/27/18 09:15 Dose: 800 mg Isoniazid (Inh) 300 mg PO DAILY [facility] Stop: 03/23/18 08:59 Last Admin: 01/27/18 09:15 Dose: 300 mg Lactobacillus Rhamnosus (Culturelle 15b) 1 each PO DAILY [facility] Stop: 03/09/18 08:59 Last Admin: 01/27/18 09:12 Dose: 1 each Magnesium Hydroxide (Milk Of Magnesia) 30 ml PO HS PRN PRN Reason: Constipation Stop: 03/05/18 08:05 Last Admin: 01/06/18 14:43 Dose: 30 ml Miscellaneous (Probiotic Screen) 1 ea MC PRN PRN PRN Reason: PROTOCOL Stop: 03/08/18 14:14 Pantoprazole Sodium (Protonix) 40 mg PO DAILY@0730 [facility] Stop: 03/05/18 08:59 Last Admin: 01/27/18 06:33 Dose: 40 mg Pyrazinamide (Pza) 1,000 mg PO DAILY [facility] Stop: 03/23/18 08:59 Last Admin: 01/27/18 09:15 Dose: 1,000 mg Pyridoxine HCl (Vitamin B6) 50 mg PO DAILY [facility] Stop: 03/23/18 08:59 Last Admin: 01/27/18 09:13 Dose: 50 mg Rifampin (Rifadin) 300 mg PO BID [facility] Stop: 03/22/18 16:59 Last Admin: 01/27/18 09:15 Dose: 300 mg Nutritional Asmnt/Malnutr-PDOC - Dietary Evaluation Malnutrition Findings (Please click <Entered> for more info): Nutritional Asmnt/Malnutrition Start: 01/08/18 16: 30 Text: Status: Complete Freq: Document 01/08/18 16:30 LCHENG (Rec: 01/08/18 16:43 LCHENG [email or web address]) Nutritional Asmnt/Malnutrition Patient General Information Nutritional Screening Moderate Risk Diagnosis PNA Pertinent Medical Hx/Surgical Hx HTN, DM, renal failure, GERD, dementia, hyperlipidemia Subjective Information Pt seen eaing lunch on bed, airbone isolated. Spoke with RN, RN reported pt eats well, prefer hard boiled egg instead of scrambed, tea instead of coffee. Per records, PO intake 75-100% Current Diet Order/ Nutrition Support regular Pertinent Medications culturelle, protonix, levaquin Pertinent Labs 01/06 na 140, K 4.1, Cl 111, BUN 25, Cr 1.1 Nutritional Hx/Data Height 1.68 m Height (Calculated Centimeters) 167.6 Current Weight (lbs) 44.906 kg Weight (Calculated Kilograms) 44.9 Weight (Calculated Grams) 38521.6 [place] Body Weight 142 % [place] Body Weight 70 Body Mass Index (BMI) 16.0 Weight Status Underweight GI Symptoms GI Symptoms None Last BM 01/07 Difficult in: None Skin Integrity/Comment: scar to let shoulder and left hip Estimated Nutritional Goals Calories/Kcals/Kg 25-30 based on IBW 65kg Kcals Calculated 6484-6776 Protein g/k-1.2 Protein Calculated 65-78 Fluid: ml 1625-1950ml (1ml/kcal) Nutritional Problem 1. Problem Problem underweight Etiology possible inadequate energy intake Signs/Symptoms: BMI 16 Intervention/Recommendation Comments 1. Continue with regular diet as ordered. 2. Monitor PO intake, wt, labs and skin integrity 3. F/U as low risk in 7 days, 01/15, PO check 01/12 Expected Outcomes/Goals Expected Outcomes/Goals 1. PO intake to meet at least 75% of nutritional needs. 2. Wt stability, skin to remain intact, labs to approach WNL.
--- NOTE | 2018-01-27 15:22 | Infectious Disease Prog Note ---
Infectious Disease Subjective - Review of Systems Service Date: 01/27/18 Subjective: There is no new change, no fever. Infectious Disease Objective - Results Result Diagrams: 01/25/18 06:00 01/25/18 06:00 Recent Labs: Laboratory Last Values WBC 5.5 Th/cmm (4.8-10.8) 01/25/18 06:00 RBC 3.49 Mil/cmm (3.80-5.80) L 01/25/18 06:00 Hgb 9.3 gm/dL (12-16) L 01/25/18 06:00 Hct 28.9 % (41.0-60) L 01/25/18 06:00 MCV 82.6 fl (80-99) 01/25/18 06:00 MCH 26.5 pg (27.0-31.0) L 01/25/18 06:00 MCHC Differential 32.1 pg (28.0-36.0) 01/25/18 06:00 RDW 14.7 % (11.5-20.0) 01/25/18 06:00 Plt Count 204 Th/cmm (150-400) 01/25/18 06:00 MPV 10.2 fl 01/25/18 06:00 Neutrophils % 59.2 % (40.0-80.0) 01/25/18 06:00 Lymphocytes % 25.7 % (20.0-50.0) 01/25/18 06:00 Monocytes % 11.1 % (2.0-10.0) H 01/25/18 06:00 Eosinophils % 3.2 % (0.0-5.0) 01/25/18 06:00 Basophils % 0.8 % (0.0-2.0) 01/25/18 06:00 Sodium 141 mEq/L (136-145) 01/25/18 06:00 Potassium 4.6 mEq/L (3.5-5.1) 01/25/18 06:00 Chloride 109 mEq/L (98-107) H 01/25/18 06:00 Carbon Dioxide 24.6 mEq/L (21.0-31.0) 01/25/18 06:00 Anion Gap 12.0 (7.0-16.0) 01/25/18 06:00 BUN 33 mg/dL (7-25) H 01/25/18 06:00 Creatinine 1.3 mg/dL (0.7-1.3) 01/25/18 06:00 Est GFR ( Amer) TNP 01/25/18 06:00 Est GFR (Non-Af Amer) TNP 01/25/18 06:00 BUN/Creatinine Ratio 25.4 01/25/18 06:00 Glucose 92 mg/dL (70-105) 01/25/18 06:00 Calcium 9.5 mg/dL (8.6-10.3) 01/25/18 06:00 Total Bilirubin 0.4 mg/dL (0.3-1.0) 01/25/18 06:00 Direct Bilirubin 0.10 mg/dL (0.0-0.2) 01/25/18 06:00 AST 16 U/L (13-39) 01/25/18 06:00 ALT 12 U/L (7-52) 01/25/18 06:00 Alkaline Phosphatase 81 U/L (34-104) 01/25/18 06:00 Total Protein 6.6 gm/dL (6.0-8.3) 01/25/18 06:00 Albumin 3.5 gm/dL (4.2-5.5) L 01/25/18 06:00 Globulin 3.1 gm/dL 01/25/18 06:00 Albumin/Globulin Ratio 1.1 (1.0-1.8) 01/25/18 06:00 Vancomycin Trough 16.6 ug/mL (10-20) 01/16/18 08:00 Coccidioides Ab Negative (Neg:<1:2) 01/10/18 06:06 Histoplasma Antigen SEE REF. LAB REPORT 01/07/18 07:15 HIV 1&2 Antibody Screen NEGATIVE (NEG) 01/25/18 06:00 TB (QFT) Gold In Tube 01/19/18 20:00 TB Test (QFT) Mitogen 9.76 IU/mL 01/19/18 20:00 TB Test (QFT) Antigen 0.99 IU/mL 01/19/18 20:00 TB Test Antigen - Nil 0.89 IU/mL 01/19/18 20:00 TB Test TB - Nil 0.10 IU/mL 01/19/18 20:00 TB Test (QFT) Interp (()) 01/19/18 20:00 - Physical Exam Vitals and I&O: Vital Signs Temp 97.2 F 01/27/18 12:02 Pulse 68 01/27/18 14:24 Resp 18 01/27/18 14:24 BP 119/69 01/27/18 12:02 Pulse Ox 98 01/27/18 14:24 Intake & Output 01/26/18 01/27/18 01/27/18 18:59 06:59 18:59 Output Total 200 Balance -200 Weight (lbs) 44.452 kg 44.452 kg Output: Urine 200 Other: # Voids 2 Stool Characteristics Soft Active Medications: Current Medications Acetaminophen (Tylenol) 650 mg PO Q4HR PRN PRN Reason: Mild Pain / Temp above 100 Stop: 03/05/18 08:05 Last Admin: 01/25/18 20:24 Dose: 650 mg Al Hydrox/Mg Hydrox/Simethicone (Maalox) 30 ml PO Q4HR PRN PRN Reason: GI DISTRESS Stop: 03/05/18 08:05 Last Admin: 01/06/18 14:43 Dose: 30 ml Albuterol/Ipratropium (Duoneb Neb) 3 ml HHN Q8HRT [facility] Stop: 03/05/18 14:59 Last Admin: 01/27/18 14:24 Dose: 3 ml Aspirin (Aspirin Chewable) 81 mg PO DAILY [facility] Stop: 03/05/18 08:59 Last Admin: 01/27/18 09:12 Dose: 81 mg Atenolol (Tenormin) 100 mg PO DAILY [facility] Stop: 03/05/18 08:59 Last Admin: 01/27/18 09:15 Dose: 100 mg Atorvastatin Calcium (Lipitor) 40 mg PO DAILY [facility] PRN Reason: Protocol Stop: 03/05/18 08:59 Last Admin: 01/27/18 09:13 Dose: 40 mg Diltiazem HCl (Cardizem Cd) 120 mg PO DAILY [facility] Stop: 03/05/18 08:59 Last Admin: 01/27/18 09:13 Dose: 120 mg Donepezil HCl (Aricept) 5 mg PO DAILY [facility] Stop: 03/05/18 08:59 Last Admin: 01/27/18 09:14 Dose: 5 mg Ethambutol HCl (Myambutol) 800 mg PO DAILY [facility] Stop: 03/23/18 08:59 Last Admin: 01/27/18 09:15 Dose: 800 mg Isoniazid (Inh) 300 mg PO DAILY [facility] Stop: 03/23/18 08:59 Last Admin: 01/27/18 09:15 Dose: 300 mg Lactobacillus Rhamnosus (Culturelle 15b) 1 each PO DAILY [facility] Stop: 03/09/18 08:59 Last Admin: 01/27/18 09:12 Dose: 1 each Magnesium Hydroxide (Milk Of Magnesia) 30 ml PO HS PRN PRN Reason: Constipation Stop: 03/05/18 08:05 Last Admin: 01/06/18 14:43 Dose: 30 ml Miscellaneous (Probiotic Screen) 1 ea MC PRN PRN PRN Reason: PROTOCOL Stop: 03/08/18 14:14 Pantoprazole Sodium (Protonix) 40 mg PO DAILY@0730 [facility] Stop: 03/05/18 08:59 Last Admin: 01/27/18 06:33 Dose: 40 mg Pyrazinamide (Pza) 1,000 mg PO DAILY [facility] Stop: 03/23/18 08:59 Last Admin: 01/27/18 09:15 Dose: 1,000 mg Pyridoxine HCl (Vitamin B6) 50 mg PO DAILY [facility] Stop: 03/23/18 08:59 Last Admin: 01/27/18 09:13 Dose: 50 mg Rifampin (Rifadin) 300 mg PO BID [facility] Stop: 03/22/18 16:59 Last Admin: 01/27/18 09:15 Dose: 300 mg General: no acute distress, well developed, well nourished HEENT: atraumatic, normocephalic, PERRLA, EOMI Neck: supple, no thyromegaly Cardiovascular: S1S2, regular Lungs: clear to auscultation bilaterally, clear to percussion Abdomen: soft, no tender, no distended, no mass Extremities: no cyanosis, no clubbing, no edema Neurological: awake, alert, oriented Skin: intact Infectious Disease Assmt/Plan - Assessment Assessment: Impression: 1. 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 suspect pulmonary tuberculosis. other diagnosis has to be ruled out. 2. DM2 3. Depression. 4. MRSA colonization. - Plan Plan: Continue anti TB RIPE therapy. If AFB culture, come negative may consider alternate etiology. As per the staff, the Public health department has cleared for discharge and isolation. May dc to SNF or accepting facility. DC isolation. Nutritional Asmnt/Malnutr-PDOC - Dietary Evaluation Malnutrition Findings (Please click <Entered> for more info): Nutritional Asmnt/Malnutrition Start: 01/08/18 16: 30 Text: Status: Complete Freq: Document 01/08/18 16:30 HEN (Rec: 01/08/18 16:43 LCHENG [email or web address]) Nutritional Asmnt/Malnutrition Patient General Information Nutritional Screening Moderate Risk Diagnosis PNA Pertinent Medical Hx/Surgical Hx HTN, DM, renal failure, GERD, dementia, hyperlipidemia Subjective Information Pt seen eaing lunch on bed, airbone isolated. Spoke with RN, RN reported pt eats well, prefer hard boiled egg instead of scrambed, tea instead of coffee. Per records, PO intake 75-100% Current Diet Order/ Nutrition Support regular Pertinent Medications culturelle, protonix, levaquin Pertinent Labs 01/06 na 140, K 4.1, Cl 111, BUN 25, Cr 1.1 Nutritional Hx/Data Height 1.68 m Height (Calculated Centimeters) 167.6 Current Weight (lbs) 44.906 kg Weight (Calculated Kilograms) 44.9 Weight (Calculated Grams) 30767.6 [place] Body Weight 142 % [place] Body Weight 70 Body Mass Index (BMI) 16.0 Weight Status Underweight GI Symptoms GI Symptoms None Last BM 3 Difficult in: None Skin Integrity/Comment: scar to let shoulder and left hip Estimated Nutritional Goals Calories/Kcals/Kg 25-30 based on IBW 65kg Kcals Calculated 2800-6418 Protein g/k-1.2 Protein Calculated 65-78 Fluid: ml 1625-1950ml (1ml/kcal) Nutritional Problem 1. Problem Problem underweight Etiology possible inadequate energy intake Signs/Symptoms: BMI 16 Intervention/Recommendation Comments 1. Continue with regular diet as ordered. 2. Monitor PO intake, wt, labs and skin integrity 3. F/U as low risk in 7 days, 01/15, PO check 01/12 Expected Outcomes/Goals Expected Outcomes/Goals 1. PO intake to meet at least 75% of nutritional needs. 2. Wt stability, skin to remain intact, labs to approach WNL.
[2018-01-28] MEDS: Pantoprazole 40 mg EC Tab PO SCH (06:46)
[2018-01-28] MEDS: Albuterol/Ipratropium Neb 3 ML AERS HHN SCH ×3 (07:15→22:06)
[2018-01-28 07:36] LABS: PROTHROMBIN TIME (TEST) 10.4 SECONDS (9.5-11.5)
--- NOTE | 2018-01-28 08:39 | General Progress Note ---
Subjective - Review of Systems Events since last encounter: no change Objective - Results Result Diagrams: 01/25/18 06:00 01/25/18 06:00 Recent Labs: Laboratory Last Values WBC 5.5 Th/cmm (4.8-10.8) 01/25/18 06:00 RBC 3.49 Mil/cmm (3.80-5.80) L 01/25/18 06:00 Hgb 9.3 gm/dL (12-16) L 01/25/18 06:00 Hct 28.9 % (41.0-60) L 01/25/18 06:00 MCV 82.6 fl (80-99) 01/25/18 06:00 MCH 26.5 pg (27.0-31.0) L 01/25/18 06:00 MCHC Differential 32.1 pg (28.0-36.0) 01/25/18 06:00 RDW 14.7 % (11.5-20.0) 01/25/18 06:00 Plt Count 204 Th/cmm (150-400) 01/25/18 06:00 MPV 10.2 fl 01/25/18 06:00 Neutrophils % 59.2 % (40.0-80.0) 01/25/18 06:00 Lymphocytes % 25.7 % (20.0-50.0) 01/25/18 06:00 Monocytes % 11.1 % (2.0-10.0) H 01/25/18 06:00 Eosinophils % 3.2 % (0.0-5.0) 01/25/18 06:00 Basophils % 0.8 % (0.0-2.0) 01/25/18 06:00 PT 10.4 SECONDS (9.5-11.5) 01/28/18 06:40 INR 1.00 (0.5-1.4) 01/28/18 06:40 PTT (Actin FS) 21.6 SECONDS (26.0-38.0) L 01/28/18 06:40 Sodium 141 mEq/L (136-145) 01/25/18 06:00 Potassium 4.6 mEq/L (3.5-5.1) 01/25/18 06:00 Chloride 109 mEq/L (98-107) H 01/25/18 06:00 Carbon Dioxide 24.6 mEq/L (21.0-31.0) 01/25/18 06:00 Anion Gap 12.0 (7.0-16.0) 01/25/18 06:00 BUN 33 mg/dL (7-25) H 01/25/18 06:00 Creatinine 1.3 mg/dL (0.7-1.3) 01/25/18 06:00 Est GFR ( Amer) TNP 01/25/18 06:00 Est GFR (Non-Af Amer) TNP 01/25/18 06:00 BUN/Creatinine Ratio 25.4 01/25/18 06:00 Glucose 92 mg/dL (70-105) 01/25/18 06:00 Calcium 9.5 mg/dL (8.6-10.3) 01/25/18 06:00 Total Bilirubin 0.4 mg/dL (0.3-1.0) 01/25/18 06:00 Direct Bilirubin 0.10 mg/dL (0.0-0.2) 01/25/18 06:00 AST 16 U/L (13-39) 01/25/18 06:00 ALT 12 U/L (7-52) 01/25/18 06:00 Alkaline Phosphatase 81 U/L (34-104) 01/25/18 06:00 Total Protein 6.6 gm/dL (6.0-8.3) 01/25/18 06:00 Albumin 3.5 gm/dL (4.2-5.5) L 01/25/18 06:00 Globulin 3.1 gm/dL 01/25/18 06:00 Albumin/Globulin Ratio 1.1 (1.0-1.8) 01/25/18 06:00 Vancomycin Trough 16.6 ug/mL (10-20) 01/16/18 08:00 Coccidioides Ab Negative (Neg:<1:2) 01/10/18 06:06 Histoplasma Antigen SEE REF. LAB REPORT 01/07/18 07:15 HIV 1&2 Antibody Screen NEGATIVE (NEG) 01/25/18 06:00 TB (QFT) Gold In Tube 01/19/18 20:00 TB Test (QFT) Mitogen 9.76 IU/mL 01/19/18 20:00 TB Test (QFT) Antigen 0.99 IU/mL 01/19/18 20:00 TB Test Antigen - Nil 0.89 IU/mL 01/19/18 20:00 TB Test TB - Nil 0.10 IU/mL 01/19/18 20:00 TB Test (QFT) Interp (()) 01/19/18 20:00 - Physical Exam Vitals and I&O: Vital Signs Temp 97.8 F 01/27/18 20:17 Pulse 74 01/28/18 08:00 Resp 16 01/28/18 08:00 BP 149/74 01/28/18 08:00 Pulse Ox 99 01/28/18 08:00 Intake & Output 01/27/18 01/28/18 01/28/18 18:59 06:59 18:59 Intake Total 300 Output Total 300 Balance 0 Weight (lbs) 44.452 kg 44.452 kg Intake: Oral 300 Output: Urine 300 Other: Stool Characteristics Soft Active Medications: Current Medications Acetaminophen (Tylenol) 650 mg PO Q4HR PRN PRN Reason: Mild Pain / Temp above 100 Stop: 03/05/18 08:05 Last Admin: 01/25/18 20:24 Dose: 650 mg Al Hydrox/Mg Hydrox/Simethicone (Maalox) 30 ml PO Q4HR PRN PRN Reason: GI DISTRESS Stop: 03/05/18 08:05 Last Admin: 01/06/18 14:43 Dose: 30 ml Albuterol/Ipratropium (Duoneb Neb) 3 ml HHN Q8HRT [facility] Stop: 03/05/18 14:59 Last Admin: 01/28/18 07:15 Dose: 3 ml Aspirin (Aspirin Chewable) 81 mg PO DAILY [facility] Stop: 03/05/18 08:59 Last Admin: 01/27/18 09:12 Dose: 81 mg Atenolol (Tenormin) 100 mg PO DAILY [facility] Stop: 03/05/18 08:59 Last Admin: 01/27/18 09:15 Dose: 100 mg Atorvastatin Calcium (Lipitor) 40 mg PO DAILY [facility] PRN Reason: Protocol Stop: 03/05/18 08:59 Last Admin: 01/27/18 09:13 Dose: 40 mg Diltiazem HCl (Cardizem Cd) 120 mg PO DAILY [facility] Stop: 03/05/18 08:59 Last Admin: 01/27/18 09:13 Dose: 120 mg Donepezil HCl (Aricept) 5 mg PO DAILY [facility] Stop: 03/05/18 08:59 Last Admin: 01/27/18 09:14 Dose: 5 mg Ethambutol HCl (Myambutol) 800 mg PO DAILY [facility] Stop: 03/23/18 08:59 Last Admin: 01/27/18 09:15 Dose: 800 mg Isoniazid (Inh) 300 mg PO DAILY [facility] Stop: 03/23/18 08:59 Last Admin: 01/27/18 09:15 Dose: 300 mg Lactobacillus Rhamnosus (Culturelle 15b) 1 each PO DAILY [facility] Stop: 03/09/18 08:59 Last Admin: 01/27/18 09:12 Dose: 1 each Magnesium Hydroxide (Milk Of Magnesia) 30 ml PO HS PRN PRN Reason: Constipation Stop: 03/05/18 08:05 Last Admin: 01/06/18 14:43 Dose: 30 ml Miscellaneous (Probiotic Screen) 1 ea MC PRN PRN PRN Reason: PROTOCOL Stop: 03/08/18 14:14 Pantoprazole Sodium (Protonix) 40 mg PO DAILY@0730 [facility] Stop: 03/05/18 08:59 Last Admin: 01/28/18 06:46 Dose: Not Given Pyrazinamide (Pza) 1,000 mg PO DAILY [facility] Stop: 03/23/18 08:59 Last Admin: 01/27/18 09:15 Dose: 1,000 mg Pyridoxine HCl (Vitamin B6) 50 mg PO DAILY [facility] Stop: 03/23/18 08:59 Last Admin: 01/27/18 09:13 Dose: 50 mg Rifampin (Rifadin) 300 mg PO BID [facility] Stop: 03/22/18 16:59 Last Admin: 01/27/18 17:51 Dose: 300 mg Nutritional Asmnt/Malnutr-PDOC - Dietary Evaluation Malnutrition Findings (Please click <Entered> for more info): Nutritional Asmnt/Malnutrition Start: 01/08/18 16: 30 Text: Status: Complete Freq: Document 01/08/18 16:30 LCHENG (Rec: 01/08/18 16:43 LCHENG [email or web address]) Nutritional Asmnt/Malnutrition Patient General Information Nutritional Screening Moderate Risk Diagnosis PNA Pertinent Medical Hx/Surgical Hx HTN, DM, renal failure, GERD, dementia, hyperlipidemia Subjective Information Pt seen eaing lunch on bed, airbone isolated. Spoke with RN, RN reported pt eats well, prefer hard boiled egg instead of scrambed, tea instead of coffee. Per records, PO intake 75-100% Current Diet Order/ Nutrition Support regular Pertinent Medications culturelle, protonix, levaquin Pertinent Labs 01/06 na 140, K 4.1, Cl 111, BUN 25, Cr 1.1 Nutritional Hx/Data Height 1.68 m Height (Calculated Centimeters) 167.6 Current Weight (lbs) 44.906 kg Weight (Calculated Kilograms) 44.9 Weight (Calculated Grams) 48245.6 [place] Body Weight 142 % [place] Body Weight 70 Body Mass Index (BMI) 16.0 Weight Status Underweight GI Symptoms GI Symptoms None Last BM 01/07 Difficult in: None Skin Integrity/Comment: scar to let shoulder and left hip Estimated Nutritional Goals Calories/Kcals/Kg 25-30 based on IBW 65kg Kcals Calculated 0318-1748 Protein g/k-1.2 Protein Calculated 65-78 Fluid: ml 1625-1950ml (1ml/kcal) Nutritional Problem 1. Problem Problem underweight Etiology possible inadequate energy intake Signs/Symptoms: BMI 16 Intervention/Recommendation Comments 1. Continue with regular diet as ordered. 2. Monitor PO intake, wt, labs and skin integrity 3. F/U as low risk in 7 days, 01/15, PO check 01/12 Expected Outcomes/Goals Expected Outcomes/Goals 1. PO intake to meet at least 75% of nutritional needs. 2. Wt stability, skin to remain intact, labs to approach WNL.
--- NOTE | 2018-01-28 08:59 | Progress Notes ---
DATE: SUBJECTIVE: Chart reviewed and the patient interviewed. Also discussed the patient's condition with the staff and reviewed records and labs. The patient is still depressed and withdrawn with minimal interaction. The patient also is still calm and no behavioral issues. The patient is going to have a lung biopsy today. Otherwise, no behavioral issues. ASSESSMENT: We will continue monitoring behavior and continue to follow up. JOB# [id number]
[2018-01-28] MEDS: Aspirin 81mg Chewable Tab PO SCH (09:05)
[2018-01-28] MEDS: Lactobacillus Rhamnosus GG 15 Billion CFU CAP.SPRINK PO SCH (09:06)
[2018-01-28] MEDS: Atenolol 100mg Tab PO SCH (09:06)
[2018-01-28] MEDS: Diltiazem CD 120 mg 24H PO SCH (09:06)
[2018-01-28] MEDS: Rifampin 300 mg Cap PO SCH (09:07)
--- NOTE | 2018-01-28 12:55 | Diagnostic Imaging Report ---
Exam: CT guided biopsy of the right lung lesion. HISTORY: Tuberculosis Total DLP equals 317 CTDI 16.2 Findings Multiple contiguous thin section of chest were obtained. The study demonstrates a cavitary well-demarcated pleural based lesion in the right midlung with internal component. After obtaining informed informed consent the patient was draped and in sterile fashion. After administration of local anesthetic the lesions and third with a gauge a 19 needle 2 passes were made. Small amount of material was obtained and sent to pathology. Patient tolerated procedure well without complications. There is no evidence for pneumothorax. IMPRESSION : biopsy of the right midlung pleural-based mass.
--- NOTE | 2018-01-28 15:53 | Infectious Disease Prog Note ---
Infectious Disease Subjective - Review of Systems Service Date: 01/28/18 Subjective: There is no new change, no fever. Infectious Disease Objective - Results Result Diagrams: 01/25/18 06:00 01/25/18 06:00 Recent Labs: Laboratory Last Values WBC 5.5 Th/cmm (4.8-10.8) 01/25/18 06:00 RBC 3.49 Mil/cmm (3.80-5.80) L 01/25/18 06:00 Hgb 9.3 gm/dL (12-16) L 01/25/18 06:00 Hct 28.9 % (41.0-60) L 01/25/18 06:00 MCV 82.6 fl (80-99) 01/25/18 06:00 MCH 26.5 pg (27.0-31.0) L 01/25/18 06:00 MCHC Differential 32.1 pg (28.0-36.0) 01/25/18 06:00 RDW 14.7 % (11.5-20.0) 01/25/18 06:00 Plt Count 204 Th/cmm (150-400) 01/25/18 06:00 MPV 10.2 fl 01/25/18 06:00 Neutrophils % 59.2 % (40.0-80.0) 01/25/18 06:00 Lymphocytes % 25.7 % (20.0-50.0) 01/25/18 06:00 Monocytes % 11.1 % (2.0-10.0) H 01/25/18 06:00 Eosinophils % 3.2 % (0.0-5.0) 01/25/18 06:00 Basophils % 0.8 % (0.0-2.0) 01/25/18 06:00 PT 10.4 SECONDS (9.5-11.5) 01/28/18 06:40 INR 1.00 (0.5-1.4) 01/28/18 06:40 PTT (Actin FS) 21.6 SECONDS (26.0-38.0) L 01/28/18 06:40 Sodium 141 mEq/L (136-145) 01/25/18 06:00 Potassium 4.6 mEq/L (3.5-5.1) 01/25/18 06:00 Chloride 109 mEq/L (98-107) H 01/25/18 06:00 Carbon Dioxide 24.6 mEq/L (21.0-31.0) 01/25/18 06:00 Anion Gap 12.0 (7.0-16.0) 01/25/18 06:00 BUN 33 mg/dL (7-25) H 01/25/18 06:00 Creatinine 1.3 mg/dL (0.7-1.3) 01/25/18 06:00 Est GFR ( Amer) TNP 01/25/18 06:00 Est GFR (Non-Af Amer) TNP 01/25/18 06:00 BUN/Creatinine Ratio 25.4 01/25/18 06:00 Glucose 92 mg/dL (70-105) 01/25/18 06:00 Calcium 9.5 mg/dL (8.6-10.3) 01/25/18 06:00 Total Bilirubin 0.4 mg/dL (0.3-1.0) 01/25/18 06:00 Direct Bilirubin 0.10 mg/dL (0.0-0.2) 01/25/18 06:00 AST 16 U/L (13-39) 01/25/18 06:00 ALT 12 U/L (7-52) 01/25/18 06:00 Alkaline Phosphatase 81 U/L (34-104) 01/25/18 06:00 Total Protein 6.6 gm/dL (6.0-8.3) 01/25/18 06:00 Albumin 3.5 gm/dL (4.2-5.5) L 01/25/18 06:00 Globulin 3.1 gm/dL 01/25/18 06:00 Albumin/Globulin Ratio 1.1 (1.0-1.8) 01/25/18 06:00 Vancomycin Trough 16.6 ug/mL (10-20) 01/16/18 08:00 Coccidioides Ab Negative (Neg:<1:2) 01/10/18 06:06 Histoplasma Antigen SEE REF. LAB REPORT 01/07/18 07:15 HIV 1&2 Antibody Screen NEGATIVE (NEG) 01/25/18 06:00 TB (QFT) Gold In Tube 01/19/18 20:00 TB Test (QFT) Mitogen 9.76 IU/mL 01/19/18 20:00 TB Test (QFT) Antigen 0.99 IU/mL 01/19/18 20:00 TB Test Antigen - Nil 0.89 IU/mL 01/19/18 20:00 TB Test TB - Nil 0.10 IU/mL 01/19/18 20:00 TB Test (QFT) Interp (()) 01/19/18 20:00 - Physical Exam Vitals and I&O: Vital Signs Temp 97.4 F 01/28/18 11:54 Pulse 70 01/28/18 15:22 Resp 18 01/28/18 15:22 BP 132/86 01/28/18 11:54 Pulse Ox 97 01/28/18 15:22 Intake & Output 01/27/18 01/28/18 01/28/18 18:59 06:59 18:59 Intake Total 300 Output Total 300 Balance 0 Weight (lbs) 44.452 kg 44.452 kg Intake: Oral 300 Output: Urine 300 Other: Stool Characteristics Soft Active Medications: Current Medications Acetaminophen (Tylenol) 650 mg PO Q4HR PRN PRN Reason: Mild Pain / Temp above 100 Stop: 03/05/18 08:05 Last Admin: 01/25/18 20:24 Dose: 650 mg Al Hydrox/Mg Hydrox/Simethicone (Maalox) 30 ml PO Q4HR PRN PRN Reason: GI DISTRESS Stop: 03/05/18 08:05 Last Admin: 01/06/18 14:43 Dose: 30 ml Albuterol/Ipratropium (Duoneb Neb) 3 ml HHN Q8HRT [facility] Stop: 03/05/18 14:59 Last Admin: 01/28/18 15:22 Dose: 3 ml Aspirin (Aspirin Chewable) 81 mg PO DAILY [facility] Stop: 03/05/18 08:59 Last Admin: 01/28/18 09:05 Dose: Not Given Atenolol (Tenormin) 100 mg PO DAILY [facility] Stop: 03/05/18 08:59 Last Admin: 01/28/18 09:06 Dose: Not Given Atorvastatin Calcium (Lipitor) 40 mg PO DAILY [facility] PRN Reason: Protocol Stop: 03/05/18 08:59 Last Admin: 01/28/18 09:06 Dose: Not Given Diltiazem HCl (Cardizem Cd) 120 mg PO DAILY [facility] Stop: 03/05/18 08:59 Last Admin: 01/28/18 09:06 Dose: Not Given Donepezil HCl (Aricept) 5 mg PO DAILY [facility] Stop: 03/05/18 08:59 Last Admin: 01/28/18 09:06 Dose: Not Given Ethambutol HCl (Myambutol) 800 mg PO [facility] [place] Stop: 03/23/18 08:59 Isoniazid (Inh) 300 mg PO DAILY [facility] Stop: 03/23/18 08:59 Last Admin: 01/28/18 09:06 Dose: Not Given Lactobacillus Rhamnosus (Culturelle 15b) 1 each PO DAILY [facility] Stop: 03/09/18 08:59 Last Admin: 01/28/18 09:06 Dose: Not Given Magnesium Hydroxide (Milk Of Magnesia) 30 ml PO HS PRN PRN Reason: Constipation Stop: 03/05/18 08:05 Last Admin: 01/06/18 14:43 Dose: 30 ml Miscellaneous (Probiotic Screen) 1 ea MC PRN PRN PRN Reason: PROTOCOL Stop: 03/08/18 14:14 Pantoprazole Sodium (Protonix) 40 mg PO DAILY@0730 [facility] Stop: 03/05/18 08:59 Last Admin: 01/28/18 06:46 Dose: Not Given Pyrazinamide (Pza) 1,000 mg PO [facility] [place] Stop: 03/23/18 08:59 Pyridoxine HCl (Vitamin B6) 50 mg PO DAILY [facility] Stop: 03/23/18 08:59 Last Admin: 01/28/18 09:07 Dose: Not Given Rifampin (Rifadin) 300 mg PO DAILY [facility] Stop: 03/22/18 16:59 General: no acute distress, well developed, well nourished HEENT: atraumatic, normocephalic, PERRLA, EOMI Neck: supple, no thyromegaly Cardiovascular: S1S2, regular Lungs: clear to auscultation bilaterally, clear to percussion Abdomen: soft, no tender Extremities: no cyanosis, no clubbing Neurological: awake, alert, oriented Skin: intact - Procedures Procedures: Procedures Procedure Code Date EXTRACTION OF R MID LUNG LOBE, PERC ENDO APPROACH, DIAGN [id number] 01/03/18 PERCUT BX LUNG/MEDIASTINUM 58970 01/03/18 Infectious Disease Assmt/Plan - Assessment Assessment: Impression: 1. 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 suspect pulmonary tuberculosis. other diagnosis has to be ruled out. 2. DM2 3. Depression. 4. MRSA colonization. - Plan Plan: Continue anti TB RIPE therapy. If AFB culture, come negative may consider alternate etiology. As per the staff, the Public health department has cleared for discharge and isolation. May dc to SNF or accepting facility. DC isolation. Nutritional Asmnt/Malnutr-PDOC - Dietary Evaluation Malnutrition Findings (Please click <Entered> for more info): Nutritional Asmnt/Malnutrition Start: 01/08/18 16: 30 Text: Status: Complete Freq: Document 01/08/18 16:30 LCHENG (Rec: 01/08/18 16:43 LCHENG [email or web address]) Nutritional Asmnt/Malnutrition Patient General Information Nutritional Screening Moderate Risk Diagnosis PNA Pertinent Medical Hx/Surgical Hx HTN, DM, renal failure, GERD, dementia, hyperlipidemia Subjective Information Pt seen eaing lunch on bed, airbone isolated. Spoke with RN, RN reported pt eats well, prefer hard boiled egg instead of scrambed, tea instead of coffee. Per records, PO intake 75-100% Current Diet Order/ Nutrition Support regular Pertinent Medications culturelle, protonix, levaquin Pertinent Labs 01/06 na 140, K 4.1, Cl 111, BUN 25, Cr 1.1 Nutritional Hx/Data Height 1.68 m Height (Calculated Centimeters) 167.6 Current Weight (lbs) 44.906 kg Weight (Calculated Kilograms) 44.9 Weight (Calculated Grams) 80223.6 [place] Body Weight 142 % [place] Body Weight 70 Body Mass Index (BMI) 16.0 Weight Status Underweight GI Symptoms GI Symptoms None Last BM 01/07 Difficult in: None Skin Integrity/Comment: scar to let shoulder and left hip Estimated Nutritional Goals Calories/Kcals/Kg 25-30 based on IBW 65kg Kcals Calculated 3726-6150 Protein g/k-1.2 Protein Calculated 65-78 Fluid: ml 1625-1950ml (1ml/kcal) Nutritional Problem 1. Problem Problem underweight Etiology possible inadequate energy intake Signs/Symptoms: BMI 16 Intervention/Recommendation Comments 1. Continue with regular diet as ordered. 2. Monitor PO intake, wt, labs and skin integrity 3. F/U as low risk in 7 days, 01/15, PO check 01/12 Expected Outcomes/Goals Expected Outcomes/Goals 1. PO intake to meet at least 75% of nutritional needs. 2. Wt stability, skin to remain intact, labs to approach WNL.
[2018-01-29] MEDS: Albuterol/Ipratropium Neb 3 ML AERS HHN SCH ×3 (07:31→22:41)
[2018-01-29] MEDS: Pantoprazole 40 mg EC Tab PO SCH (07:36)
[2018-01-29] MEDS: Diltiazem CD 120 mg 24H PO SCH (09:08)
[2018-01-29] MEDS: Lactobacillus Rhamnosus GG 15 Billion CFU CAP.SPRINK PO SCH (09:08)
[2018-01-29] MEDS: Atenolol 100mg Tab PO SCH (09:08)
[2018-01-29] MEDS: Rifampin 300 mg Cap PO SCH (09:09)
[2018-01-29] MEDS: Aspirin 81mg Chewable Tab PO SCH (09:09)
--- NOTE | 2018-01-29 14:08 | Infectious Disease Prog Note ---
Infectious Disease Subjective - Review of Systems Service Date: 01/29/18 Subjective: There is no new change, no fever. Infectious Disease Objective - Results Result Diagrams: 01/25/18 06:00 01/25/18 06:00 Recent Labs: Laboratory Last Values WBC 5.5 Th/cmm (4.8-10.8) 01/25/18 06:00 RBC 3.49 Mil/cmm (3.80-5.80) L 01/25/18 06:00 Hgb 9.3 gm/dL (12-16) L 01/25/18 06:00 Hct 28.9 % (41.0-60) L 01/25/18 06:00 MCV 82.6 fl (80-99) 01/25/18 06:00 MCH 26.5 pg (27.0-31.0) L 01/25/18 06:00 MCHC Differential 32.1 pg (28.0-36.0) 01/25/18 06:00 RDW 14.7 % (11.5-20.0) 01/25/18 06:00 Plt Count 204 Th/cmm (150-400) 01/25/18 06:00 MPV 10.2 fl 01/25/18 06:00 Neutrophils % 59.2 % (40.0-80.0) 01/25/18 06:00 Lymphocytes % 25.7 % (20.0-50.0) 01/25/18 06:00 Monocytes % 11.1 % (2.0-10.0) H 01/25/18 06:00 Eosinophils % 3.2 % (0.0-5.0) 01/25/18 06:00 Basophils % 0.8 % (0.0-2.0) 01/25/18 06:00 PT 10.4 SECONDS (9.5-11.5) 01/28/18 06:40 INR 1.00 (0.5-1.4) 01/28/18 06:40 PTT (Actin FS) 21.6 SECONDS (26.0-38.0) L 01/28/18 06:40 Sodium 141 mEq/L (136-145) 01/25/18 06:00 Potassium 4.6 mEq/L (3.5-5.1) 01/25/18 06:00 Chloride 109 mEq/L (98-107) H 01/25/18 06:00 Carbon Dioxide 24.6 mEq/L (21.0-31.0) 01/25/18 06:00 Anion Gap 12.0 (7.0-16.0) 01/25/18 06:00 BUN 33 mg/dL (7-25) H 01/25/18 06:00 Creatinine 1.3 mg/dL (0.7-1.3) 01/25/18 06:00 Est GFR ( Amer) TNP 01/25/18 06:00 Est GFR (Non-Af Amer) TNP 01/25/18 06:00 BUN/Creatinine Ratio 25.4 01/25/18 06:00 Glucose 92 mg/dL (70-105) 01/25/18 06:00 Calcium 9.5 mg/dL (8.6-10.3) 01/25/18 06:00 Total Bilirubin 0.4 mg/dL (0.3-1.0) 01/25/18 06:00 Direct Bilirubin 0.10 mg/dL (0.0-0.2) 01/25/18 06:00 AST 16 U/L (13-39) 01/25/18 06:00 ALT 12 U/L (7-52) 01/25/18 06:00 Alkaline Phosphatase 81 U/L (34-104) 01/25/18 06:00 Total Protein 6.6 gm/dL (6.0-8.3) 01/25/18 06:00 Albumin 3.5 gm/dL (4.2-5.5) L 01/25/18 06:00 Globulin 3.1 gm/dL 01/25/18 06:00 Albumin/Globulin Ratio 1.1 (1.0-1.8) 01/25/18 06:00 Vancomycin Trough 16.6 ug/mL (10-20) 01/16/18 08:00 Coccidioides Ab Negative (Neg:<1:2) 01/10/18 06:06 Histoplasma Antigen SEE REF. LAB REPORT 01/07/18 07:15 HIV 1&2 Antibody Screen NEGATIVE (NEG) 01/25/18 06:00 TB (QFT) Gold In Tube 01/19/18 20:00 TB Test (QFT) Mitogen 9.76 IU/mL 01/19/18 20:00 TB Test (QFT) Antigen 0.99 IU/mL 01/19/18 20:00 TB Test Antigen - Nil 0.89 IU/mL 01/19/18 20:00 TB Test TB - Nil 0.10 IU/mL 01/19/18 20:00 TB Test (QFT) Interp (()) 01/19/18 20:00 - Physical Exam Vitals and I&O: Vital Signs Temp 98.2 F 01/29/18 08:00 Pulse 80 01/29/18 09:08 Resp 18 01/29/18 09:02 BP 136/88 01/29/18 08:00 Pulse Ox 96 01/29/18 08:00 Intake & Output 01/28/18 01/29/18 01/29/18 18:59 06:59 18:59 Intake Total 400 360 Output Total 1200 300 Balance -800 60 Weight (lbs) 44.452 kg 44.452 kg Intake: Oral 400 300 Other 60 Output: Urine 1200 300 Other: # Voids 0 1 Stool Characteristics Soft Active Medications: Current Medications Acetaminophen (Tylenol) 650 mg PO Q4HR PRN PRN Reason: Mild Pain / Temp above 100 Stop: 03/05/18 08:05 Last Admin: 01/25/18 20:24 Dose: 650 mg Al Hydrox/Mg Hydrox/Simethicone (Maalox) 30 ml PO Q4HR PRN PRN Reason: GI DISTRESS Stop: 03/05/18 08:05 Last Admin: 01/06/18 14:43 Dose: 30 ml Albuterol/Ipratropium (Duoneb Neb) 3 ml HHN Q8HRT [facility] Stop: 03/05/18 14:59 Last Admin: 01/29/18 07:31 Dose: 3 ml Aspirin (Aspirin Chewable) 81 mg PO DAILY [facility] Stop: 03/05/18 08:59 Last Admin: 01/29/18 09:09 Dose: 81 mg Atenolol (Tenormin) 100 mg PO DAILY [facility] Stop: 03/05/18 08:59 Last Admin: 01/29/18 09:08 Dose: 100 mg Atorvastatin Calcium (Lipitor) 40 mg PO DAILY [facility] PRN Reason: Protocol Stop: 03/05/18 08:59 Last Admin: 01/29/18 09:09 Dose: 40 mg Diltiazem HCl (Cardizem Cd) 120 mg PO DAILY [facility] Stop: 03/05/18 08:59 Last Admin: 01/29/18 09:08 Dose: 120 mg Donepezil HCl (Aricept) 5 mg PO DAILY [facility] Stop: 03/05/18 08:59 Last Admin: 01/29/18 09:09 Dose: 5 mg Ethambutol HCl (Myambutol) 800 mg PO [facility] [place] Stop: 03/23/18 08:59 Last Admin: 01/29/18 09:08 Dose: 800 mg Isoniazid (Inh) 300 mg PO DAILY [facility] Stop: 03/23/18 08:59 Last Admin: 01/29/18 09:08 Dose: 300 mg Lactobacillus Rhamnosus (Culturelle 15b) 1 each PO DAILY [facility] Stop: 03/09/18 08:59 Last Admin: 01/29/18 09:08 Dose: 1 each Magnesium Hydroxide (Milk Of Magnesia) 30 ml PO HS PRN PRN Reason: Constipation Stop: 03/05/18 08:05 Last Admin: 01/06/18 14:43 Dose: 30 ml Miscellaneous (Probiotic Screen) 1 ea MC PRN PRN PRN Reason: PROTOCOL Stop: 03/08/18 14:14 Pantoprazole Sodium (Protonix) 40 mg PO DAILY@0730 [facility] Stop: 03/05/18 08:59 Last Admin: 01/29/18 07:36 Dose: 40 mg Pyrazinamide (Pza) 1,000 mg PO [facility] [place] Stop: 03/23/18 08:59 Last Admin: 01/29/18 09:08 Dose: 1,000 mg Pyridoxine HCl (Vitamin B6) 50 mg PO DAILY [facility] Stop: 03/23/18 08:59 Last Admin: 01/29/18 09:08 Dose: 50 mg Rifampin (Rifadin) 300 mg PO DAILY [facility] Stop: 03/22/18 16:59 Last Admin: 01/29/18 09:09 Dose: 300 mg General: no acute distress, well developed, well nourished HEENT: atraumatic, normocephalic, PERRLA Neck: supple, no thyromegaly Cardiovascular: S1S2, regular Lungs: clear to auscultation bilaterally, clear to percussion Abdomen: soft, no tender, no distended Extremities: no cyanosis, no clubbing, no edema Neurological: awake, alert, oriented Skin: intact - Procedures Procedures: Procedures Procedure Code Date EXTRACTION OF R MID LUNG LOBE, PERC ENDO APPROACH, DIAGN [id number] 01/03/18 PERCUT BX LUNG/MEDIASTINUM 99410 01/03/18 Infectious Disease Assmt/Plan - Assessment Assessment: Impression: 1. 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 suspect pulmonary tuberculosis. other diagnosis has to be ruled out. 2. DM2 3. Depression. 4. MRSA colonization. - Plan Plan: Continue anti TB RIPE therapy. If AFB culture, come negative may consider alternate etiology. As per the staff, the Public health department has cleared for discharge and isolation. May dc to SNF or accepting facility. DC isolation. Nutritional Asmnt/Malnutr-PDOC - Dietary Evaluation Malnutrition Findings (Please click <Entered> for more info): Nutritional Asmnt/Malnutrition Start: 01/08/18 16: 30 Text: Status: Complete Freq: Document 01/08/18 16:30 HEN (Rec: 01/08/18 16:43 [facility] Nutritional Asmnt/Malnutrition Patient General Information Nutritional Screening Moderate Risk Diagnosis PNA Pertinent Medical Hx/Surgical Hx HTN, DM, renal failure, GERD, dementia, hyperlipidemia Subjective Information Pt seen eaing lunch on bed, airbone isolated. Spoke with RN, RN reported pt eats well, prefer hard boiled egg instead of scrambed, tea instead of coffee. Per records, PO intake 75-100% Current Diet Order/ Nutrition Support regular Pertinent Medications culturelle, protonix, levaquin Pertinent Labs 01/06 na 140, K 4.1, Cl 111, BUN 25, Cr 1.1 Nutritional Hx/Data Height 1.68 m Height (Calculated Centimeters) 167.6 Current Weight (lbs) 44.906 kg Weight (Calculated Kilograms) 44.9 Weight (Calculated Grams) 28156.6 [place] Body Weight 142 % [place] Body Weight 70 Body Mass Index (BMI) 16.0 Weight Status Underweight GI Symptoms GI Symptoms None Last BM 3 Difficult in: None Skin Integrity/Comment: scar to let shoulder and left hip Estimated Nutritional Goals Calories/Kcals/Kg 25-30 based on IBW 65kg Kcals Calculated 5038-3375 Protein g/k-1.2 Protein Calculated 65-78 Fluid: ml 1625-1950ml (1ml/kcal) Nutritional Problem 1. Problem Problem underweight Etiology possible inadequate energy intake Signs/Symptoms: BMI 16 Intervention/Recommendation Comments 1. Continue with regular diet as ordered. 2. Monitor PO intake, wt, labs and skin integrity 3. F/U as low risk in 7 days, 01/15, PO check 01/12 Expected Outcomes/Goals Expected Outcomes/Goals 1. PO intake to meet at least 75% of nutritional needs. 2. Wt stability, skin to remain intact, labs to approach WNL.
--- NOTE | 2018-01-29 15:24 | Internal Medicine Prog Note ---
Internal Medicine Subjective - Subjective Service Date: 01/29/18 Patient seen and examined:: with staff Patient is:: awake, verbal, confused Per staff patient has:: tolerating meds Internal Medicine Objective - Results Result Diagrams: 01/25/18 06:00 01/25/18 06:00 Recent Labs: Laboratory Last Values WBC 5.5 Th/cmm (4.8-10.8) 01/25/18 06:00 RBC 3.49 Mil/cmm (3.80-5.80) L 01/25/18 06:00 Hgb 9.3 gm/dL (12-16) L 01/25/18 06:00 Hct 28.9 % (41.0-60) L 01/25/18 06:00 MCV 82.6 fl (80-99) 01/25/18 06:00 MCH 26.5 pg (27.0-31.0) L 01/25/18 06:00 MCHC Differential 32.1 pg (28.0-36.0) 01/25/18 06:00 RDW 14.7 % (11.5-20.0) 01/25/18 06:00 Plt Count 204 Th/cmm (150-400) 01/25/18 06:00 MPV 10.2 fl 01/25/18 06:00 Neutrophils % 59.2 % (40.0-80.0) 01/25/18 06:00 Lymphocytes % 25.7 % (20.0-50.0) 01/25/18 06:00 Monocytes % 11.1 % (2.0-10.0) H 01/25/18 06:00 Eosinophils % 3.2 % (0.0-5.0) 01/25/18 06:00 Basophils % 0.8 % (0.0-2.0) 01/25/18 06:00 PT 10.4 SECONDS (9.5-11.5) 01/28/18 06:40 INR 1.00 (0.5-1.4) 01/28/18 06:40 PTT (Actin FS) 21.6 SECONDS (26.0-38.0) L 01/28/18 06:40 Sodium 141 mEq/L (136-145) 01/25/18 06:00 Potassium 4.6 mEq/L (3.5-5.1) 01/25/18 06:00 Chloride 109 mEq/L (98-107) H 01/25/18 06:00 Carbon Dioxide 24.6 mEq/L (21.0-31.0) 01/25/18 06:00 Anion Gap 12.0 (7.0-16.0) 01/25/18 06:00 BUN 33 mg/dL (7-25) H 01/25/18 06:00 Creatinine 1.3 mg/dL (0.7-1.3) 01/25/18 06:00 Est GFR ( Amer) TNP 01/25/18 06:00 Est GFR (Non-Af Amer) TNP 01/25/18 06:00 BUN/Creatinine Ratio 25.4 01/25/18 06:00 Glucose 92 mg/dL (70-105) 01/25/18 06:00 Calcium 9.5 mg/dL (8.6-10.3) 01/25/18 06:00 Total Bilirubin 0.4 mg/dL (0.3-1.0) 01/25/18 06:00 Direct Bilirubin 0.10 mg/dL (0.0-0.2) 01/25/18 06:00 AST 16 U/L (13-39) 01/25/18 06:00 ALT 12 U/L (7-52) 01/25/18 06:00 Alkaline Phosphatase 81 U/L (34-104) 01/25/18 06:00 Total Protein 6.6 gm/dL (6.0-8.3) 01/25/18 06:00 Albumin 3.5 gm/dL (4.2-5.5) L 01/25/18 06:00 Globulin 3.1 gm/dL 01/25/18 06:00 Albumin/Globulin Ratio 1.1 (1.0-1.8) 01/25/18 06:00 Vancomycin Trough 16.6 ug/mL (10-20) 01/16/18 08:00 Coccidioides Ab Negative (Neg:<1:2) 01/10/18 06:06 Histoplasma Antigen SEE REF. LAB REPORT 01/07/18 07:15 HIV 1&2 Antibody Screen NEGATIVE (NEG) 01/25/18 06:00 TB (QFT) Gold In Tube 01/19/18 20:00 TB Test (QFT) Mitogen 9.76 IU/mL 01/19/18 20:00 TB Test (QFT) Antigen 0.99 IU/mL 01/19/18 20:00 TB Test Antigen - Nil 0.89 IU/mL 01/19/18 20:00 TB Test TB - Nil 0.10 IU/mL 01/19/18 20:00 TB Test (QFT) Interp (()) 01/19/18 20:00 - Physical Exam Vitals and I&O: Vital Signs Temp 98.6 F 01/29/18 12:00 Pulse 84 01/29/18 15:15 Resp 18 01/29/18 15:15 BP 144/88 01/29/18 12:00 Pulse Ox 97 01/29/18 15:15 Intake & Output 01/28/18 01/29/18 01/29/18 18:59 06:59 18:59 Intake Total 400 360 Output Total 1200 300 Balance -800 60 Weight (lbs) 98 lb 98 lb Intake: Oral 400 300 Other 60 Output: Urine 1200 300 Other: # Voids 0 1 Stool Characteristics Soft Weight Source Bedscale Estimated Active Medications: Current Medications Acetaminophen (Tylenol) 650 mg PO Q4HR PRN PRN Reason: Mild Pain / Temp above 100 Stop: 03/05/18 08:05 Last Admin: 01/25/18 20:24 Dose: 650 mg Al Hydrox/Mg Hydrox/Simethicone (Maalox) 30 ml PO Q4HR PRN PRN Reason: GI DISTRESS Stop: 03/05/18 08:05 Last Admin: 01/06/18 14:43 Dose: 30 ml Albuterol/Ipratropium (Duoneb Neb) 3 ml HHN Q8HRT [facility] Stop: 03/05/18 14:59 Last Admin: 01/29/18 15:15 Dose: 3 ml Aspirin (Aspirin Chewable) 81 mg PO DAILY [facility] Stop: 03/05/18 08:59 Last Admin: 01/29/18 09:09 Dose: 81 mg Atenolol (Tenormin) 100 mg PO DAILY [facility] Stop: 03/05/18 08:59 Last Admin: 01/29/18 09:08 Dose: 100 mg Atorvastatin Calcium (Lipitor) 40 mg PO DAILY [facility] PRN Reason: Protocol Stop: 03/05/18 08:59 Last Admin: 01/29/18 09:09 Dose: 40 mg Diltiazem HCl (Cardizem Cd) 120 mg PO DAILY [facility] Stop: 03/05/18 08:59 Last Admin: 01/29/18 09:08 Dose: 120 mg Donepezil HCl (Aricept) 5 mg PO DAILY [facility] Stop: 03/05/18 08:59 Last Admin: 01/29/18 09:09 Dose: 5 mg Ethambutol HCl (Myambutol) 800 mg PO [facility] [place] Stop: 03/23/18 08:59 Last Admin: 01/29/18 09:08 Dose: 800 mg Isoniazid (Inh) 300 mg PO DAILY [facility] Stop: 03/23/18 08:59 Last Admin: 01/29/18 09:08 Dose: 300 mg Lactobacillus Rhamnosus (Culturelle 15b) 1 each PO DAILY [facility] Stop: 03/09/18 08:59 Last Admin: 01/29/18 09:08 Dose: 1 each Magnesium Hydroxide (Milk Of Magnesia) 30 ml PO HS PRN PRN Reason: Constipation Stop: 03/05/18 08:05 Last Admin: 01/06/18 14:43 Dose: 30 ml Miscellaneous (Probiotic Screen) 1 ea MC PRN PRN PRN Reason: PROTOCOL Stop: 03/08/18 14:14 Pantoprazole Sodium (Protonix) 40 mg PO DAILY@0730 [facility] Stop: 03/05/18 08:59 Last Admin: 01/29/18 07:36 Dose: 40 mg Pyrazinamide (Pza) 1,000 mg PO [facility] [place] Stop: 03/23/18 08:59 Last Admin: 01/29/18 09:08 Dose: 1,000 mg Pyridoxine HCl (Vitamin B6) 50 mg PO DAILY [facility] Stop: 03/23/18 08:59 Last Admin: 01/29/18 09:08 Dose: 50 mg Rifampin (Rifadin) 300 mg PO DAILY [facility] Stop: 03/22/18 16:59 Last Admin: 01/29/18 09:09 Dose: 300 mg General: weak, alert HEENT: NC/AT, PERRLA Neck: Supple Lungs: ronchi Abdomen: soft, non-tender, non-distended, positive bowel sound Neurological: unable to follow command - Procedures Procedures: Procedures Procedure Code Date EXTRACTION OF R MID LUNG LOBE, PERC ENDO APPROACH, DIAGN [id number] 01/03/18 PERCUT BX LUNG/MEDIASTINUM 22312 01/03/18 Internal Medicine Assmt/Plan - Assessment Assessment: pneumonia dementia htn hyperlipidemia oa gerd - Plan Plan: cbc/bmp in am bronchodilators supplemental oyxgen as needed continue current orders Nutritional Asmnt/Malnutr-PDOC - Dietary Evaluation Malnutrition Findings (Please click <Entered> for more info): Nutritional Asmnt/Malnutrition Start: 01/08/18 16: 30 Text: Status: Complete Freq: Document 01/08/18 16:30 HEN (Rec: 01/08/18 16:43 LCHENG [email or web address]) Nutritional Asmnt/Malnutrition Patient General Information Nutritional Screening Moderate Risk Diagnosis PNA Pertinent Medical Hx/Surgical Hx HTN, DM, renal failure, GERD, dementia, hyperlipidemia Subjective Information Pt seen eaing lunch on bed, airbone isolated. Spoke with RN, RN reported pt eats well, prefer hard boiled egg instead of scrambed, tea instead of coffee. Per records, PO intake 75-100% Current Diet Order/ Nutrition Support regular Pertinent Medications culturelle, protonix, levaquin Pertinent Labs 01/06 na 140, K 4.1, Cl 111, BUN 25, Cr 1.1 Nutritional Hx/Data Height 5 ft 6 in Height (Calculated Centimeters) 167.6 Current Weight (lbs) 99 lb Weight (Calculated Kilograms) 44.9 Weight (Calculated Grams) 37461.6 [place] Body Weight 142 % [place] Body Weight 70 Body Mass Index (BMI) 16.0 Weight Status Underweight GI Symptoms GI Symptoms None Last BM 01/07 Difficult in: None Skin Integrity/Comment: scar to let shoulder and left hip Estimated Nutritional Goals Calories/Kcals/Kg 25-30 based on IBW 65kg Kcals Calculated 6939-7469 Protein g/k-1.2 Protein Calculated 65-78 Fluid: ml 1625-1950ml (1ml/kcal) Nutritional Problem 1. Problem Problem underweight Etiology possible inadequate energy intake Signs/Symptoms: BMI 16 Intervention/Recommendation Comments 1. Continue with regular diet as ordered. 2. Monitor PO intake, wt, labs and skin integrity 3. F/U as low risk in 7 days, 01/15, PO check 01/12 Expected Outcomes/Goals Expected Outcomes/Goals 1. PO intake to meet at least 75% of nutritional needs. 2. Wt stability, skin to remain intact, labs to approach WNL.
--- NOTE | 2018-01-30 00:16 | Progress Notes ---
DATE: 01/29/2018 SUBJECTIVE: Chart reviewed and the patient interviewed. Also discussed the patient's condition with the staff and reviewed records and labs. The patient continued to be calm, guarded and withdrawn. He also is less agitated and easier to follow directions. He also is still not talking much. Otherwise, the patient had lung biopsy yesterday. ASSESSMENT: The patient is still depressed and less agitated. TREATMENT PLAN: Continue monitoring his behavior and his condition closely. Also, continue to work on his ineffective coping and followup. JOB# [id number]
[2018-01-30] MEDS: Pantoprazole 40 mg EC Tab PO SCH (06:31)
[2018-01-30] MEDS: Albuterol/Ipratropium Neb 3 ML AERS HHN SCH ×4 (08:10→23:19)
[2018-01-30] MEDS: Lactobacillus Rhamnosus GG 15 Billion CFU CAP.SPRINK PO SCH (09:07)
[2018-01-30] MEDS: Diltiazem CD 120 mg 24H PO SCH (09:07)
[2018-01-30] MEDS: Atenolol 100mg Tab PO SCH (09:07)
[2018-01-30] MEDS: Rifampin 300 mg Cap PO SCH (09:07)
[2018-01-30] MEDS: Aspirin 81mg Chewable Tab PO SCH (09:07)
--- NOTE | 2018-01-30 10:46 | General Progress Note ---
Subjective - Review of Systems Events since last encounter: in no distress withdrawn, depressed Objective - Results Result Diagrams: 01/25/18 06:00 01/25/18 06:00 Recent Labs: Laboratory Last Values WBC 5.5 Th/cmm (4.8-10.8) 01/25/18 06:00 RBC 3.49 Mil/cmm (3.80-5.80) L 01/25/18 06:00 Hgb 9.3 gm/dL (12-16) L 01/25/18 06:00 Hct 28.9 % (41.0-60) L 01/25/18 06:00 MCV 82.6 fl (80-99) 01/25/18 06:00 MCH 26.5 pg (27.0-31.0) L 01/25/18 06:00 MCHC Differential 32.1 pg (28.0-36.0) 01/25/18 06:00 RDW 14.7 % (11.5-20.0) 01/25/18 06:00 Plt Count 204 Th/cmm (150-400) 01/25/18 06:00 MPV 10.2 fl 01/25/18 06:00 Neutrophils % 59.2 % (40.0-80.0) 01/25/18 06:00 Lymphocytes % 25.7 % (20.0-50.0) 01/25/18 06:00 Monocytes % 11.1 % (2.0-10.0) H 01/25/18 06:00 Eosinophils % 3.2 % (0.0-5.0) 01/25/18 06:00 Basophils % 0.8 % (0.0-2.0) 01/25/18 06:00 PT 10.4 SECONDS (9.5-11.5) 01/28/18 06:40 INR 1.00 (0.5-1.4) 01/28/18 06:40 PTT (Actin FS) 21.6 SECONDS (26.0-38.0) L 01/28/18 06:40 Sodium 141 mEq/L (136-145) 01/25/18 06:00 Potassium 4.6 mEq/L (3.5-5.1) 01/25/18 06:00 Chloride 109 mEq/L (98-107) H 01/25/18 06:00 Carbon Dioxide 24.6 mEq/L (21.0-31.0) 01/25/18 06:00 Anion Gap 12.0 (7.0-16.0) 01/25/18 06:00 BUN 33 mg/dL (7-25) H 01/25/18 06:00 Creatinine 1.3 mg/dL (0.7-1.3) 01/25/18 06:00 Est GFR ( Amer) TNP 01/25/18 06:00 Est GFR (Non-Af Amer) TNP 01/25/18 06:00 BUN/Creatinine Ratio 25.4 01/25/18 06:00 Glucose 92 mg/dL (70-105) 01/25/18 06:00 Calcium 9.5 mg/dL (8.6-10.3) 01/25/18 06:00 Total Bilirubin 0.4 mg/dL (0.3-1.0) 01/25/18 06:00 Direct Bilirubin 0.10 mg/dL (0.0-0.2) 01/25/18 06:00 AST 16 U/L (13-39) 01/25/18 06:00 ALT 12 U/L (7-52) 01/25/18 06:00 Alkaline Phosphatase 81 U/L (34-104) 01/25/18 06:00 Total Protein 6.6 gm/dL (6.0-8.3) 01/25/18 06:00 Albumin 3.5 gm/dL (4.2-5.5) L 01/25/18 06:00 Globulin 3.1 gm/dL 01/25/18 06:00 Albumin/Globulin Ratio 1.1 (1.0-1.8) 01/25/18 06:00 Vancomycin Trough 16.6 ug/mL (10-20) 01/16/18 08:00 Coccidioides Ab Negative (Neg:<1:2) 01/10/18 06:06 Histoplasma Antigen SEE REF. LAB REPORT 01/07/18 07:15 HIV 1&2 Antibody Screen NEGATIVE (NEG) 01/25/18 06:00 TB (QFT) Gold In Tube 01/19/18 20:00 TB Test (QFT) Mitogen 9.76 IU/mL 01/19/18 20:00 TB Test (QFT) Antigen 0.99 IU/mL 01/19/18 20:00 TB Test Antigen - Nil 0.89 IU/mL 01/19/18 20:00 TB Test TB - Nil 0.10 IU/mL 01/19/18 20:00 TB Test (QFT) Interp (()) 01/19/18 20:00 - Physical Exam Vitals and I&O: Vital Signs Temp 96.7 F 01/30/18 08:00 Pulse 68 01/30/18 09:07 Resp 18 01/30/18 08:00 BP 125/63 01/30/18 08:00 Pulse Ox 95 01/30/18 08:00 Intake & Output 01/29/18 01/30/18 01/30/18 18:59 06:59 18:59 Intake Total 700 240 Balance 700 240 Weight (lbs) 44.452 kg 44.452 kg Intake: Oral 700 240 Other: # Voids 3 3 # Bowel Movements 1 Weight Source Bedscale Bedscale Active Medications: Current Medications Acetaminophen (Tylenol) 650 mg PO Q4HR PRN PRN Reason: Mild Pain / Temp above 100 Stop: 03/05/18 08:05 Last Admin: 01/25/18 20:24 Dose: 650 mg Al Hydrox/Mg Hydrox/Simethicone (Maalox) 30 ml PO Q4HR PRN PRN Reason: GI DISTRESS Stop: 03/05/18 08:05 Last Admin: 01/06/18 14:43 Dose: 30 ml Albuterol/Ipratropium (Duoneb Neb) 3 ml HHN Q8HRT [facility] Stop: 03/05/18 14:59 Last Admin: 01/30/18 08:18 Dose: Not Given Aspirin (Aspirin Chewable) 81 mg PO DAILY [facility] Stop: 03/05/18 08:59 Last Admin: 01/30/18 09:07 Dose: 81 mg Atenolol (Tenormin) 100 mg PO DAILY [facility] Stop: 03/05/18 08:59 Last Admin: 01/30/18 09:07 Dose: 100 mg Atorvastatin Calcium (Lipitor) 40 mg PO DAILY [facility] PRN Reason: Protocol Stop: 03/05/18 08:59 Last Admin: 01/30/18 09:06 Dose: 40 mg Diltiazem HCl (Cardizem Cd) 120 mg PO DAILY [facility] Stop: 03/05/18 08:59 Last Admin: 01/30/18 09:07 Dose: 120 mg Donepezil HCl (Aricept) 5 mg PO DAILY [facility] Stop: 03/05/18 08:59 Last Admin: 01/30/18 09:07 Dose: 5 mg Ethambutol HCl (Myambutol) 800 mg PO [facility] [place] Stop: 03/23/18 08:59 Last Admin: 01/29/18 09:08 Dose: 800 mg Isoniazid (Inh) 300 mg PO DAILY [facility] Stop: 03/23/18 08:59 Last Admin: 01/30/18 09:07 Dose: 300 mg Lactobacillus Rhamnosus (Culturelle 15b) 1 each PO DAILY [facility] Stop: 03/09/18 08:59 Last Admin: 01/30/18 09:07 Dose: 1 each Magnesium Hydroxide (Milk Of Magnesia) 30 ml PO HS PRN PRN Reason: Constipation Stop: 03/05/18 08:05 Last Admin: 01/06/18 14:43 Dose: 30 ml Miscellaneous (Probiotic Screen) 1 ea MC PRN PRN PRN Reason: PROTOCOL Stop: 03/08/18 14:14 Pantoprazole Sodium (Protonix) 40 mg PO DAILY@0730 [facility] Stop: 03/05/18 08:59 Last Admin: 01/30/18 06:31 Dose: 40 mg Pyrazinamide (Pza) 1,000 mg PO MWF [facility] Stop: 03/23/18 08:59 Last Admin: 01/29/18 09:08 Dose: 1,000 mg Pyridoxine HCl (Vitamin B6) 50 mg PO DAILY [facility] Stop: 03/23/18 08:59 Last Admin: 01/30/18 09:07 Dose: 50 mg Rifampin (Rifadin) 300 mg PO DAILY [facility] Stop: 03/22/18 16:59 Last Admin: 01/30/18 09:07 Dose: 300 mg - Procedures Procedures: Procedures Procedure Code Date EXTRACTION OF R MID LUNG LOBE, PERC ENDO APPROACH, DIAGN [id number] 01/03/18 PERCUT BX LUNG/MEDIASTINUM 94523 01/03/18 Nutritional Asmnt/Malnutr-PDOC - Dietary Evaluation Malnutrition Findings (Please click <Entered> for more info): Nutritional Asmnt/Malnutrition Start: 01/08/18 16: 30 Text: Status: Complete Freq: Document 01/08/18 16:30 LCHENG (Rec: 01/08/18 16:43 LCHENG [email or web address]) Nutritional Asmnt/Malnutrition Patient General Information Nutritional Screening Moderate Risk Diagnosis PNA Pertinent Medical Hx/Surgical Hx HTN, DM, renal failure, GERD, dementia, hyperlipidemia Subjective Information Pt seen eaing lunch on bed, airbone isolated. Spoke with RN, RN reported pt eats well, prefer hard boiled egg instead of scrambed, tea instead of coffee. Per records, PO intake 75-100% Current Diet Order/ Nutrition Support regular Pertinent Medications culturelle, protonix, levaquin Pertinent Labs 01/06 na 140, K 4.1, Cl 111, BUN 25, Cr 1.1 Nutritional Hx/Data Height 1.68 m Height (Calculated Centimeters) 167.6 Current Weight (lbs) 44.906 kg Weight (Calculated Kilograms) 44.9 Weight (Calculated Grams) 82556.6 [place] Body Weight 142 % [place] Body Weight 70 Body Mass Index (BMI) 16.0 Weight Status Underweight GI Symptoms GI Symptoms None Last BM 01/07 Difficult in: None Skin Integrity/Comment: scar to let shoulder and left hip Estimated Nutritional Goals Calories/Kcals/Kg 25-30 based on IBW 65kg Kcals Calculated 5470-8238 Protein g/k-1.2 Protein Calculated 65-78 Fluid: ml 1625-1950ml (1ml/kcal) Nutritional Problem 1. Problem Problem underweight Etiology possible inadequate energy intake Signs/Symptoms: BMI 16 Intervention/Recommendation Comments 1. Continue with regular diet as ordered. 2. Monitor PO intake, wt, labs and skin integrity 3. F/U as low risk in 7 days, 01/15, PO check 01/12 Expected Outcomes/Goals Expected Outcomes/Goals 1. PO intake to meet at least 75% of nutritional needs. 2. Wt stability, skin to remain intact, labs to approach WNL.
--- NOTE | 2018-01-30 23:54 | Infectious Disease Prog Note ---
Infectious Disease Subjective - Review of Systems Service Date: 01/30/18 Events since last encounter: none. Subjective: There is no new change, no fever. Infectious Disease Objective - Results Result Diagrams: 01/25/18 06:00 01/25/18 06:00 Recent Labs: Laboratory Last Values WBC 5.5 Th/cmm (4.8-10.8) 01/25/18 06:00 RBC 3.49 Mil/cmm (3.80-5.80) L 01/25/18 06:00 Hgb 9.3 gm/dL (12-16) L 01/25/18 06:00 Hct 28.9 % (41.0-60) L 01/25/18 06:00 MCV 82.6 fl (80-99) 01/25/18 06:00 MCH 26.5 pg (27.0-31.0) L 01/25/18 06:00 MCHC Differential 32.1 pg (28.0-36.0) 01/25/18 06:00 RDW 14.7 % (11.5-20.0) 01/25/18 06:00 Plt Count 204 Th/cmm (150-400) 01/25/18 06:00 MPV 10.2 fl 01/25/18 06:00 Neutrophils % 59.2 % (40.0-80.0) 01/25/18 06:00 Lymphocytes % 25.7 % (20.0-50.0) 01/25/18 06:00 Monocytes % 11.1 % (2.0-10.0) H 01/25/18 06:00 Eosinophils % 3.2 % (0.0-5.0) 01/25/18 06:00 Basophils % 0.8 % (0.0-2.0) 01/25/18 06:00 PT 10.4 SECONDS (9.5-11.5) 01/28/18 06:40 INR 1.00 (0.5-1.4) 01/28/18 06:40 PTT (Actin FS) 21.6 SECONDS (26.0-38.0) L 01/28/18 06:40 Sodium 141 mEq/L (136-145) 01/25/18 06:00 Potassium 4.6 mEq/L (3.5-5.1) 01/25/18 06:00 Chloride 109 mEq/L (98-107) H 01/25/18 06:00 Carbon Dioxide 24.6 mEq/L (21.0-31.0) 01/25/18 06:00 Anion Gap 12.0 (7.0-16.0) 01/25/18 06:00 BUN 33 mg/dL (7-25) H 01/25/18 06:00 Creatinine 1.3 mg/dL (0.7-1.3) 01/25/18 06:00 Est GFR ( Amer) TNP 01/25/18 06:00 Est GFR (Non-Af Amer) TNP 01/25/18 06:00 BUN/Creatinine Ratio 25.4 01/25/18 06:00 Glucose 92 mg/dL (70-105) 01/25/18 06:00 Calcium 9.5 mg/dL (8.6-10.3) 01/25/18 06:00 Total Bilirubin 0.4 mg/dL (0.3-1.0) 01/25/18 06:00 Direct Bilirubin 0.10 mg/dL (0.0-0.2) 01/25/18 06:00 AST 16 U/L (13-39) 01/25/18 06:00 ALT 12 U/L (7-52) 01/25/18 06:00 Alkaline Phosphatase 81 U/L (34-104) 01/25/18 06:00 Total Protein 6.6 gm/dL (6.0-8.3) 01/25/18 06:00 Albumin 3.5 gm/dL (4.2-5.5) L 01/25/18 06:00 Globulin 3.1 gm/dL 01/25/18 06:00 Albumin/Globulin Ratio 1.1 (1.0-1.8) 01/25/18 06:00 Vancomycin Trough 16.6 ug/mL (10-20) 01/16/18 08:00 Coccidioides Ab Negative (Neg:<1:2) 01/10/18 06:06 Histoplasma Antigen SEE REF. LAB REPORT 01/07/18 07:15 HIV 1&2 Antibody Screen NEGATIVE (NEG) 01/25/18 06:00 TB (QFT) Gold In Tube 01/19/18 20:00 TB Test (QFT) Mitogen 9.76 IU/mL 01/19/18 20:00 TB Test (QFT) Antigen 0.99 IU/mL 01/19/18 20:00 TB Test Antigen - Nil 0.89 IU/mL 01/19/18 20:00 TB Test TB - Nil 0.10 IU/mL 01/19/18 20:00 TB Test (QFT) Interp (()) 01/19/18 20:00 - Physical Exam Vitals and I&O: Vital Signs Temp 98.5 F 01/30/18 20:00 Pulse 64 01/30/18 23:20 Resp 18 01/30/18 23:20 BP 118/55 01/30/18 20:00 Pulse Ox 100 01/30/18 23:20 Intake & Output 01/30/18 01/30/18 01/31/18 06:59 18:59 06:59 Intake Total 240 450 Balance 240 450 Weight (lbs) 44.452 kg 44.543 kg Intake: Oral 240 450 Other: # Voids 3 2 # Bowel Movements 1 Stool Characteristics Soft Weight Source Bedscale Bedscale Active Medications: Current Medications Acetaminophen (Tylenol) 650 mg PO Q4HR PRN PRN Reason: Mild Pain / Temp above 100 Stop: 03/05/18 08:05 Last Admin: 01/25/18 20:24 Dose: 650 mg Al Hydrox/Mg Hydrox/Simethicone (Maalox) 30 ml PO Q4HR PRN PRN Reason: GI DISTRESS Stop: 03/05/18 08:05 Last Admin: 01/06/18 14:43 Dose: 30 ml Albuterol/Ipratropium (Duoneb Neb) 3 ml HHN Q8HRT [facility] Stop: 03/05/18 14:59 Last Admin: 01/30/18 23:19 Dose: 3 ml Aspirin (Aspirin Chewable) 81 mg PO DAILY [facility] Stop: 03/05/18 08:59 Last Admin: 01/30/18 09:07 Dose: 81 mg Atenolol (Tenormin) 100 mg PO DAILY [facility] Stop: 03/05/18 08:59 Last Admin: 01/30/18 09:07 Dose: 100 mg Atorvastatin Calcium (Lipitor) 40 mg PO DAILY [facility] PRN Reason: Protocol Stop: 03/05/18 08:59 Last Admin: 01/30/18 09:06 Dose: 40 mg Diltiazem HCl (Cardizem Cd) 120 mg PO DAILY [facility] Stop: 03/05/18 08:59 Last Admin: 01/30/18 09:07 Dose: 120 mg Donepezil HCl (Aricept) 5 mg PO DAILY [facility] Stop: 03/05/18 08:59 Last Admin: 01/30/18 09:07 Dose: 5 mg Ethambutol HCl (Myambutol) 800 mg PO [facility] [place] Stop: 03/23/18 08:59 Last Admin: 01/29/18 09:08 Dose: 800 mg Isoniazid (Inh) 300 mg PO DAILY [facility] Stop: 03/23/18 08:59 Last Admin: 01/30/18 09:07 Dose: 300 mg Lactobacillus Rhamnosus (Culturelle 15b) 1 each PO DAILY [facility] Stop: 03/09/18 08:59 Last Admin: 01/30/18 09:07 Dose: 1 each Magnesium Hydroxide (Milk Of Magnesia) 30 ml PO HS PRN PRN Reason: Constipation Stop: 03/05/18 08:05 Last Admin: 01/06/18 14:43 Dose: 30 ml Miscellaneous (Probiotic Screen) 1 ea MC PRN PRN PRN Reason: PROTOCOL Stop: 03/08/18 14:14 Pantoprazole Sodium (Protonix) 40 mg PO DAILY@0730 [facility] Stop: 03/05/18 08:59 Last Admin: 01/30/18 06:31 Dose: 40 mg Pyrazinamide (Pza) 1,000 mg PO [facility] [place] Stop: 03/23/18 08:59 Last Admin: 01/29/18 09:08 Dose: 1,000 mg Pyridoxine HCl (Vitamin B6) 50 mg PO DAILY [facility] Stop: 03/23/18 08:59 Last Admin: 01/30/18 09:07 Dose: 50 mg Rifampin (Rifadin) 300 mg PO DAILY [facility] Stop: 03/22/18 16:59 Last Admin: 01/30/18 09:07 Dose: 300 mg General: no acute distress, well developed, well nourished HEENT: atraumatic, normocephalic, PERRLA, EOMI, moist mucous membrane Neck: supple, no thyromegaly Cardiovascular: S1S2, regular Lungs: clear to auscultation bilaterally, clear to percussion Abdomen: soft, no tender, no distended Extremities: no cyanosis, no clubbing, no edema Neurological: awake, alert, oriented - Procedures Procedures: Procedures Procedure Code Date EXTRACTION OF R MID LUNG LOBE, PERC ENDO APPROACH, DIAGN [id number] 01/03/18 PERCUT BX LUNG/MEDIASTINUM 00048 01/03/18 Infectious Disease Assmt/Plan - Assessment Assessment: Impression: 1. 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 suspect pulmonary tuberculosis. other diagnosis has to be ruled out. 2. DM2 3. Depression. 4. MRSA colonization. - Plan Plan: Continue anti TB RIPE therapy. If AFB culture, come negative may consider alternate etiology. As per the staff, the Public health department has cleared for discharge and isolation. May dc to SNF or accepting facility. DC isolation. Nutritional Asmnt/Malnutr-PDOC - Dietary Evaluation Malnutrition Findings (Please click <Entered> for more info): Nutritional Asmnt/Malnutrition Start: 01/08/18 16: 30 Text: Status: Complete Freq: Document 01/08/18 16:30 HEN (Rec: 01/08/18 16:43 LCHENG [email or web address]) Nutritional Asmnt/Malnutrition Patient General Information Nutritional Screening Moderate Risk Diagnosis PNA Pertinent Medical Hx/Surgical Hx HTN, DM, renal failure, GERD, dementia, hyperlipidemia Subjective Information Pt seen eaing lunch on bed, airbone isolated. Spoke with RN, RN reported pt eats well, prefer hard boiled egg instead of scrambed, tea instead of coffee. Per records, PO intake 75-100% Current Diet Order/ Nutrition Support regular Pertinent Medications culturelle, protonix, levaquin Pertinent Labs 01/06 na 140, K 4.1, Cl 111, BUN 25, Cr 1.1 Nutritional Hx/Data Height 1.68 m Height (Calculated Centimeters) 167.6 Current Weight (lbs) 44.906 kg Weight (Calculated Kilograms) 44.9 Weight (Calculated Grams) 58909.6 [place] Body Weight 142 % [place] Body Weight 70 Body Mass Index (BMI) 16.0 Weight Status Underweight GI Symptoms GI Symptoms None Last BM 3/ Difficult in: None Skin Integrity/Comment: scar to let shoulder and left hip Estimated Nutritional Goals Calories/Kcals/Kg 25-30 based on IBW 65kg Kcals Calculated 2763-3013 Protein g/k-1.2 Protein Calculated 65-78 Fluid: ml 1625-1950ml (1ml/kcal) Nutritional Problem 1. Problem Problem underweight Etiology possible inadequate energy intake Signs/Symptoms: BMI 16 Intervention/Recommendation Comments 1. Continue with regular diet as ordered. 2. Monitor PO intake, wt, labs and skin integrity 3. F/U as low risk in 7 days, 01/15, PO check 01/12 Expected Outcomes/Goals Expected Outcomes/Goals 1. PO intake to meet at least 75% of nutritional needs. 2. Wt stability, skin to remain intact, labs to approach WNL.
[2018-01-31] MEDS: Pantoprazole 40 mg EC Tab PO SCH (06:40)
[2018-01-31] MEDS: Albuterol/Ipratropium Neb 3 ML AERS HHN SCH ×2 (07:27→14:56)
[2018-01-31] MEDS: Atenolol 100mg Tab PO SCH (09:15)
[2018-01-31] MEDS: Diltiazem CD 120 mg 24H PO SCH (09:15)
[2018-01-31] MEDS: Rifampin 300 mg Cap PO SCH (09:15)
[2018-01-31] MEDS: Aspirin 81mg Chewable Tab PO SCH (09:16)
[2018-01-31] MEDS: Lactobacillus Rhamnosus GG 15 Billion CFU CAP.SPRINK PO SCH (09:16)
--- NOTE | 2018-01-31 10:21 | General Progress Note ---
Subjective - Review of Systems Events since last encounter: patient with no fever no change from yesterday Objective - Results Result Diagrams: 01/25/18 06:00 01/25/18 06:00 Recent Labs: Laboratory Last Values WBC 5.5 Th/cmm (4.8-10.8) 01/25/18 06:00 RBC 3.49 Mil/cmm (3.80-5.80) L 01/25/18 06:00 Hgb 9.3 gm/dL (12-16) L 01/25/18 06:00 Hct 28.9 % (41.0-60) L 01/25/18 06:00 MCV 82.6 fl (80-99) 01/25/18 06:00 MCH 26.5 pg (27.0-31.0) L 01/25/18 06:00 MCHC Differential 32.1 pg (28.0-36.0) 01/25/18 06:00 RDW 14.7 % (11.5-20.0) 01/25/18 06:00 Plt Count 204 Th/cmm (150-400) 01/25/18 06:00 MPV 10.2 fl 01/25/18 06:00 Neutrophils % 59.2 % (40.0-80.0) 01/25/18 06:00 Lymphocytes % 25.7 % (20.0-50.0) 01/25/18 06:00 Monocytes % 11.1 % (2.0-10.0) H 01/25/18 06:00 Eosinophils % 3.2 % (0.0-5.0) 01/25/18 06:00 Basophils % 0.8 % (0.0-2.0) 01/25/18 06:00 PT 10.4 SECONDS (9.5-11.5) 01/28/18 06:40 INR 1.00 (0.5-1.4) 01/28/18 06:40 PTT (Actin FS) 21.6 SECONDS (26.0-38.0) L 01/28/18 06:40 Sodium 141 mEq/L (136-145) 01/25/18 06:00 Potassium 4.6 mEq/L (3.5-5.1) 01/25/18 06:00 Chloride 109 mEq/L (98-107) H 01/25/18 06:00 Carbon Dioxide 24.6 mEq/L (21.0-31.0) 01/25/18 06:00 Anion Gap 12.0 (7.0-16.0) 01/25/18 06:00 BUN 33 mg/dL (7-25) H 01/25/18 06:00 Creatinine 1.3 mg/dL (0.7-1.3) 01/25/18 06:00 Est GFR ( Amer) TNP 01/25/18 06:00 Est GFR (Non-Af Amer) TNP 01/25/18 06:00 BUN/Creatinine Ratio 25.4 01/25/18 06:00 Glucose 92 mg/dL (70-105) 01/25/18 06:00 Calcium 9.5 mg/dL (8.6-10.3) 01/25/18 06:00 Total Bilirubin 0.4 mg/dL (0.3-1.0) 01/25/18 06:00 Direct Bilirubin 0.10 mg/dL (0.0-0.2) 01/25/18 06:00 AST 16 U/L (13-39) 01/25/18 06:00 ALT 12 U/L (7-52) 01/25/18 06:00 Alkaline Phosphatase 81 U/L (34-104) 01/25/18 06:00 Total Protein 6.6 gm/dL (6.0-8.3) 01/25/18 06:00 Albumin 3.5 gm/dL (4.2-5.5) L 01/25/18 06:00 Globulin 3.1 gm/dL 01/25/18 06:00 Albumin/Globulin Ratio 1.1 (1.0-1.8) 01/25/18 06:00 Vancomycin Trough 16.6 ug/mL (10-20) 01/16/18 08:00 Coccidioides Ab Negative (Neg:<1:2) 01/10/18 06:06 Histoplasma Antigen SEE REF. LAB REPORT 01/07/18 07:15 HIV 1&2 Antibody Screen NEGATIVE (NEG) 01/25/18 06:00 TB (QFT) Gold In Tube 01/19/18 20:00 TB Test (QFT) Mitogen 9.76 IU/mL 01/19/18 20:00 TB Test (QFT) Antigen 0.99 IU/mL 01/19/18 20:00 TB Test Antigen - Nil 0.89 IU/mL 01/19/18 20:00 TB Test TB - Nil 0.10 IU/mL 01/19/18 20:00 TB Test (QFT) Interp (()) 01/19/18 20:00 - Physical Exam Vitals and I&O: Vital Signs Temp 97.8 F 01/31/18 00:00 Pulse 61 01/31/18 09:15 Resp 14 01/31/18 07:30 BP 113/66 01/31/18 00:00 Pulse Ox 98 01/31/18 07:30 Intake & Output 01/30/18 01/31/18 01/31/18 18:59 06:59 18:59 Intake Total 450 240 Balance 450 240 Weight (lbs) 44.543 kg 44.452 kg Intake: Oral 450 240 Other: # Voids 2 # Bowel Movements 1 Stool Characteristics Soft Weight Source Bedscale Bedscale Active Medications: Current Medications Acetaminophen (Tylenol) 650 mg PO Q4HR PRN PRN Reason: Mild Pain / Temp above 100 Stop: 03/05/18 08:05 Last Admin: 01/25/18 20:24 Dose: 650 mg Al Hydrox/Mg Hydrox/Simethicone (Maalox) 30 ml PO Q4HR PRN PRN Reason: GI DISTRESS Stop: 03/05/18 08:05 Last Admin: 01/06/18 14:43 Dose: 30 ml Albuterol/Ipratropium (Duoneb Neb) 3 ml HHN Q8HRT [facility] Stop: 03/05/18 14:59 Last Admin: 01/31/18 07:27 Dose: 3 ml Aspirin (Aspirin Chewable) 81 mg PO DAILY [facility] Stop: 03/05/18 08:59 Last Admin: 01/31/18 09:16 Dose: 81 mg Atenolol (Tenormin) 100 mg PO DAILY [facility] Stop: 03/05/18 08:59 Last Admin: 01/31/18 09:15 Dose: 100 mg Atorvastatin Calcium (Lipitor) 40 mg PO DAILY [facility] PRN Reason: Protocol Stop: 03/05/18 08:59 Last Admin: 01/31/18 09:15 Dose: 40 mg Diltiazem HCl (Cardizem Cd) 120 mg PO DAILY [facility] Stop: 03/05/18 08:59 Last Admin: 01/31/18 09:15 Dose: 120 mg Donepezil HCl (Aricept) 5 mg PO DAILY [facility] Stop: 03/05/18 08:59 Last Admin: 01/31/18 09:15 Dose: 5 mg Ethambutol HCl (Myambutol) 800 mg [place] [facility] [place] Stop: 03/23/18 08:59 Last Admin: 01/29/18 09:08 Dose: 800 mg Isoniazid (Inh) 300 mg PO DAILY [facility] Stop: 03/23/18 08:59 Last Admin: 01/31/18 09:15 Dose: 300 mg Lactobacillus Rhamnosus (Culturelle 15b) 1 each PO DAILY [facility] Stop: 03/09/18 08:59 Last Admin: 01/31/18 09:16 Dose: 1 each Magnesium Hydroxide (Milk Of Magnesia) 30 ml PO HS PRN PRN Reason: Constipation Stop: 03/05/18 08:05 Last Admin: 01/06/18 14:43 Dose: 30 ml Miscellaneous (Probiotic Screen) 1 ea MC PRN PRN PRN Reason: PROTOCOL Stop: 03/08/18 14:14 Pantoprazole Sodium (Protonix) 40 mg PO DAILY@0730 [facility] Stop: 03/05/18 08:59 Last Admin: 01/31/18 06:40 Dose: 40 mg Pyrazinamide (Pza) 1,000 mg PO F [facility] Stop: 03/23/18 08:59 Last Admin: 01/29/18 09:08 Dose: 1,000 mg Pyridoxine HCl (Vitamin B6) 50 mg PO DAILY [facility] Stop: 03/23/18 08:59 Last Admin: 01/31/18 09:15 Dose: 50 mg Rifampin (Rifadin) 300 mg PO DAILY [facility] Stop: 03/22/18 16:59 Last Admin: 01/31/18 09:15 Dose: 300 mg - Procedures Procedures: Procedures Procedure Code Date EXTRACTION OF R MID LUNG LOBE, PERC ENDO APPROACH, DIAGN [id number] 01/03/18 PERCUT BX LUNG/MEDIASTINUM 82445 01/03/18 Nutritional Asmnt/Malnutr-PDOC - Dietary Evaluation Malnutrition Findings (Please click <Entered> for more info): Nutritional Asmnt/Malnutrition Start: 01/08/18 16: 30 Text: Status: Complete Freq: Document 01/08/18 16:30 LCHENG (Rec: 01/08/18 16:43 [email or web address]) Nutritional Asmnt/Malnutrition Patient General Information Nutritional Screening Moderate Risk Diagnosis PNA Pertinent Medical Hx/Surgical Hx HTN, DM, renal failure, GERD, dementia, hyperlipidemia Subjective Information Pt seen eaing lunch on bed, airbone isolated. Spoke with RN, RN reported pt eats well, prefer hard boiled egg instead of scrambed, tea instead of coffee. Per records, PO intake 75-100% Current Diet Order/ Nutrition Support regular Pertinent Medications culturelle, protonix, levaquin Pertinent Labs 01/06 na 140, K 4.1, Cl 111, BUN 25, Cr 1.1 Nutritional Hx/Data Height 1.68 m Height (Calculated Centimeters) 167.6 Current Weight (lbs) 44.906 kg Weight (Calculated Kilograms) 44.9 Weight (Calculated Grams) 90168.6 [place] Body Weight 142 % [place] Body Weight 70 Body Mass Index (BMI) 16.0 Weight Status Underweight GI Symptoms GI Symptoms None Last BM 01/07 Difficult in: None Skin Integrity/Comment: scar to let shoulder and left hip Estimated Nutritional Goals Calories/Kcals/Kg 25-30 based on IBW 65kg Kcals Calculated 2160-7778 Protein g/k-1.2 Protein Calculated 65-78 Fluid: ml 1625-1950ml (1ml/kcal) Nutritional Problem 1. Problem Problem underweight Etiology possible inadequate energy intake Signs/Symptoms: BMI 16 Intervention/Recommendation Comments 1. Continue with regular diet as ordered. 2. Monitor PO intake, wt, labs and skin integrity 3. F/U as low risk in 7 days, 01/15, PO check 01/12 Expected Outcomes/Goals Expected Outcomes/Goals 1. PO intake to meet at least 75% of nutritional needs. 2. Wt stability, skin to remain intact, labs to approach WNL.
[2018-01-31 12:20] LABS: EOSINOPHILE ABSOLUTE 0.2 Th/cmm (0.1-0.4)
[2018-01-31 12:22] LABS: % BASOPHILS 0.4 % (0.0-2.0); % EOSINOPHILS 3.1 % (0.0-5.0); % LYMPHOCYTES 24.4 % (20.0-50.0); % NEUTROPHILS 62.1 % (40.0-80.0); HEMATOCRIT 28.3 % (41.0-60); HEMOGLOBIN 9.1 gm/dL (12-16); LYMPHOCYTE ABSOLUTE 1.2 Th/cmm (1.5-3.0); MEAN CELL VOLUME 82.4 fl (80-99); MEAN CORPUSCULAR HEMOGLOBIN 26.5 pg (27.0-31.0); MEAN CORPUSCULAR HGB CONC 32.2 pg (28.0-36.0); MONOCYTE ABSOLUTE 0.5 Th/cmm (0.3-1.0); PLATELET COUNT 192 Th/cmm (150-400); RED BLOOD COUNT 3.44 Mil/cmm (3.80-5.80); RED CELL DISTRIBUTION WIDTH 14.7 % (11.5-20.0); WHITE BLOOD COUNT 4.9 Th/cmm (4.8-10.8)
[2018-01-31 12:30] LABS: ANION GAP 12.4 (7.0-16.0); BUN - UREA NITROGEN 28 mg/dL (7-25); CARBON DIOXIDE 21.2 mEq/L (21.0-31.0); CHLORIDE 109 mEq/L (98-107); GLUCOSE 147 mg/dL (70-105); POTASSIUM SERUM 3.6 mEq/L (3.5-5.1); SODIUM SERUM 139 mEq/L (136-145)
--- NOTE | 2018-01-31 23:30 | Infectious Disease Prog Note ---
Infectious Disease Subjective - Review of Systems Service Date: 01/31/18 Subjective: There is no new change, no fever. Infectious Disease Objective - Results Result Diagrams: 01/31/18 11:58 01/31/18 11:58 Recent Labs: Laboratory Last Values WBC 4.9 Th/cmm (4.8-10.8) 01/31/18 11:58 RBC 3.44 Mil/cmm (3.80-5.80) L 01/31/18 11:58 Hgb 9.1 gm/dL (12-16) L 01/31/18 11:58 Hct 28.3 % (41.0-60) L 01/31/18 11:58 MCV 82.4 fl (80-99) 01/31/18 11:58 MCH 26.5 pg (27.0-31.0) L 01/31/18 11:58 MCHC Differential 32.2 pg (28.0-36.0) 01/31/18 11:58 RDW 14.7 % (11.5-20.0) 01/31/18 11:58 Plt Count 192 Th/cmm (150-400) 01/31/18 11:58 MPV 9.0 fl 01/31/18 11:58 Neutrophils % 62.1 % (40.0-80.0) 01/31/18 11:58 Lymphocytes % 24.4 % (20.0-50.0) 01/31/18 11:58 Monocytes % 10.0 % (2.0-10.0) 01/31/18 11:58 Eosinophils % 3.1 % (0.0-5.0) 01/31/18 11:58 Basophils % 0.4 % (0.0-2.0) 01/31/18 11:58 PT 10.4 SECONDS (9.5-11.5) 01/28/18 06:40 INR 1.00 (0.5-1.4) 01/28/18 06:40 PTT (Actin FS) 21.6 SECONDS (26.0-38.0) L 01/28/18 06:40 Sodium 139 mEq/L (136-145) 01/31/18 11:58 Potassium 3.6 mEq/L (3.5-5.1) 01/31/18 11:58 Chloride 109 mEq/L (98-107) H 01/31/18 11:58 Carbon Dioxide 21.2 mEq/L (21.0-31.0) 01/31/18 11:58 Anion Gap 12.4 (7.0-16.0) 01/31/18 11:58 BUN 28 mg/dL (7-25) H 01/31/18 11:58 Creatinine 1.0 mg/dL (0.7-1.3) 01/31/18 11:58 Est GFR ( Amer) TNP 01/31/18 11:58 Est GFR (Non-Af Amer) TNP 01/31/18 11:58 BUN/Creatinine Ratio 28.0 01/31/18 11:58 Glucose 147 mg/dL (70-105) H 01/31/18 11:58 Calcium 9.0 mg/dL (8.6-10.3) 01/31/18 11:58 Total Bilirubin 0.4 mg/dL (0.3-1.0) 01/25/18 06:00 Direct Bilirubin 0.10 mg/dL (0.0-0.2) 01/25/18 06:00 AST 16 U/L (13-39) 01/25/18 06:00 ALT 12 U/L (7-52) 01/25/18 06:00 Alkaline Phosphatase 81 U/L (34-104) 01/25/18 06:00 Total Protein 6.6 gm/dL (6.0-8.3) 01/25/18 06:00 Albumin 3.5 gm/dL (4.2-5.5) L 01/25/18 06:00 Globulin 3.1 gm/dL 01/25/18 06:00 Albumin/Globulin Ratio 1.1 (1.0-1.8) 01/25/18 06:00 Vancomycin Trough 16.6 ug/mL (10-20) 01/16/18 08:00 Coccidioides Ab Negative (Neg:<1:2) 01/10/18 06:06 Histoplasma Antigen SEE REF. LAB REPORT 01/07/18 07:15 HIV 1&2 Antibody Screen NEGATIVE (NEG) 01/25/18 06:00 TB (QFT) Gold In Tube 01/19/18 20:00 TB Test (QFT) Mitogen 9.76 IU/mL 01/19/18 20:00 TB Test (QFT) Antigen 0.99 IU/mL 01/19/18 20:00 TB Test Antigen - Nil 0.89 IU/mL 01/19/18 20:00 TB Test TB - Nil 0.10 IU/mL 01/19/18 20:00 TB Test (QFT) Interp (()) 01/19/18 20:00 - Physical Exam Vitals and I&O: Vital Signs Temp 98.4 F 01/31/18 20:00 Pulse 70 01/31/18 20:00 Resp 18 01/31/18 20:00 BP 123/82 01/31/18 20:00 Pulse Ox 98 01/31/18 20:00 Intake & Output 01/31/18 01/31/18 02/01/18 06:59 18:59 06:59 Intake Total 240 1050 Balance 240 1050 Weight (lbs) 44.452 kg 44.543 kg Intake: Oral 240 1050 Other: # Voids 3 # Bowel Movements 0 Stool Characteristics Soft Soft Weight Source Bedscale Bedscale Active Medications: Current Medications Acetaminophen (Tylenol) 650 mg PO Q4HR PRN PRN Reason: Mild Pain / Temp above 100 Stop: 03/05/18 08:05 Last Admin: 01/25/18 20:24 Dose: 650 mg Al Hydrox/Mg Hydrox/Simethicone (Maalox) 30 ml PO Q4HR PRN PRN Reason: GI DISTRESS Stop: 03/05/18 08:05 Last Admin: 01/06/18 14:43 Dose: 30 ml Albuterol/Ipratropium (Duoneb Neb) 3 ml HHN Q8HRT [facility] Stop: 03/05/18 14:59 Last Admin: 01/31/18 14:56 Dose: 3 ml Aspirin (Aspirin Chewable) 81 mg PO DAILY [facility] Stop: 03/05/18 08:59 Last Admin: 01/31/18 09:16 Dose: 81 mg Atenolol (Tenormin) 100 mg PO DAILY [facility] Stop: 03/05/18 08:59 Last Admin: 01/31/18 09:15 Dose: 100 mg Atorvastatin Calcium (Lipitor) 40 mg PO DAILY [facility] PRN Reason: Protocol Stop: 03/05/18 08:59 Last Admin: 01/31/18 09:15 Dose: 40 mg Diltiazem HCl (Cardizem Cd) 120 mg PO DAILY [facility] Stop: 03/05/18 08:59 Last Admin: 01/31/18 09:15 Dose: 120 mg Donepezil HCl (Aricept) 5 mg PO DAILY [facility] Stop: 03/05/18 08:59 Last Admin: 01/31/18 09:15 Dose: 5 mg Ethambutol HCl (Myambutol) 800 mg PO [facility] [place] Stop: 03/23/18 08:59 Last Admin: 01/29/18 09:08 Dose: 800 mg Isoniazid (Inh) 300 mg PO DAILY [facility] Stop: 03/23/18 08:59 Last Admin: 01/31/18 09:15 Dose: 300 mg Lactobacillus Rhamnosus (Culturelle 15b) 1 each PO DAILY [facility] Stop: 03/09/18 08:59 Last Admin: 01/31/18 09:16 Dose: 1 each Magnesium Hydroxide (Milk Of Magnesia) 30 ml PO HS PRN PRN Reason: Constipation Stop: 03/05/18 08:05 Last Admin: 01/06/18 14:43 Dose: 30 ml Miscellaneous (Probiotic Screen) 1 ea [facility] PRN PRN PRN Reason: PROTOCOL Stop: 03/08/18 14:14 Pantoprazole Sodium (Protonix) 40 mg PO DAILY@0730 [facility] Stop: 03/05/18 08:59 Last Admin: 01/31/18 06:40 Dose: 40 mg Pyrazinamide (Pza) 1,000 mg PO [facility] [place] Stop: 03/23/18 08:59 Last Admin: 01/29/18 09:08 Dose: 1,000 mg Pyridoxine HCl (Vitamin B6) 50 mg PO DAILY [facility] Stop: 03/23/18 08:59 Last Admin: 01/31/18 09:15 Dose: 50 mg Rifampin (Rifadin) 300 mg PO DAILY [facility] Stop: 03/22/18 16:59 Last Admin: 01/31/18 09:15 Dose: 300 mg General: no acute distress, well developed, well nourished HEENT: atraumatic, normocephalic, PERRLA, EOMI Neck: supple, no thyromegaly Cardiovascular: S1S2, regular Lungs: clear to auscultation bilaterally, clear to percussion Abdomen: soft, no tender, no distended, no mass, no rebound Extremities: no cyanosis, no clubbing, no edema Neurological: awake, alert, oriented Skin: intact - Procedures Procedures: Procedures Procedure Code Date EXTRACTION OF R MID LUNG LOBE, PERC ENDO APPROACH, DIAGN [id number] 01/03/18 PERCUT BX LUNG/MEDIASTINUM 90396 01/03/18 Infectious Disease Assmt/Plan - Assessment Assessment: Impression: 1. 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 suspect pulmonary tuberculosis. other diagnosis has to be ruled out. 2. DM2 3. Depression. 4. MRSA colonization. - Plan Plan: Continue anti TB RIPE therapy. If AFB culture, come negative may consider alternate etiology. As per the staff, the Public health department has cleared for discharge and isolation. May dc to SNF or accepting facility. DC isolation. Nutritional Asmnt/Malnutr-PDOC - Dietary Evaluation Malnutrition Findings (Please click <Entered> for more info): Nutritional Asmnt/Malnutrition Start: 01/08/18 16: 30 Text: Status: Complete Freq: Document 01/08/18 16:30 LCHENG (Rec: 01/08/18 16:43 [email or web address]) Nutritional Asmnt/Malnutrition Patient General Information Nutritional Screening Moderate Risk Diagnosis PNA Pertinent Medical Hx/Surgical Hx HTN, DM, renal failure, GERD, dementia, hyperlipidemia Subjective Information Pt seen eaing lunch on bed, airbone isolated. Spoke with RN, RN reported pt eats well, prefer hard boiled egg instead of scrambed, tea instead of coffee. Per records, PO intake 75-100% Current Diet Order/ Nutrition Support regular Pertinent Medications culturelle, protonix, levaquin Pertinent Labs 01/06 na 140, K 4.1, Cl 111, BUN 25, Cr 1.1 Nutritional Hx/Data Height 1.68 m Height (Calculated Centimeters) 167.6 Current Weight (lbs) 44.906 kg Weight (Calculated Kilograms) 44.9 Weight (Calculated Grams) 99485.6 [place] Body Weight 142 % [place] Body Weight 70 Body Mass Index (BMI) 16.0 Weight Status Underweight GI Symptoms GI Symptoms None Last BM 3 Difficult in: None Skin Integrity/Comment: scar to let shoulder and left hip Estimated Nutritional Goals Calories/Kcals/Kg 25-30 based on IBW 65kg Kcals Calculated 0674-4495 Protein g/k-1.2 Protein Calculated 65-78 Fluid: ml 1625-1950ml (1ml/kcal) Nutritional Problem 1. Problem Problem underweight Etiology possible inadequate energy intake Signs/Symptoms: BMI 16 Intervention/Recommendation Comments 1. Continue with regular diet as ordered. 2. Monitor PO intake, wt, labs and skin integrity 3. F/U as low risk in 7 days, 01/15, PO check 01/12 Expected Outcomes/Goals Expected Outcomes/Goals 1. PO intake to meet at least 75% of nutritional needs. 2. Wt stability, skin to remain intact, labs to approach WNL.
[2018-02-01] MEDS: Albuterol/Ipratropium Neb 3 ML AERS HHN SCH ×4 (00:05→22:13)
[2018-02-01] MEDS: Rifampin 300 mg Cap PO SCH (08:14)
[2018-02-01] MEDS: Atenolol 100mg Tab PO SCH (08:14)
[2018-02-01] MEDS: Lactobacillus Rhamnosus GG 15 Billion CFU CAP.SPRINK PO SCH (08:15)
[2018-02-01] MEDS: Diltiazem CD 120 mg 24H PO SCH (08:15)
[2018-02-01] MEDS: Aspirin 81mg Chewable Tab PO SCH (08:16)
[2018-02-01] MEDS: Pantoprazole 40 mg EC Tab PO SCH (08:16)
--- NOTE | 2018-02-01 15:23 | General Progress Note ---
Subjective - Review of Systems Events since last encounter: no fever no distress Objective - Results Result Diagrams: 01/31/18 11:58 01/31/18 11:58 Recent Labs: Laboratory Last Values WBC 4.9 Th/cmm (4.8-10.8) 01/31/18 11:58 RBC 3.44 Mil/cmm (3.80-5.80) L 01/31/18 11:58 Hgb 9.1 gm/dL (12-16) L 01/31/18 11:58 Hct 28.3 % (41.0-60) L 01/31/18 11:58 MCV 82.4 fl (80-99) 01/31/18 11:58 MCH 26.5 pg (27.0-31.0) L 01/31/18 11:58 MCHC Differential 32.2 pg (28.0-36.0) 01/31/18 11:58 RDW 14.7 % (11.5-20.0) 01/31/18 11:58 Plt Count 192 Th/cmm (150-400) 01/31/18 11:58 MPV 9.0 fl 01/31/18 11:58 Neutrophils % 62.1 % (40.0-80.0) 01/31/18 11:58 Lymphocytes % 24.4 % (20.0-50.0) 01/31/18 11:58 Monocytes % 10.0 % (2.0-10.0) 01/31/18 11:58 Eosinophils % 3.1 % (0.0-5.0) 01/31/18 11:58 Basophils % 0.4 % (0.0-2.0) 01/31/18 11:58 PT 10.4 SECONDS (9.5-11.5) 01/28/18 06:40 INR 1.00 (0.5-1.4) 01/28/18 06:40 PTT (Actin FS) 21.6 SECONDS (26.0-38.0) L 01/28/18 06:40 Sodium 139 mEq/L (136-145) 01/31/18 11:58 Potassium 3.6 mEq/L (3.5-5.1) 01/31/18 11:58 Chloride 109 mEq/L (98-107) H 01/31/18 11:58 Carbon Dioxide 21.2 mEq/L (21.0-31.0) 01/31/18 11:58 Anion Gap 12.4 (7.0-16.0) 01/31/18 11:58 BUN 28 mg/dL (7-25) H 01/31/18 11:58 Creatinine 1.0 mg/dL (0.7-1.3) 01/31/18 11:58 Est GFR ( Amer) TNP 01/31/18 11:58 Est GFR (Non-Af Amer) TNP 01/31/18 11:58 BUN/Creatinine Ratio 28.0 01/31/18 11:58 Glucose 147 mg/dL (70-105) H 01/31/18 11:58 Calcium 9.0 mg/dL (8.6-10.3) 01/31/18 11:58 Total Bilirubin 0.4 mg/dL (0.3-1.0) 01/25/18 06:00 Direct Bilirubin 0.10 mg/dL (0.0-0.2) 01/25/18 06:00 AST 16 U/L (13-39) 01/25/18 06:00 ALT 12 U/L (7-52) 01/25/18 06:00 Alkaline Phosphatase 81 U/L (34-104) 01/25/18 06:00 Total Protein 6.6 gm/dL (6.0-8.3) 01/25/18 06:00 Albumin 3.5 gm/dL (4.2-5.5) L 01/25/18 06:00 Globulin 3.1 gm/dL 01/25/18 06:00 Albumin/Globulin Ratio 1.1 (1.0-1.8) 01/25/18 06:00 Vancomycin Trough 16.6 ug/mL (10-20) 01/16/18 08:00 Coccidioides Ab Negative (Neg:<1:2) 01/10/18 06:06 Histoplasma Antigen SEE REF. LAB REPORT 01/07/18 07:15 HIV 1&2 Antibody Screen NEGATIVE (NEG) 01/25/18 06:00 TB (QFT) Gold In Tube 01/19/18 20:00 TB Test (QFT) Mitogen 9.76 IU/mL 01/19/18 20:00 TB Test (QFT) Antigen 0.99 IU/mL 01/19/18 20:00 TB Test Antigen - Nil 0.89 IU/mL 01/19/18 20:00 TB Test TB - Nil 0.10 IU/mL 01/19/18 20:00 TB Test (QFT) Interp (()) 01/19/18 20:00 - Physical Exam Vitals and I&O: Vital Signs Temp 98.2 F 02/01/18 12:32 Pulse 68 02/01/18 14:08 Resp 18 02/01/18 14:08 BP 136/75 02/01/18 12:32 Pulse Ox 99 02/01/18 14:08 Intake & Output 01/31/18 02/01/18 02/01/18 18:59 06:59 18:59 Intake Total 1050 300 Output Total 200 Balance 1050 100 Weight (lbs) 44.543 kg 44.452 kg Intake: Oral 1050 300 Output: Urine 200 Other: # Voids 3 # Bowel Movements 0 1 Stool Characteristics Soft Soft Weight Source Bedscale Bedscale Active Medications: Current Medications Acetaminophen (Tylenol) 650 mg PO Q4HR PRN PRN Reason: Mild Pain / Temp above 100 Stop: 03/05/18 08:05 Last Admin: 01/25/18 20:24 Dose: 650 mg Al Hydrox/Mg Hydrox/Simethicone (Maalox) 30 ml PO Q4HR PRN PRN Reason: GI DISTRESS Stop: 03/05/18 08:05 Last Admin: 01/06/18 14:43 Dose: 30 ml Albuterol/Ipratropium (Duoneb Neb) 3 ml HHN Q8HRT [facility] Stop: 03/05/18 14:59 Last Admin: 02/01/18 14:08 Dose: 3 ml Aspirin (Aspirin Chewable) 81 mg PO DAILY [facility] Stop: 03/05/18 08:59 Last Admin: 02/01/18 08:16 Dose: 81 mg Atenolol (Tenormin) 100 mg PO DAILY [facility] Stop: 03/05/18 08:59 Last Admin: 02/01/18 08:14 Dose: 100 mg Atorvastatin Calcium (Lipitor) 40 mg PO DAILY [facility] PRN Reason: Protocol Stop: 03/05/18 08:59 Last Admin: 02/01/18 08:17 Dose: 40 mg Diltiazem HCl (Cardizem Cd) 120 mg PO DAILY [facility] Stop: 03/05/18 08:59 Last Admin: 02/01/18 08:15 Dose: 120 mg Donepezil HCl (Aricept) 5 mg PO DAILY [facility] Stop: 03/05/18 08:59 Last Admin: 02/01/18 08:15 Dose: 5 mg Ethambutol HCl (Myambutol) 800 mg PO MWF [facility] Stop: 03/23/18 08:59 Last Admin: 02/01/18 08:14 Dose: 800 mg Isoniazid (Inh) 300 mg PO DAILY [facility] Stop: 03/23/18 08:59 Last Admin: 02/01/18 08:13 Dose: 300 mg Lactobacillus Rhamnosus (Culturelle 15b) 1 each PO DAILY [facility] Stop: 03/09/18 08:59 Last Admin: 02/01/18 08:15 Dose: 1 each Magnesium Hydroxide (Milk Of Magnesia) 30 ml PO HS PRN PRN Reason: Constipation Stop: 03/05/18 08:05 Last Admin: 01/06/18 14:43 Dose: 30 ml Miscellaneous (Probiotic Screen) 1 ea [facility] PRN PRN PRN Reason: PROTOCOL Stop: 03/08/18 14:14 Pantoprazole Sodium (Protonix) 40 mg PO DAILY@0730 [facility] Stop: 03/05/18 08:59 Last Admin: 02/01/18 08:16 Dose: 40 mg Pyrazinamide (Pza) 1,000 mg PO MWF [facility] Stop: 03/23/18 08:59 Last Admin: 02/01/18 08:13 Dose: 1,000 mg Pyridoxine HCl (Vitamin B6) 50 mg PO DAILY [facility] Stop: 03/23/18 08:59 Last Admin: 02/01/18 08:16 Dose: 50 mg Rifampin (Rifadin) 300 mg PO DAILY [facility] Stop: 03/22/18 16:59 Last Admin: 02/01/18 08:14 Dose: 300 mg - Procedures Procedures: Procedures Procedure Code Date EXTRACTION OF R MID LUNG LOBE, PERC ENDO APPROACH, DIAGN [id number] 01/03/18 PERCUT BX LUNG/MEDIASTINUM 72535 01/03/18 Nutritional Asmnt/Malnutr-PDOC - Dietary Evaluation Malnutrition Findings (Please click <Entered> for more info): Nutritional Asmnt/Malnutrition Start: 01/08/18 16: 30 Text: Status: Complete Freq: Document 01/08/18 16:30 [email or web address] (Rec: 01/08/18 16:43 [email or web address]) Nutritional Asmnt/Malnutrition Patient General Information Nutritional Screening Moderate Risk Diagnosis PNA Pertinent Medical Hx/Surgical Hx HTN, DM, renal failure, GERD, dementia, hyperlipidemia Subjective Information Pt seen eaing lunch on bed, airbone isolated. Spoke with RN, RN reported pt eats well, prefer hard boiled egg instead of scrambed, tea instead of coffee. Per records, PO intake 75-100% Current Diet Order/ Nutrition Support regular Pertinent Medications culturelle, protonix, levaquin Pertinent Labs 01/06 na 140, K 4.1, Cl 111, BUN 25, Cr 1.1 Nutritional Hx/Data Height 1.68 m Height (Calculated Centimeters) 167.6 Current Weight (lbs) 44.906 kg Weight (Calculated Kilograms) 44.9 Weight (Calculated Grams) 62330.6 [place] Body Weight 142 % [place] Body Weight 70 Body Mass Index (BMI) 16.0 Weight Status Underweight GI Symptoms GI Symptoms None Last BM 01/07 Difficult in: None Skin Integrity/Comment: scar to let shoulder and left hip Estimated Nutritional Goals Calories/Kcals/Kg 25-30 based on IBW 65kg Kcals Calculated 8986-1143 Protein g/k-1.2 Protein Calculated 65-78 Fluid: ml 1625-1950ml (1ml/kcal) Nutritional Problem 1. Problem Problem underweight Etiology possible inadequate energy intake Signs/Symptoms: BMI 16 Intervention/Recommendation Comments 1. Continue with regular diet as ordered. 2. Monitor PO intake, wt, labs and skin integrity 3. F/U as low risk in 7 days, 01/15, PO check 01/12 Expected Outcomes/Goals Expected Outcomes/Goals 1. PO intake to meet at least 75% of nutritional needs. 2. Wt stability, skin to remain intact, labs to approach WNL.
--- NOTE | 2018-02-01 21:42 | Progress Notes ---
DATE: 02/01/[address] Marsh. Case was discussed with staff of the patient, reviewed records. The patient continues to be confused, demented. Continues to be unable to make safe plan for self-care. Continues to have minimal interaction. No side effects with the medication, no sedation, no nausea. Thank you very much for allowing me to participate in the care of this most interesting gentleman. JOB# [id number]
--- NOTE | 2018-02-01 23:40 | Infectious Disease Prog Note ---
Infectious Disease Subjective - Review of Systems Service Date: 02/01/18 Subjective: There is no new change, no fever. Infectious Disease Objective - Results Result Diagrams: 01/31/18 11:58 01/31/18 11:58 Recent Labs: Laboratory Last Values WBC 4.9 Th/cmm (4.8-10.8) 01/31/18 11:58 RBC 3.44 Mil/cmm (3.80-5.80) L 01/31/18 11:58 Hgb 9.1 gm/dL (12-16) L 01/31/18 11:58 Hct 28.3 % (41.0-60) L 01/31/18 11:58 MCV 82.4 fl (80-99) 01/31/18 11:58 MCH 26.5 pg (27.0-31.0) L 01/31/18 11:58 MCHC Differential 32.2 pg (28.0-36.0) 01/31/18 11:58 RDW 14.7 % (11.5-20.0) 01/31/18 11:58 Plt Count 192 Th/cmm (150-400) 01/31/18 11:58 MPV 9.0 fl 01/31/18 11:58 Neutrophils % 62.1 % (40.0-80.0) 01/31/18 11:58 Lymphocytes % 24.4 % (20.0-50.0) 01/31/18 11:58 Monocytes % 10.0 % (2.0-10.0) 01/31/18 11:58 Eosinophils % 3.1 % (0.0-5.0) 01/31/18 11:58 Basophils % 0.4 % (0.0-2.0) 01/31/18 11:58 PT 10.4 SECONDS (9.5-11.5) 01/28/18 06:40 INR 1.00 (0.5-1.4) 01/28/18 06:40 PTT (Actin FS) 21.6 SECONDS (26.0-38.0) L 01/28/18 06:40 Sodium 139 mEq/L (136-145) 01/31/18 11:58 Potassium 3.6 mEq/L (3.5-5.1) 01/31/18 11:58 Chloride 109 mEq/L (98-107) H 01/31/18 11:58 Carbon Dioxide 21.2 mEq/L (21.0-31.0) 01/31/18 11:58 Anion Gap 12.4 (7.0-16.0) 01/31/18 11:58 BUN 28 mg/dL (7-25) H 01/31/18 11:58 Creatinine 1.0 mg/dL (0.7-1.3) 01/31/18 11:58 Est GFR ( Amer) TNP 01/31/18 11:58 Est GFR (Non-Af Amer) TNP 01/31/18 11:58 BUN/Creatinine Ratio 28.0 01/31/18 11:58 Glucose 147 mg/dL (70-105) H 01/31/18 11:58 Calcium 9.0 mg/dL (8.6-10.3) 01/31/18 11:58 Total Bilirubin 0.4 mg/dL (0.3-1.0) 01/25/18 06:00 Direct Bilirubin 0.10 mg/dL (0.0-0.2) 01/25/18 06:00 AST 16 U/L (13-39) 01/25/18 06:00 ALT 12 U/L (7-52) 01/25/18 06:00 Alkaline Phosphatase 81 U/L (34-104) 01/25/18 06:00 Total Protein 6.6 gm/dL (6.0-8.3) 01/25/18 06:00 Albumin 3.5 gm/dL (4.2-5.5) L 01/25/18 06:00 Globulin 3.1 gm/dL 01/25/18 06:00 Albumin/Globulin Ratio 1.1 (1.0-1.8) 01/25/18 06:00 Vancomycin Trough 16.6 ug/mL (10-20) 01/16/18 08:00 Coccidioides Ab Negative (Neg:<1:2) 01/10/18 06:06 Histoplasma Antigen SEE REF. LAB REPORT 01/07/18 07:15 HIV 1&2 Antibody Screen NEGATIVE (NEG) 01/25/18 06:00 TB (QFT) Gold In Tube 01/19/18 20:00 TB Test (QFT) Mitogen 9.76 IU/mL 01/19/18 20:00 TB Test (QFT) Antigen 0.99 IU/mL 01/19/18 20:00 TB Test Antigen - Nil 0.89 IU/mL 01/19/18 20:00 TB Test TB - Nil 0.10 IU/mL 01/19/18 20:00 TB Test (QFT) Interp (()) 01/19/18 20:00 - Physical Exam Vitals and I&O: Vital Signs Temp 98.2 F 02/01/18 20:00 Pulse 70 02/01/18 22:13 Resp 18 02/01/18 22:13 BP 110/55 02/01/18 20:00 Pulse Ox 98 02/01/18 22:13 Intake & Output 02/01/18 02/01/18 02/02/18 06:59 18:59 06:59 Intake Total 300 850 Output Total 200 750 Balance 100 100 Weight (lbs) 44.452 kg 44.452 kg Intake: Oral 300 850 Output: Urine 200 750 Other: # Bowel Movements 1 1 Stool Characteristics Soft Weight Source Bedscale Bedscale Active Medications: Current Medications Acetaminophen (Tylenol) 650 mg PO Q4HR PRN PRN Reason: Mild Pain / Temp above 100 Stop: 03/05/18 08:05 Last Admin: 01/25/18 20:24 Dose: 650 mg Al Hydrox/Mg Hydrox/Simethicone (Maalox) 30 ml PO Q4HR PRN PRN Reason: GI DISTRESS Stop: 03/05/18 08:05 Last Admin: 01/06/18 14:43 Dose: 30 ml Albuterol/Ipratropium (Duoneb Neb) 3 ml HHN Q8HRT [facility] Stop: 03/05/18 14:59 Last Admin: 02/01/18 22:13 Dose: Not Given Aspirin (Aspirin Chewable) 81 mg PO DAILY [facility] Stop: 03/05/18 08:59 Last Admin: 02/01/18 08:16 Dose: 81 mg Atenolol (Tenormin) 100 mg PO DAILY [facility] Stop: 03/05/18 08:59 Last Admin: 02/01/18 08:14 Dose: 100 mg Atorvastatin Calcium (Lipitor) 40 mg PO DAILY [facility] PRN Reason: Protocol Stop: 03/05/18 08:59 Last Admin: 02/01/18 08:17 Dose: 40 mg Diltiazem HCl (Cardizem Cd) 120 mg PO DAILY [facility] Stop: 03/05/18 08:59 Last Admin: 02/01/18 08:15 Dose: 120 mg Donepezil HCl (Aricept) 5 mg PO DAILY [facility] Stop: 03/05/18 08:59 Last Admin: 02/01/18 08:15 Dose: 5 mg Ethambutol HCl (Myambutol) 800 mg PO [facility] Stop: 03/23/18 08:59 Last Admin: 02/01/18 08:14 Dose: 800 mg Isoniazid (Inh) 300 mg PO DAILY [facility] Stop: 03/23/18 08:59 Last Admin: 02/01/18 08:13 Dose: 300 mg Lactobacillus Rhamnosus (Culturelle 15b) 1 each PO DAILY [facility] Stop: 03/09/18 08:59 Last Admin: 02/01/18 08:15 Dose: 1 each Magnesium Hydroxide (Milk Of Magnesia) 30 ml PO HS PRN PRN Reason: Constipation Stop: 03/05/18 08:05 Last Admin: 01/06/18 14:43 Dose: 30 ml Miscellaneous (Probiotic Screen) 1 ea [facility] PRN PRN PRN Reason: PROTOCOL Stop: 03/08/18 14:14 Pantoprazole Sodium (Protonix) 40 mg PO DAILY@0730 [facility] Stop: 03/05/18 08:59 Last Admin: 02/01/18 08:16 Dose: 40 mg Pyrazinamide (Pza) 1,000 mg PO [facility] [place] Stop: 03/23/18 08:59 Last Admin: 02/01/18 08:13 Dose: 1,000 mg Pyridoxine HCl (Vitamin B6) 50 mg PO DAILY [facility] Stop: 03/23/18 08:59 Last Admin: 02/01/18 08:16 Dose: 50 mg Rifampin (Rifadin) 300 mg PO DAILY [facility] Stop: 03/22/18 16:59 Last Admin: 02/01/18 08:14 Dose: 300 mg General: no acute distress, well developed, well nourished, cachectic HEENT: atraumatic, normocephalic, PERRLA, EOMI, moist mucous membrane Neck: supple, no thyromegaly, no lymphadenopathy Cardiovascular: S1S2, regular Lungs: clear to auscultation bilaterally, clear to percussion Abdomen: soft, no tender, no distended Extremities: no cyanosis, no clubbing, no edema Neurological: awake, alert, oriented Skin: intact - Procedures Procedures: Procedures Procedure Code Date EXTRACTION OF R MID LUNG LOBE, PERC ENDO APPROACH, DIAGN [id number] 01/03/18 PERCUT BX LUNG/MEDIASTINUM 24894 01/03/18 Infectious Disease Assmt/Plan - Assessment Assessment: Impression: 1. 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 suspect pulmonary tuberculosis. other diagnosis has to be ruled out. 2. DM2 3. Depression. 4. MRSA colonization. - Plan Plan: Continue anti TB RIPE therapy. If AFB culture, come negative may consider alternate etiology. As per the staff, the Public health department has cleared for discharge and isolation. May dc to SNF or accepting facility. DC isolation. Nutritional Asmnt/Malnutr-PDOC - Dietary Evaluation Malnutrition Findings (Please click <Entered> for more info): Nutritional Asmnt/Malnutrition Start: 01/08/18 16: 30 Text: Status: Complete Freq: Document 01/08/18 16:30 HEN (Rec: 01/08/18 16:43 LCHENG [email or web address]) Nutritional Asmnt/Malnutrition Patient General Information Nutritional Screening Moderate Risk Diagnosis PNA Pertinent Medical Hx/Surgical Hx HTN, DM, renal failure, GERD, dementia, hyperlipidemia Subjective Information Pt seen eaing lunch on bed, airbone isolated. Spoke with RN, RN reported pt eats well, prefer hard boiled egg instead of scrambed, tea instead of coffee. Per records, PO intake 75-100% Current Diet Order/ Nutrition Support regular Pertinent Medications culturelle, protonix, levaquin Pertinent Labs 01/06 na 140, K 4.1, Cl 111, BUN 25, Cr 1.1 Nutritional Hx/Data Height 1.68 m Height (Calculated Centimeters) 167.6 Current Weight (lbs) 44.906 kg Weight (Calculated Kilograms) 44.9 Weight (Calculated Grams) 08342.6 Salmon Body Weight 142 % Salmon Body Weight 70 Body Mass Index (BMI) 16.0 Weight Status Underweight GI Symptoms GI Symptoms None Last BM 3/ Difficult in: None Skin Integrity/Comment: scar to let shoulder and left hip Estimated Nutritional Goals Calories/Kcals/Kg 25-30 based on IBW 65kg Kcals Calculated 4360-4188 Protein g/k-1.2 Protein Calculated 65-78 Fluid: ml 1625-1950ml (1ml/kcal) Nutritional Problem 1. Problem Problem underweight Etiology possible inadequate energy intake Signs/Symptoms: BMI 16 Intervention/Recommendation Comments 1. Continue with regular diet as ordered. 2. Monitor PO intake, wt, labs and skin integrity 3. F/U as low risk in 7 days, 01/15, PO check 01/12 Expected Outcomes/Goals Expected Outcomes/Goals 1. PO intake to meet at least 75% of nutritional needs. 2. Wt stability, skin to remain intact, labs to approach WNL.
[2018-02-02] MEDS: Pantoprazole 40 mg EC Tab PO SCH (06:39)
[2018-02-02] MEDS: Albuterol/Ipratropium Neb 3 ML AERS HHN SCH ×3 (06:56→23:00)
[2018-02-02] MEDS: Aspirin 81mg Chewable Tab PO SCH (08:42)
[2018-02-02] MEDS: Lactobacillus Rhamnosus GG 15 Billion CFU CAP.SPRINK PO SCH (08:43)
[2018-02-02] MEDS: Diltiazem CD 120 mg 24H PO SCH (08:44)
[2018-02-02] MEDS: Atenolol 100mg Tab PO SCH (08:45)
[2018-02-02] MEDS: Rifampin 300 mg Cap PO SCH (08:54)
[2018-02-02 10:49] LABS: % EOSINOPHILS 3.6 % (0.0-5.0); % LYMPHOCYTES 20.5 % (20.0-50.0); % MONOCYTES 12.4 % (2.0-10.0); % NEUTROPHILS 62.5 % (40.0-80.0); BASOPHILE ABSOLUTE 0.1 Th/cumm (0-0.2); EOSINOPHILE ABSOLUTE 0.2 Th/cmm (0.1-0.4); HEMATOCRIT 30.9 % (41.0-60); HEMOGLOBIN 9.6 gm/dL (12-16); LYMPHOCYTE ABSOLUTE 1.1 Th/cmm (1.5-3.0); MEAN CELL VOLUME 82.1 fl (80-99); MEAN CORPUSCULAR HEMOGLOBIN 25.5 pg (27.0-31.0); MEAN PLATELET VOLUME 9.2 fl; MONOCYTE ABSOLUTE 0.7 Th/cmm (0.3-1.0); NEUTROPHILE ABSOLUTE 3.3 Th/cmm (1.8-8.0); PLATELET COUNT 200 Th/cmm (150-400); RED BLOOD COUNT 3.76 Mil/cmm (3.80-5.80); RED CELL DISTRIBUTION WIDTH 15.1 % (11.5-20.0); WHITE BLOOD COUNT 5.4 Th/cmm (4.8-10.8)
[2018-02-02 11:03] LABS: ANION GAP 10.3 (7.0-16.0); BUN - UREA NITROGEN 31 mg/dL (7-25); CALCIUM SERUM 9.3 mg/dL (8.6-10.3); CARBON DIOXIDE 23.4 mEq/L (21.0-31.0); CHLORIDE 111 mEq/L (98-107); CREATININE - SERUM 1.1 mg/dL (0.7-1.3); GLUCOSE 114 mg/dL (70-105); POTASSIUM SERUM 3.7 mEq/L (3.5-5.1); SODIUM SERUM 141 mEq/L (136-145)
--- NOTE | 2018-02-02 13:24 | Internal Medicine Prog Note ---
Internal Medicine Subjective - Subjective Service Date: 02/02/18 Patient is:: awake, verbal, confused Per staff patient has:: tolerating meds Internal Medicine Objective - Results Result Diagrams: 02/02/18 10:30 02/02/18 10:30 Recent Labs: Laboratory Last Values WBC 5.4 Th/cmm (4.8-10.8) 02/02/18 10:30 RBC 3.76 Mil/cmm (3.80-5.80) L 02/02/18 10:30 Hgb 9.6 gm/dL (12-16) L 02/02/18 10:30 Hct 30.9 % (41.0-60) L 02/02/18 10:30 MCV 82.1 fl (80-99) 02/02/18 10:30 MCH 25.5 pg (27.0-31.0) L 02/02/18 10:30 MCHC Differential 31.0 pg (28.0-36.0) 02/02/18 10:30 RDW 15.1 % (11.5-20.0) 02/02/18 10:30 Plt Count 200 Th/cmm (150-400) 02/02/18 10:30 MPV 9.2 fl 02/02/18 10:30 Neutrophils % 62.5 % (40.0-80.0) 02/02/18 10:30 Lymphocytes % 20.5 % (20.0-50.0) 02/02/18 10:30 Monocytes % 12.4 % (2.0-10.0) H 02/02/18 10:30 Eosinophils % 3.6 % (0.0-5.0) 02/02/18 10:30 Basophils % 1.0 % (0.0-2.0) 02/02/18 10:30 PT 10.4 SECONDS (9.5-11.5) 01/28/18 06:40 INR 1.00 (0.5-1.4) 01/28/18 06:40 PTT (Actin FS) 21.6 SECONDS (26.0-38.0) L 01/28/18 06:40 Sodium 141 mEq/L (136-145) 02/02/18 10:30 Potassium 3.7 mEq/L (3.5-5.1) 02/02/18 10:30 Chloride 111 mEq/L (98-107) H 02/02/18 10:30 Carbon Dioxide 23.4 mEq/L (21.0-31.0) 02/02/18 10:30 Anion Gap 10.3 (7.0-16.0) 02/02/18 10:30 BUN 31 mg/dL (7-25) H 02/02/18 10:30 Creatinine 1.1 mg/dL (0.7-1.3) 02/02/18 10:30 Est GFR ( Amer) TNP 02/02/18 10:30 Est GFR (Non-Af Amer) TNP 02/02/18 10:30 BUN/Creatinine Ratio 28.2 02/02/18 10:30 Glucose 114 mg/dL (70-105) H 02/02/18 10:30 Calcium 9.3 mg/dL (8.6-10.3) 02/02/18 10:30 Total Bilirubin 0.4 mg/dL (0.3-1.0) 01/25/18 06:00 Direct Bilirubin 0.10 mg/dL (0.0-0.2) 01/25/18 06:00 AST 16 U/L (13-39) 01/25/18 06:00 ALT 12 U/L (7-52) 01/25/18 06:00 Alkaline Phosphatase 81 U/L (34-104) 01/25/18 06:00 Total Protein 6.6 gm/dL (6.0-8.3) 01/25/18 06:00 Albumin 3.5 gm/dL (4.2-5.5) L 01/25/18 06:00 Globulin 3.1 gm/dL 01/25/18 06:00 Albumin/Globulin Ratio 1.1 (1.0-1.8) 01/25/18 06:00 Vancomycin Trough 16.6 ug/mL (10-20) 01/16/18 08:00 Coccidioides Ab Negative (Neg:<1:2) 01/10/18 06:06 Histoplasma Antigen SEE REF. LAB REPORT 01/07/18 07:15 HIV 1&2 Antibody Screen NEGATIVE (NEG) 01/25/18 06:00 TB (QFT) Gold In Tube 01/19/18 20:00 TB Test (QFT) Mitogen 9.76 IU/mL 01/19/18 20:00 TB Test (QFT) Antigen 0.99 IU/mL 01/19/18 20:00 TB Test Antigen - Nil 0.89 IU/mL 01/19/18 20:00 TB Test TB - Nil 0.10 IU/mL 01/19/18 20:00 TB Test (QFT) Interp (()) 01/19/18 20:00 - Physical Exam Vitals and I&O: Vital Signs Temp 97.9 F 02/02/18 11:00 Pulse 79 02/02/18 11:00 Resp 17 02/02/18 11:00 BP 111/63 02/02/18 11:00 Pulse Ox 98 02/02/18 11:00 Intake & Output 02/01/18 02/02/18 02/02/18 18:59 06:59 18:59 Intake Total 850 120 Output Total 750 800 Balance 100 -680 Weight (lbs) 98 lb 98 lb Intake: Oral 850 120 Output: Urine 750 800 Stool 0 Other: # Bowel Movements 1 Weight Source Bedscale Bedscale Active Medications: Current Medications Acetaminophen (Tylenol) 650 mg PO Q4HR PRN PRN Reason: Mild Pain / Temp above 100 Stop: 03/05/18 08:05 Last Admin: 01/25/18 20:24 Dose: 650 mg Al Hydrox/Mg Hydrox/Simethicone (Maalox) 30 ml PO Q4HR PRN PRN Reason: GI DISTRESS Stop: 03/05/18 08:05 Last Admin: 01/06/18 14:43 Dose: 30 ml Albuterol/Ipratropium (Duoneb Neb) 3 ml HHN Q8HRT [facility] Stop: 03/05/18 14:59 Last Admin: 02/02/18 06:56 Dose: 3 ml Aspirin (Aspirin Chewable) 81 mg PO DAILY [facility] Stop: 03/05/18 08:59 Last Admin: 02/02/18 08:42 Dose: 81 mg Atenolol (Tenormin) 100 mg PO DAILY [facility] Stop: 03/05/18 08:59 Last Admin: 02/02/18 08:45 Dose: 100 mg Atorvastatin Calcium (Lipitor) 40 mg PO DAILY [facility] PRN Reason: Protocol Stop: 03/05/18 08:59 Last Admin: 02/02/18 08:43 Dose: 40 mg Diltiazem HCl (Cardizem Cd) 120 mg PO DAILY [facility] Stop: 03/05/18 08:59 Last Admin: 02/02/18 08:44 Dose: 120 mg Donepezil HCl (Aricept) 10 mg PO DAILY [facility] Stop: 04/04/18 08:59 Ethambutol HCl (Myambutol) 800 mg PO [facility] [place] Stop: 03/23/18 08:59 Last Admin: 02/01/18 08:14 Dose: 800 mg Isoniazid (Inh) 300 mg PO DAILY [facility] Stop: 03/23/18 08:59 Last Admin: 02/02/18 08:45 Dose: 300 mg Lactobacillus Rhamnosus (Culturelle 15b) 1 each PO DAILY [facility] Stop: 03/09/18 08:59 Last Admin: 02/02/18 08:43 Dose: 1 each Magnesium Hydroxide (Milk Of Magnesia) 30 ml PO HS PRN PRN Reason: Constipation Stop: 03/05/18 08:05 Last Admin: 01/06/18 14:43 Dose: 30 ml Miscellaneous (Probiotic Screen) 1 ea MC PRN PRN PRN Reason: PROTOCOL Stop: 03/08/18 14:14 Pantoprazole Sodium (Protonix) 40 mg PO DAILY@0730 [facility] Stop: 03/05/18 08:59 Last Admin: 02/02/18 06:39 Dose: 40 mg Pyrazinamide (Pza) 1,000 mg PO [facility] [place] Stop: 03/23/18 08:59 Last Admin: 02/01/18 08:13 Dose: 1,000 mg Pyridoxine HCl (Vitamin B6) 50 mg PO DAILY [facility] Stop: 03/23/18 08:59 Last Admin: 02/02/18 08:43 Dose: 50 mg Rifampin (Rifadin) 300 mg PO DAILY [facility] Stop: 03/22/18 16:59 Last Admin: 02/02/18 08:54 Dose: 300 mg General: weak, alert HEENT: NC/AT, PERRLA Neck: Supple Lungs: ronchi Abdomen: soft, non-tender, non-distended, positive bowel sound Neurological: unable to follow command - Procedures Procedures: Procedures Procedure Code Date EXTRACTION OF R MID LUNG LOBE, PERC ENDO APPROACH, DIAGN [id number] 01/03/18 PERCUT BX LUNG/MEDIASTINUM 91502 01/03/18 Internal Medicine Assmt/Plan - Assessment Assessment: pneumonia dementia htn hyperlipidemia oa gerd - Plan Plan: cbc/bmp in am bronchodilators supplemental oyxgen as needed continue current orders Nutritional Asmnt/Malnutr-PDOC - Dietary Evaluation Malnutrition Findings (Please click <Entered> for more info): Nutritional Asmnt/Malnutrition Start: 01/08/18 16: 30 Text: Status: Complete Freq: Document 01/08/18 16:30 JAZMIN (Rec: 01/08/18 16:43 LCHENG [email or web address]) Nutritional Asmnt/Malnutrition Patient General Information Nutritional Screening Moderate Risk Diagnosis PNA Pertinent Medical Hx/Surgical Hx HTN, DM, renal failure, GERD, dementia, hyperlipidemia Subjective Information Pt seen eaing lunch on bed, airbone isolated. Spoke with RN, RN reported pt eats well, prefer hard boiled egg instead of scrambed, tea instead of coffee. Per records, PO intake 75-100% Current Diet Order/ Nutrition Support regular Pertinent Medications culturelle, protonix, levaquin Pertinent Labs 01/06 na 140, K 4.1, Cl 111, BUN 25, Cr 1.1 Nutritional Hx/Data Height 5 ft 6 in Height (Calculated Centimeters) 167.6 Current Weight (lbs) 99 lb Weight (Calculated Kilograms) 44.9 Weight (Calculated Grams) 06935.6 [place] Body Weight 142 % [place] Body Weight 70 Body Mass Index (BMI) 16.0 Weight Status Underweight GI Symptoms GI Symptoms None Last BM 01/07 Difficult in: None Skin Integrity/Comment: scar to let shoulder and left hip Estimated Nutritional Goals Calories/Kcals/Kg 25-30 based on IBW 65kg Kcals Calculated 8484-1754 Protein g/k-1.2 Protein Calculated 65-78 Fluid: ml 1625-1950ml (1ml/kcal) Nutritional Problem 1. Problem Problem underweight Etiology possible inadequate energy intake Signs/Symptoms: BMI 16 Intervention/Recommendation Comments 1. Continue with regular diet as ordered. 2. Monitor PO intake, wt, labs and skin integrity 3. F/U as low risk in 7 days, 01/15, PO check 01/12 Expected Outcomes/Goals Expected Outcomes/Goals 1. PO intake to meet at least 75% of nutritional needs. 2. Wt stability, skin to remain intact, labs to approach WNL.
--- NOTE | 2018-02-02 23:21 | Progress Notes ---
DATE: 02/02/2018 Case was discussed with staff of the patient. Continues to be the same. He has very poor interaction with staff and others. Continues to be unpredictable. Continues to be in bed all the time. Unable to make a plan for self-care. He is on Aricept 5 mg daily and I will be increasing the dose to 10 mg and has been on it for more than a month to help improve his cognition and so far no side effects with the medication. Thank you very much for allowing me to participate in the care of this most interesting gentleman. JOB# [id number]
[2018-02-03] MEDS: Pantoprazole 40 mg EC Tab PO SCH (06:46)
[2018-02-03] MEDS: Albuterol/Ipratropium Neb 3 ML AERS HHN SCH ×3 (07:24→23:00)
[2018-02-03] MEDS: Lactobacillus Rhamnosus GG 15 Billion CFU CAP.SPRINK PO SCH (08:50)
[2018-02-03] MEDS: Atenolol 100mg Tab PO SCH (08:51)
[2018-02-03] MEDS: Diltiazem CD 120 mg 24H PO SCH (08:51)
[2018-02-03] MEDS: Aspirin 81mg Chewable Tab PO SCH (08:51)
[2018-02-03] MEDS: Rifampin 300 mg Cap PO SCH (08:54)
--- NOTE | 2018-02-03 11:10 | General Progress Note ---
Subjective - Review of Systems Events since last encounter: patient awake in no distress Objective - Results Result Diagrams: 02/02/18 10:30 02/02/18 10:30 Recent Labs: Laboratory Last Values WBC 5.4 Th/cmm (4.8-10.8) 02/02/18 10:30 RBC 3.76 Mil/cmm (3.80-5.80) L 02/02/18 10:30 Hgb 9.6 gm/dL (12-16) L 02/02/18 10:30 Hct 30.9 % (41.0-60) L 02/02/18 10:30 MCV 82.1 fl (80-99) 02/02/18 10:30 MCH 25.5 pg (27.0-31.0) L 02/02/18 10:30 MCHC Differential 31.0 pg (28.0-36.0) 02/02/18 10:30 RDW 15.1 % (11.5-20.0) 02/02/18 10:30 Plt Count 200 Th/cmm (150-400) 02/02/18 10:30 MPV 9.2 fl 02/02/18 10:30 Neutrophils % 62.5 % (40.0-80.0) 02/02/18 10:30 Lymphocytes % 20.5 % (20.0-50.0) 02/02/18 10:30 Monocytes % 12.4 % (2.0-10.0) H 02/02/18 10:30 Eosinophils % 3.6 % (0.0-5.0) 02/02/18 10:30 Basophils % 1.0 % (0.0-2.0) 02/02/18 10:30 PT 10.4 SECONDS (9.5-11.5) 01/28/18 06:40 INR 1.00 (0.5-1.4) 01/28/18 06:40 PTT (Actin FS) 21.6 SECONDS (26.0-38.0) L 01/28/18 06:40 Sodium 141 mEq/L (136-145) 02/02/18 10:30 Potassium 3.7 mEq/L (3.5-5.1) 02/02/18 10:30 Chloride 111 mEq/L (98-107) H 02/02/18 10:30 Carbon Dioxide 23.4 mEq/L (21.0-31.0) 02/02/18 10:30 Anion Gap 10.3 (7.0-16.0) 02/02/18 10:30 BUN 31 mg/dL (7-25) H 02/02/18 10:30 Creatinine 1.1 mg/dL (0.7-1.3) 02/02/18 10:30 Est GFR ( Amer) TNP 02/02/18 10:30 Est GFR (Non-Af Amer) TNP 02/02/18 10:30 BUN/Creatinine Ratio 28.2 02/02/18 10:30 Glucose 114 mg/dL (70-105) H 02/02/18 10:30 Calcium 9.3 mg/dL (8.6-10.3) 02/02/18 10:30 Total Bilirubin 0.4 mg/dL (0.3-1.0) 01/25/18 06:00 Direct Bilirubin 0.10 mg/dL (0.0-0.2) 01/25/18 06:00 AST 16 U/L (13-39) 01/25/18 06:00 ALT 12 U/L (7-52) 01/25/18 06:00 Alkaline Phosphatase 81 U/L (34-104) 01/25/18 06:00 Total Protein 6.6 gm/dL (6.0-8.3) 01/25/18 06:00 Albumin 3.5 gm/dL (4.2-5.5) L 01/25/18 06:00 Globulin 3.1 gm/dL 01/25/18 06:00 Albumin/Globulin Ratio 1.1 (1.0-1.8) 01/25/18 06:00 Vancomycin Trough 16.6 ug/mL (10-20) 01/16/18 08:00 Coccidioides Ab Negative (Neg:<1:2) 01/10/18 06:06 Histoplasma Antigen SEE REF. LAB REPORT 01/07/18 07:15 HIV 1&2 Antibody Screen NEGATIVE (NEG) 01/25/18 06:00 TB (QFT) Gold In Tube 01/19/18 20:00 TB Test (QFT) Mitogen 9.76 IU/mL 01/19/18 20:00 TB Test (QFT) Antigen 0.99 IU/mL 01/19/18 20:00 TB Test Antigen - Nil 0.89 IU/mL 01/19/18 20:00 TB Test TB - Nil 0.10 IU/mL 01/19/18 20:00 TB Test (QFT) Interp (()) 01/19/18 20:00 - Physical Exam Vitals and I&O: Vital Signs Temp 96.7 F 02/03/18 08:00 Pulse 80 02/03/18 08:51 Resp 19 02/03/18 08:00 BP 134/74 02/03/18 08:00 Pulse Ox 97 02/03/18 08:00 Intake & Output 02/02/18 02/03/18 02/03/18 18:59 06:59 18:59 Intake Total 650 Output Total 600 Balance 50 Weight (lbs) 44.452 kg 44.452 kg Intake: Oral 650 Output: Urine 600 Stool 0 Other: Weight Source Bedscale Bedscale Active Medications: Current Medications Acetaminophen (Tylenol) 650 mg PO Q4HR PRN PRN Reason: Mild Pain / Temp above 100 Stop: 03/05/18 08:05 Last Admin: 01/25/18 20:24 Dose: 650 mg Al Hydrox/Mg Hydrox/Simethicone (Maalox) 30 ml PO Q4HR PRN PRN Reason: GI DISTRESS Stop: 03/05/18 08:05 Last Admin: 01/06/18 14:43 Dose: 30 ml Albuterol/Ipratropium (Duoneb Neb) 3 ml HHN Q8HRT [facility] Stop: 03/05/18 14:59 Last Admin: 02/03/18 07:24 Dose: 3 ml Aspirin (Aspirin Chewable) 81 mg PO DAILY [facility] Stop: 03/05/18 08:59 Last Admin: 02/03/18 08:51 Dose: 81 mg Atenolol (Tenormin) 100 mg PO DAILY [facility] Stop: 03/05/18 08:59 Last Admin: 02/03/18 08:51 Dose: 100 mg Atorvastatin Calcium (Lipitor) 40 mg PO DAILY [facility] PRN Reason: Protocol Stop: 03/05/18 08:59 Last Admin: 02/03/18 08:50 Dose: 40 mg Diltiazem HCl (Cardizem Cd) 120 mg PO DAILY [facility] Stop: 03/05/18 08:59 Last Admin: 02/03/18 08:51 Dose: 120 mg Donepezil HCl (Aricept) 10 mg PO DAILY [facility] Stop: 04/04/18 08:59 Last Admin: 02/03/18 08:51 Dose: 10 mg Ethambutol HCl (Myambutol) 800 mg PO MWF [facility] Stop: 03/23/18 08:59 Last Admin: 02/03/18 08:52 Dose: 800 mg Isoniazid (Inh) 300 mg PO DAILY [facility] Stop: 03/23/18 08:59 Last Admin: 02/03/18 08:53 Dose: 300 mg Lactobacillus Rhamnosus (Culturelle 15b) 1 each PO DAILY [facility] Stop: 03/09/18 08:59 Last Admin: 02/03/18 08:50 Dose: 1 each Magnesium Hydroxide (Milk Of Magnesia) 30 ml PO HS PRN PRN Reason: Constipation Stop: 03/05/18 08:05 Last Admin: 01/06/18 14:43 Dose: 30 ml Miscellaneous (Probiotic Screen) 1 ea MC PRN PRN PRN Reason: PROTOCOL Stop: 03/08/18 14:14 Pantoprazole Sodium (Protonix) 40 mg PO DAILY@0730 [facility] Stop: 03/05/18 08:59 Last Admin: 02/03/18 06:46 Dose: 40 mg Pyrazinamide (Pza) 1,000 mg PO MWF [facility] Stop: 03/23/18 08:59 Last Admin: 02/03/18 08:54 Dose: 1,000 mg Pyridoxine HCl (Vitamin B6) 50 mg PO DAILY [facility] Stop: 03/23/18 08:59 Last Admin: 02/03/18 08:50 Dose: 50 mg Rifampin (Rifadin) 300 mg PO DAILY [facility] Stop: 03/22/18 16:59 Last Admin: 02/03/18 08:54 Dose: 300 mg General: No acute distress HEENT: Atraumatic Neck: Thyromegaly Cardiovascular: Regular rate, Normal S1, Normal S2 Lungs: Clear to auscultation - Procedures Procedures: Procedures Procedure Code Date EXTRACTION OF R MID LUNG LOBE, PERC ENDO APPROACH, DIAGN [id number] 01/03/18 PERCUT BX LUNG/MEDIASTINUM 47332 01/03/18 Assessment/Plan - Problem List Patient Problems: All Active Problems Dementia (Acute) F03.90 GERD (gastroesophageal reflux disease) (Acute) K21.9 Hyperlipidemia (Acute) E78.5 Osteoarthritis (Acute) M19.90 Pneumonia (Acute) J18.9 - Plan Plan: cpm Nutritional Asmnt/Malnutr-PDOC - Dietary Evaluation Malnutrition Findings (Please click <Entered> for more info): Nutritional Asmnt/Malnutrition Start: 01/08/18 16: 30 Text: Status: Complete Freq: Document 01/08/18 16:30 MAYRA (Rec: 01/08/18 16:43 LCHENG [email or web address]) Nutritional Asmnt/Malnutrition Patient General Information Nutritional Screening Moderate Risk Diagnosis PNA Pertinent Medical Hx/Surgical Hx HTN, DM, renal failure, GERD, dementia, hyperlipidemia Subjective Information Pt seen eaing lunch on bed, airbone isolated. Spoke with RN, RN reported pt eats well, prefer hard boiled egg instead of scrambed, tea instead of coffee. Per records, PO intake 75-100% Current Diet Order/ Nutrition Support regular Pertinent Medications culturelle, protonix, levaquin Pertinent Labs 01/06 na 140, K 4.1, Cl 111, BUN 25, Cr 1.1 Nutritional Hx/Data Height 1.68 m Height (Calculated Centimeters) 167.6 Current Weight (lbs) 44.906 kg Weight (Calculated Kilograms) 44.9 Weight (Calculated Grams) 64081.6 [place] Body Weight 142 % [place] Body Weight 70 Body Mass Index (BMI) 16.0 Weight Status Underweight GI Symptoms GI Symptoms None Last BM 3 Difficult in: None Skin Integrity/Comment: scar to let shoulder and left hip Estimated Nutritional Goals Calories/Kcals/Kg 25-30 based on IBW 65kg Kcals Calculated 5961-6122 Protein g/k-1.2 Protein Calculated 65-78 Fluid: ml 1625-1950ml (1ml/kcal) Nutritional Problem 1. Problem Problem underweight Etiology possible inadequate energy intake Signs/Symptoms: BMI 16 Intervention/Recommendation Comments 1. Continue with regular diet as ordered. 2. Monitor PO intake, wt, labs and skin integrity 3. F/U as low risk in 7 days, 01/15, PO check 01/12 Expected Outcomes/Goals Expected Outcomes/Goals 1. PO intake to meet at least 75% of nutritional needs. 2. Wt stability, skin to remain intact, labs to approach WNL.
--- NOTE | 2018-02-03 20:28 | Progress Notes ---
DATE: Chart reviewed and the patient interviewed. Also discussed the patient's condition with the staff and reviewed records and labs. The patient continued to be calm and cooperative. The patient also has been withdrawn and not answering questions. He also stays in bed most of the time. The patient also continued to take Aricept 10 mg every day with no side effects. ASSESSMENT: The patient is still depressed and guarded and needs close monitoring. TREATMENT PLAN: Continue Aricept same dose and continue to follow up. JOB# [id number]
[2018-02-04] MEDS: Pantoprazole 40 mg EC Tab PO SCH (06:48)
[2018-02-04 07:30] LABS: % BASOPHILS 0.2 % (0.0-2.0); % EOSINOPHILS 4.7 % (0.0-5.0); % LYMPHOCYTES 28.5 % (20.0-50.0); % MONOCYTES 11.3 % (2.0-10.0); % NEUTROPHILS 55.3 % (40.0-80.0); EOSINOPHILE ABSOLUTE 0.2 Th/cmm (0.1-0.4); HEMATOCRIT 27.6 % (41.0-60); HEMOGLOBIN 8.9 gm/dL (12-16); LYMPHOCYTE ABSOLUTE 1.4 Th/cmm (1.5-3.0); MEAN CELL VOLUME 80.5 fl (80-99); MEAN CORPUSCULAR HEMOGLOBIN 26.1 pg (27.0-31.0); MEAN CORPUSCULAR HGB CONC 32.5 pg (28.0-36.0); MEAN PLATELET VOLUME 8.9 fl; MONOCYTE ABSOLUTE 0.6 Th/cmm (0.3-1.0); NEUTROPHILE ABSOLUTE 2.7 Th/cmm (1.8-8.0); PLATELET COUNT 205 Th/cmm (150-400); RED BLOOD COUNT 3.42 Mil/cmm (3.80-5.80); RED CELL DISTRIBUTION WIDTH 14.6 % (11.5-20.0); WHITE BLOOD COUNT 4.9 Th/cmm (4.8-10.8)
[2018-02-04] MEDS: Albuterol/Ipratropium Neb 3 ML AERS HHN SCH ×3 (07:49→23:29)
[2018-02-04 07:53] LABS: ALBUMIN 3.2 gm/dL (4.2-5.5); ALKALINE PHOSPHATASE 76 U/L (34-104); ANION GAP 10.9 (7.0-16.0); BILIRUBIN,TOTAL 0.2 mg/dL (0.3-1.0); BUN - UREA NITROGEN 27 mg/dL (7-25); CALCIUM SERUM 9.5 mg/dL (8.6-10.3); CARBON DIOXIDE 23.1 mEq/L (21.0-31.0); CHLORIDE 111 mEq/L (98-107); GLUCOSE 87 mg/dL (70-105); SGOT 14 U/L (13-39); SGPT/ALT 6 U/L (7-52); SODIUM SERUM 141 mEq/L (136-145); TOTAL PROTEIN,SERUM 6.5 gm/dL (6.0-8.3)
[2018-02-04] MEDS: Diltiazem CD 120 mg 24H PO SCH (09:48)
[2018-02-04] MEDS: Atenolol 100mg Tab PO SCH (09:49)
[2018-02-04] MEDS: Aspirin 81mg Chewable Tab PO SCH (09:49)
[2018-02-04] MEDS: Rifampin 300 mg Cap PO SCH (09:49)
[2018-02-04] MEDS: Lactobacillus Rhamnosus GG 15 Billion CFU CAP.SPRINK PO SCH (09:49)
--- NOTE | 2018-02-04 10:44 | Progress Notes ---
DATE: Chart reviewed and patient interviewed. Also, discussed the patient's condition with the staff and reviewed records and labs. The patient continued to be quiet and withdrawn. He also is forgetful. The patient also is showing minimum interaction with others. His short term memory is poor. Otherwise, the patient continued to comply with treatment and he is cooperative with taking his medications. ASSESSMENT: The patient is still depressed and withdrawn. TREATMENT PLAN: Continue Aricept same dose. Also, continue to work on his ineffective coping about his behavior closely. [facility]# [id number]
--- NOTE | 2018-02-04 11:43 | General Progress Note ---
Subjective - Review of Systems Events since last encounter: depressed withdrawn with no signs of pain Objective - Results Result Diagrams: 02/04/18 06:35 02/04/18 06:35 Recent Labs: Laboratory Last Values WBC 4.9 Th/cmm (4.8-10.8) 02/04/18 06:35 RBC 3.42 Mil/cmm (3.80-5.80) L 02/04/18 06:35 Hgb 8.9 gm/dL (12-16) L 02/04/18 06:35 Hct 27.6 % (41.0-60) L 02/04/18 06:35 MCV 80.5 fl (80-99) 02/04/18 06:35 MCH 26.1 pg (27.0-31.0) L 02/04/18 06:35 MCHC Differential 32.5 pg (28.0-36.0) 02/04/18 06:35 RDW 14.6 % (11.5-20.0) 02/04/18 06:35 Plt Count 205 Th/cmm (150-400) 02/04/18 06:35 MPV 8.9 fl 02/04/18 06:35 Neutrophils % 55.3 % (40.0-80.0) 02/04/18 06:35 Lymphocytes % 28.5 % (20.0-50.0) 02/04/18 06:35 Monocytes % 11.3 % (2.0-10.0) H 02/04/18 06:35 Eosinophils % 4.7 % (0.0-5.0) 02/04/18 06:35 Basophils % 0.2 % (0.0-2.0) 02/04/18 06:35 PT 10.4 SECONDS (9.5-11.5) 01/28/18 06:40 INR 1.00 (0.5-1.4) 01/28/18 06:40 PTT (Actin FS) 21.6 SECONDS (26.0-38.0) L 01/28/18 06:40 Sodium 141 mEq/L (136-145) 02/04/18 06:35 Potassium 4.0 mEq/L (3.5-5.1) 02/04/18 06:35 Chloride 111 mEq/L (98-107) H 02/04/18 06:35 Carbon Dioxide 23.1 mEq/L (21.0-31.0) 02/04/18 06:35 Anion Gap 10.9 (7.0-16.0) 02/04/18 06:35 BUN 27 mg/dL (7-25) H 02/04/18 06:35 Creatinine 1.0 mg/dL (0.7-1.3) 02/04/18 06:35 Est GFR ( Amer) TNP 02/04/18 06:35 Est GFR (Non-Af Amer) TNP 02/04/18 06:35 BUN/Creatinine Ratio 27.0 02/04/18 06:35 Glucose 87 mg/dL (70-105) 02/04/18 06:35 Calcium 9.5 mg/dL (8.6-10.3) 02/04/18 06:35 Total Bilirubin 0.2 mg/dL (0.3-1.0) L 02/04/18 06:35 Direct Bilirubin 0.10 mg/dL (0.0-0.2) 01/25/18 06:00 AST 14 U/L (13-39) 02/04/18 06:35 ALT 6 U/L (7-52) L 02/04/18 06:35 Alkaline Phosphatase 76 U/L (34-104) 02/04/18 06:35 Total Protein 6.5 gm/dL (6.0-8.3) 02/04/18 06:35 Albumin 3.2 gm/dL (4.2-5.5) L 02/04/18 06:35 Globulin 3.3 gm/dL 02/04/18 06:35 Albumin/Globulin Ratio 1.0 (1.0-1.8) 02/04/18 06:35 Vancomycin Trough 16.6 ug/mL (10-20) 01/16/18 08:00 Coccidioides Ab Negative (Neg:<1:2) 01/10/18 06:06 Histoplasma Antigen SEE REF. LAB REPORT 01/07/18 07:15 HIV 1&2 Antibody Screen NEGATIVE (NEG) 01/25/18 06:00 TB (QFT) Gold In Tube 01/19/18 20:00 TB Test (QFT) Mitogen 9.76 IU/mL 01/19/18 20:00 TB Test (QFT) Antigen 0.99 IU/mL 01/19/18 20:00 TB Test Antigen - Nil 0.89 IU/mL 01/19/18 20:00 TB Test TB - Nil 0.10 IU/mL 01/19/18 20:00 TB Test (QFT) Interp (()) 01/19/18 20:00 - Physical Exam Vitals and I&O: Vital Signs Temp 98.8 F 02/04/18 08:00 Pulse 64 02/04/18 09:48 Resp 17 02/04/18 08:00 BP 152/68 02/04/18 08:00 Pulse Ox 99 02/04/18 08:00 Intake & Output 02/03/18 02/04/18 02/04/18 18:59 06:59 18:59 Intake Total 500 100 Balance 500 100 Weight (lbs) 44.452 kg 44.452 kg Intake: Oral 500 100 Tube Feeding 0 Other: # Voids 2 2 # Bowel Movements 1 Weight Source Bedscale Bedscale Active Medications: Current Medications Acetaminophen (Tylenol) 650 mg PO Q4HR PRN PRN Reason: Mild Pain / Temp above 100 Stop: 03/05/18 08:05 Last Admin: 01/25/18 20:24 Dose: 650 mg Al Hydrox/Mg Hydrox/Simethicone (Maalox) 30 ml PO Q4HR PRN PRN Reason: GI DISTRESS Stop: 03/05/18 08:05 Last Admin: 01/06/18 14:43 Dose: 30 ml Albuterol/Ipratropium (Duoneb Neb) 3 ml HHN Q8HRT [facility] Stop: 03/05/18 14:59 Last Admin: 02/04/18 07:49 Dose: 3 ml Aspirin (Aspirin Chewable) 81 mg PO DAILY [facility] Stop: 03/05/18 08:59 Last Admin: 02/04/18 09:49 Dose: 81 mg Atenolol (Tenormin) 100 mg PO DAILY [facility] Stop: 03/05/18 08:59 Last Admin: 02/04/18 09:49 Dose: 100 mg Atorvastatin Calcium (Lipitor) 40 mg PO DAILY [facility] PRN Reason: Protocol Stop: 03/05/18 08:59 Last Admin: 02/04/18 09:48 Dose: 40 mg Diltiazem HCl (Cardizem Cd) 120 mg PO DAILY [facility] Stop: 03/05/18 08:59 Last Admin: 02/04/18 09:48 Dose: 120 mg Donepezil HCl (Aricept) 10 mg PO DAILY [facility] Stop: 04/04/18 08:59 Last Admin: 02/04/18 09:49 Dose: 10 mg Ethambutol HCl (Myambutol) 800 mg PO [facility] Stop: 03/23/18 08:59 Last Admin: 02/03/18 08:52 Dose: 800 mg Isoniazid (Inh) 300 mg PO DAILY [facility] Stop: 03/23/18 08:59 Last Admin: 02/04/18 09:49 Dose: 300 mg Lactobacillus Rhamnosus (Culturelle 15b) 1 each PO DAILY [facility] Stop: 03/09/18 08:59 Last Admin: 02/04/18 09:49 Dose: 1 each Magnesium Hydroxide (Milk Of Magnesia) 30 ml PO HS PRN PRN Reason: Constipation Stop: 03/05/18 08:05 Last Admin: 01/06/18 14:43 Dose: 30 ml Miscellaneous (Probiotic Screen) 1 ea [facility] PRN PRN PRN Reason: PROTOCOL Stop: 03/08/18 14:14 Pantoprazole Sodium (Protonix) 40 mg PO DAILY@0730 [facility] Stop: 03/05/18 08:59 Last Admin: 02/04/18 06:48 Dose: 40 mg Pyrazinamide (Pza) 1,000 mg PO F [facility] Stop: 03/23/18 08:59 Last Admin: 02/03/18 08:54 Dose: 1,000 mg Pyridoxine HCl (Vitamin B6) 50 mg PO DAILY [facility] Stop: 03/23/18 08:59 Last Admin: 02/04/18 09:49 Dose: 50 mg Rifampin (Rifadin) 300 mg PO DAILY [facility] Stop: 03/22/18 16:59 Last Admin: 02/04/18 09:49 Dose: 300 mg General: No acute distress HEENT: Atraumatic Neck: Thyromegaly Cardiovascular: Regular rate, Normal S1, Normal S2 Lungs: Clear to auscultation - Procedures Procedures: Procedures Procedure Code Date EXTRACTION OF R MID LUNG LOBE, PERC ENDO APPROACH, DIAGN [id number] 01/03/18 PERCUT BX LUNG/MEDIASTINUM 48412 01/03/18 Assessment/Plan - Problem List Patient Problems: All Active Problems Dementia (Acute) F03.90 GERD (gastroesophageal reflux disease) (Acute) K21.9 Hyperlipidemia (Acute) E78.5 Osteoarthritis (Acute) M19.90 Pneumonia (Acute) J18.9 - Plan Plan: cpm Nutritional Asmnt/Malnutr-PDOC - Dietary Evaluation Malnutrition Findings (Please click <Entered> for more info): Nutritional Asmnt/Malnutrition Start: 01/08/18 16: 30 Text: Status: Complete Freq: Document 01/08/18 16:30 LCHENG (Rec: 01/08/18 16:43 [email or web address] [email or web address]) Nutritional Asmnt/Malnutrition Patient General Information Nutritional Screening Moderate Risk Diagnosis PNA Pertinent Medical Hx/Surgical Hx HTN, DM, renal failure, GERD, dementia, hyperlipidemia Subjective Information Pt seen eaing lunch on bed, airbone isolated. Spoke with RN, RN reported pt eats well, prefer hard boiled egg instead of scrambed, tea instead of coffee. Per records, PO intake 75-100% Current Diet Order/ Nutrition Support regular Pertinent Medications culturelle, protonix, levaquin Pertinent Labs 01/06 na 140, K 4.1, Cl 111, BUN 25, Cr 1.1 Nutritional Hx/Data Height 1.68 m Height (Calculated Centimeters) 167.6 Current Weight (lbs) 44.906 kg Weight (Calculated Kilograms) 44.9 Weight (Calculated Grams) 01238.6 [place] Body Weight 142 % [place] Body Weight 70 Body Mass Index (BMI) 16.0 Weight Status Underweight GI Symptoms GI Symptoms None Last BM 01/07 Difficult in: None Skin Integrity/Comment: scar to let shoulder and left hip Estimated Nutritional Goals Calories/Kcals/Kg 25-30 based on IBW 65kg Kcals Calculated 0640-3968 Protein g/k-1.2 Protein Calculated 65-78 Fluid: ml 1625-1950ml (1ml/kcal) Nutritional Problem 1. Problem Problem underweight Etiology possible inadequate energy intake Signs/Symptoms: BMI 16 Intervention/Recommendation Comments 1. Continue with regular diet as ordered. 2. Monitor PO intake, wt, labs and skin integrity 3. F/U as low risk in 7 days, 01/15, PO check 01/12 Expected Outcomes/Goals Expected Outcomes/Goals 1. PO intake to meet at least 75% of nutritional needs. 2. Wt stability, skin to remain intact, labs to approach WNL.
[2018-02-04] MEDS ORDERED: Rifampin 300 mg Cap PO SCH (13:49)
--- NOTE | 2018-02-04 13:50 | Infectious Disease Prog Note ---
Infectious Disease Subjective - Review of Systems Service Date: 02/04/18 Subjective: There is no new change, no fever. Infectious Disease Objective - Results Result Diagrams: 02/04/18 06:35 02/04/18 06:35 Recent Labs: Laboratory Last Values WBC 4.9 Th/cmm (4.8-10.8) 02/04/18 06:35 RBC 3.42 Mil/cmm (3.80-5.80) L 02/04/18 06:35 Hgb 8.9 gm/dL (12-16) L 02/04/18 06:35 Hct 27.6 % (41.0-60) L 02/04/18 06:35 MCV 80.5 fl (80-99) 02/04/18 06:35 MCH 26.1 pg (27.0-31.0) L 02/04/18 06:35 MCHC Differential 32.5 pg (28.0-36.0) 02/04/18 06:35 RDW 14.6 % (11.5-20.0) 02/04/18 06:35 Plt Count 205 Th/cmm (150-400) 02/04/18 06:35 MPV 8.9 fl 02/04/18 06:35 Neutrophils % 55.3 % (40.0-80.0) 02/04/18 06:35 Lymphocytes % 28.5 % (20.0-50.0) 02/04/18 06:35 Monocytes % 11.3 % (2.0-10.0) H 02/04/18 06:35 Eosinophils % 4.7 % (0.0-5.0) 02/04/18 06:35 Basophils % 0.2 % (0.0-2.0) 02/04/18 06:35 PT 10.4 SECONDS (9.5-11.5) 01/28/18 06:40 INR 1.00 (0.5-1.4) 01/28/18 06:40 PTT (Actin FS) 21.6 SECONDS (26.0-38.0) L 01/28/18 06:40 Sodium 141 mEq/L (136-145) 02/04/18 06:35 Potassium 4.0 mEq/L (3.5-5.1) 02/04/18 06:35 Chloride 111 mEq/L (98-107) H 02/04/18 06:35 Carbon Dioxide 23.1 mEq/L (21.0-31.0) 02/04/18 06:35 Anion Gap 10.9 (7.0-16.0) 02/04/18 06:35 BUN 27 mg/dL (7-25) H 02/04/18 06:35 Creatinine 1.0 mg/dL (0.7-1.3) 02/04/18 06:35 Est GFR ( Amer) TNP 02/04/18 06:35 Est GFR (Non-Af Amer) TNP 02/04/18 06:35 BUN/Creatinine Ratio 27.0 02/04/18 06:35 Glucose 87 mg/dL (70-105) 02/04/18 06:35 Calcium 9.5 mg/dL (8.6-10.3) 02/04/18 06:35 Total Bilirubin 0.2 mg/dL (0.3-1.0) L 02/04/18 06:35 Direct Bilirubin 0.10 mg/dL (0.0-0.2) 01/25/18 06:00 AST 14 U/L (13-39) 02/04/18 06:35 ALT 6 U/L (7-52) L 02/04/18 06:35 Alkaline Phosphatase 76 U/L (34-104) 02/04/18 06:35 Total Protein 6.5 gm/dL (6.0-8.3) 02/04/18 06:35 Albumin 3.2 gm/dL (4.2-5.5) L 02/04/18 06:35 Globulin 3.3 gm/dL 02/04/18 06:35 Albumin/Globulin Ratio 1.0 (1.0-1.8) 02/04/18 06:35 Vancomycin Trough 16.6 ug/mL (10-20) 01/16/18 08:00 Coccidioides Ab Negative (Neg:<1:2) 01/10/18 06:06 Histoplasma Antigen SEE REF. LAB REPORT 01/07/18 07:15 HIV 1&2 Antibody Screen NEGATIVE (NEG) 01/25/18 06:00 TB (QFT) Gold In Tube 01/19/18 20:00 TB Test (QFT) Mitogen 9.76 IU/mL 01/19/18 20:00 TB Test (QFT) Antigen 0.99 IU/mL 01/19/18 20:00 TB Test Antigen - Nil 0.89 IU/mL 01/19/18 20:00 TB Test TB - Nil 0.10 IU/mL 01/19/18 20:00 TB Test (QFT) Interp (()) 01/19/18 20:00 - Physical Exam Vitals and I&O: Vital Signs Temp 99.1 F 02/04/18 12:00 Pulse 69 02/04/18 12:00 Resp 17 02/04/18 12:00 BP 112/64 02/04/18 12:00 Pulse Ox 98 02/04/18 12:00 Intake & Output 02/03/18 02/04/18 02/04/18 18:59 06:59 18:59 Intake Total 417 015 7944 Balance 412 688 2604 Weight (lbs) 44.452 kg 44.452 kg 44.452 kg Intake: Oral 315 408 0673 Tube Feeding 0 0 Other: # Voids 2 2 # Bowel Movements 1 Weight Source Bedscale Bedscale Bedscale Active Medications: Current Medications Acetaminophen (Tylenol) 650 mg PO Q4HR PRN PRN Reason: Mild Pain / Temp above 100 Stop: 03/05/18 08:05 Last Admin: 01/25/18 20:24 Dose: 650 mg Al Hydrox/Mg Hydrox/Simethicone (Maalox) 30 ml PO Q4HR PRN PRN Reason: GI DISTRESS Stop: 03/05/18 08:05 Last Admin: 01/06/18 14:43 Dose: 30 ml Albuterol/Ipratropium (Duoneb Neb) 3 ml HHN Q8HRT [facility] Stop: 03/05/18 14:59 Last Admin: 02/04/18 07:49 Dose: 3 ml Aspirin (Aspirin Chewable) 81 mg PO DAILY [facility] Stop: 03/05/18 08:59 Last Admin: 02/04/18 09:49 Dose: 81 mg Atenolol (Tenormin) 100 mg PO DAILY [facility] Stop: 03/05/18 08:59 Last Admin: 02/04/18 09:49 Dose: 100 mg Atorvastatin Calcium (Lipitor) 40 mg PO DAILY [facility] PRN Reason: Protocol Stop: 03/05/18 08:59 Last Admin: 02/04/18 09:48 Dose: 40 mg Diltiazem HCl (Cardizem Cd) 120 mg PO DAILY [facility] Stop: 03/05/18 08:59 Last Admin: 02/04/18 09:48 Dose: 120 mg Donepezil HCl (Aricept) 10 mg PO DAILY [facility] Stop: 04/04/18 08:59 Last Admin: 02/04/18 09:49 Dose: 10 mg Ethambutol HCl (Myambutol) 800 mg PO [facility] Stop: 03/23/18 08:59 Last Admin: 02/03/18 08:52 Dose: 800 mg Isoniazid (Inh) 300 mg PO DAILY [facility] Stop: 03/23/18 08:59 Last Admin: 02/04/18 09:49 Dose: 300 mg Lactobacillus Rhamnosus (Culturelle 15b) 1 each PO DAILY [facility] Stop: 03/09/18 08:59 Last Admin: 02/04/18 09:49 Dose: 1 each Magnesium Hydroxide (Milk Of Magnesia) 30 ml PO HS PRN PRN Reason: Constipation Stop: 03/05/18 08:05 Last Admin: 01/06/18 14:43 Dose: 30 ml Miscellaneous (Probiotic Screen) 1 ea [facility] PRN PRN PRN Reason: PROTOCOL Stop: 03/08/18 14:14 Pantoprazole Sodium (Protonix) 40 mg PO DAILY@0730 [facility] Stop: 03/05/18 08:59 Last Admin: 02/04/18 06:48 Dose: 40 mg Pyrazinamide (Pza) 1,000 mg PO [facility] Stop: 03/23/18 08:59 Last Admin: 02/03/18 08:54 Dose: 1,000 mg Pyridoxine HCl (Vitamin B6) 50 mg PO DAILY [facility] Stop: 03/23/18 08:59 Last Admin: 02/04/18 09:49 Dose: 50 mg General: no acute distress, well developed, well nourished HEENT: atraumatic, normocephalic, PERRLA, EOMI, moist mucous membrane Neck: supple, no thyromegaly Cardiovascular: S1S2, regular Lungs: clear to auscultation bilaterally, clear to percussion Abdomen: soft, no tender, no distended Extremities: no cyanosis, no clubbing, no edema Neurological: awake, alert, oriented Skin: intact - Procedures Procedures: Procedures Procedure Code Date EXTRACTION OF R MID LUNG LOBE, PERC ENDO APPROACH, DIAGN [id number] 01/03/18 PERCUT BX LUNG/MEDIASTINUM 32295 01/03/18 Infectious Disease Assmt/Plan - Problem List Patient Problems: All Active Problems Dementia (Acute) F03.90 GERD (gastroesophageal reflux disease) (Acute) K21.9 Hyperlipidemia (Acute) E78.5 Osteoarthritis (Acute) M19.90 Pneumonia (Acute) J18.9 - Assessment Assessment: Impression: 1. 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 suspect pulmonary tuberculosis. other diagnosis has to be ruled out. 2. DM2 3. Depression. 4. MRSA colonization. - Plan Plan: Continue anti TB RIPE therapy. If AFB culture, come negative may consider alternate etiology. As per the staff, the Public health department has cleared for discharge and isolation. May dc to SNF or accepting facility. DC isolation. Nutritional Asmnt/Malnutr-PDOC - Dietary Evaluation Malnutrition Findings (Please click <Entered> for more info): Nutritional Asmnt/Malnutrition Start: 01/08/18 16: 30 Text: Status: Complete Freq: Document 01/08/18 16:30 LCHENG (Rec: 01/08/18 16:43 LCHENG [email or web address]) Nutritional Asmnt/Malnutrition Patient General Information Nutritional Screening Moderate Risk Diagnosis PNA Pertinent Medical Hx/Surgical Hx HTN, DM, renal failure, GERD, dementia, hyperlipidemia Subjective Information Pt seen eaing lunch on bed, airbone isolated. Spoke with RN, RN reported pt eats well, prefer hard boiled egg instead of scrambed, tea instead of coffee. Per records, PO intake 75-100% Current Diet Order/ Nutrition Support regular Pertinent Medications culturelle, protonix, levaquin Pertinent Labs 01/06 na 140, K 4.1, Cl 111, BUN 25, Cr 1.1 Nutritional Hx/Data Height 1.68 m Height (Calculated Centimeters) 167.6 Current Weight (lbs) 44.906 kg Weight (Calculated Kilograms) 44.9 Weight (Calculated Grams) 06843.6 [place] Body Weight 142 % [place] Body Weight 70 Body Mass Index (BMI) 16.0 Weight Status Underweight GI Symptoms GI Symptoms None Last BM 01/07 Difficult in: None Skin Integrity/Comment: scar to let shoulder and left hip Estimated Nutritional Goals Calories/Kcals/Kg 25-30 based on IBW 65kg Kcals Calculated 3034-5596 Protein g/k-1.2 Protein Calculated 65-78 Fluid: ml 1625-1950ml (1ml/kcal) Nutritional Problem 1. Problem Problem underweight Etiology possible inadequate energy intake Signs/Symptoms: BMI 16 Intervention/Recommendation Comments 1. Continue with regular diet as ordered. 2. Monitor PO intake, wt, labs and skin integrity 3. F/U as low risk in 7 days, 01/15, PO check 01/12 Expected Outcomes/Goals Expected Outcomes/Goals 1. PO intake to meet at least 75% of nutritional needs. 2. Wt stability, skin to remain intact, labs to approach WNL.
[2018-02-05] MEDS: Albuterol/Ipratropium Neb 3 ML AERS HHN SCH ×3 (07:12→22:55)
[2018-02-05] MEDS: Pantoprazole 40 mg EC Tab PO SCH (07:31)
[2018-02-05] MEDS: Atenolol 100mg Tab PO SCH (09:25)
[2018-02-05] MEDS: Lactobacillus Rhamnosus GG 15 Billion CFU CAP.SPRINK PO SCH (09:28)
[2018-02-05] MEDS: Diltiazem CD 120 mg 24H PO SCH (09:28)
[2018-02-05] MEDS: Aspirin 81mg Chewable Tab PO SCH (09:29)
--- NOTE | 2018-02-05 13:21 | Internal Medicine Prog Note ---
Internal Medicine Subjective - Subjective Service Date: 02/05/18 Patient seen and examined:: with staff Patient is:: awake, verbal, confused Per staff patient has:: tolerating meds Internal Medicine Objective - Results Result Diagrams: 02/04/18 06:35 02/04/18 06:35 Recent Labs: Laboratory Last Values WBC 4.9 Th/cmm (4.8-10.8) 02/04/18 06:35 RBC 3.42 Mil/cmm (3.80-5.80) L 02/04/18 06:35 Hgb 8.9 gm/dL (12-16) L 02/04/18 06:35 Hct 27.6 % (41.0-60) L 02/04/18 06:35 MCV 80.5 fl (80-99) 02/04/18 06:35 MCH 26.1 pg (27.0-31.0) L 02/04/18 06:35 MCHC Differential 32.5 pg (28.0-36.0) 02/04/18 06:35 RDW 14.6 % (11.5-20.0) 02/04/18 06:35 Plt Count 205 Th/cmm (150-400) 02/04/18 06:35 MPV 8.9 fl 02/04/18 06:35 Neutrophils % 55.3 % (40.0-80.0) 02/04/18 06:35 Lymphocytes % 28.5 % (20.0-50.0) 02/04/18 06:35 Monocytes % 11.3 % (2.0-10.0) H 02/04/18 06:35 Eosinophils % 4.7 % (0.0-5.0) 02/04/18 06:35 Basophils % 0.2 % (0.0-2.0) 02/04/18 06:35 PT 10.4 SECONDS (9.5-11.5) 01/28/18 06:40 INR 1.00 (0.5-1.4) 01/28/18 06:40 PTT (Actin FS) 21.6 SECONDS (26.0-38.0) L 01/28/18 06:40 Sodium 141 mEq/L (136-145) 02/04/18 06:35 Potassium 4.0 mEq/L (3.5-5.1) 02/04/18 06:35 Chloride 111 mEq/L (98-107) H 02/04/18 06:35 Carbon Dioxide 23.1 mEq/L (21.0-31.0) 02/04/18 06:35 Anion Gap 10.9 (7.0-16.0) 02/04/18 06:35 BUN 27 mg/dL (7-25) H 02/04/18 06:35 Creatinine 1.0 mg/dL (0.7-1.3) 02/04/18 06:35 Est GFR ( Amer) TNP 02/04/18 06:35 Est GFR (Non-Af Amer) TNP 02/04/18 06:35 BUN/Creatinine Ratio 27.0 02/04/18 06:35 Glucose 87 mg/dL (70-105) 02/04/18 06:35 Calcium 9.5 mg/dL (8.6-10.3) 02/04/18 06:35 Total Bilirubin 0.2 mg/dL (0.3-1.0) L 02/04/18 06:35 Direct Bilirubin 0.10 mg/dL (0.0-0.2) 01/25/18 06:00 AST 14 U/L (13-39) 02/04/18 06:35 ALT 6 U/L (7-52) L 02/04/18 06:35 Alkaline Phosphatase 76 U/L (34-104) 02/04/18 06:35 Total Protein 6.5 gm/dL (6.0-8.3) 02/04/18 06:35 Albumin 3.2 gm/dL (4.2-5.5) L 02/04/18 06:35 Globulin 3.3 gm/dL 02/04/18 06:35 Albumin/Globulin Ratio 1.0 (1.0-1.8) 02/04/18 06:35 Vancomycin Trough 16.6 ug/mL (10-20) 01/16/18 08:00 Coccidioides Ab Negative (Neg:<1:2) 01/10/18 06:06 Histoplasma Antigen SEE REF. LAB REPORT 01/07/18 07:15 HIV 1&2 Antibody Screen NEGATIVE (NEG) 01/25/18 06:00 TB (QFT) Gold In Tube 03/13/18 20:00 TB Test (QFT) Mitogen 9.76 IU/mL 01/19/18 20:00 TB Test (QFT) Antigen 0.99 IU/mL 01/19/18 20:00 TB Test Antigen - Nil 0.89 IU/mL 01/19/18 20:00 TB Test TB - Nil 0.10 IU/mL 01/19/18 20:00 TB Test (QFT) Interp (()) 01/19/18 20:00 - Physical Exam Vitals and I&O: Vital Signs Temp 98.0 F 02/05/18 08:00 Pulse 72 02/05/18 09:28 Resp 18 02/05/18 08:00 BP 116/71 02/05/18 08:00 Pulse Ox 99 02/05/18 08:00 Intake & Output 02/04/18 02/05/18 02/05/18 18:59 06:59 18:59 Intake Total 1500 500 Balance 1500 500 Weight (lbs) 98 lb 98 lb Intake: Oral 1500 500 Tube Feeding 0 Other: Stool Characteristics Soft Brown Weight Source Bedscale Bedscale Active Medications: Current Medications Acetaminophen (Tylenol) 650 mg PO Q4HR PRN PRN Reason: Mild Pain / Temp above 100 Stop: 03/05/18 08:05 Last Admin: 01/25/18 20:24 Dose: 650 mg Al Hydrox/Mg Hydrox/Simethicone (Maalox) 30 ml PO Q4HR PRN PRN Reason: GI DISTRESS Stop: 03/05/18 08:05 Last Admin: 01/06/18 14:43 Dose: 30 ml Albuterol/Ipratropium (Duoneb Neb) 3 ml HHN Q8HRT [facility] Stop: 03/05/18 14:59 Last Admin: 02/05/18 07:12 Dose: 3 ml Aspirin (Aspirin Chewable) 81 mg PO DAILY [facility] Stop: 03/05/18 08:59 Last Admin: 02/05/18 09:29 Dose: 81 mg Atenolol (Tenormin) 100 mg PO DAILY [facility] Stop: 03/05/18 08:59 Last Admin: 02/05/18 09:25 Dose: 100 mg Atorvastatin Calcium (Lipitor) 40 mg PO DAILY [facility] PRN Reason: Protocol Stop: 03/05/18 08:59 Last Admin: 03/30/18 09:27 Dose: 40 mg Diltiazem HCl (Cardizem Cd) 120 mg PO DAILY [facility] Stop: 03/05/18 08:59 Last Admin: 02/05/18 09:28 Dose: 120 mg Donepezil HCl (Aricept) 10 mg PO DAILY [facility] Stop: 04/04/18 08:59 Last Admin: 02/05/18 09:28 Dose: 10 mg Ethambutol HCl (Myambutol) 800 mg PO DAILY [facility] Stop: 04/07/18 08:59 Isoniazid (Inh) 300 mg PO DAILY [facility] Stop: 03/23/18 08:59 Last Admin: 02/05/18 09:27 Dose: 300 mg Lactobacillus Rhamnosus (Culturelle 15b) 1 each PO DAILY [facility] Stop: 03/09/18 08:59 Last Admin: 02/05/18 09:28 Dose: 1 each Magnesium Hydroxide (Milk Of Magnesia) 30 ml PO HS PRN PRN Reason: Constipation Stop: 03/05/18 08:05 Last Admin: 01/06/18 14:43 Dose: 30 ml Miscellaneous (Probiotic Screen) 1 ea [facility] PRN PRN PRN Reason: PROTOCOL Stop: 03/08/18 14:14 Pantoprazole Sodium (Protonix) 40 mg PO DAILY@0730 [facility] Stop: 03/05/18 08:59 Last Admin: 02/05/18 07:31 Dose: 40 mg Pyrazinamide (Pza) 1,000 mg PO DAILY [facility] Stop: 04/07/18 08:59 Pyridoxine HCl (Vitamin B6) 50 mg PO DAILY [facility] Stop: 03/23/18 08:59 Last Admin: 02/05/18 09:28 Dose: 50 mg Rifampin (Rifadin) 450 mg PO DAILY [facility] Stop: 04/05/18 13:48 Last Admin: 02/05/18 09:26 Dose: 450 mg General: weak, alert HEENT: NC/AT, PERRLA Neck: Supple Lungs: ronchi Abdomen: soft, non-tender, non-distended, positive bowel sound Neurological: unable to follow command - Procedures Procedures: Procedures Procedure Code Date EXTRACTION OF R MID LUNG LOBE, PERC ENDO APPROACH, DIAGN [id number] 01/03/18 PERCUT BX LUNG/MEDIASTINUM 58059 01/03/18 Internal Medicine Assmt/Plan - Assessment Assessment: pneumonia dementia htn hyperlipidemia oa gerd - Plan Plan: cbc/bmp in am bronchodilators supplemental oyxgen as needed continue current orders Nutritional Asmnt/Malnutr-PDOC - Dietary Evaluation Malnutrition Findings (Please click <Entered> for more info): Nutritional Asmnt/Malnutrition Start: 01/08/18 16: 30 Text: Status: Complete Freq: Document 01/08/18 16:30 JAZMIN (Rec: 01/08/18 16:43 LCHEN [email or web address]) Nutritional Asmnt/Malnutrition Patient General Information Nutritional Screening Moderate Risk Diagnosis PNA Pertinent Medical Hx/Surgical Hx HTN, DM, renal failure, GERD, dementia, hyperlipidemia Subjective Information Pt seen eaing lunch on bed, airbone isolated. Spoke with RN, RN reported pt eats well, prefer hard boiled egg instead of scrambed, tea instead of coffee. Per records, PO intake 75-100% Current Diet Order/ Nutrition Support regular Pertinent Medications culturelle, protonix, levaquin Pertinent Labs 01/06 na 140, K 4.1, Cl 111, BUN 25, Cr 1.1 Nutritional Hx/Data Height 5 ft 6 in Height (Calculated Centimeters) 167.6 Current Weight (lbs) 99 lb Weight (Calculated Kilograms) 44.9 Weight (Calculated Grams) 80553.6 [place] In [place] Body Weight 142 % [place] Body Weight 70 Body Mass Index (BMI) 16.0 Weight Status Underweight GI Symptoms GI Symptoms None Last BM 01/07 Difficult in: None Skin Integrity/Comment: scar to let shoulder and left hip Estimated Nutritional Goals Calories/Kcals/Kg 25-30 based on IBW 65kg Kcals Calculated 7015-9383 Protein g/k-1.2 Protein Calculated 65-78 Fluid: ml 1625-1950ml (1ml/kcal) Nutritional Problem 1. Problem Problem underweight Etiology possible inadequate energy intake Signs/Symptoms: BMI 16 Intervention/Recommendation Comments 1. Continue with regular diet as ordered. 2. Monitor PO intake, wt, labs and skin integrity 3. F/U as low risk in 7 days, 01/15, PO check 01/12 Expected Outcomes/Goals Expected Outcomes/Goals 1. PO intake to meet at least 75% of nutritional needs. 2. Wt stability, skin to remain intact, labs to approach WNL.
--- NOTE | 2018-02-05 14:15 | Infectious Disease Prog Note ---
Infectious Disease Subjective - Review of Systems Service Date: 02/05/18 Subjective: There is no new change, no fever. Infectious Disease Objective - Results Result Diagrams: 02/04/18 06:35 02/04/18 06:35 Recent Labs: Laboratory Last Values WBC 4.9 Th/cmm (4.8-10.8) 02/04/18 06:35 RBC 3.42 Mil/cmm (3.80-5.80) L 02/04/18 06:35 Hgb 8.9 gm/dL (12-16) L 02/04/18 06:35 Hct 27.6 % (41.0-60) L 02/04/18 06:35 MCV 80.5 fl (80-99) 02/04/18 06:35 MCH 26.1 pg (27.0-31.0) L 02/04/18 06:35 MCHC Differential 32.5 pg (28.0-36.0) 02/04/18 06:35 RDW 14.6 % (11.5-20.0) 02/04/18 06:35 Plt Count 205 Th/cmm (150-400) 02/04/18 06:35 MPV 8.9 fl 02/04/18 06:35 Neutrophils % 55.3 % (40.0-80.0) 02/04/18 06:35 Lymphocytes % 28.5 % (20.0-50.0) 02/04/18 06:35 Monocytes % 11.3 % (2.0-10.0) H 02/04/18 06:35 Eosinophils % 4.7 % (0.0-5.0) 02/04/18 06:35 Basophils % 0.2 % (0.0-2.0) 02/04/18 06:35 PT 10.4 SECONDS (9.5-11.5) 01/28/18 06:40 INR 1.00 (0.5-1.4) 01/28/18 06:40 PTT (Actin FS) 21.6 SECONDS (26.0-38.0) L 01/28/18 06:40 Sodium 141 mEq/L (136-145) 02/04/18 06:35 Potassium 4.0 mEq/L (3.5-5.1) 02/04/18 06:35 Chloride 111 mEq/L (98-107) H 02/04/18 06:35 Carbon Dioxide 23.1 mEq/L (21.0-31.0) 02/04/18 06:35 Anion Gap 10.9 (7.0-16.0) 02/04/18 06:35 BUN 27 mg/dL (7-25) H 02/04/18 06:35 Creatinine 1.0 mg/dL (0.7-1.3) 02/04/18 06:35 Est GFR ( Amer) TNP 02/04/18 06:35 Est GFR (Non-Af Amer) TNP 02/04/18 06:35 BUN/Creatinine Ratio 27.0 02/04/18 06:35 Glucose 87 mg/dL (70-105) 02/04/18 06:35 Calcium 9.5 mg/dL (8.6-10.3) 02/04/18 06:35 Total Bilirubin 0.2 mg/dL (0.3-1.0) L 02/04/18 06:35 Direct Bilirubin 0.10 mg/dL (0.0-0.2) 01/25/18 06:00 AST 14 U/L (13-39) 02/04/18 06:35 ALT 6 U/L (7-52) L 02/04/18 06:35 Alkaline Phosphatase 76 U/L (34-104) 02/04/18 06:35 Total Protein 6.5 gm/dL (6.0-8.3) 02/04/18 06:35 Albumin 3.2 gm/dL (4.2-5.5) L 02/04/18 06:35 Globulin 3.3 gm/dL 02/04/18 06:35 Albumin/Globulin Ratio 1.0 (1.0-1.8) 02/04/18 06:35 Vancomycin Trough 16.6 ug/mL (10-20) 01/16/18 08:00 Coccidioides Ab Negative (Neg:<1:2) 01/10/18 06:06 Histoplasma Antigen SEE REF. LAB REPORT 01/07/18 07:15 HIV 1&2 Antibody Screen NEGATIVE (NEG) 01/25/18 06:00 TB (QFT) Gold In Tube 01/19/18 20:00 TB Test (QFT) Mitogen 9.76 IU/mL 01/19/18 20:00 TB Test (QFT) Antigen 0.99 IU/mL 01/19/18 20:00 TB Test Antigen - Nil 0.89 IU/mL 01/19/18 20:00 TB Test TB - Nil 0.10 IU/mL 01/19/18 20:00 TB Test (QFT) Interp (()) 01/19/18 20:00 - Physical Exam Vitals and I&O: Vital Signs Temp 98.0 F 02/05/18 08:00 Pulse 72 02/05/18 09:28 Resp 18 02/05/18 08:00 BP 116/71 02/05/18 08:00 Pulse Ox 99 02/05/18 08:00 Intake & Output 02/04/18 02/05/18 02/05/18 18:59 06:59 18:59 Intake Total 1500 500 Balance 1500 500 Weight (lbs) 44.452 kg 44.452 kg Intake: Oral 1500 500 Tube Feeding 0 Other: Stool Characteristics Soft Brown Weight Source Bedscale Bedscale Active Medications: Current Medications Acetaminophen (Tylenol) 650 mg PO Q4HR PRN PRN Reason: Mild Pain / Temp above 100 Stop: 03/05/18 08:05 Last Admin: 01/25/18 20:24 Dose: 650 mg Al Hydrox/Mg Hydrox/Simethicone (Maalox) 30 ml PO Q4HR PRN PRN Reason: GI DISTRESS Stop: 03/05/18 08:05 Last Admin: 01/06/18 14:43 Dose: 30 ml Albuterol/Ipratropium (Duoneb Neb) 3 ml HHN Q8HRT [facility] Stop: 03/05/18 14:59 Last Admin: 02/05/18 07:12 Dose: 3 ml Aspirin (Aspirin Chewable) 81 mg PO DAILY [facility] Stop: 03/05/18 08:59 Last Admin: 02/05/18 09:29 Dose: 81 mg Atenolol (Tenormin) 100 mg PO DAILY [facility] Stop: 03/05/18 08:59 Last Admin: 02/05/18 09:25 Dose: 100 mg Atorvastatin Calcium (Lipitor) 40 mg PO DAILY [facility] PRN Reason: Protocol Stop: 03/05/18 08:59 Last Admin: 02/05/18 09:27 Dose: 40 mg Diltiazem HCl (Cardizem Cd) 120 mg PO DAILY [facility] Stop: 03/05/18 08:59 Last Admin: 02/05/18 09:28 Dose: 120 mg Donepezil HCl (Aricept) 10 mg PO DAILY [facility] Stop: 04/04/18 08:59 Last Admin: 02/05/18 09:28 Dose: 10 mg Ethambutol HCl (Myambutol) 800 mg PO DAILY [facility] Stop: 04/07/18 08:59 Isoniazid (Inh) 300 mg PO DAILY [facility] Stop: 03/23/18 08:59 Last Admin: 02/05/18 09:27 Dose: 300 mg Lactobacillus Rhamnosus (Culturelle 15b) 1 each PO DAILY [facility] Stop: 03/09/18 08:59 Last Admin: 02/05/18 09:28 Dose: 1 each Magnesium Hydroxide (Milk Of Magnesia) 30 ml PO HS PRN PRN Reason: Constipation Stop: 03/05/18 08:05 Last Admin: 01/06/18 14:43 Dose: 30 ml Miscellaneous (Probiotic Screen) 1 ea MC PRN PRN PRN Reason: PROTOCOL Stop: 03/08/18 14:14 Pantoprazole Sodium (Protonix) 40 mg PO DAILY@0730 [facility] Stop: 03/05/18 08:59 Last Admin: 02/05/18 07:31 Dose: 40 mg Pyrazinamide (Pza) 1,000 mg PO DAILY [facility] Stop: 04/07/18 08:59 Pyridoxine HCl (Vitamin B6) 50 mg PO DAILY [facility] Stop: 03/23/18 08:59 Last Admin: 02/05/18 09:28 Dose: 50 mg Rifampin (Rifadin) 450 mg PO DAILY [facility] Stop: 04/05/18 13:48 Last Admin: 02/05/18 09:26 Dose: 450 mg General: no acute distress, well developed, well nourished HEENT: atraumatic, normocephalic, PERRLA Neck: supple, thyromegaly Cardiovascular: S1S2, regular Lungs: clear to auscultation bilaterally, clear to percussion Abdomen: soft, no tender, no distended Extremities: no cyanosis, no clubbing, no edema Neurological: awake, alert, oriented Skin: intact - Procedures Procedures: Procedures Procedure Code Date EXTRACTION OF R MID LUNG LOBE, PERC ENDO APPROACH, DIAGN [id number] 01/03/18 PERCUT BX LUNG/MEDIASTINUM 87835 01/03/18 Infectious Disease Assmt/Plan - Problem List Patient Problems: All Active Problems Dementia (Acute) F03.90 GERD (gastroesophageal reflux disease) (Acute) K21.9 Hyperlipidemia (Acute) E78.5 Osteoarthritis (Acute) M19.90 Pneumonia (Acute) J18.9 - Assessment Assessment: Impression: 1. 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 suspect pulmonary tuberculosis. other diagnosis has to be ruled out. 2. DM2 3. Depression. 4. MRSA colonization. - Plan Plan: Continue anti TB RIPE therapy. change dosage of the meds as per [facility] recommendations. If AFB culture, come negative may consider alternate etiology. As per the staff, the Public health department has cleared for discharge and isolation. May dc to SNF or accepting facility. DC isolation. Nutritional Asmnt/Malnutr-PDOC - Dietary Evaluation Malnutrition Findings (Please click <Entered> for more info): Nutritional Asmnt/Malnutrition Start: 01/08/18 16: 30 Text: Status: Complete Freq: Document 01/08/18 16:30 HEN (Rec: 01/08/18 16:43 [facility] [email or web address]) Nutritional Asmnt/Malnutrition Patient General Information Nutritional Screening Moderate Risk Diagnosis PNA Pertinent Medical Hx/Surgical Hx HTN, DM, renal failure, GERD, dementia, hyperlipidemia Subjective Information Pt seen eaing lunch on bed, airbone isolated. Spoke with RN, RN reported pt eats well, prefer hard boiled egg instead of scrambed, tea instead of coffee. Per records, PO intake 75-100% Current Diet Order/ Nutrition Support regular Pertinent Medications culturelle, protonix, levaquin Pertinent Labs 01/06 na 140, K 4.1, Cl 111, BUN 25, Cr 1.1 Nutritional Hx/Data Height 1.68 m Height (Calculated Centimeters) 167.6 Current Weight (lbs) 44.906 kg Weight (Calculated Kilograms) 44.9 Weight (Calculated Grams) 25028.6 [place] Body Weight 142 % [place] Body Weight 70 Body Mass Index (BMI) 16.0 Weight Status Underweight GI Symptoms GI Symptoms None Last BM 3 Difficult in: None Skin Integrity/Comment: scar to let shoulder and left hip Estimated Nutritional Goals Calories/Kcals/Kg 25-30 based on IBW 65kg Kcals Calculated 1898-3320 Protein g/k-1.2 Protein Calculated 65-78 Fluid: ml 1625-1950ml (1ml/kcal) Nutritional Problem 1. Problem Problem underweight Etiology possible inadequate energy intake Signs/Symptoms: BMI 16 Intervention/Recommendation Comments 1. Continue with regular diet as ordered. 2. Monitor PO intake, wt, labs and skin integrity 3. F/U as low risk in 7 days, 01/15, PO check 01/12 Expected Outcomes/Goals Expected Outcomes/Goals 1. PO intake to meet at least 75% of nutritional needs. 2. Wt stability, skin to remain intact, labs to approach WNL.
--- NOTE | 2018-02-05 19:22 | Progress Notes ---
DATE: 02/05/2018 The patient remains forgetful, demanding to go home not making any sense. Denying that he has any medical problems, somewhat unruly, loud, very restless. Medications were noted. ASSESSMENT: The patient with history of dementia, confused, disoriented, wanting to leave. PLAN: We will continue to monitor. The patient currently seems to be on isolation. We will start a low dose Ativan to address restlessness. We will monitor and follow up. JOB# [id number]
[2018-02-06] MEDS: Pantoprazole 40 mg EC Tab PO SCH (06:33)
[2018-02-06] MEDS: Albuterol/Ipratropium Neb 3 ML AERS HHN SCH ×3 (07:33→22:45)
[2018-02-06] MEDS: Atenolol 100mg Tab PO SCH (09:41)
[2018-02-06] MEDS: Aspirin 81mg Chewable Tab PO SCH (09:42)
[2018-02-06] MEDS: Diltiazem CD 120 mg 24H PO SCH (09:42)
[2018-02-06] MEDS: Lactobacillus Rhamnosus GG 15 Billion CFU CAP.SPRINK PO SCH (09:43)
--- NOTE | 2018-02-06 16:23 | Progress Notes ---
DATE: 02/06/2018 SUBJECTIVE: The patient was seen in his room. The patient appears to be comfortable and in no acute distress. The patient is currently a poor historian, easily gets distracted otherwise in no acute distress. OBJECTIVE: VITAL SIGNS: Temperature 97.6, heart rate 63, respirations of 18, blood pressure 140/72, and 96% on room air. HEENT: Head is atraumatic and normocephalic. Eyes: Bilateral conjunctivae are clear. Bilateral pupils are equally round and reactive. NECK: Supple. No JVD. CARDIOVASCULAR: S1 and S2, without murmur. PULMONARY: Clear to auscultation. GASTROINTESTINAL: Soft and nontender without guarding. Positive bowel sounds. MUSCULOSKELETAL: No clubbing. No cyanosis noted. ASSESSMENT: 1. Rule out pulmonary tuberculosis. 2. Dementia. 3. Hypertension. 4. Hyperlipidemia. 5. Osteoarthritis. 6. Gastroesophageal reflux disease. 7. Pneumonia. 8. Dementia. PLAN: We will keep the patient inpatient. We will continue current treatment and provide pulmonary support. Treatment plans were discussed with the patient's nurse. Treatment plans were discussed with Dr. Yates. JOB# [id number]
--- NOTE | 2018-02-06 22:53 | Infectious Disease Prog Note ---
Infectious Disease Subjective - Review of Systems Service Date: 02/06/18 Subjective: There is no new change, no fever. Infectious Disease Objective - Results Result Diagrams: 02/04/18 06:35 02/04/18 06:35 Recent Labs: Laboratory Last Values WBC 4.9 Th/cmm (4.8-10.8) 02/04/18 06:35 RBC 3.42 Mil/cmm (3.80-5.80) L 02/04/18 06:35 Hgb 8.9 gm/dL (12-16) L 02/04/18 06:35 Hct 27.6 % (41.0-60) L 02/04/18 06:35 MCV 80.5 fl (80-99) 02/04/18 06:35 MCH 26.1 pg (27.0-31.0) L 02/04/18 06:35 MCHC Differential 32.5 pg (28.0-36.0) 02/04/18 06:35 RDW 14.6 % (11.5-20.0) 02/04/18 06:35 Plt Count 205 Th/cmm (150-400) 02/04/18 06:35 MPV 8.9 fl 02/04/18 06:35 Neutrophils % 55.3 % (40.0-80.0) 02/04/18 06:35 Lymphocytes % 28.5 % (20.0-50.0) 02/04/18 06:35 Monocytes % 11.3 % (2.0-10.0) H 02/04/18 06:35 Eosinophils % 4.7 % (0.0-5.0) 02/04/18 06:35 Basophils % 0.2 % (0.0-2.0) 02/04/18 06:35 PT 10.4 SECONDS (9.5-11.5) 01/28/18 06:40 INR 1.00 (0.5-1.4) 01/28/18 06:40 PTT (Actin FS) 21.6 SECONDS (26.0-38.0) L 01/28/18 06:40 Sodium 141 mEq/L (136-145) 02/04/18 06:35 Potassium 4.0 mEq/L (3.5-5.1) 02/04/18 06:35 Chloride 111 mEq/L (98-107) H 02/04/18 06:35 Carbon Dioxide 23.1 mEq/L (21.0-31.0) 02/04/18 06:35 Anion Gap 10.9 (7.0-16.0) 02/04/18 06:35 BUN 27 mg/dL (7-25) H 02/04/18 06:35 Creatinine 1.0 mg/dL (0.7-1.3) 02/04/18 06:35 Est GFR ( Amer) TNP 02/04/18 06:35 Est GFR (Non-Af Amer) TNP 02/04/18 06:35 BUN/Creatinine Ratio 27.0 02/04/18 06:35 Glucose 87 mg/dL (70-105) 02/04/18 06:35 Calcium 9.5 mg/dL (8.6-10.3) 02/04/18 06:35 Total Bilirubin 0.2 mg/dL (0.3-1.0) L 02/04/18 06:35 Direct Bilirubin 0.10 mg/dL (0.0-0.2) 01/25/18 06:00 AST 14 U/L (13-39) 02/04/18 06:35 ALT 6 U/L (7-52) L 02/04/18 06:35 Alkaline Phosphatase 76 U/L (34-104) 02/04/18 06:35 Total Protein 6.5 gm/dL (6.0-8.3) 02/04/18 06:35 Albumin 3.2 gm/dL (4.2-5.5) L 02/04/18 06:35 Globulin 3.3 gm/dL 02/04/18 06:35 Albumin/Globulin Ratio 1.0 (1.0-1.8) 02/04/18 06:35 Vancomycin Trough 16.6 ug/mL (10-20) 01/16/18 08:00 Coccidioides Ab Negative (Neg:<1:2) 01/10/18 06:06 Histoplasma Antigen SEE REF. LAB REPORT 01/07/18 07:15 HIV 1&2 Antibody Screen NEGATIVE (NEG) 01/25/18 06:00 TB (QFT) Gold In Tube 01/19/18 20:00 TB Test (QFT) Mitogen 9.76 IU/mL 01/19/18 20:00 TB Test (QFT) Antigen 0.99 IU/mL 01/19/18 20:00 TB Test Antigen - Nil 0.89 IU/mL 01/19/18 20:00 TB Test TB - Nil 0.10 IU/mL 01/19/18 20:00 TB Test (QFT) Interp (()) 01/19/18 20:00 - Physical Exam Vitals and I&O: Vital Signs Temp 97.9 F 02/06/18 20:00 Pulse 66 02/06/18 20:00 Resp 18 02/06/18 20:00 BP 120/67 02/06/18 20:00 Pulse Ox 98 02/06/18 20:00 Intake & Output 02/06/18 02/06/18 02/07/18 06:59 18:59 06:59 Intake Total 800 1000 Output Total 950 Balance -150 1000 Weight (lbs) 44.452 kg 44.497 kg Intake: Oral 800 1000 Output: Urine 950 Other: # Voids 3 # Bowel Movements 1 1 Stool Characteristics Brown Soft Brown Brown Weight Source Bedscale Bedscale Active Medications: Current Medications Acetaminophen (Tylenol) 650 mg PO Q4HR PRN PRN Reason: Mild Pain / Temp above 100 Stop: 03/05/18 08:05 Last Admin: 01/25/18 20:24 Dose: 650 mg Al Hydrox/Mg Hydrox/Simethicone (Maalox) 30 ml PO Q4HR PRN PRN Reason: GI DISTRESS Stop: 03/05/18 08:05 Last Admin: 01/06/18 14:43 Dose: 30 ml Albuterol/Ipratropium (Duoneb Neb) 3 ml HHN Q8HRT [facility] Stop: 03/05/18 14:59 Last Admin: 02/06/18 22:45 Dose: 3 ml Aspirin (Aspirin Chewable) 81 mg PO DAILY [facility] Stop: 03/05/18 08:59 Last Admin: 02/06/18 09:42 Dose: 81 mg Atenolol (Tenormin) 100 mg PO DAILY [facility] Stop: 03/05/18 08:59 Last Admin: 02/06/18 09:41 Dose: 100 mg Atorvastatin Calcium (Lipitor) 40 mg PO DAILY [facility] PRN Reason: Protocol Stop: 03/05/18 08:59 Last Admin: 02/06/18 09:42 Dose: 40 mg Diltiazem HCl (Cardizem Cd) 120 mg PO DAILY [facility] Stop: 03/05/18 08:59 Last Admin: 02/06/18 09:42 Dose: 120 mg Donepezil HCl (Aricept) 10 mg PO DAILY [facility] Stop: 04/04/18 08:59 Last Admin: 02/06/18 09:42 Dose: 10 mg Ethambutol HCl (Myambutol) 800 mg PO DAILY [facility] Stop: 04/07/18 08:59 Last Admin: 02/06/18 09:42 Dose: 800 mg Isoniazid (Inh) 300 mg PO DAILY [facility] Stop: 03/23/18 08:59 Last Admin: 02/06/18 09:41 Dose: 300 mg Lactobacillus Rhamnosus (Culturelle 15b) 1 each PO DAILY [facility] Stop: 03/09/18 08:59 Last Admin: 02/06/18 09:43 Dose: 1 each Lorazepam (Ativan) 0.5 mg PO Q6HR PRN; Protocol PRN Reason: Agitation Stop: 04/06/18 15:07 Magnesium Hydroxide (Milk Of Magnesia) 30 ml PO HS PRN PRN Reason: Constipation Stop: 03/05/18 08:05 Last Admin: 01/06/18 14:43 Dose: 30 ml Miscellaneous (Probiotic Screen) 1 ea MC PRN PRN PRN Reason: PROTOCOL Stop: 03/08/18 14:14 Pantoprazole Sodium (Protonix) 40 mg PO DAILY@0730 [facility] Stop: 03/05/18 08:59 Last Admin: 02/06/18 06:33 Dose: 40 mg Pyrazinamide (Pza) 1,000 mg PO DAILY [facility] Stop: 04/07/18 08:59 Last Admin: 02/06/18 09:41 Dose: 1,000 mg Pyridoxine HCl (Vitamin B6) 50 mg PO DAILY [facility] Stop: 03/23/18 08:59 Last Admin: 02/06/18 09:41 Dose: 50 mg Rifampin (Rifadin) 450 mg PO DAILY [facility] Stop: 04/07/18 10:59 Last Admin: 02/06/18 10:49 Dose: 450 mg General: no acute distress, well developed, well nourished, cachectic, other HEENT: atraumatic, normocephalic, PERRLA, EOMI Neck: supple, no thyromegaly Cardiovascular: S1S2, regular Lungs: clear to auscultation bilaterally, clear to percussion Abdomen: soft, no tender, no distended, no mass Extremities: no cyanosis, no clubbing, no edema Neurological: awake, alert, oriented Skin: intact - Procedures Procedures: Procedures Procedure Code Date EXTRACTION OF R MID LUNG LOBE, PERC ENDO APPROACH, DIAGN [id number] 01/03/18 PERCUT BX LUNG/MEDIASTINUM 10224 01/03/18 Infectious Disease Assmt/Plan - Problem List Patient Problems: All Active Problems Dementia (Acute) F03.90 GERD (gastroesophageal reflux disease) (Acute) K21.9 Hyperlipidemia (Acute) E78.5 Osteoarthritis (Acute) M19.90 Pneumonia (Acute) J18.9 - Assessment Assessment: Impression: 1. 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 suspect pulmonary tuberculosis. other diagnosis has to be ruled out. 2. DM2 3. Depression. 4. MRSA colonization. - Plan Plan: Continue anti TB RIPE therapy. change dosage of the meds as per [facility] recommendations. If AFB culture, come negative may consider alternate etiology. As per the staff, the Public health department has cleared for discharge and isolation. May dc to SNF or accepting facility. DC isolation. Nutritional Asmnt/Malnutr-PDOC - Dietary Evaluation Malnutrition Findings (Please click <Entered> for more info): Nutritional Asmnt/Malnutrition Start: 01/08/18 16: 30 Text: Status: Complete Freq: Document 01/08/18 16:30 [facility] (Rec: 01/08/18 16:43 [email or web address] Nutritional Asmnt/Malnutrition Patient General Information Nutritional Screening Moderate Risk Diagnosis PNA Pertinent Medical Hx/Surgical Hx HTN, DM, renal failure, GERD, dementia, hyperlipidemia Subjective Information Pt seen eaing lunch on bed, airbone isolated. Spoke with RN, RN reported pt eats well, prefer hard boiled egg instead of scrambed, tea instead of coffee. Per records, PO intake 75-100% Current Diet Order/ Nutrition Support regular Pertinent Medications culturelle, protonix, levaquin Pertinent Labs 01/06 na 140, K 4.1, Cl 111, BUN 25, Cr 1.1 Nutritional Hx/Data Height 1.68 m Height (Calculated Centimeters) 167.6 Current Weight (lbs) 44.906 kg Weight (Calculated Kilograms) 44.9 Weight (Calculated Grams) 82746.6 [place] Body Weight 142 % [place] Body Weight 70 Body Mass Index (BMI) 16.0 Weight Status Underweight GI Symptoms GI Symptoms None Last BM 3/ Difficult in: None Skin Integrity/Comment: scar to let shoulder and left hip Estimated Nutritional Goals Calories/Kcals/Kg 25-30 based on IBW 65kg Kcals Calculated 7668-0472 Protein g/k-1.2 Protein Calculated 65-78 Fluid: ml 1625-1950ml (1ml/kcal) Nutritional Problem 1. Problem Problem underweight Etiology possible inadequate energy intake Signs/Symptoms: BMI 16 Intervention/Recommendation Comments 1. Continue with regular diet as ordered. 2. Monitor PO intake, wt, labs and skin integrity 3. F/U as low risk in 7 days, 01/15, PO check 01/12 Expected Outcomes/Goals Expected Outcomes/Goals 1. PO intake to meet at least 75% of nutritional needs. 2. Wt stability, skin to remain intact, labs to approach WNL.
[2018-02-07] MEDS: Pantoprazole 40 mg EC Tab PO SCH (06:45)
[2018-02-07] MEDS: Albuterol/Ipratropium Neb 3 ML AERS HHN SCH ×3 (07:05→22:17)
[2018-02-07] MEDS: Atenolol 100mg Tab PO SCH (09:53)
[2018-02-07] MEDS: Aspirin 81mg Chewable Tab PO SCH (09:54)
[2018-02-07] MEDS: Lactobacillus Rhamnosus GG 15 Billion CFU CAP.SPRINK PO SCH (09:54)
[2018-02-07] MEDS: Diltiazem CD 120 mg 24H PO SCH (09:54)
--- NOTE | 2018-02-07 11:17 | General Progress Note ---
Subjective - Review of Systems Events since last encounter: no change no fever in no distress Objective - Results Result Diagrams: 02/04/18 06:35 02/04/18 06:35 Recent Labs: Laboratory Last Values WBC 4.9 Th/cmm (4.8-10.8) 02/04/18 06:35 RBC 3.42 Mil/cmm (3.80-5.80) L 02/04/18 06:35 Hgb 8.9 gm/dL (12-16) L 02/04/18 06:35 Hct 27.6 % (41.0-60) L 02/04/18 06:35 MCV 80.5 fl (80-99) 02/04/18 06:35 MCH 26.1 pg (27.0-31.0) L 02/04/18 06:35 MCHC Differential 32.5 pg (28.0-36.0) 02/04/18 06:35 RDW 14.6 % (11.5-20.0) 02/04/18 06:35 Plt Count 205 Th/cmm (150-400) 02/04/18 06:35 MPV 8.9 fl 02/04/18 06:35 Neutrophils % 55.3 % (40.0-80.0) 02/04/18 06:35 Lymphocytes % 28.5 % (20.0-50.0) 02/04/18 06:35 Monocytes % 11.3 % (2.0-10.0) H 02/04/18 06:35 Eosinophils % 4.7 % (0.0-5.0) 02/04/18 06:35 Basophils % 0.2 % (0.0-2.0) 02/04/18 06:35 PT 10.4 SECONDS (9.5-11.5) 01/28/18 06:40 INR 1.00 (0.5-1.4) 01/28/18 06:40 PTT (Actin FS) 21.6 SECONDS (26.0-38.0) L 01/28/18 06:40 Sodium 141 mEq/L (136-145) 02/04/18 06:35 Potassium 4.0 mEq/L (3.5-5.1) 02/04/18 06:35 Chloride 111 mEq/L (98-107) H 02/04/18 06:35 Carbon Dioxide 23.1 mEq/L (21.0-31.0) 02/04/18 06:35 Anion Gap 10.9 (7.0-16.0) 02/04/18 06:35 BUN 27 mg/dL (7-25) H 02/04/18 06:35 Creatinine 1.0 mg/dL (0.7-1.3) 02/04/18 06:35 Est GFR ( Amer) TNP 02/04/18 06:35 Est GFR (Non-Af Amer) TNP 02/04/18 06:35 BUN/Creatinine Ratio 27.0 02/04/18 06:35 Glucose 87 mg/dL (70-105) 02/04/18 06:35 Calcium 9.5 mg/dL (8.6-10.3) 02/04/18 06:35 Total Bilirubin 0.2 mg/dL (0.3-1.0) L 02/04/18 06:35 Direct Bilirubin 0.10 mg/dL (0.0-0.2) 01/25/18 06:00 AST 14 U/L (13-39) 02/04/18 06:35 ALT 6 U/L (7-52) L 02/04/18 06:35 Alkaline Phosphatase 76 U/L (34-104) 02/04/18 06:35 Total Protein 6.5 gm/dL (6.0-8.3) 02/04/18 06:35 Albumin 3.2 gm/dL (4.2-5.5) L 02/04/18 06:35 Globulin 3.3 gm/dL 02/04/18 06:35 Albumin/Globulin Ratio 1.0 (1.0-1.8) 02/04/18 06:35 Vancomycin Trough 16.6 ug/mL (10-20) 01/16/18 08:00 Coccidioides Ab Negative (Neg:<1:2) 01/10/18 06:06 Histoplasma Antigen SEE REF. LAB REPORT 01/07/18 07:15 HIV 1&2 Antibody Screen NEGATIVE (NEG) 01/25/18 06:00 TB (QFT) Gold In Tube 01/19/18 20:00 TB Test (QFT) Mitogen 9.76 IU/mL 01/19/18 20:00 TB Test (QFT) Antigen 0.99 IU/mL 01/19/18 20:00 TB Test Antigen - Nil 0.89 IU/mL 01/19/18 20:00 TB Test TB - Nil 0.10 IU/mL 01/19/18 20:00 TB Test (QFT) Interp (()) 01/19/18 20:00 - Physical Exam Vitals and I&O: Vital Signs Temp 98.1 F 02/07/18 04:00 Pulse 89 02/07/18 09:54 Resp 19 02/07/18 07:08 BP 123/69 02/07/18 04:00 Pulse Ox 97 02/07/18 07:08 Intake & Output 02/06/18 02/07/18 02/07/18 18:59 06:59 18:59 Intake Total 1000 800 Output Total 800 Balance 1000 0 Weight (lbs) 44.497 kg 44.452 kg Intake: Oral 1000 800 Output: Urine 800 Other: # Voids 3 # Bowel Movements 1 Stool Characteristics Soft Brown Brown Weight Source Bedscale Bedscale Active Medications: Current Medications Acetaminophen (Tylenol) 650 mg PO Q4HR PRN PRN Reason: Mild Pain / Temp above 100 Stop: 03/05/18 08:05 Last Admin: 01/25/18 20:24 Dose: 650 mg Al Hydrox/Mg Hydrox/Simethicone (Maalox) 30 ml PO Q4HR PRN PRN Reason: GI DISTRESS Stop: 03/05/18 08:05 Last Admin: 01/06/18 14:43 Dose: 30 ml Albuterol/Ipratropium (Duoneb Neb) 3 ml HHN Q8HRT [facility] Stop: 03/05/18 14:59 Last Admin: 02/07/18 07:05 Dose: 3 ml Aspirin (Aspirin Chewable) 81 mg PO DAILY [facility] Stop: 03/05/18 08:59 Last Admin: 02/07/18 09:54 Dose: 81 mg Atenolol (Tenormin) 100 mg PO DAILY [facility] Stop: 03/05/18 08:59 Last Admin: 02/07/18 09:53 Dose: 100 mg Atorvastatin Calcium (Lipitor) 40 mg PO DAILY [facility] PRN Reason: Protocol Stop: 03/05/18 08:59 Last Admin: 02/07/18 09:54 Dose: 40 mg Diltiazem HCl (Cardizem Cd) 120 mg PO DAILY [facility] Stop: 03/05/18 08:59 Last Admin: 02/07/18 09:54 Dose: 120 mg Donepezil HCl (Aricept) 10 mg PO DAILY [facility] Stop: 04/04/18 08:59 Last Admin: 02/07/18 09:54 Dose: 10 mg Ethambutol HCl (Myambutol) 800 mg PO DAILY [facility] Stop: 04/07/18 08:59 Last Admin: 02/07/18 09:54 Dose: 800 mg Isoniazid (Inh) 300 mg PO DAILY [facility] Stop: 03/23/18 08:59 Last Admin: 02/07/18 09:54 Dose: 300 mg Lactobacillus Rhamnosus (Culturelle 15b) 1 each PO DAILY [facility] Stop: 03/09/18 08:59 Last Admin: 02/07/18 09:54 Dose: 1 each Lorazepam (Ativan) 0.5 mg PO Q6HR PRN; Protocol PRN Reason: Agitation Stop: 04/06/18 15:07 Magnesium Hydroxide (Milk Of Magnesia) 30 ml PO HS PRN PRN Reason: Constipation Stop: 03/05/18 08:05 Last Admin: 01/06/18 14:43 Dose: 30 ml Pantoprazole Sodium (Protonix) 40 mg PO DAILY@0730 [facility] Stop: 03/05/18 08:59 Last Admin: 02/07/18 06:45 Dose: 40 mg Pyrazinamide (Pza) 1,000 mg PO DAILY [facility] Stop: 04/07/18 08:59 Last Admin: 02/07/18 09:54 Dose: 1,000 mg Pyridoxine HCl (Vitamin B6) 50 mg PO DAILY [facility] Stop: 03/23/18 08:59 Last Admin: 02/07/18 09:54 Dose: 50 mg Rifampin (Rifadin) 450 mg PO DAILY [facility] Stop: 04/07/18 10:59 Last Admin: 02/07/18 09:55 Dose: 450 mg General: No acute distress HEENT: Atraumatic Neck: Thyromegaly Cardiovascular: Regular rate, Normal S1, Normal S2 Lungs: Clear to auscultation - Procedures Procedures: Procedures Procedure Code Date EXTRACTION OF R MID LUNG LOBE, PERC ENDO APPROACH, DIAGN [id number] 01/03/18 PERCUT BX LUNG/MEDIASTINUM 27841 01/03/18 Assessment/Plan - Problem List Patient Problems: All Active Problems Dementia (Acute) F03.90 GERD (gastroesophageal reflux disease) (Acute) K21.9 Hyperlipidemia (Acute) E78.5 Osteoarthritis (Acute) M19.90 Pneumonia (Acute) J18.9 - Plan Plan: cpm Nutritional Asmnt/Malnutr-PDOC - Dietary Evaluation Malnutrition Findings (Please click <Entered> for more info): Nutritional Asmnt/Malnutrition Start: 01/08/18 16: 30 Text: Status: Complete Freq: Document 01/08/18 16:30 HEN (Rec: 01/08/18 16:43 [email or web address] Nutritional Asmnt/Malnutrition Patient General Information Nutritional Screening Moderate Risk Diagnosis PNA Pertinent Medical Hx/Surgical Hx HTN, DM, renal failure, GERD, dementia, hyperlipidemia Subjective Information Pt seen eaing lunch on bed, airbone isolated. Spoke with RN, RN reported pt eats well, prefer hard boiled egg instead of scrambed, tea instead of coffee. Per records, PO intake 75-100% Current Diet Order/ Nutrition Support regular Pertinent Medications culturelle, protonix, levaquin Pertinent Labs 01/06 na 140, K 4.1, Cl 111, BUN 25, Cr 1.1 Nutritional Hx/Data Height 1.68 m Height (Calculated Centimeters) 167.6 Current Weight (lbs) 44.906 kg Weight (Calculated Kilograms) 44.9 Weight (Calculated Grams) 61876.6 [place] Body Weight 142 % [place] Body Weight 70 Body Mass Index (BMI) 16.0 Weight Status Underweight GI Symptoms GI Symptoms None Last BM 3 Difficult in: None Skin Integrity/Comment: scar to let shoulder and left hip Estimated Nutritional Goals Calories/Kcals/Kg 25-30 based on IBW 65kg Kcals Calculated 0949-4791 Protein g/k-1.2 Protein Calculated 65-78 Fluid: ml 1625-1950ml (1ml/kcal) Nutritional Problem 1. Problem Problem underweight Etiology possible inadequate energy intake Signs/Symptoms: BMI 16 Intervention/Recommendation Comments 1. Continue with regular diet as ordered. 2. Monitor PO intake, wt, labs and skin integrity 3. F/U as low risk in 7 days, 01/15, PO check 01/12 Expected Outcomes/Goals Expected Outcomes/Goals 1. PO intake to meet at least 75% of nutritional needs. 2. Wt stability, skin to remain intact, labs to approach WNL.
--- NOTE | 2018-02-07 18:10 | Infectious Disease Prog Note ---
Infectious Disease Subjective - Review of Systems Service Date: 02/07/18 Subjective: There is no new change, no fever. Infectious Disease Objective - Results Result Diagrams: 02/04/18 06:35 02/04/18 06:35 Recent Labs: Laboratory Last Values WBC 4.9 Th/cmm (4.8-10.8) 02/04/18 06:35 RBC 3.42 Mil/cmm (3.80-5.80) L 02/04/18 06:35 Hgb 8.9 gm/dL (12-16) L 02/04/18 06:35 Hct 27.6 % (41.0-60) L 02/04/18 06:35 MCV 80.5 fl (80-99) 02/04/18 06:35 MCH 26.1 pg (27.0-31.0) L 02/04/18 06:35 MCHC Differential 32.5 pg (28.0-36.0) 02/04/18 06:35 RDW 14.6 % (11.5-20.0) 02/04/18 06:35 Plt Count 205 Th/cmm (150-400) 02/04/18 06:35 MPV 8.9 fl 02/04/18 06:35 Neutrophils % 55.3 % (40.0-80.0) 02/04/18 06:35 Lymphocytes % 28.5 % (20.0-50.0) 02/04/18 06:35 Monocytes % 11.3 % (2.0-10.0) H 02/04/18 06:35 Eosinophils % 4.7 % (0.0-5.0) 02/04/18 06:35 Basophils % 0.2 % (0.0-2.0) 02/04/18 06:35 PT 10.4 SECONDS (9.5-11.5) 01/28/18 06:40 INR 1.00 (0.5-1.4) 01/28/18 06:40 PTT (Actin FS) 21.6 SECONDS (26.0-38.0) L 01/28/18 06:40 Sodium 141 mEq/L (136-145) 02/04/18 06:35 Potassium 4.0 mEq/L (3.5-5.1) 02/04/18 06:35 Chloride 111 mEq/L (98-107) H 02/04/18 06:35 Carbon Dioxide 23.1 mEq/L (21.0-31.0) 02/04/18 06:35 Anion Gap 10.9 (7.0-16.0) 02/04/18 06:35 BUN 27 mg/dL (7-25) H 02/04/18 06:35 Creatinine 1.0 mg/dL (0.7-1.3) 02/04/18 06:35 Est GFR ( Amer) TNP 02/04/18 06:35 Est GFR (Non-Af Amer) TNP 02/04/18 06:35 BUN/Creatinine Ratio 27.0 02/04/18 06:35 Glucose 87 mg/dL (70-105) 02/04/18 06:35 Calcium 9.5 mg/dL (8.6-10.3) 02/04/18 06:35 Total Bilirubin 0.2 mg/dL (0.3-1.0) L 02/04/18 06:35 Direct Bilirubin 0.10 mg/dL (0.0-0.2) 01/25/18 06:00 AST 14 U/L (13-39) 02/04/18 06:35 ALT 6 U/L (7-52) L 02/04/18 06:35 Alkaline Phosphatase 76 U/L (34-104) 02/04/18 06:35 Total Protein 6.5 gm/dL (6.0-8.3) 02/04/18 06:35 Albumin 3.2 gm/dL (4.2-5.5) L 02/04/18 06:35 Globulin 3.3 gm/dL 02/04/18 06:35 Albumin/Globulin Ratio 1.0 (1.0-1.8) 02/04/18 06:35 Vancomycin Trough 16.6 ug/mL (10-20) 01/16/18 08:00 Coccidioides Ab Negative (Neg:<1:2) 01/10/18 06:06 Histoplasma Antigen SEE REF. LAB REPORT 01/07/18 07:15 HIV 1&2 Antibody Screen NEGATIVE (NEG) 01/25/18 06:00 TB (QFT) Gold In Tube 01/19/18 20:00 TB Test (QFT) Mitogen 9.76 IU/mL 01/19/18 20:00 TB Test (QFT) Antigen 0.99 IU/mL 01/19/18 20:00 TB Test Antigen - Nil 0.89 IU/mL 01/19/18 20:00 TB Test TB - Nil 0.10 IU/mL 01/19/18 20:00 TB Test (QFT) Interp (()) 01/19/18 20:00 - Physical Exam Vitals and I&O: Vital Signs Temp 98.4 F 02/07/18 16:00 Pulse 63 02/07/18 16:00 Resp 18 02/07/18 16:00 BP 112/69 02/07/18 16:00 Pulse Ox 99 02/07/18 16:00 Intake & Output 02/06/18 02/07/18 02/07/18 18:59 06:59 18:59 Intake Total 1000 800 800 Output Total 800 1 Balance 1000 0 799 Weight (lbs) 44.497 kg 44.452 kg 44.452 kg Intake: Oral 1000 800 800 Output: Urine 800 Stool 1 Other: # Voids 3 3 # Bowel Movements 1 Stool Characteristics Soft Brown Soft Brown Brown Weight Source Bedscale Bedscale Bedscale Active Medications: Current Medications Acetaminophen (Tylenol) 650 mg PO Q4HR PRN PRN Reason: Mild Pain / Temp above 100 Stop: 03/05/18 08:05 Last Admin: 01/25/18 20:24 Dose: 650 mg Al Hydrox/Mg Hydrox/Simethicone (Maalox) 30 ml PO Q4HR PRN PRN Reason: GI DISTRESS Stop: 03/05/18 08:05 Last Admin: 01/06/18 14:43 Dose: 30 ml Albuterol/Ipratropium (Duoneb Neb) 3 ml HHN Q8HRT [facility] Stop: 03/05/18 14:59 Last Admin: 02/07/18 15:02 Dose: 3 ml Aspirin (Aspirin Chewable) 81 mg PO DAILY [facility] Stop: 03/05/18 08:59 Last Admin: 02/07/18 09:54 Dose: 81 mg Atenolol (Tenormin) 100 mg PO DAILY [facility] Stop: 03/05/18 08:59 Last Admin: 02/07/18 09:53 Dose: 100 mg Atorvastatin Calcium (Lipitor) 40 mg PO DAILY [facility] PRN Reason: Protocol Stop: 03/05/18 08:59 Last Admin: 02/07/18 09:54 Dose: 40 mg Diltiazem HCl (Cardizem Cd) 120 mg PO DAILY [facility] Stop: 03/05/18 08:59 Last Admin: 02/07/18 09:54 Dose: 120 mg Donepezil HCl (Aricept) 10 mg PO DAILY [facility] Stop: 04/04/18 08:59 Last Admin: 02/07/18 09:54 Dose: 10 mg Ethambutol HCl (Myambutol) 800 mg PO DAILY [facility] Stop: 04/07/18 08:59 Last Admin: 02/07/18 09:54 Dose: 800 mg Isoniazid (Inh) 300 mg PO DAILY [facility] Stop: 03/23/18 08:59 Last Admin: 02/07/18 09:54 Dose: 300 mg Lactobacillus Rhamnosus (Culturelle 15b) 1 each PO DAILY [facility] Stop: 03/09/18 08:59 Last Admin: 02/07/18 09:54 Dose: 1 each Lorazepam (Ativan) 0.5 mg PO Q6HR PRN; Protocol PRN Reason: Agitation Stop: 04/06/18 15:07 Magnesium Hydroxide (Milk Of Magnesia) 30 ml PO HS PRN PRN Reason: Constipation Stop: 03/05/18 08:05 Last Admin: 01/06/18 14:43 Dose: 30 ml Pantoprazole Sodium (Protonix) 40 mg PO DAILY@0730 [facility] Stop: 03/05/18 08:59 Last Admin: 02/07/18 06:45 Dose: 40 mg Pyrazinamide (Pza) 1,000 mg PO DAILY [facility] Stop: 04/07/18 08:59 Last Admin: 02/07/18 09:54 Dose: 1,000 mg Pyridoxine HCl (Vitamin B6) 50 mg PO DAILY [facility] Stop: 03/23/18 08:59 Last Admin: 02/07/18 09:54 Dose: 50 mg Rifampin (Rifadin) 450 mg PO DAILY [facility] Stop: 04/07/18 10:59 Last Admin: 02/07/18 09:55 Dose: 450 mg General: no acute distress, well developed, well nourished HEENT: atraumatic, normocephalic, PERRLA, EOMI Neck: supple, no thyromegaly Cardiovascular: S1S2, regular Lungs: clear to auscultation bilaterally, clear to percussion Abdomen: soft, no tender, no distended, no mass Extremities: no cyanosis, no clubbing, no edema Neurological: awake, alert, oriented Skin: intact - Procedures Procedures: Procedures Procedure Code Date EXTRACTION OF R MID LUNG LOBE, PERC ENDO APPROACH, DIAGN [id number] 01/03/18 PERCUT BX LUNG/MEDIASTINUM 14825 01/03/18 Infectious Disease Assmt/Plan - Problem List Patient Problems: All Active Problems Dementia (Acute) F03.90 GERD (gastroesophageal reflux disease) (Acute) K21.9 Hyperlipidemia (Acute) E78.5 Osteoarthritis (Acute) M19.90 Pneumonia (Acute) J18.9 - Assessment Assessment: Impression: 1. 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 suspect pulmonary tuberculosis. other diagnosis has to be ruled out. 2. DM2 3. Depression. 4. MRSA colonization. - Plan Plan: Continue anti TB RIPE therapy. change dosage of the meds as per [facility] recommendations. If AFB culture, come negative may consider alternate etiology. As per the staff, the Public health department has cleared for discharge and isolation. May dc to SNF or accepting facility. DC isolation. Nutritional Asmnt/Malnutr-PDOC - Dietary Evaluation Malnutrition Findings (Please click <Entered> for more info): Nutritional Asmnt/Malnutrition Start: 01/08/18 16: 30 Text: Status: Complete Freq: Document 01/08/18 16:30 LCH[facility] (Rec: 01/08/18 16:43 [facility]-[email or web address]) Nutritional Asmnt/Malnutrition Patient General Information Nutritional Screening Moderate Risk Diagnosis PNA Pertinent Medical Hx/Surgical Hx HTN, DM, renal failure, GERD, dementia, hyperlipidemia Subjective Information Pt seen eaing lunch on bed, airbone isolated. Spoke with RN, RN reported pt eats well, prefer hard boiled egg instead of scrambed, tea instead of coffee. Per records, PO intake 75-100% Current Diet Order/ Nutrition Support regular Pertinent Medications culturelle, protonix, levaquin Pertinent Labs 01/06 na 140, K 4.1, Cl 111, BUN 25, Cr 1.1 Nutritional Hx/Data Height 1.68 m Height (Calculated Centimeters) 167.6 Current Weight (lbs) 44.906 kg Weight (Calculated Kilograms) 44.9 Weight (Calculated Grams) 49727.6 [place] Body Weight 142 % [place] Body Weight 70 Body Mass Index (BMI) 16.0 Weight Status Underweight GI Symptoms GI Symptoms None Last BM 01/07 Difficult in: None Skin Integrity/Comment: scar to let shoulder and left hip Estimated Nutritional Goals Calories/Kcals/Kg 25-30 based on IBW 65kg Kcals Calculated 1240-4066 Protein g/k-1.2 Protein Calculated 65-78 Fluid: ml 1625-1950ml (1ml/kcal) Nutritional Problem 1. Problem Problem underweight Etiology possible inadequate energy intake Signs/Symptoms: BMI 16 Intervention/Recommendation Comments 1. Continue with regular diet as ordered. 2. Monitor PO intake, wt, labs and skin integrity 3. F/U as low risk in 7 days, 01/15, PO check 01/12 Expected Outcomes/Goals Expected Outcomes/Goals 1. PO intake to meet at least 75% of nutritional needs. 2. Wt stability, skin to remain intact, labs to approach WNL.
--- NOTE | 2018-02-07 18:15 | Consultation ---
DATE OF CONSULTATION: 02/07/2018 HISTORY OF PRESENT ILLNESS: The patient remains somewhat forgetful, demanding, wanting to go home, but at the same time wants treatment. Noted to be restless still. Staff noting she remains disoriented. P.r.n. medications are helping to calm her down. The patient calm at this time, no distress. MEDICATIONS: Noted. I did discuss with staff as well. ASSESSMENT: The patient has history of dementia, confused and calm at this time. At times, stating she wants to go. PLAN: We will continue to monitor. Continue Ativan as needed for her anxiety. We will monitor and follow up. JOB# [id number]
[2018-02-08] MEDS: Pantoprazole 40 mg EC Tab PO SCH (06:45)
[2018-02-08] MEDS: Albuterol/Ipratropium Neb 3 ML AERS HHN SCH ×3 (08:04→22:42)
[2018-02-08] MEDS: Atenolol 100mg Tab PO SCH (09:43)
[2018-02-08] MEDS: Aspirin 81mg Chewable Tab PO SCH (09:45)
[2018-02-08] MEDS: Lactobacillus Rhamnosus GG 15 Billion CFU CAP.SPRINK PO SCH (09:45)
[2018-02-08] MEDS: Diltiazem CD 120 mg 24H PO SCH (09:45)
--- NOTE | 2018-02-08 11:29 | General Progress Note ---
Subjective - Review of Systems Service Date: 02/08/18 Subjective: pt is in no acute distress denies discomfort and pain Objective - Results Result Diagrams: 02/04/18 06:35 02/04/18 06:35 Recent Labs: Laboratory Last Values WBC 4.9 Th/cmm (4.8-10.8) 02/04/18 06:35 RBC 3.42 Mil/cmm (3.80-5.80) L 02/04/18 06:35 Hgb 8.9 gm/dL (12-16) L 02/04/18 06:35 Hct 27.6 % (41.0-60) L 02/04/18 06:35 MCV 80.5 fl (80-99) 02/04/18 06:35 MCH 26.1 pg (27.0-31.0) L 02/04/18 06:35 MCHC Differential 32.5 pg (28.0-36.0) 02/04/18 06:35 RDW 14.6 % (11.5-20.0) 02/04/18 06:35 Plt Count 205 Th/cmm (150-400) 02/04/18 06:35 MPV 8.9 fl 02/04/18 06:35 Neutrophils % 55.3 % (40.0-80.0) 02/04/18 06:35 Lymphocytes % 28.5 % (20.0-50.0) 02/04/18 06:35 Monocytes % 11.3 % (2.0-10.0) H 02/04/18 06:35 Eosinophils % 4.7 % (0.0-5.0) 02/04/18 06:35 Basophils % 0.2 % (0.0-2.0) 02/04/18 06:35 PT 10.4 SECONDS (9.5-11.5) 01/28/18 06:40 INR 1.00 (0.5-1.4) 01/28/18 06:40 PTT (Actin FS) 21.6 SECONDS (26.0-38.0) L 01/28/18 06:40 Sodium 141 mEq/L (136-145) 02/04/18 06:35 Potassium 4.0 mEq/L (3.5-5.1) 02/04/18 06:35 Chloride 111 mEq/L (98-107) H 02/04/18 06:35 Carbon Dioxide 23.1 mEq/L (21.0-31.0) 02/04/18 06:35 Anion Gap 10.9 (7.0-16.0) 02/04/18 06:35 BUN 27 mg/dL (7-25) H 02/04/18 06:35 Creatinine 1.0 mg/dL (0.7-1.3) 02/04/18 06:35 Est GFR ( Amer) TNP 02/04/18 06:35 Est GFR (Non-Af Amer) TNP 02/04/18 06:35 BUN/Creatinine Ratio 27.0 02/04/18 06:35 Glucose 87 mg/dL (70-105) 02/04/18 06:35 Calcium 9.5 mg/dL (8.6-10.3) 02/04/18 06:35 Total Bilirubin 0.2 mg/dL (0.3-1.0) L 02/04/18 06:35 Direct Bilirubin 0.10 mg/dL (0.0-0.2) 01/25/18 06:00 AST 14 U/L (13-39) 02/04/18 06:35 ALT 6 U/L (7-52) L 02/04/18 06:35 Alkaline Phosphatase 76 U/L (34-104) 02/04/18 06:35 Total Protein 6.5 gm/dL (6.0-8.3) 02/04/18 06:35 Albumin 3.2 gm/dL (4.2-5.5) L 02/04/18 06:35 Globulin 3.3 gm/dL 02/04/18 06:35 Albumin/Globulin Ratio 1.0 (1.0-1.8) 02/04/18 06:35 Vancomycin Trough 16.6 ug/mL (10-20) 01/16/18 08:00 Coccidioides Ab Negative (Neg:<1:2) 01/10/18 06:06 Histoplasma Antigen SEE REF. LAB REPORT 01/07/18 07:15 HIV 1&2 Antibody Screen NEGATIVE (NEG) 01/25/18 06:00 TB (QFT) Gold In Tube 01/19/18 20:00 TB Test (QFT) Mitogen 9.76 IU/mL 01/19/18 20:00 TB Test (QFT) Antigen 0.99 IU/mL 01/19/18 20:00 TB Test Antigen - Nil 0.89 IU/mL 01/19/18 20:00 TB Test TB - Nil 0.10 IU/mL 01/19/18 20:00 TB Test (QFT) Interp (()) 01/19/18 20:00 - Physical Exam Vitals and I&O: Vital Signs Temp 97.7 F 02/08/18 09:12 Pulse 71 02/08/18 09:45 Resp 17 02/08/18 09:12 BP 149/55 02/08/18 09:12 Pulse Ox 97 02/08/18 09:12 Intake & Output 02/07/18 02/08/18 02/08/18 18:59 06:59 18:59 Intake Total 800 300 Output Total 1 400 Balance 799 -100 Weight (lbs) 44.452 kg 44.452 kg Intake: Oral 800 300 Output: Urine 400 Stool 1 Other: # Voids 3 # Bowel Movements 1 Stool Characteristics Soft Brown Weight Source Bedscale Bedscale Active Medications: Current Medications Acetaminophen (Tylenol) 650 mg PO Q4HR PRN PRN Reason: Mild Pain / Temp above 100 Stop: 03/05/18 08:05 Last Admin: 01/25/18 20:24 Dose: 650 mg Al Hydrox/Mg Hydrox/Simethicone (Maalox) 30 ml PO Q4HR PRN PRN Reason: GI DISTRESS Stop: 03/05/18 08:05 Last Admin: 01/06/18 14:43 Dose: 30 ml Albuterol/Ipratropium (Duoneb Neb) 3 ml HHN Q8HRT [facility] Stop: 03/05/18 14:59 Last Admin: 02/08/18 08:04 Dose: 3 ml Aspirin (Aspirin Chewable) 81 mg PO DAILY [facility] Stop: 03/05/18 08:59 Last Admin: 02/08/18 09:45 Dose: 81 mg Atenolol (Tenormin) 100 mg PO DAILY [facility] Stop: 03/05/18 08:59 Last Admin: 02/08/18 09:43 Dose: 100 mg Atorvastatin Calcium (Lipitor) 40 mg PO DAILY [facility] PRN Reason: Protocol Stop: 03/05/18 08:59 Last Admin: 02/08/18 09:44 Dose: 40 mg Diltiazem HCl (Cardizem Cd) 120 mg PO DAILY [facility] Stop: 03/05/18 08:59 Last Admin: 02/08/18 09:45 Dose: 120 mg Donepezil HCl (Aricept) 10 mg PO DAILY [facility] Stop: 04/04/18 08:59 Last Admin: 02/08/18 09:44 Dose: 10 mg Ethambutol HCl (Myambutol) 800 mg PO DAILY [facility] Stop: 04/07/18 08:59 Last Admin: 02/08/18 09:44 Dose: 800 mg Isoniazid (Inh) 300 mg PO DAILY [facility] Stop: 03/23/18 08:59 Last Admin: 02/08/18 09:44 Dose: 300 mg Lactobacillus Rhamnosus (Culturelle 15b) 1 each PO DAILY [facility] Stop: 03/09/18 08:59 Last Admin: 02/08/18 09:45 Dose: 1 each Lorazepam (Ativan) 0.5 mg PO Q6HR PRN; Protocol PRN Reason: Agitation Stop: 04/06/18 15:07 Magnesium Hydroxide (Milk Of Magnesia) 30 ml PO HS PRN PRN Reason: Constipation Stop: 03/05/18 08:05 Last Admin: 01/06/18 14:43 Dose: 30 ml Pantoprazole Sodium (Protonix) 40 mg PO DAILY@0730 [facility] Stop: 03/05/18 08:59 Last Admin: 02/08/18 06:45 Dose: 40 mg Pyrazinamide (Pza) 1,000 mg PO DAILY [facility] Stop: 04/07/18 08:59 Last Admin: 02/08/18 09:44 Dose: 1,000 mg Pyridoxine HCl (Vitamin B6) 50 mg PO DAILY [facility] Stop: 03/23/18 08:59 Last Admin: 02/08/18 09:45 Dose: 50 mg Rifampin (Rifadin) 450 mg PO DAILY [facility] Stop: 04/07/18 10:59 Last Admin: 02/08/18 09:44 Dose: 450 mg General: No acute distress HEENT: Atraumatic Neck: Thyromegaly Cardiovascular: Regular rate, Normal S1, Normal S2 Lungs: Clear to auscultation - Procedures Procedures: Procedures Procedure Code Date EXTRACTION OF R MID LUNG LOBE, PERC ENDO APPROACH, DIAGN [id number] 01/03/18 PERCUT BX LUNG/MEDIASTINUM 70780 01/03/18 Assessment/Plan - Problem List Patient Problems: All Active Problems Dementia (Acute) F03.90 GERD (gastroesophageal reflux disease) (Acute) K21.9 Hyperlipidemia (Acute) E78.5 Osteoarthritis (Acute) M19.90 Pneumonia (Acute) J18.9 - Plan Plan: cpm Nutritional Asmnt/Malnutr-PDOC - Dietary Evaluation Malnutrition Findings (Please click <Entered> for more info): Nutritional Asmnt/Malnutrition Start: 01/08/18 16: 30 Text: Status: Complete Freq: Document 01/08/18 16:30 LCHENG (Rec: 01/08/18 16:43 LCHENG [email or web address]) Nutritional Asmnt/Malnutrition Patient General Information Nutritional Screening Moderate Risk Diagnosis PNA Pertinent Medical Hx/Surgical Hx HTN, DM, renal failure, GERD, dementia, hyperlipidemia Subjective Information Pt seen eaing lunch on bed, airbone isolated. Spoke with RN, RN reported pt eats well, prefer hard boiled egg instead of scrambed, tea instead of coffee. Per records, PO intake 75-100% Current Diet Order/ Nutrition Support regular Pertinent Medications culturelle, protonix, levaquin Pertinent Labs 01/06 na 140, K 4.1, Cl 111, BUN 25, Cr 1.1 Nutritional Hx/Data Height 1.68 m Height (Calculated Centimeters) 167.6 Current Weight (lbs) 44.906 kg Weight (Calculated Kilograms) 44.9 Weight (Calculated Grams) 64033.6 [place] Body Weight 142 % [place] Body Weight 70 Body Mass Index (BMI) 16.0 Weight Status Underweight GI Symptoms GI Symptoms None Last BM 01/07 Difficult in: None Skin Integrity/Comment: scar to let shoulder and left hip Estimated Nutritional Goals Calories/Kcals/Kg 25-30 based on IBW 65kg Kcals Calculated 5762-8127 Protein g/k-1.2 Protein Calculated 65-78 Fluid: ml 1625-1950ml (1ml/kcal) Nutritional Problem 1. Problem Problem underweight Etiology possible inadequate energy intake Signs/Symptoms: BMI 16 Intervention/Recommendation Comments 1. Continue with regular diet as ordered. 2. Monitor PO intake, wt, labs and skin integrity 3. F/U as low risk in 7 days, 01/15, PO check 01/12 Expected Outcomes/Goals Expected Outcomes/Goals 1. PO intake to meet at least 75% of nutritional needs. 2. Wt stability, skin to remain intact, labs to approach WNL.
--- NOTE | 2018-02-08 14:00 | Infectious Disease Prog Note ---
Infectious Disease Subjective - Review of Systems Service Date: 02/08/18 Subjective: There is no new change, no fever. Infectious Disease Objective - Results Result Diagrams: 02/04/18 06:35 02/04/18 06:35 Recent Labs: Laboratory Last Values WBC 4.9 Th/cmm (4.8-10.8) 02/04/18 06:35 RBC 3.42 Mil/cmm (3.80-5.80) L 02/04/18 06:35 Hgb 8.9 gm/dL (12-16) L 02/04/18 06:35 Hct 27.6 % (41.0-60) L 02/04/18 06:35 MCV 80.5 fl (80-99) 02/04/18 06:35 MCH 26.1 pg (27.0-31.0) L 02/04/18 06:35 MCHC Differential 32.5 pg (28.0-36.0) 02/04/18 06:35 RDW 14.6 % (11.5-20.0) 02/04/18 06:35 Plt Count 205 Th/cmm (150-400) 02/04/18 06:35 MPV 8.9 fl 02/04/18 06:35 Neutrophils % 55.3 % (40.0-80.0) 02/04/18 06:35 Lymphocytes % 28.5 % (20.0-50.0) 02/04/18 06:35 Monocytes % 11.3 % (2.0-10.0) H 02/04/18 06:35 Eosinophils % 4.7 % (0.0-5.0) 02/04/18 06:35 Basophils % 0.2 % (0.0-2.0) 02/04/18 06:35 PT 10.4 SECONDS (9.5-11.5) 01/28/18 06:40 INR 1.00 (0.5-1.4) 01/28/18 06:40 PTT (Actin FS) 21.6 SECONDS (26.0-38.0) L 01/28/18 06:40 Sodium 141 mEq/L (136-145) 02/04/18 06:35 Potassium 4.0 mEq/L (3.5-5.1) 02/04/18 06:35 Chloride 111 mEq/L (98-107) H 02/04/18 06:35 Carbon Dioxide 23.1 mEq/L (21.0-31.0) 02/04/18 06:35 Anion Gap 10.9 (7.0-16.0) 02/04/18 06:35 BUN 27 mg/dL (7-25) H 02/04/18 06:35 Creatinine 1.0 mg/dL (0.7-1.3) 02/04/18 06:35 Est GFR ( Amer) TNP 02/04/18 06:35 Est GFR (Non-Af Amer) TNP 02/04/18 06:35 BUN/Creatinine Ratio 27.0 02/04/18 06:35 Glucose 87 mg/dL (70-105) 02/04/18 06:35 Calcium 9.5 mg/dL (8.6-10.3) 02/04/18 06:35 Total Bilirubin 0.2 mg/dL (0.3-1.0) L 02/04/18 06:35 Direct Bilirubin 0.10 mg/dL (0.0-0.2) 01/25/18 06:00 AST 14 U/L (13-39) 02/04/18 06:35 ALT 6 U/L (7-52) L 02/04/18 06:35 Alkaline Phosphatase 76 U/L (34-104) 02/04/18 06:35 Total Protein 6.5 gm/dL (6.0-8.3) 02/04/18 06:35 Albumin 3.2 gm/dL (4.2-5.5) L 02/04/18 06:35 Globulin 3.3 gm/dL 02/04/18 06:35 Albumin/Globulin Ratio 1.0 (1.0-1.8) 02/04/18 06:35 Vancomycin Trough 16.6 ug/mL (10-20) 01/16/18 08:00 Coccidioides Ab Negative (Neg:<1:2) 01/10/18 06:06 Histoplasma Antigen SEE REF. LAB REPORT 01/07/18 07:15 HIV 1&2 Antibody Screen NEGATIVE (NEG) 01/25/18 06:00 TB (QFT) Gold In Tube 01/19/18 20:00 TB Test (QFT) Mitogen 9.76 IU/mL 01/19/18 20:00 TB Test (QFT) Antigen 0.99 IU/mL 01/19/18 20:00 TB Test Antigen - Nil 0.89 IU/mL 01/19/18 20:00 TB Test TB - Nil 0.10 IU/mL 01/19/18 20:00 TB Test (QFT) Interp (()) 01/19/18 20:00 - Physical Exam Vitals and I&O: Vital Signs Temp 97.5 F 02/08/18 12:10 Pulse 64 02/08/18 12:10 Resp 18 02/08/18 12:10 BP 128/63 02/08/18 12:10 Pulse Ox 99 02/08/18 12:10 Intake & Output 02/07/18 02/08/18 02/08/18 18:59 06:59 18:59 Intake Total 800 300 200 Output Total 1 400 Balance 799 -100 200 Weight (lbs) 44.452 kg 44.452 kg 44.452 kg Intake: Oral 800 300 200 Output: Urine 400 Stool 1 Other: # Voids 3 # Bowel Movements 1 Stool Characteristics Soft Brown Weight Source Bedscale Bedscale Bedscale Active Medications: Current Medications Acetaminophen (Tylenol) 650 mg PO Q4HR PRN PRN Reason: Mild Pain / Temp above 100 Stop: 03/05/18 08:05 Last Admin: 01/25/18 20:24 Dose: 650 mg Al Hydrox/Mg Hydrox/Simethicone (Maalox) 30 ml PO Q4HR PRN PRN Reason: GI DISTRESS Stop: 03/05/18 08:05 Last Admin: 01/06/18 14:43 Dose: 30 ml Albuterol/Ipratropium (Duoneb Neb) 3 ml HHN Q8HRT [facility]S [facility] 234 BEDS AT [facility] Stop: 03/05/18 14:59 Last Admin: 02/08/18 08:04 Dose: 3 ml Aspirin (Aspirin Chewable) 81 mg PO DAILY [facility] 234 BEDS AT [facility] Stop: 03/05/18 08:59 Last Admin: 02/08/18 09:45 Dose: 81 mg Atenolol (Tenormin) 100 mg PO DAILY [facility]CLUDE 234 BEDS AT [facility] Stop: 03/05/18 08:59 Last Admin: 02/08/18 09:43 Dose: 100 mg Atorvastatin Calcium (Lipitor) 40 mg PO DAILY [facility]CLUDE 234 BEDS AT THE [facility] PRN Reason: Protocol Stop: 03/05/18 08:59 Last Admin: 02/08/18 09:44 Dose: 40 mg Diltiazem HCl (Cardizem Cd) 120 mg PO DAILY [facility]CLUDE 234 BEDS AT [facility] Stop: 03/05/18 08:59 Last Admin: 02/08/18 09:45 Dose: 120 mg Donepezil HCl (Aricept) 10 mg PO DAILY [facility] Stop: 04/04/18 08:59 Last Admin: 02/08/18 09:44 Dose: 10 mg Ethambutol HCl (Myambutol) 800 mg PO DAILY [facility] Stop: 04/07/18 08:59 Last Admin: 02/08/18 09:44 Dose: 800 mg Isoniazid (Inh) 300 mg PO DAILY [facility] Stop: 03/23/18 08:59 Last Admin: 02/08/18 09:44 Dose: 300 mg Lactobacillus Rhamnosus (Culturelle 15b) 1 each PO DAILY [facility] Stop: 03/09/18 08:59 Last Admin: 02/08/18 09:45 Dose: 1 each Lorazepam (Ativan) 0.5 mg PO Q6HR PRN; Protocol PRN Reason: Agitation Stop: 04/06/18 15:07 Magnesium Hydroxide (Milk Of Magnesia) 30 ml PO HS PRN PRN Reason: Constipation Stop: 03/05/18 08:05 Last Admin: 01/06/18 14:43 Dose: 30 ml Pantoprazole Sodium (Protonix) 40 mg PO DAILY@0730 [facility]S INCLUDE 234 BEDS AT [facility] Stop: 03/05/18 08:59 Last Admin: 02/08/18 06:45 Dose: 40 mg Pyrazinamide (Pza) 1,000 mg PO DAILY [facility] Stop: 04/07/18 08:59 Last Admin: 02/08/18 09:44 Dose: 1,000 mg Pyridoxine HCl (Vitamin B6) 50 mg PO DAILY [facility] Stop: 03/23/18 08:59 Last Admin: 02/08/18 09:45 Dose: 50 mg Rifampin (Rifadin) 450 mg PO DAILY [facility]CLUDE 234 BEDS AT [facility] Stop: 04/07/18 10:59 Last Admin: 02/08/18 09:44 Dose: 450 mg General: no acute distress, well developed, well nourished HEENT: atraumatic, normocephalic, PERRLA, EOMI Neck: supple, no thyromegaly Cardiovascular: S1S2, regular Lungs: clear to auscultation bilaterally, clear to percussion Abdomen: soft, no tender, no distended, no mass Extremities: no cyanosis, no clubbing, no edema Neurological: awake, alert, oriented Skin: intact - Procedures Procedures: Procedures Procedure Code Date EXTRACTION OF R MID LUNG LOBE, PERC ENDO APPROACH, DIAGN [id number] 01/03/18 PERCUT BX LUNG/MEDIASTINUM 88396 01/03/18 Infectious Disease Assmt/Plan - Problem List Patient Problems: All Active Problems Dementia (Acute) F03.90 GERD (gastroesophageal reflux disease) (Acute) K21.9 Hyperlipidemia (Acute) E78.5 Osteoarthritis (Acute) M19.90 Pneumonia (Acute) J18.9 - Assessment Assessment: Impression: 1. 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 suspect pulmonary tuberculosis. other diagnosis has to be ruled out. 2. DM2 3. Depression. 4. MRSA colonization. - Plan Plan: Continue anti TB RIPE therapy. change dosage of the meds as per [facility] recommendations. If AFB culture, come negative may consider alternate etiology. As per the staff, the Public health department has cleared for discharge and isolation. May dc to SNF or accepting facility. DC isolation. Nutritional Asmnt/Malnutr-PDOC - Dietary Evaluation Malnutrition Findings (Please click <Entered> for more info): Nutritional Asmnt/Malnutrition Start: 01/08/18 16: 30 Text: Status: Complete Freq: Document 01/08/18 16:30 LCHENG (Rec: 01/08/18 16:43 [facility][email or web address]) Nutritional Asmnt/Malnutrition Patient General Information Nutritional Screening Moderate Risk Diagnosis PNA Pertinent Medical Hx/Surgical Hx HTN, DM, renal failure, GERD, dementia, hyperlipidemia Subjective Information Pt seen eaing lunch on bed, airbone isolated. Spoke with RN, RN reported pt eats well, prefer hard boiled egg instead of scrambed, tea instead of coffee. Per records, PO intake 75-100% Current Diet Order/ Nutrition Support regular Pertinent Medications culturelle, protonix, levaquin Pertinent Labs 01/06 na 140, K 4.1, Cl 111, BUN 25, Cr 1.1 Nutritional Hx/Data Height 1.68 m Height (Calculated Centimeters) 167.6 Current Weight (lbs) 44.906 kg Weight (Calculated Kilograms) 44.9 Weight (Calculated Grams) 55903.6 [place] Body Weight 142 % [place] Body Weight 70 Body Mass Index (BMI) 16.0 Weight Status Underweight GI Symptoms GI Symptoms None Last BM 01/07 Difficult in: None Skin Integrity/Comment: scar to let shoulder and left hip Estimated Nutritional Goals Calories/Kcals/Kg 25-30 based on IBW 65kg Kcals Calculated 2138-5074 Protein g/k-1.2 Protein Calculated 65-78 Fluid: ml 1625-1950ml (1ml/kcal) Nutritional Problem 1. Problem Problem underweight Etiology possible inadequate energy intake Signs/Symptoms: BMI 16 Intervention/Recommendation Comments 1. Continue with regular diet as ordered. 2. Monitor PO intake, wt, labs and skin integrity 3. F/U as low risk in 7 days, 01/15, PO check 01/12 Expected Outcomes/Goals Expected Outcomes/Goals 1. PO intake to meet at least 75% of nutritional needs. 2. Wt stability, skin to remain intact, labs to approach WNL.
[2018-02-09] MEDS: Pantoprazole 40 mg EC Tab PO SCH ×2 (06:52→09:34)
[2018-02-09] MEDS: Albuterol/Ipratropium Neb 3 ML AERS HHN SCH ×2 (08:00→15:36)
[2018-02-09] MEDS: Diltiazem CD 120 mg 24H PO SCH ×2 (08:43→09:00)
[2018-02-09] MEDS: Atenolol 100mg Tab PO SCH (08:43)
[2018-02-09] MEDS: Lactobacillus Rhamnosus GG 15 Billion CFU CAP.SPRINK PO SCH ×2 (08:43→09:34)
[2018-02-09] MEDS: Aspirin 81mg Chewable Tab PO SCH ×2 (08:44→09:34)
--- NOTE | 2018-02-09 10:20 | Progress Notes ---
DATE: SUBJECTIVE: Chart reviewed and the patient interviewed. Also discussed the patient's condition with the staff and reviewed records and labs. The patient seems to be less anxious and he is cooperative with his treatment and he is trying to interact more. The patient also seems to be slightly depressed, but no major behavioral issues. The patient also denies any thoughts of suicide or homicide. ASSESSMENT: The patient is showing no major behavioral problems. TREATMENT PLAN: We will continue current treatment and continue to monitor his condition and continue supportive therapy for the patient. [facility]# [id number]
--- NOTE | 2018-02-09 13:18 | Infectious Disease Prog Note ---
Infectious Disease Subjective - Review of Systems Service Date: 02/09/18 Subjective: There is no new change, no fever. Infectious Disease Objective - Results Result Diagrams: 02/04/18 06:35 02/04/18 06:35 Recent Labs: Laboratory Last Values WBC 4.9 Th/cmm (4.8-10.8) 02/04/18 06:35 RBC 3.42 Mil/cmm (3.80-5.80) L 02/04/18 06:35 Hgb 8.9 gm/dL (12-16) L 02/04/18 06:35 Hct 27.6 % (41.0-60) L 02/04/18 06:35 MCV 80.5 fl (80-99) 02/04/18 06:35 MCH 26.1 pg (27.0-31.0) L 02/04/18 06:35 MCHC Differential 32.5 pg (28.0-36.0) 02/04/18 06:35 RDW 14.6 % (11.5-20.0) 02/04/18 06:35 Plt Count 205 Th/cmm (150-400) 02/04/18 06:35 MPV 8.9 fl 02/04/18 06:35 Neutrophils % 55.3 % (40.0-80.0) 02/04/18 06:35 Lymphocytes % 28.5 % (20.0-50.0) 02/04/18 06:35 Monocytes % 11.3 % (2.0-10.0) H 02/04/18 06:35 Eosinophils % 4.7 % (0.0-5.0) 02/04/18 06:35 Basophils % 0.2 % (0.0-2.0) 02/04/18 06:35 PT 10.4 SECONDS (9.5-11.5) 01/28/18 06:40 INR 1.00 (0.5-1.4) 01/28/18 06:40 PTT (Actin FS) 21.6 SECONDS (26.0-38.0) L 01/28/18 06:40 Sodium 141 mEq/L (136-145) 02/04/18 06:35 Potassium 4.0 mEq/L (3.5-5.1) 02/04/18 06:35 Chloride 111 mEq/L (98-107) H 02/04/18 06:35 Carbon Dioxide 23.1 mEq/L (21.0-31.0) 02/04/18 06:35 Anion Gap 10.9 (7.0-16.0) 02/04/18 06:35 BUN 27 mg/dL (7-25) H 02/04/18 06:35 Creatinine 1.0 mg/dL (0.7-1.3) 02/04/18 06:35 Est GFR ( Amer) TNP 02/04/18 06:35 Est GFR (Non-Af Amer) TNP 02/04/18 06:35 BUN/Creatinine Ratio 27.0 02/04/18 06:35 Glucose 87 mg/dL (70-105) 02/04/18 06:35 Calcium 9.5 mg/dL (8.6-10.3) 02/04/18 06:35 Total Bilirubin 0.2 mg/dL (0.3-1.0) L 02/04/18 06:35 Direct Bilirubin 0.10 mg/dL (0.0-0.2) 01/25/18 06:00 AST 14 U/L (13-39) 02/04/18 06:35 ALT 6 U/L (7-52) L 02/04/18 06:35 Alkaline Phosphatase 76 U/L (34-104) 02/04/18 06:35 Total Protein 6.5 gm/dL (6.0-8.3) 02/04/18 06:35 Albumin 3.2 gm/dL (4.2-5.5) L 02/04/18 06:35 Globulin 3.3 gm/dL 02/04/18 06:35 Albumin/Globulin Ratio 1.0 (1.0-1.8) 02/04/18 06:35 Vancomycin Trough 16.6 ug/mL (10-20) 01/16/18 08:00 Coccidioides Ab Negative (Neg:<1:2) 01/10/18 06:06 Histoplasma Antigen SEE REF. LAB REPORT 01/07/18 07:15 HIV 1&2 Antibody Screen NEGATIVE (NEG) 01/25/18 06:00 TB (QFT) Gold In Tube 01/19/18 20:00 TB Test (QFT) Mitogen 9.76 IU/mL 01/19/18 20:00 TB Test (QFT) Antigen 0.99 IU/mL 01/19/18 20:00 TB Test Antigen - Nil 0.89 IU/mL 01/19/18 20:00 TB Test TB - Nil 0.10 IU/mL 01/19/18 20:00 TB Test (QFT) Interp (()) 01/19/18 20:00 - Physical Exam Vitals and I&O: Vital Signs Temp 97.8 F 02/09/18 08:00 Pulse 63 02/09/18 08:02 Resp 18 02/09/18 08:02 BP 147/52 02/09/18 08:00 Pulse Ox 97 02/09/18 08:02 Intake & Output 02/08/18 02/09/18 02/09/18 18:59 06:59 18:59 Intake Total 600 200 Output Total 500 450 Balance 100 -450 200 Weight (lbs) 44.452 kg 44.452 kg 44.452 kg Intake: Oral 600 200 Output: Urine 500 450 Other: # Bowel Movements 1 0 Weight Source Bedscale Bedscale Bedscale Active Medications: Current Medications Acetaminophen (Tylenol) 650 mg PO Q4HR PRN PRN Reason: Mild Pain / Temp above 100 Stop: 03/05/18 08:05 Last Admin: 01/25/18 20:24 Dose: 650 mg Al Hydrox/Mg Hydrox/Simethicone (Maalox) 30 ml PO Q4HR PRN PRN Reason: GI DISTRESS Stop: 03/05/18 08:05 Last Admin: 01/06/18 14:43 Dose: 30 ml Albuterol/Ipratropium (Duoneb Neb) 3 ml HHN Q8HRT [facility] Stop: 03/05/18 14:59 Last Admin: 02/09/18 08:00 Dose: 3 ml Aspirin (Aspirin Chewable) 81 mg PO DAILY [facility] Stop: 03/05/18 08:59 Last Admin: 02/09/18 09:34 Dose: 81 mg Atenolol (Tenormin) 100 mg PO DAILY [facility] Stop: 03/05/18 08:59 Last Admin: 02/09/18 08:43 Dose: Not Given Atorvastatin Calcium (Lipitor) 40 mg PO DAILY [facility] PRN Reason: Protocol Stop: 03/05/18 08:59 Last Admin: 02/09/18 08:43 Dose: Not Given Diltiazem HCl (Cardizem Cd) 120 mg PO DAILY [facility] Stop: 03/05/18 08:59 Last Admin: 02/08/18 09:45 Dose: 120 mg Donepezil HCl (Aricept) 10 mg PO DAILY [facility] Stop: 04/04/18 08:59 Last Admin: 02/09/18 09:34 Dose: 10 mg Ethambutol HCl (Myambutol) 800 mg PO DAILY [facility] Stop: 04/07/18 08:59 Last Admin: 02/09/18 09:34 Dose: 800 mg Isoniazid (Inh) 300 mg PO DAILY [facility] Stop: 03/23/18 08:59 Last Admin: 02/09/18 09:33 Dose: 300 mg Lactobacillus Rhamnosus (Culturelle 15b) 1 each PO DAILY [facility] Stop: 03/09/18 08:59 Last Admin: 02/09/18 09:34 Dose: 1 each Lorazepam (Ativan) 0.5 mg PO Q6HR PRN; Protocol PRN Reason: Agitation Stop: 04/06/18 15:07 Magnesium Hydroxide (Milk Of Magnesia) 30 ml PO HS PRN PRN Reason: Constipation Stop: 03/05/18 08:05 Last Admin: 01/06/18 14:43 Dose: 30 ml Pantoprazole Sodium (Protonix) 40 mg PO DAILY@0730 [facility] Stop: 03/05/18 08:59 Last Admin: 02/09/18 09:34 Dose: 40 mg Pyrazinamide (Pza) 1,000 mg PO DAILY [facility] Stop: 04/07/18 08:59 Last Admin: 02/09/18 09:34 Dose: 1,000 mg Pyridoxine HCl (Vitamin B6) 50 mg PO DAILY [facility] Stop: 03/23/18 08:59 Last Admin: 02/09/18 09:34 Dose: 50 mg Rifampin (Rifadin) 450 mg PO DAILY [facility] Stop: 04/07/18 10:59 Last Admin: 02/09/18 09:33 Dose: 450 mg General: no acute distress, well developed, well nourished HEENT: atraumatic, normocephalic, PERRLA, EOMI, moist mucous membrane Neck: supple, no thyromegaly, no lymphadenopathy, no rigid Cardiovascular: S1S2, regular, systolic murmur Lungs: clear to auscultation bilaterally, clear to percussion Abdomen: soft, tender, hepatomegaly, no distended Extremities: cyanosis, clubbing, edema Neurological: awake, alert, oriented Skin: intact - Procedures Procedures: Procedures Procedure Code Date EXTRACTION OF R MID LUNG LOBE, PERC ENDO APPROACH, DIAGN [id number] 01/03/18 PERCUT BX LUNG/MEDIASTINUM 72883 01/03/18 Infectious Disease Assmt/Plan - Problem List Patient Problems: All Active Problems Dementia (Acute) F03.90 GERD (gastroesophageal reflux disease) (Acute) K21.9 Hyperlipidemia (Acute) E78.5 Osteoarthritis (Acute) M19.90 Pneumonia (Acute) J18.9 - Assessment Assessment: Impression: 1. 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 suspect pulmonary tuberculosis. other diagnosis has to be ruled out. 2. DM2 3. Depression. 4. MRSA colonization. - Plan Plan: Continue anti TB RIPE therapy. change dosage of the meds as per [facility] recommendations. If AFB culture, come negative may consider alternate etiology. As per the staff, the Public health department has cleared for discharge and isolation. May dc to SNF or accepting facility. DC isolation. waiting for path report. Nutritional Asmnt/Malnutr-PDOC - Dietary Evaluation Malnutrition Findings (Please click <Entered> for more info): Nutritional Asmnt/Malnutrition Start: 01/08/18 16: 30 Text: Status: Complete Freq: Document 01/08/18 16:30 [facility] (Rec: 01/08/18 16:43 [email or web address] Nutritional Asmnt/Malnutrition Patient General Information Nutritional Screening Moderate Risk Diagnosis PNA Pertinent Medical Hx/Surgical Hx HTN, DM, renal failure, GERD, dementia, hyperlipidemia Subjective Information Pt seen eaing lunch on bed, airbone isolated. Spoke with RN, RN reported pt eats well, prefer hard boiled egg instead of scrambed, tea instead of coffee. Per records, PO intake 75-100% Current Diet Order/ Nutrition Support regular Pertinent Medications culturelle, protonix, levaquin Pertinent Labs 01/06 na 140, K 4.1, Cl 111, BUN 25, Cr 1.1 Nutritional Hx/Data Height 1.68 m Height (Calculated Centimeters) 167.6 Current Weight (lbs) 44.906 kg Weight (Calculated Kilograms) 44.9 Weight (Calculated Grams) 65694.6 [place] Body Weight 142 % [place] Body Weight 70 Body Mass Index (BMI) 16.0 Weight Status Underweight GI Symptoms GI Symptoms None Last BM 01/07 Difficult in: None Skin Integrity/Comment: scar to let shoulder and left hip Estimated Nutritional Goals Calories/Kcals/Kg 25-30 based on IBW 65kg Kcals Calculated 5329-9769 Protein g/k-1.2 Protein Calculated 65-78 Fluid: ml 1625-1950ml (1ml/kcal) Nutritional Problem 1. Problem Problem underweight Etiology possible inadequate energy intake Signs/Symptoms: BMI 16 Intervention/Recommendation Comments 1. Continue with regular diet as ordered. 2. Monitor PO intake, wt, labs and skin integrity 3. F/U as low risk in 7 days, 01/15, PO check 01/12 Expected Outcomes/Goals Expected Outcomes/Goals 1. PO intake to meet at least 75% of nutritional needs. 2. Wt stability, skin to remain intact, labs to approach WNL.
== END 2018-02-09 20:30 | DRG 177 ==
LOC: MSI 22:08
PROVIDERS: ADMIT Internal Medicine; ATTEND Internal Medicine
PROC: 0BDD4ZX Extraction of Right Middle Lung Lobe, Percutaneous Endoscopic Approach, Diagnostic (ICD-10-PCS; principal; 2018-01-28)
DX: A15.0 Tuberculosis of lung (principal); N17.0 Acute kidney failure with tubular necrosis; R04.2 Hemoptysis; J18.9 Pneumonia, unspecified organism; E78.5 Hyperlipidemia, unspecified; F03.90 Unspecified dementia, unspecified severity, without behavioral disturbance, psychotic disturbance, mood disturbance, and anxiety; I10 Essential (primary) hypertension; M19.90 Unspecified osteoarthritis, unspecified site; K21.9 Gastro-esophageal reflux disease without esophagitis; I48.91 Unspecified atrial fibrillation; E11.9 Type 2 diabetes mellitus without complications; F32.9 Major depressive disorder, single episode, unspecified; D64.9 Anemia, unspecified; R91.1 Solitary pulmonary nodule; Z22.322 Carrier or suspected carrier of Methicillin resistant Staphylococcus aureus; Z85.118 Personal history of other malignant neoplasm of bronchus and lung
CPT/HCPCS: 36415-UA; 71045-TC; 71250-TC; 77012-TC; 80048-TC; 80053-TC; 80076-TC; 80202-TC; 85025-TC; 85610-TC; 86480-90; 86635-90; 86703-TC; 87070; 87116-90; 87206-90; 87395-90; 94760; 97530; J0696; J1644; J1956; J3370; J7040; X3904; Z7610